=== PATIENT | male | born 1950 | race Caucasian/White ===

== ENCOUNTER → 2018-04-23 09:13 | Outpatient (CLI) | payer OTHER, SELFPAY ==
[2018-04-23 10:35] LABS: ALB/GLOB Ratio 1.2 RATIO (0.9-2.4); AST(SGOT) 22 U/L (15-37); Alanine Aminotransfer ALT/SGPT 34 U/L (16-61); Alkaline Phosphatase 80 U/L (45-117); Anion Gap 5 (5-15); BUN 12 mg/dL (7-18); BUN/Creat Ratio 10.3 RATIO (10-20); Calcium,Total 8.9 mg/dL (8.5-10.1); Chloride 106 mmol/L (98-107); Cholesterol 271 mg/dL (200); Creatinine, Serum 1.17 mg/dL (0.70-1.30); EST Glomerular Filtration Rate 66 mL/min (>60); Est Glom Filt Rate - Afr Amer 79 mL/min (>60); Globulin 3.4 g/dL (2.2-4.2); Glucose 97 mg/dL (74-106); High Density Lipoprotein 46 mg/dL; Potassium 4.7 mmol/L (3.5-5.1); Protein, Total 7.4 g/dL (6.4-8.2); Sodium Level 141 mmol/L (136-145); Triglycerides 109 mg/dL; Very Low Density Lipoprotein 22 mg/dL (5-40)
[2018-04-24 09:24] LABS: Hep C Antibodies 0.1 s/co ratio (0.0-0.9)
== END ==
PROVIDERS: Family Provider Family Medicine; PCP Family Medicine; Visit Provider Family Medicine
DX: E78.2 Mixed hyperlipidemia (principal); Z11.59 Encounter for screening for other viral diseases
CPT/HCPCS: 36415; 80053; 80061; 86803

== ENCOUNTER → 2018-06-25 09:39 | Outpatient (CLI) | payer OTHER, SELFPAY ==
[2018-06-25 11:35] LABS: AST(SGOT) 20 U/L (15-37); Alanine Aminotransfer ALT/SGPT 30 U/L (16-61); Albumin, Serum 3.8 g/dL (3.2-5.0); Alkaline Phosphatase 93 U/L (45-117); Anion Gap 8 (5-15); BUN 13 mg/dL (7-18); Bilirubin, Direct 0.17 mg/dL (0.00-0.30); Calcium,Total 9.1 mg/dL (8.5-10.1); Chloride 104 mmol/L (98-107); Cholesterol 204 mg/dL (200); Creatinine, Serum 1.08 mg/dL (0.70-1.30); EST Glomerular Filtration Rate 72 mL/min (>60); Est Glom Filt Rate - Afr Amer 87 mL/min (>60); Glucose 93 mg/dL (74-106); High Density Lipoprotein 44 mg/dL; Potassium 4.2 mmol/L (3.5-5.1); Protein, Total 7.8 g/dL (6.4-8.2); Sodium Level 140 mmol/L (136-145); Triglycerides 121 mg/dL; Very Low Density Lipoprotein 24 mg/dL (5-40)
[2018-06-27 03:06] LABS: HCV Quant. RNA PCR HCV Not Detected IU/mL (.)
== END ==
PROVIDERS: Family Provider Family Medicine; PCP Family Medicine; Referring Provider Family Medicine; Visit Provider Family Medicine
DX: E78.2 Mixed hyperlipidemia (principal); Z11.59 Encounter for screening for other viral diseases
CPT/HCPCS: 36415; 80053; 80061; 82248; 87522

== ENCOUNTER 2018-08-12 09:15 | Outpatient (RCR) | payer OTHER, SELFPAY ==
--- NOTE | 2017-10-15 08:59 | MASS.EVAL ---
Massage Therapy Evaluation: Initial Evaluation Date: 10/13/2017 SUBJECTIVE: Otilio is a 67 year old male who is retired. He was referred to the [facility] facility for a massotherapy evaluation by Dr. Rd Styles with the diagnosis of cervical disk disease. Otilio presents today with the symptoms of tension and pain in his neck, upper back and lower back. He reports having a medical history spinal problems and bilateral total knee replacements. He reports having minimal limitations during his daily activities currently. OBJECTIVE: Upon observation Otilio has poor posture with his head forward and shoulders forward from the neutral position in sitting and standing. After examination and palpation I found Otilio to have very high muscle tension in his scalenes, trapezius, rhomboids, and sub occipitals with restrictions in cervical ROM. His thoracic and lumbar paraspinals were tender with muscle knots. His hips and lumbar region were also very tight with tender points. The first treatment consisted of a one hour massage to his full body with myofascial release, muscle stripping and compression techniques. ASSESSMENT: I feel that Otilio is a good candidate for massotherapy at this time. He had a favorable response to the first treatment with reduction in his muscle aches, pain and tension. He also had improvement in his cervical and lumbar range of motion with improved flexibility in his neck and back. PLAN: The plan of care was reviewed with the patient. The patient is to be seen on as needed basis for a total of ten sessions with the recommendation of once every four weeks for a one hour treatment.
--- NOTE | 2018-09-14 16:38 | MASS.DISCH ---
Massage Therapy Discharge Summary: Initial Evaluation: 10/13/2017 Diagnosis: Cervical Disc Disease No. of Visits: Date of last visit: 08/12/2018 This patient is being discharged from our care at the [facility]. Thank you, Radhika Issa LMT
== END 2018-08-12 19:00 | disposition home or self-care (01) ==
LOC: MASS 09:15
PROVIDERS: Family Provider Family Medicine; PCP Family Medicine; Visit Provider Family Medicine
DX: M50.90 Cervical disc disorder, unspecified, unspecified cervical region (principal)
CPT/HCPCS: 97124

== ENCOUNTER → 2018-09-23 12:03 | Outpatient (CLI) | payer OTHER, SELFPAY ==
[2018-09-23 12:56] LABS: PSA,Total - Annual Screen 2.48 ng/mL (0.00-4.00)
== END ==
PROVIDERS: Family Provider Family Medicine; PCP Family Medicine; Referring Provider Urology; Visit Provider Urology
DX: Z12.5 Encounter for screening for malignant neoplasm of prostate (principal)
CPT/HCPCS: 36415; 84153; G0103

== ENCOUNTER 2018-11-15 05:17 | Day surgery (SDC) | payer OTHER, SELFPAY ==
[2017-11-14 09:17] VITALS: BMI 29.7
[2018-11-15] VITALS (8 sets, daily range): BP systolic 96–156; BP diastolic 75–103; PULSE 63–76; RESP 16–18; TEMP 36.1–36.8; O2SAT 95–100; BMI 27.3
--- NOTE | 2018-11-15 06:27 | PCM.HP.STD ---
Problem List (1) Screening for intestinal cancer Status: Acute History of Present Illness Date of Admission: 11/15/18 The patient is a 68 year old M who presents for screening for intestinal cancer. His last colonoscopy was 14 years ago. He denies bright red blood per rectum or melena. No abdominal pain. He otherwise enjoys good health. He does state however that his mother had colon cancer. He has not had any recent hospitalizations and is not on any anticoagulation. He has not had any unexpected weight loss. Past Medical History Medical History: Medical History (Last Updated 11/14/17 @ 09:19 by Yessica Colón) Cancer C80.1 Allergies Penicillins Allergy (Verified 11/15/18 05:37) Unknown Home Medications: Ambulatory Orders Medication Instructions Recorded Biotin 5,000 mcg PO DAILY 11/11/18 Ginkgo Biloba 450 mg PO DAILY 11/11/18 Lovastatin 20 mg PO QHS 11/11/18 [place]-3/Dha/Epa/Fish Oil [Fish Oil 1 each PO DAILY 11/11/18 1,000 mg Softgel] Saw [place] 500 mg PO DAILY 11/11/18 Surgical History: Surgical History (Last Updated 11/14/17 @ 09:19 by Yessica Colón) H/O total knee replacement Z96.659 Surgical History: noncontributory Smoking Status: Never smoker Review of Systems Constitutional: Denies: Anorexia HEENT: Denies: Difficulty Swallowing Cardiovascular: Denies: Chest Pain Respiratory: Denies: Cough Gastrointestinal: Denies: Abdominal Pain, Hematochezia, Melena Musculoskeletal: Denies: Muscle pain Endocrine: Denies: Change in Body Habitus Hematologic/ Lymphatic: Denies: Adenopathy VTE Information - Inpt Only VTE Present on Admission: No Patient Problems: Active and Suspected Problems (Last Updated 11/14/17 @ 09:19 by Yessica Colón) Screening for intestinal cancer (Acute) - Physical Exam General: Alert, Oriented x3, Cooperative, No apparent distress HEENT: Atraumatic Oral: Moist Mucosa Neck: Supple Lungs: Clear to auscultation Cardiovascular: Regular rate, Regular Rhythm Abdomen: Bowel Sounds Present, Soft, Non Tender Extremities: No Calf Tenderness Psych/Mental Status: Normal Affect Vital Signs Temp Pulse Resp BP Pulse Ox 98.2 F 76 18 146/82 H 99 11/15/18 05:38 11/15/18 05:38 11/15/18 05:38 11/15/18 05:38 11/15/18 05:38 Oxygen Delivery Method Room Air Weight: 201 lb 12.8 oz Body Mass Index (BMI) 27.3 Assessment/Plan All Active Problems (Last Updated 11/14/17 @ 09:19 by Yessica Colón) Screening for intestinal cancer (Acute) I recommended the patient a screening colonoscopy with possible biopsy or polypectomy as indicated. He is aware of the technique, benefits, risks and alternatives. He has had an opportunity to ask and have questions answered. He presents via our open access program today. His is Perla. CC: Dr. Jensen Hunt M.D., F.A.C.S.
--- NOTE | 2018-11-15 06:57 | OP.ENDO_ITS ---
11/15/2018 Rd Styles Re : Colonoscopy procedure for Otilio Torrez Dear Jensen This procedure was performed on Thursday, November 15, 2018. My impressions and recommendations are as follows: Impressions : - Enlarged prostate found on digital rectal exam. Will ask pt. to follow up with Dr Styles - Diverticulosis in the sigmoid colon. - The examination was otherwise normal. - No specimens collected. Recommendations : - Discharge patient to home. - Resume previous diet. - Continue present medications. - Repeat colonoscopy in 5 years for surveillance. My findings are described in the full procedure note, which is enclosed. If I can be of further assistance, please feel free to contact me at Doctor phone number(s): Work: . Sincerely, Иван Hunt MD 11/15/2018 6:56:50 AM This report has been signed electronically.
== END 2018-11-15 08:01 | disposition home or self-care (01) ==
LOC: EN 05:18 → AC 05:19
PROVIDERS: Family Provider Family Medicine; PCP Family Medicine; Referring Provider Surgery; Visit Provider Surgery
PROC: 0DJD8ZZ Inspection of Lower Intestinal Tract, Via Natural or Artificial Opening Endoscopic (ICD-10-PCS; CPT 45378; principal; 2018-11-15 06:25)
DX: Z12.11 Encounter for screening for malignant neoplasm of colon (principal); Z80.0 Family history of malignant neoplasm of digestive organs; N40.0 Benign prostatic hyperplasia without lower urinary tract symptoms; K57.30 Diverticulosis of large intestine without perforation or abscess without bleeding
CPT/HCPCS: 45378; 99152; 99153; J7120

== ENCOUNTER → 2019-05-25 16:40 | Outpatient (CLI) | payer OTHER, SELFPAY ==
[2018-11-15 05:38] VITALS: BMI 27.3
[2019-05-25 17:21] LABS: Anion Gap 3 (5-15); BUN 11 mg/dL (7-18); BUN/Creat Ratio 9.7 RATIO (10-20); Calcium,Total 8.8 mg/dL (8.5-10.1); Chloride 107 mmol/L (98-107); Cholesterol 221 mg/dL (200); Creatinine, Serum 1.13 mg/dL (0.70-1.30); EST Glomerular Filtration Rate 68 mL/min (>60); Est Glom Filt Rate - Afr Amer 82 mL/min (>60); Glucose 87 mg/dL (74-106); High Density Lipoprotein 42 mg/dL; Potassium 3.9 mmol/L (3.5-5.1); Sodium Level 137 mmol/L (136-145); Triglycerides 176 mg/dL; Very Low Density Lipoprotein 35 mg/dL (5-40)
== END ==
PROVIDERS: Family Provider Family Medicine; PCP Family Medicine; Referring Provider Family Medicine; Visit Provider Family Medicine
DX: E78.2 Mixed hyperlipidemia (principal); I10 Essential (primary) hypertension
CPT/HCPCS: 36415; 80048; 80061

== ENCOUNTER → 2019-08-18 06:30 | Outpatient (CLI) | payer OTHER, SELFPAY ==
[2018-11-15 05:38] VITALS: BMI 27.3
[2019-08-18 08:00] LABS: AST(SGOT) 25 U/L (15-37); Alanine Aminotransfer ALT/SGPT 39 U/L (16-61); Albumin, Serum 3.6 g/dL (3.2-5.0); Alkaline Phosphatase 82 U/L (45-117); Bilirubin, Direct 0.11 mg/dL (0.00-0.30); CPK Total, Creatine Kinase 163 U/L (39-308); Cholesterol 211 mg/dL (200); Globulin 3.7 g/dL (2.2-4.2); High Density Lipoprotein 39 mg/dL; Protein, Total 7.3 g/dL (6.4-8.2); Triglycerides 150 mg/dL; Very Low Density Lipoprotein 30 mg/dL (5-40)
== END ==
PROVIDERS: Family Provider Family Medicine; PCP Family Medicine; Referring Provider Physician Assistant; Visit Provider Physician Assistant
DX: E78.2 Mixed hyperlipidemia (principal)
CPT/HCPCS: 36415; 80061; 80076; 82550

== ENCOUNTER → 2019-09-02 17:26 | Outpatient (CLI) | payer OTHER, SELFPAY ==
[2018-11-15 05:38] VITALS: BMI 27.3
[2019-08-26 14:33] VITALS: BMI 27.3
--- NOTE | 2019-09-02 17:42 | MRI_ITS ---
STUDY: MRI CERVICAL SPINE WITH AND WITHOUT CONTRAST REASON FOR EXAM: Male, 69 years old. Bilateral radiculopathy TECHNIQUE: Standardized fat and water weighted pulse sequences were obtained in the sagittal and axial following administration of IV dotarem 18 ml. COMPARISON: None FINDINGS: Normal foramen magnum and brainstem-cervical cord junction. Normal craniovertebral junction. Normal anterior atlantoaxial articulation. Normal odontoid process. Decreased cervical lordosis. Normal vertebral bodies and posterior osseous elements. C2-3: Normal endplates. Normal disc height, signal and morphology. Normal central canal and intervertebral neural foramina. C3-4: Normal endplates. Normal disc height, signal and tiny central disc protrusion.. Normal central canal and intervertebral neural foramina. C4-5: Normal endplates. Normal disc height, signal and small right paracentral/posterolateral disc protrusion. Mild narrowing of the central canal and impingement upon the ventral surface of the cord. Moderate right neural foraminal stenosis secondary to disc and bony hypertrophy C5-6: Minor endplate spurring.. Normal disc height, signal and small right paracentral disc protrusion.. Mild narrowing of the central canal and impinging upon the ventral surface of the cord. Normal bilateral Intervertebral neural foramina. C6-7: Narrowed disc space. No focal disc protrusion. Normal central canal. Severe left neuroforaminal stenosis and moderate narrowing on the right secondary to bony hypertrophy. C7-T1: Normal endplates. Normal disc height, signal and morphology. Normal central canal and intervertebral neural foramina. Normal cervical cord. No abnormal enhancement following contrast administration Normal visualized soft tissue structures. MRI/Spine Cervical W/WO Contrast IMPRESSION: No evidence for acute fracture or other significant bony pathology. Multilevel spinal stenosis secondary to disc disease and bony hypertrophy most pronounced at C6-7. Findings as above Electronically Signed: Demetris Chung MD at 19:46 EST , Service support ,
[2019-09-02 19:11] LABS: CREATININE FINGERSTICK 0.9 mg/dL (0.70-1.30); EGFR FINGERSTICK > 60.0000 mL/min (>60)
== END ==
PROVIDERS: Family Provider Family Medicine; PCP Family Medicine; Referring Provider Family Medicine; Visit Provider Family Medicine
DX: M54.12 Radiculopathy, cervical region (principal); M48.02 Spinal stenosis, cervical region
CPT/HCPCS: 72156; A9575

== ENCOUNTER → 2019-09-06 10:10 | Outpatient (CLI) | payer OTHER, SELFPAY ==
[2019-09-06 10:07] VITALS: BMI 27.1
--- NOTE | 2019-09-06 10:15 | RAD_ITS ---
STUDY: X-RAY - CERVICAL SPINE REASON FOR EXAM: Male, 69 years old. Pain and hand tingling TECHNIQUE: 4 view(s) of the cervical spine were obtained. COMPARISON: 02 September 2019 FINDINGS: Craniocervical junction and cervical spine are intact and aligned. There are age-appropriate degenerative changes at C5, C6 and C7. There is no instability between flexion and extension with minimal range of motion. Prevertebral soft tissues are intact. Appearance is concordant with recent MR. RAD/Cerv Spine 4 or 5 Views IMPRESSION: Age-appropriate cervical spine. Electronically Signed: Dwayne Mcelroy, at 18:56 EST Tel , Service support ,
== END ==
PROVIDERS: Family Provider Family Medicine; PCP Family Medicine; Referring Provider Orthopaedic Surgery; Visit Provider Orthopaedic Surgery
DX: M54.2 Cervicalgia (principal)
CPT/HCPCS: 72050

== ENCOUNTER 2019-09-06 10:45 | Outpatient (RCR) | payer OTHER, SELFPAY ==
--- NOTE | 2018-10-20 10:24 | MASS.EVAL ---
Massage Therapy Evaluation: Initial Evaluation Date: 10/18/2018 SUBJECTIVE: Otilio is a 68 year old male who was referred to the [facility] facility for a massotherapy evaluation by Dr. Styles with the diagnosis of cervical disc disease. Otilio presents today with the symptoms of tension and pain in his neck with radiating pain and numbness in bilateral upper extremities. He also complains of neck and back stiffness. Otilio reports having a medical history of bilateral knee replacements. He reports having improved symptoms with continuation of his exercise and stretching program. OBJECTIVE: Upon observation Otilio has slight head forward in sitting and standing postures. After examination and palpation I found Otilio to have high muscle tension with tenderness and myofascial restrictions in his sub occipitals, levator scapulae, trapezius, rhomboids, scalenes, and thoracic paraspinals. His QL?s, lumbar paraspinals, glute medius and minimus all were very tight with fascial restrictions, tender points and trigger points. The first treatment consisted of a one hour massage to his full body with myofascial release, muscle stripping, trigger point compression techniques, and cervical manual traction. ASSESSMENT: I feel that Otilio is a good candidate for massotherapy at this time. He had a favorable response to the first treatment with reduction in his muscle aches, pain and tension. He also had improvement in his cervical flexibility and low back flexibility. PLAN: The plan of care was reviewed with the patient. The patient is to be seen on an as needed basis for a total of ten sessions with the recommendation of once every month for a one hour treatment.
--- NOTE | 2019-09-06 15:58 | DS.PCM_ITS ---
Massage Therapy Discharge Summary: Discharge Date: 09/06/2019 Otilio was seen for a massotherapy evaluation on 10/18/2018 with the cervical disc disease. He was treated with ten sessions of massage therapy consisting of moderate to deep pressure soft tissue techniques, myofascial release and trigger point compression to her cervical, thoracic, lower back, upper extremities, hips and lower extremities. Otilio responded well to the therapy by reporting decreased tension and pain throughout his head, neck, shoulders, lower back and hips. His goals for therapy were met throughout the treatment sessions. At this time this patient is being discharged from our care at [facility] facility.
== END 2019-09-06 19:00 | disposition home or self-care (01) ==
LOC: MASS 10:45
PROVIDERS: Family Provider Family Medicine; PCP Family Medicine; Referring Provider Family Medicine; Visit Provider Family Medicine
DX: M50.80 Other cervical disc disorders, unspecified cervical region (principal)
CPT/HCPCS: 97124

== ENCOUNTER → 2019-10-21 10:52 | Outpatient (CLI) | payer OTHER, SELFPAY ==
[2019-09-06 10:07] VITALS: BMI 27.1
--- NOTE | 2019-10-21 12:12 | NEURO ---
NCS and/or EMG Patient Report Ordering Doctor: Shikha Davis DATE OF SERVICE: 10/21/19 Otilio Torrez Jr. is a 69-year-old male presents for electrodiagnostic testing of the upper limbs. He reports numbness and tingling in both hands, worse on the left side. Electrodiagnostic findings: Median motor nerve demonstrates prolonged distal latency bilaterally with normal amplitude and reduced conduction velocity. Normal ulnar motor response bilaterally, including conduction across the elbow. Prolonged median F wave is noted bilaterally. Normal ulnar F waves bilaterally. Median sensory response is unobtainable at the wrist or palm. Normal ulnar and radial sensory responses. On needle EMG, muscle test in the upper limb showed no evidence of denervation with normal motor unit action potentials. Electrodiagnostic impression: This is an abnormal study in the upper limbs. 1. Electrodiagnostic findings demonstrate bilateral median mononeuropathy. This is consistent with an advanced bilateral carpal tunnel syndrome. 2. There is no electrodiagnostic evidence for cervical radiculopathy. If there are any further questions, please do not hesitate to contact me.
== END ==
PROVIDERS: Family Provider Family Medicine; PCP Family Medicine; Referring Provider Orthopaedic Surgery; Visit Provider Orthopaedic Surgery
DX: G56.03 Carpal tunnel syndrome, bilateral upper limbs (principal)
CPT/HCPCS: 95886; 95912

== ENCOUNTER → 2020-03-15 14:37 | Outpatient (CLI) | payer OTHER, SELFPAY ==
[2019-10-27 09:34] VITALS: BMI 27.1
--- NOTE | 2020-03-15 14:38 | RAD_ITS ---
STUDY: X-RAY - RIGHT SHOULDER REASON FOR EXAM: Chronic pain. TECHNIQUE: 3 view(s) of the shoulder. COMPARISON: None. FINDINGS: Normal glenohumeral articulation. There is acromioclavicular arthrosis with undersurface osteophytes. Normal acromion. Normal humeral head and visualized proximal humerus. The soft tissue structures are unremarkable. Normal visualized pulmonary apex. RAD/Shoulder min 2 Views IMPRESSION: Acromioclavicular arthrosis. Electronically Signed: Sergo Neff MD at 15:13 EDT Tel , Service support ,
== END ==
PROVIDERS: PCP Family Medicine; Referring Provider Orthopaedic Surgery; Visit Provider Orthopaedic Surgery
DX: M25.511 Pain in right shoulder (principal)
CPT/HCPCS: 73030

== ENCOUNTER 2020-04-18 09:00 | Outpatient (RCR) | payer OTHER, SELFPAY ==
[2020-03-15 14:38] VITALS: BMI 27.1
--- NOTE | 2020-03-27 09:54 | HP.PTEVAL ---
Patient's Visit Information PUNEET MILLER Jr. is a 70 year old M referred to Physical Therapy by Dr. Yoly Wilson DO with a diagnosis of RIGHT SHOULDER PAIN ,INFLAMMATION. Date of Evaluation: 03/27/20 Physical Therapist: Antoine Echeverria, PT, Cert MDT, OCS - Visit Plan Frequency: 2x /Week Duration: 4 Weeks Plan: PT INTERVENTION RTC/SCAPULAR STRENGTHENING ,POSTURAL EX'S, MAY USE MODALTIES FOR PAIN US/ESTIM NEEDED - Subjective This 70 y/o male presents to physical therapy with right shoulder pain. Patient developed right shoulder pain about month woke up pain unable to raise arm. Seen Dr 2 weeks ago ,recommended PT ,did x-rays OA arthrosis. Patient did tear barn possibel good have irritaed shoulder. Patient pain is intermittant ,today no pain. Patient also has pain interrmitant in mornin. Patient pain aggraveting with mowing grass. Pateint reports no pain. Denies parathesia/tingling. Symptoms 8-9/10 on pain scale. VOCATION: retired. SOCAIL: - Objective POSTURE: mild foward head rounded shoulders. PALPATION: tender anterior,long head bicep tender. NEURO: denies parathsia/tingling. AROM: shoulder flexion 160 degrees,abduction 160 degrees mild pain OP ,ER 90 degrees ,IR reach bask eccentric. MMT: RTC 4/5,deltoid 4-/5 no pain - Special Tests C/S Radiculapathy - Left Upper limb tension test: Negative C/S Radiculapathy - Right Upper limb tension test: Negative R Shoulder External Rotation Lag Test - RC Tear: Negative R Shoulder Lift Off Test - Subscapular Tear: Negative R Shoulder Drop Sign - IS Test: Negative R Shoulder Empty Can - SS: Negative R Shoulder Belly Press - SupScap: Negative R Shoulder Neer - Impingement: Negative R Shoulder Bateman Santhosh - Impingement: Negative - Goals Goal 1:: Independant with HEP. Goal Time Frame: 2-4 Weeks Goal 2:: Patient to decrease pain 75% with functional activies with symptoms less intermitant Goal Time Frame: 2-4 Weeks Goal 3:: Patient improve posture for ADL's Goal Time Frame: 2-4 Weeks Goal 4:: Patient improve shoulder dash by 5 points or > to improve QOL. Goal Time Frame: 2-4 Weeks - Rehabilitation Potential Physical Therapy Diagnosis: This patient has impingement right shoulder imingement with pain has been intermittant in morning and certain motions RTC strength good pain intermttant at night Rehabilitation Potential: Good - Anticipated Interventions Patient/Client Instruction: Educate patient on: Condition, Plan of Care For the Purpose of:: To decrease pain, To increase ROM, To improve muscle performance and motor function, To improve ability to perform ADL's, To increase tolerance to activity/condition/position, To improve ability of physical actions for home/community/work/leisure, To improve health of tissue, To decrease soft tissue restriction, To increase flexibility/ROM, To reduce risk of recurrence, To improve ability to perform tasks related to life management Therapeutic Exercise to Include: Strength training, Postural training, Flexibilty training, Active ROM, Scapular Strength/Stabilization For the Purpose of:: To decrease pain, To increase ROM, To improve ability of physical actions for home/community/work/leisure, To improve health of tissue, To decrease soft tissue restriction, To increase flexibility/ROM, To improve ability to perform tasks related to life management TENS: Yes IF ES: Yes Cryotherapy (ice pack, ice massage): Yes Thermo therapy (hot pack): Yes Ultrasound (thermal/non thermal): Yes For the Purpose of:: To decrease pain, To increase ROM, To improve nutrient delivery to tissue, To increase oxygenation perfusion, To improve health of tissue, To decrease soft tissue restriction Thank you for the opportunity to evaluate your patient. For Medicare and Medicare HMO plans, please review the plan of care and approve it. It will need to be FAXED BACK to us at [phone] for Medicare purposes. For Medicare only, by signing this I certify the plan of care. Please let me know if there are questions or concerns regarding this plan of care. Physician Signature: Date:
--- NOTE | 2020-07-30 16:28 | HP.PT.NRP ---
PUNEET MILLER Jr. was seen in my office for initial evaluation on 03/27/20. The following Plan of Care was established for this patient: Initial Frequency: 2x /Week Initial Duration: 4 Weeks Patient/Client Instruction: Educate patient on: Condition, Plan of Care For the Purpose of:: To decrease pain, To increase ROM, To improve muscle performance and motor function, To improve ability to perform ADL's, To increase tolerance to activity/condition/position, To improve ability of physical actions for home/community/work/leisure, To improve health of tissue, To decrease soft tissue restriction, To increase flexibility/ROM, To reduce risk of recurrence, To improve ability to perform tasks related to life management Therapeutic Exercise to Include: Strength training, Postural training, Flexibilty training, Active ROM, Scapular Strength/Stabilization For the Purpose of:: To decrease pain, To increase ROM, To improve ability of physical actions for home/community/work/leisure, To improve health of tissue, To decrease soft tissue restriction, To increase flexibility/ROM, To improve ability to perform tasks related to life management TENS: Yes IF ES: Yes Cryotherapy (ice pack, ice massage): Yes Thermo therapy (hot pack): Yes Ultrasound (thermal/non thermal): Yes For the Purpose of:: To decrease pain, To increase ROM, To improve nutrient delivery to tissue, To increase oxygenation perfusion, To improve health of tissue, To decrease soft tissue restriction This patient was last seen in our office 04/18/20. Pertinent comments regarding their Physical therapy will appear below: Patient seen for PT for modalties and strengthening RTC and postural ex's. Patient had MRI thus is d/c At this point I will be discontinuing this patient from physical therapy. I would be happy to see this patient again in the future if found appropriate by the physician. Thank you! Antoine Echeverria, PT, Cert MDT, OCS
== END 2020-04-18 19:00 | disposition home or self-care (01) ==
LOC: PT 09:00
PROVIDERS: PCP Family Medicine; Referring Provider Orthopaedic Surgery; Visit Provider Orthopaedic Surgery
DX: M25.511 Pain in right shoulder (principal)
CPT/HCPCS: 97014; 97035; 97110; 97162; G0283

== ENCOUNTER → 2020-04-21 07:31 | Outpatient (CLI) | payer OTHER, SELFPAY ==
[2020-04-17 09:07] VITALS: BMI 27.1
--- NOTE | 2020-04-21 07:31 | MRI_ITS ---
STUDY: MRI RIGHT SHOULDER REASON FOR EXAM: Male, 70 years old. RIGHT shoulder derangement, Constant RIGHT shoulder pain, worse with movement, TECHNIQUE: Standardized fat and water weighted pulse sequences were obtained in all 3 orthogonal planes. COMPARISON: X-ray March 15, 2020. FINDINGS: Tendinosis of the supraspinatus and infraspinatus and partial intrasubstance distal tendon tear, series 7 images 08/18 and 09/17 . Tendinosis of the subscapularis with thickening. Normal teres minor tendon. Normal supraspinatus muscle. Normal infraspinatus muscle. Normal subscapularis muscle. Normal teres minor muscle. Normal glenohumeral articulation. There is small joint effusion. Normal humeral head and visualized proximal humerus. Normal biceps labral complex. Normal intracapsular long biceps tendon. Normal labrum. Normal capsulo- ligamentous complex. Normal rotator interval. 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 There is a Type II morphology (curved) acromion, with a neutral orientation. There is minimal fluid distention of the subacromial bursa, consistent with mild subacromial-subdeltoid bursitis. Normal visualized coracohumeral and coracoacromial ligaments. Normal quadrilateral space. Normal axillary space. Normal deltoid muscle. Normal trapezius muscle. MRI/Upper Ext Joint Only(Routine) IMPRESSION: Tendinosis of the supraspinatus and infraspinatus with partial tear. No full-thickness rotator cuff tear. Acromioclavicular spurring with impingement. Joint effusion. Subacromial subdeltoid bursitis. Electronically Signed: Ray Rai MD at 14:46 EDT , Service support ,
[2020-04-21 07:45] LABS: Absolute Lymphocyte Count 1.57 X10^3/uL (0.83-4.51); Absolute Neutrophil Count 3.4 X10^3/uL (2.0-7.7); Eosinophil# 0.04 X10^3/uL; Eosinophils% 0.7 % (0-5); Hemoglobin 12.4 g/dL (13.0-16.5); Lymphocyte # 1.57 X10^3/ul (4.0); Lymphocyte % 28.5 % (19-41); Mean Corp Hgb Conc 32.6 g/dL (32-36); Mean Corpuscular Hgb 28.6 pg (27.0-32.0); Mean Corpuscular Volume 87.6 fL (80-94); Monocyte# 0.46 X10^3/uL; Monocyte% 8.4 % (0-10); NRBC Flagged by Analyzer 0 % (0-5); Neutrophil # 3.42 X10^3/uL (2.7-7.7); Neutrophil % 62.2 % (47-70); Platelet Count 287 K/mm3 (150-450); RBC Distribution Width CV 12.8 % (11.6-14.6); RBC Distribution Width SD 41.2 fl (35.1-43.9); Red Blood Count 4.34 M/mm3 (4.6-6.2); White Blood Count 5.5 K/mm3 (4.4-11.0)
[2020-04-21 08:09] LABS: ALB/GLOB Ratio 0.9 RATIO (0.9-2.4); AST(SGOT) 15 U/L (15-37); Alanine Aminotransfer ALT/SGPT 28 U/L (16-61); Albumin, Serum 3.5 g/dL (3.2-5.0); Alkaline Phosphatase 93 U/L (45-117); Anion Gap 3 (5-15); BUN 17 mg/dL (7-18); BUN/Creat Ratio 18.4 RATIO (10-20); Calcium,Total 8.7 mg/dL (8.5-10.1); Chloride 107 mmol/L (98-107); Cholesterol 186 mg/dL (200); Creatinine, Serum 0.92 mg/dL (0.70-1.30); EST Glomerular Filtration Rate 86 mL/min (>60); Est Glom Filt Rate - Afr Amer 104 mL/min (>60); Glucose 99 mg/dL (74-106); High Density Lipoprotein 33 mg/dL; Potassium 4.4 mmol/L (3.5-5.1); Protein, Total 7.5 g/dL (6.4-8.2); Sodium Level 137 mmol/L (136-145); Triglycerides 136 mg/dL; Very Low Density Lipoprotein 27 mg/dL (5-40)
== END ==
PROVIDERS: PCP Family Medicine; Referring Provider Orthopaedic Surgery; Visit Provider Orthopaedic Surgery
DX: I10 Essential (primary) hypertension (principal); M24.811 Other specific joint derangements of right shoulder, not elsewhere classified; E78.2 Mixed hyperlipidemia
CPT/HCPCS: 36415; 73221; 80053; 80061; 85025

== ENCOUNTER → 2020-04-25 17:11 | Outpatient (CLI) | payer OTHER, SELFPAY ==
[2020-04-17 09:07] VITALS: BMI 27.1
== END ==
PROVIDERS: PCP Family Medicine; Referring Provider Family Medicine; Visit Provider Family Medicine
DX: D64.9 Anemia, unspecified (principal)
CPT/HCPCS: 82274

== ENCOUNTER → 2020-04-27 10:08 | Outpatient (CLI) | payer OTHER, SELFPAY ==
[2020-04-17 09:07] VITALS: BMI 27.1
[2020-04-27 10:57] LABS: Absolute Lymphocyte Count 1.36 X10^3/uL (0.83-4.51); Absolute Neutrophil Count 4.4 X10^3/uL (2.0-7.7); Basophil# 0.01 X10^3/uL; Basophil% 0.2 % (0-1); Eosinophil# 0.03 X10^3/uL; Eosinophils% 0.5 % (0-5); Hematocrit 36.7 % (40-54); Hemoglobin 11.7 g/dL (13.0-16.5); Lymphocyte # 1.36 X10^3/ul (4.0); Lymphocyte % 21.2 % (19-41); Mean Corp Hgb Conc 31.9 g/dL (32-36); Mean Corpuscular Hgb 27.9 pg (27.0-32.0); Mean Corpuscular Volume 87.4 fL (80-94); Mean Platelet Vol. 9.2 fl (6.2-12.0); Monocyte# 0.56 X10^3/uL; Monocyte% 8.7 % (0-10); NRBC Flagged by Analyzer 0 % (0-5); Neutrophil # 4.43 X10^3/uL (2.7-7.7); Neutrophil % 69.1 % (47-70); Platelet Count 327 K/mm3 (150-450); RBC Distribution Width SD 41.1 fl (35.1-43.9); White Blood Count 6.4 K/mm3 (4.4-11.0)
[2020-04-27 11:25] LABS: Vitamin B12 384 pg/mL (211-911)
[2020-04-27 11:39] LABS: Ferritin 292 ng/mL (26-388); Iron 35 ug/dL (65-175); Iron Binding Capacity,Total 275 ug/dL (250-450); PERCENT IRON SATURATION 12.7 % (15.0-55.0)
== END ==
PROVIDERS: PCP Family Medicine; Referring Provider Family Medicine; Visit Provider Family Medicine
DX: D64.9 Anemia, unspecified (principal)
CPT/HCPCS: 36415; 82607; 82728; 82746; 83540; 83550; 85025

== ENCOUNTER → 2020-05-01 15:42 | Outpatient (CLI) | payer OTHER, SELFPAY ==
[2020-04-17 09:07] VITALS: BMI 27.1
[2020-05-01 15:51] LABS: Lyme Ab Screen Interpretation REF LAB
[2020-05-01 18:00] LABS: Absolute Lymphocyte Count 1.45 X10^3/uL (0.83-4.51); Basophil# 0.01 X10^3/uL; Basophil% 0.2 % (0-1); Eosinophil# 0.05 X10^3/uL; Eosinophils% 0.8 % (0-5); Hematocrit 34.6 % (40-54); Hemoglobin 11.2 g/dL (13.0-16.5); Lymphocyte # 1.45 X10^3/ul (4.0); Lymphocyte % 24.2 % (19-41); Mean Corp Hgb Conc 32.4 g/dL (32-36); Mean Corpuscular Hgb 28.5 pg (27.0-32.0); Mean Platelet Vol. 9.3 fl (6.2-12.0); Monocyte# 0.46 X10^3/uL; Monocyte% 7.7 % (0-10); NRBC Flagged by Analyzer 0 % (0-5); Neutrophil # 3.99 X10^3/uL (2.7-7.7); Neutrophil % 66.8 % (47-70); Platelet Count 342 K/mm3 (150-450); RBC Distribution Width CV 13.1 % (11.6-14.6); RBC Distribution Width SD 41.9 fl (35.1-43.9); Red Blood Count 3.93 M/mm3 (4.6-6.2)
[2020-05-01 18:22] LABS: Rheumatoid Factor < 10.0 IU/mL (<15)
[2020-05-01 18:44] LABS: Erythrocyte Sedimentation Rate 72 mm/hr (0-20)
[2020-05-03 13:41] LABS: ANTINUCLEAR ANTIBODIES DIRECT Negative (Negative)
[2020-05-07 16:45] LABS: CCP IgG Antibodies 5 units (0-19); HLA B27 Negative (.); Lyme Scn Total Ab w/Rflx <0.91 ISR (0.00-0.90)
== END ==
PROVIDERS: PCP Family Medicine; Referring Provider Orthopaedic Surgery; Visit Provider Orthopaedic Surgery
DX: M25.50 Pain in unspecified joint (principal); M79.89 Other specified soft tissue disorders
CPT/HCPCS: 36415; 81374; 85025; 85652; 86038; 86140; 86200; 86431; 86618

== ENCOUNTER → 2020-05-03 16:18 | Outpatient (CLI) | payer OTHER, SELFPAY ==
[2020-05-03 15:56] VITALS: BMI 27.1
--- NOTE | 2020-05-03 16:50 | RAD_ITS ---
STUDY: X-RAY - PELVIS AND RIGHT HIP REASON FOR EXAM: Male, 70 years old. RIGHT HIP PAIN TECHNIQUE: 2 views of the pelvis and hip. COMPARISON: None. FINDINGS: There is a non-specific bowel gas pattern. Normal visualized soft tissue structures. Normal bilateral iliac wings, sacroiliac joints and visualized sacrum. Normal bilateral superior and inferior pubic rami. Normal pubic symphysis. Normal bilateral ischial tuberosities. Normal visualized femoral head. Normal acetabulum. Normal hip joint. RAD/HIP, UNI W/ Pelvis 2-3 Views IMPRESSION: Normal x-ray examination of the pelvis and hip. Electronically Signed: Rd Morillo MD at 17:34 EDT Tel , Service support ,
[2020-05-03 17:48] LABS: Absolute Lymphocyte Count 1.53 X10^3/uL (0.83-4.51); Absolute Neutrophil Count 5.1 X10^3/uL (2.0-7.7); Basophil# 0.01 X10^3/uL; Basophil% 0.1 % (0-1); Eosinophil# 0.04 X10^3/uL; Eosinophils% 0.6 % (0-5); Hemoglobin 11.6 g/dL (13.0-16.5); Lymphocyte # 1.53 X10^3/ul (4.0); Lymphocyte % 21.1 % (19-41); Mean Corp Hgb Conc 31.4 g/dL (32-36); Mean Corpuscular Hgb 27.8 pg (27.0-32.0); Mean Corpuscular Volume 88.7 fL (80-94); Monocyte# 0.56 X10^3/uL; Monocyte% 7.7 % (0-10); NRBC Flagged by Analyzer 0 % (0-5); Neutrophil # 5.08 X10^3/uL (2.7-7.7); Neutrophil % 70.1 % (47-70); Platelet Count 375 K/mm3 (150-450); RBC Distribution Width CV 13.2 % (11.6-14.6); RBC Distribution Width SD 42.9 fl (35.1-43.9); RET-HE 31.3 pg (30-35); Red Blood Count 4.17 M/mm3 (4.6-6.2); Reticulocyte Count 1.09 % (0.5-1.5); White Blood Count 7.3 K/mm3 (4.4-11.0)
[2020-05-03 18:02] LABS: BNP,B-Type NATRIURETIC PEPTIDE 32.6 pg/mL (0-100)
[2020-05-03 18:10] LABS: LDH 160 U/L (87-241); PSA,Total- Diagnostic 3.81 ng/mL (0.0-4.0); Thyroid Stim Hormone (TSH) 3.32 uIU/mL (0.358-3.74)
[2020-05-03 18:23] LABS: Erythrocyte Sedimentation Rate 52 mm/hr (0-20)
== END ==
PROVIDERS: PCP Family Medicine; Visit Provider Family Medicine
DX: D64.9 Anemia, unspecified (principal); R70.0 Elevated erythrocyte sedimentation rate; R53.83 Other fatigue
CPT/HCPCS: 36415; 73502; 83615; 83880; 84153; 84443; 85025; 85045; 85652; 86140

== ENCOUNTER → 2020-05-04 11:00 | Outpatient (CLI) | payer OTHER, SELFPAY ==
[2020-05-01 16:02] VITALS: BMI 27.1
[2020-05-03 15:56] VITALS: BMI 27.1
--- NOTE | 2020-05-04 11:02 | VDLE_ITS ---
Reason For Study: Swelling RIGHT LEFT GSV is normal. GSV is normal. CFV is compressible, spontaneous, phasic, CFV is compressible, spontaneous, phasic, competent and demonstrates normal competent, and demonstrates normal augmentation. augmentation. FV is compressible, spontaneous, phasic, FV is compressible, spontaneous, phasic, competent and demonstrates normal competent and demonstrates normal augmentation. augmentation. POP V is compressible, spontaneous, phasic, POP V is compressible, spontaneous, phasic, competent and demonstrates normal competent and demonstrates normal augmentation. augmentation. T/P Trunk is compressible. T/P Trunk is compressible. PTV is compressible. PTV is compressible. RT PerV is compressible. LT PerV is compressible. Procedure Nonvascularized structure noted in the Exam performed in department. popliteal fossa measuring approximently 1.91 A preliminary report was called and/or faxed x 2.65 x 5.90 cm. to [facility]. Interpretation Summary Deep veins of the lower extremities are bilaterally patent and compressible segmentally. There is no evidence of deep vein thrombosis on either side. Valvular competence appears intact within the proximal deep venous systems bilaterally. The great saphenous veins appear bilaterally patent and compressible segmentally. A non-vascular, hypoechoic structure is noted in the left popliteal space, measuring 1.91 cm x 2.65 cm x 5.90 cm. This may represent a popliteal cyst. Clinical correlation is advised. Ordering Physician: Rd Styles Referring Physician: Rd Styles Performed By: Stefany Robertson RVT and Student
== END ==
PROVIDERS: PCP Family Medicine; Referring Provider Family Medicine; Visit Provider Family Medicine
DX: R22.43 Localized swelling, mass and lump, lower limb, bilateral (principal); M79.89 Other specified soft tissue disorders
CPT/HCPCS: 93970

== ENCOUNTER → 2020-05-12 09:02 | Outpatient (CLI) | payer OTHER, SELFPAY ==
[2020-05-07 07:49] VITALS: BMI 26.9
[2020-05-12 09:15] LABS: Lyme Ab Screen Interpretation REF LAB
[2020-05-12 09:51] LABS: Hemoglobin 12.5 g/dL (13.0-16.5); Mean Corp Hgb Conc 32.1 g/dL (32-36); Mean Corpuscular Hgb 27.7 pg (27.0-32.0); Mean Corpuscular Volume 86.5 fL (80-94); Mean Platelet Vol. 8.7 fl (6.2-12.0); Platelet Count 383 K/mm3 (150-450); RBC Distribution Width CV 13.6 % (11.6-14.6); RBC Distribution Width SD 42.5 fl (35.1-43.9); Red Blood Count 4.51 M/mm3 (4.6-6.2); White Blood Count 10.6 K/mm3 (4.4-11.0)
[2020-05-12 09:56] LABS: Erythrocyte Sedimentation Rate 44 mm/hr (0-20)
[2020-05-12 10:06] LABS: CRP 7.63 mg/L (0.0-3.0)
[2020-05-14 14:07] LABS: PROEL- Albumin 3.4 g/dL (2.9-4.4); PROEL- Alpha-1 Globulin 0.2 g/dL (0.0-0.4); PROEL- Beta Globulin 1.1 g/dL (0.7-1.3); PROEL- Gamma Globulin 1.2 g/dL (0.4-1.8); PROEL- Globulin, Total 3.5 g/dL (2.2-3.9); PROEL- TOTAL PROTEIN 6.9 g/dL (6.0-8.5)
[2020-05-14 15:25] LABS: Lyme Scn Total Ab w/Rflx <0.91 ISR (0.00-0.90)
[2020-05-14 20:30] LABS: Anti-Nuclear Antibody Test Negative (.)
== END ==
PROVIDERS: PCP Family Medicine; Referring Provider Physician Assistant; Visit Provider Physician Assistant
DX: D50.9 Iron deficiency anemia, unspecified (principal); M25.40 Effusion, unspecified joint; R79.82 Elevated C-reactive protein (CRP); M25.50 Pain in unspecified joint
CPT/HCPCS: 36415; 84165; 84550; 85027; 85652; 86038; 86140; 86618

== ENCOUNTER 2020-05-18 05:22 | Day surgery (SDC) | payer OTHER, SELFPAY ==
[2020-05-07 07:49] VITALS: BMI 26.9
[2020-05-18 05:47] VITALS: BP 150/88; PULSE 90; RESP 16; TEMP 36.6; O2SAT 100; BMI 26.6
[2020-05-18] MEDS: Lactated Ringers 1,000 ML 100 ML IV (05:52)
--- NOTE | 2020-05-18 06:08 | HP.PCM_ITS ---
Problem List (1) Iron deficiency anemia Status: Acute Qualifiers: History and Physical Date of Admission: 05/18/20 Intake Visit Reasons: Anemia C-Scope Allergies Penicillins Allergy (Verified 05/07/20 07:50) Unknown Medications Biotin 5,000 mcg PO DAILY 11/11/18 [History Confirmed 04/17/20] Ginkgo Biloba 450 mg PO DAILY 11/11/18 [History Confirmed 04/17/20] [place]-3/Dha/Epa/Fish Oil [Fish Oil 1,000 mg Softgel] 1 ea PO DAILY 11/11/18 [History Confirmed 04/17/20] Saw [place] 500 mg PO DAILY 11/11/18 [History Confirmed 04/17/20] ferrous sulfate 325 mg (65 mg iron) tablet 325 mg PO BID 05/07/20 [History Confirmed 05/07/20] lisinopril 10 mg tablet 10 mg PO DAILY 05/07/20 [History Confirmed 05/07/20] prednisone 5 mg tablets in a dose pack See Rx Instructions PO PER PKG DIR [History] psyllium husk 0.4 gram capsule 0.4 g PO DAILY 05/07/20 [History Confirmed 05/07/20] PFSH Family History Father Cancer lung Mother Cancer Colon cancer Social History (Updated 05/07/20 @ 08:[address] Иван Hunt MD) Smoking Status: Never smoker alcohol intake: never HPI HPI HPI: PUNEET MILLER, is a 70 M who presents to the office today for who was referred by Dr. Rd Styles for surgical consultation regarding mild anemia. A written copy of my surgical consult recommendations will be returned to Dr. Styles patient has had a recent hemoglobin 11.7. Iron 35 and iron saturation 12.7 with a TIBC of 275. However he is also been complaining of myalgias and joint pain as well as extremity swelling. He is found to have markedly elevated ESR and CRP. He is being evaluated for possible polymyalgia rheumatica. He has been initiated on steroids. He does have a family history of colon cancer. His last colonoscopy was 2018. He has been on chronic NSAID therapy. He prior to that did not notice any bright red blood per rectum or melena. He has however noticed some mucus in his stool. Since starting prednisone for his swelling his right and left foot and right hand swelling has resolved. He has currently stopped his NSAIDs treatment. He does have a family history of colon cancer in his mother. His colonoscopy of October 2018 demonstrated a enlarged prostate but otherwise was unremarkable. By report a recent stool card was negative HPI HPI HPI: PUNEET MILLER, is a 70 M who presents to the office today for Exam Const General: cooperative, healthy appearing, comfortable, no acute distress Nutritional Appearance: average body habitus Orientation: alert, awake HENMT Head: normal to inspection Eyes General: appearance normal, both eyes and all related structures Resp Effort & Inspection: normal respiratory effort Auscultation: clear to auscultation bilaterally Cardio Rate: regular rate Rhythm: regular rhythm GI Palpation: soft Auscultation: normal bowel sounds Musc Cervical Spine: normal cervical lordosis Skin General: no rashes or lesions noted Neuro Cognition: normal cognition Extrem General: no calf tenderness Psych Affect: normal affect Assessment & Plan Problems 1. Other iron deficiency anemia D50.8 Plan 70-year-old gentleman with mild iron deficiency anemia at risk for either upper GIs source loss due to chronic NSAID therapy or lower GI loss with a family history of colon cancer. He has had a slight change of bowel habit with mucus per rectum. He has ongoing primary care work-up for his elevated CRP and ESR and diffuse swelling problems felt to be a acute rheumatologic disease. This chronic disease may simply correlate with his anemia. However after extensive discussion with the patient and his they are very much interested in excluding other potential etiologies for blood loss. I propose for him a combined esophagogastroduodenoscopy with possible biopsy and colonoscopy with possible biopsy or polypectomy as indicated. He is aware of the technique, benefit, risk of alternatives. We will schedule and proceed at his discretion. Because of the double procedure we will anticipate proceeding with monitored anesthesia care. He is aware of Covid-19 pandemic and that the [facility] is currently reporting a low local incidence. We will schedule and proceed at his discretion. I appreciate the ongoing opportunity of assisting with his surgical care. Cc: Dr. Rd Hunt M.D., F.A.C.S. Orders Orders: Colonoscopy Today EGD Today Coding Level of Care Code 79831 Diagnoses Other iron deficiency anemia D50.8 ??Iron deficiency anemia type: other iron deficiency I have re-examined the patient. There are no clinical changes since date of exam. Procedure Criteria Procedure Type: Elective COVID Risk Discussion: The surgeon/proceduralist and patient have discussed in detail the risk of exposure to and/or potential harm posed by the COVID-19 virus with having a surgery/procedure at this time versus the risk of delaying the surgery/procedure. It is not possible to know either the risk of delaying the surgery or procedure or chance of getting an infection with perfect accuracy, but a joint decision was made between the patient and the surgeon/proceduralist to proceed at this time with the scheduled surgery/procedure as indicated on the consent form.
--- NOTE | 2020-05-18 06:30 | IMM_PTH ---
PATIENT: PUNEET MILLER LOC: EN U#:[id number] AGE/SX: 70/M ROOM: RE05/18/[address]: Dr. Иван Hunt MD : 1950 BED: DIS: 05/18/2020 SPEC #: [id number] RECD: 05/18/20 11:21 STATUS: SHEREEN REQ #: [id number] ALEX: 05/18/20 06:[address]: Иван Hunt DEPT: IMMUNOHISTOCHEMISTRY RECD BY: Allyssa Oliva ENTERED: 05/18/20 11:21 SP TYPE: IMMUNO OTHR DR: Dr. Rd Styles MD Tissues: B - Stomach, NOS Procedures: H Pylori (initial) PHYSICIAN & INSTITUTION [place] [address] SPECIMEN INFORMATION: Tissue Source: B - Antrum biopsy Clinical Info: Iron deficiency anemia Specimen Number: [id number] CPT code: 74866 METHODOLOGY: Deparaffinized sections of prefer/formalin-fixed tissue or PAP/DQ stained slides are incubated with monoclonal/polyclonal antibodies/oligonucleotide probes. Localization is made via biotin free immunoperoxidase method. Appropriate controls are performed and reacted as expected. Results on target cell population are indicated in the following table: RESULTS: ANTIBODY / CLONE RESULT Block B H Pylori (polyclonal) negative These tests were developed and their performance characteristics determined by [facility]. They may not have been cleared or approved by the U.S. Food and Drug Administration. The FDA has determined that such clearance or approval is not necessary. INTERPRETATION: B. Antrum biopsy: Negative for Helicobacter pylori organisms. SJ:paul 05/22/20
--- NOTE | 2020-05-18 06:30 | EGD_PTH ---
PATIENT: PUNEET MILLER LOC: EN U#:[id number] AGE/SX: 70/M ROOM: RE05/18/[address]: Dr. Иван Hunt MD : 1950 BED: DIS: 05/18/2020 SPEC #: [id number] RECD: 05/18/20 10:17 STATUS: SHEREEN MATILDE #: [id number] ALEX: 05/18/20 06:[address]: Иван Hunt DEPT: SURGICAL PATHOLOGY RECD BY: Rufus Vaughn ENTERED: 05/18/20 11:36 SP TYPE: EGD BIOPSY OT DR: Dr. Rd Styles MD Tissues: A - Duodenum, NOS B - Gastric mucous membrane C - Esophageal mucous membrane D - Esophageal mucous membrane E - COLON BIOPSY Procedures: Special Stain Group II Surgery Specimen Level IV Alcian Blue/PAS (control) HEADER OPERATION: [place]oscopy, [place] [place] DIAGNOSIS: Iron deficiency anemia TISSUE SUBMITTED: A - Duodenum biopsy, B - Antrum biopsy for histo and H. pylori, C - Distal esophagus biopsy, D - Mid esophagus biopsy, E - Random colonic biopsy MICROSCOPIC DIAGNOSIS A. Duodenum, biopsy: Fragments of duodenal mucosa with mild nonspecific chronic inflammation. B. Antrum, biopsy: Mild gastritis. See microscopic description and comment. C. Gastroesophageal biopsy: Fragments of gastroesophageal mucosa with mild chronic inflammation. Intestinal metaplasia (goblet cell metaplasia) is not identified. See comment. D. Mid esophagus, biopsy: Fragments of squamous epithelium with minimal chronic inflammation. E. Colon, random biopsy: Fragments of colonic mucosa, no pathologic diagnosis. SJ:paul 05/21/20 COMMENT B. The results of immunohistochemistry for Helicobacter pylori will be reported separately ([id number]). C. Alcian blue/PAS stain with matched control is used in the evaluation of the specimen. MICROSCOPIC DESCRIPTION Slides are reviewed. B. The specimen shows fragments of gastric mucosa with chronic inflammatory cell infiltrates in the lamina propria consisting of lymphocytes and plasma cells, consistent with mild chronic gastritis. GROSS DESCRIPTION A - Received in fixative is one container labeled with the patient's name and designated duodenum biopsy. The specimen consists of two irregular fragments of light mayer soft tissue that in aggregate measure 0.4 x 0.2 x 0.1 cm. The specimen is totally submitted in one cassette. B - Received in fixative is one container labeled with the patient's name and designated antrum biopsy. The specimen consists of one irregular fragment of light mayer soft tissue that measures 0.4 x 0.3 x 0.1 cm. The specimen is totally submitted in one cassette. C - Received in fixative is one container labeled with the patient's name and designated distal esophageal biopsy. The specimen consists of two irregular fragments of light mayer soft tissue that in aggregate measure 0.8 x 0.4 x 0.1 cm. The specimen is totally submitted in one cassette. D - Received in fixative is one container labeled with the patient's name and designated mid esophagus biopsy. The specimen consists of multiple irregular fragments of light mayer soft tissue that in aggregate measure 0.5 x 0.3 x 0.1 cm. The specimen is totally submitted in one cassette. E - Received in fixative is one container labeled with the patient's name and designated random colonic biopsy. The specimen consists of multiple irregular fragments of light mayer soft tissue that in aggregate measure 1.5 x 0.3 x 0.1 cm. The specimen is totally submitted in one cassette. / SJ:paul 05/18/20 TC:3 CPT: 03120 x5, 79276
[2020-05-18 06:54] VITALS: BP 119/76; BP 150/88; PULSE 78; RESP 16; TEMP 35.9; O2SAT 97
--- NOTE | 2020-05-18 06:58 | OP.EGD_ITS ---
Patient Name: Otilio Torrez Procedure Date: 05/18/2020 6:19 AM Date of : 1950 Age: 70 Procedure: Upper GI endoscopy Indications: Iron deficiency anemia Providers: Иван Hunt MD Referring MD: Иван Hunt MD Medicines: See the Anesthesia note for documentation of the administered medications Complications: No immediate complications. Procedure: Pre-Anesthesia Assessment: - Prior to the procedure, a History and Physical was performed, and patient medications and allergies were reviewed. The patient's tolerance of previous anesthesia was also reviewed. The risks and benefits of the procedure and the sedation options and risks were discussed with the patient. All questions were answered, and informed consent was obtained. Prior Anticoagulants: The patient has taken no previous anticoagulant or antiplatelet agents. ASA Grade Assessment: II - A patient with mild systemic disease. After reviewing the risks and benefits, the patient was deemed in satisfactory condition to undergo the procedure. After obtaining informed consent, the endoscope was passed under direct vision. Throughout the procedure, the patient's blood pressure, pulse, and oxygen saturations were monitored continuously. The gastroscope was introduced through the mouth, and advanced to the second part of duodenum. The upper GI endoscopy was accomplished without difficulty. The patient tolerated the procedure well. Scope In: 6:31:38 AM Scope Out: 6:37:29 AM Total Procedure Duration Time 0 hours 5 minutes 51 seconds Findings: A small hiatal hernia was present. The Z-line was regular and was found 40 cm from the incisors. Biopsies were taken with a cold forceps for histology distal esophagus The mid esophagus was normal. Biopsies were taken with a cold forceps for histology. The entire examined stomach was normal. Biopsies were taken with a cold forceps for histology of the antrum The examined duodenum was normal. Biopsies were taken with a cold forceps for histology. Impression: - Small hiatal hernia. - Z-line regular, 40 cm from the incisors. Biopsied. - Normal mid esophagus. Biopsied. - Normal stomach. Biopsied. - Normal examined duodenum. Biopsied. Recommendation: - Discharge patient to home. - Resume previous diet. - Continue present medications. - Telephone my office for pathology results in 1 week. Procedure Code(s): --- Professional --- 92919, Esophagogastroduodenoscopy, flexible, transoral; with biopsy, single or multiple Diagnosis Code(s): --- Professional --- K44.9, Diaphragmatic hernia without obstruction or gangrene D50.9, Iron deficiency anemia, unspecified CPT copyright 2017 [employer]. All rights reserved. The codes documented in this report are preliminary and upon job estimator review may be revised to meet current compliance requirements. Иван Hunt MD 05/18/2020 6:57:21 AM This report has been signed electronically. Number of Addenda: 0 Note Initiated On: 05/18/2020 6:19 AM
--- NOTE | 2020-05-18 06:58 | OP.CCLET_ITS ---
05/18/2020 Dion Marino [address] [place] [address] Re : Upper GI endoscopy procedure for Otilio Mcneilevens Dear Dr. Marino This procedure was performed on Monday, May 18, 2020. My impressions and recommendations are as follows: Impressions : - Small hiatal hernia. - Z-line regular, 40 cm from the incisors. Biopsied. - Normal mid esophagus. Biopsied. - Normal stomach. Biopsied. - Normal examined duodenum. Biopsied. Recommendations : - Discharge patient to home. - Resume previous diet. - Continue present medications. - Telephone my office for pathology results in 1 week. My findings are described in the full procedure note, which is enclosed. If I can be of further assistance, please feel free to contact me at Doctor phone number(s): Work: . Sincerely, Иван Hunt MD 05/18/2020 6:57:21 AM This report has been signed electronically.
[2020-05-18 07:00] VITALS: BP 118/80; BP 150/88; PULSE 78; RESP 16; O2SAT 98
--- NOTE | 2020-05-18 07:00 | OP.CCLET_ITS ---
05/18/2020 Rd Styles Re : Colonoscopy procedure for Otilio Yan Jensen This procedure was performed on Monday, May 18, 2020. My impressions and recommendations are as follows: Impressions : - Non-thrombosed internal hemorrhoids, internal hemorrhoids that prolapse with straining, but spontaneously regress to the resting position (Grade II) and enlarged prostate found on digital rectal exam. - Diverticulosis in the sigmoid colon. Biopsied. - The examination was otherwise normal. Recommendations : - Discharge patient to home. - Resume previous diet. - Continue present medications. - Repeat colonoscopy in 10 years for screening purposes. - Telephone my office for pathology results in 1 week. My findings are described in the full procedure note, which is enclosed. If I can be of further assistance, please feel free to contact me at Doctor phone number(s): Work: . Sincerely, Иван Hunt MD 05/18/2020 7:00:16 AM This report has been signed electronically.
--- NOTE | 2020-05-18 07:00 | OP.COLON_ITS ---
Patient Name: Otilio Torrez Procedure Date: 05/18/2020 6:37 AM Date of : 1950 Age: 70 Procedure: Colonoscopy Indications: Iron deficiency anemia Providers: Иван Hunt MD Referring MD: Иван Hunt MD Medicines: See the Anesthesia note for documentation of the administered medications Patient Profile: Last Colonoscopy: none. The patient's first colonoscopy is today. Complications: No immediate complications. Procedure: Pre-Anesthesia Assessment: - Prior to the procedure, a History and Physical was performed, and patient medications and allergies were reviewed. The patient's tolerance of previous anesthesia was also reviewed. The risks and benefits of the procedure and the sedation options and risks were discussed with the patient. All questions were answered, and informed consent was obtained. Prior Anticoagulants: The patient has taken no previous anticoagulant or antiplatelet agents. ASA Grade Assessment: II - A patient with mild systemic disease. After reviewing the risks and benefits, the patient was deemed in satisfactory condition to undergo the procedure. After I obtained informed consent, the scope was passed under direct vision. Throughout the procedure, the patient's blood pressure, pulse, and oxygen saturations were monitored continuously. The colonoscope was introduced through the anus and advanced to the cecum, identified by appendiceal orifice and ileocecal valve. The colonoscopy was performed without difficulty. The patient tolerated the procedure well. The quality of the bowel preparation was good. The ileocecal valve and the appendiceal orifice were photographed. Scope In: 6:40:06 AM Scope Withdrawal Time 0 hours 7 minutes 1 second Scope Out: 6:50:52 AM Total Procedure Duration Time 0 hours 10 minutes 46 seconds Findings: The digital rectal exam findings include non-thrombosed internal hemorrhoids, internal hemorrhoids that prolapse with straining, but spontaneously regress to the resting position (Grade II) and enlarged prostate. Multiple diverticula were found in the sigmoid colon. Biopsies for histology were taken with a cold forceps from the entire colon for evaluation of microscopic colitis. The exam was otherwise without abnormality. Impression: - Non-thrombosed internal hemorrhoids, internal hemorrhoids that prolapse with straining, but spontaneously regress to the resting position (Grade II) and enlarged prostate found on digital rectal exam. - Diverticulosis in the sigmoid colon. Biopsied. - The examination was otherwise normal. Recommendation: - Discharge patient to home. - Resume previous diet. - Continue present medications. - Repeat colonoscopy in 10 years for screening purposes. - Telephone my office for pathology results in 1 week. Procedure Code(s): --- Professional --- 48702, Colonoscopy, flexible; with biopsy, single or multiple Diagnosis Code(s): --- Professional --- K64.1, Second degree hemorrhoids D50.9, Iron deficiency anemia, unspecified N40.0, Benign prostatic hyperplasia without lower urinary tract symptoms K57.30, Diverticulosis of large intestine without perforation or abscess without bleeding CPT copyright 2017 [place]. All rights reserved. The codes documented in this report are preliminary and upon horticulture instructor review may be revised to meet current compliance requirements. Иван Hunt MD 05/18/2020 7:00:16 AM This report has been signed electronically. Number of Addenda: 0 Note Initiated On: 05/18/2020 6:37 AM
[2020-05-18 07:05] VITALS: BP 113/81; BP 150/88; PULSE 78; RESP 16; O2SAT 100
[2020-05-18 07:10] VITALS: BP 123/74; BP 150/88; PULSE 79; RESP 16; TEMP 36.4; O2SAT 98
[2020-05-18 07:17] VITALS: BP 150/88
== END 2020-05-18 07:36 | disposition home or self-care (01) ==
LOC: EN 05:24 → AC 05:25
PROVIDERS: Anesthesiology; PCP Family Medicine; Referring Provider Surgery; Visit Provider Surgery
PROC: 0DJD8ZZ Inspection of Lower Intestinal Tract, Via Natural or Artificial Opening Endoscopic (ICD-10-PCS; CPT 45378; principal; 2020-05-18 06:25)
DX: D50.8 Other iron deficiency anemias (principal); K29.70 Gastritis, unspecified, without bleeding; K44.9 Diaphragmatic hernia without obstruction or gangrene; M79.89 Other specified soft tissue disorders; M25.50 Pain in unspecified joint; M79.10 Myalgia, unspecified site; N40.0 Benign prostatic hyperplasia without lower urinary tract symptoms; K64.8 Other hemorrhoids; K57.30 Diverticulosis of large intestine without perforation or abscess without bleeding; K64.1 Second degree hemorrhoids; Z11.59 Encounter for screening for other viral diseases; Z79.899 Other long term (current) drug therapy; Z80.0 Family history of malignant neoplasm of digestive organs
CPT/HCPCS: 43239; 45380; 87635; 88305; 88313; 88342; 94799; J7120; J2405; U0003

== ENCOUNTER → 2020-05-29 11:57 | Outpatient (CLI) | payer OTHER, SELFPAY ==
[2020-05-18 05:47] VITALS: BMI 26.6
[2020-05-29 13:06] LABS: Erythrocyte Sedimentation Rate 57 mm/hr (0-20)
== END ==
PROVIDERS: PCP Family Medicine; Referring Provider Family Medicine; Visit Provider Family Medicine
DX: M79.10 Myalgia, unspecified site (principal)
CPT/HCPCS: 36415; 85652

== ENCOUNTER → 2020-07-09 10:51 | Outpatient (CLI) | payer OTHER, SELFPAY ==
[2020-07-09 12:48] LABS: Absolute Lymphocyte Count 1.21 X10^3/uL (0.83-4.51); Basophil# 0.01 X10^3/uL; Basophil% 0.2 % (0-1); Eosinophil# 0.01 X10^3/uL; Eosinophils% 0.2 % (0-5); Hematocrit 40.2 % (40-54); Hemoglobin 12.4 g/dL (13.0-16.5); Lymphocyte # 1.21 X10^3/ul (4.0); Lymphocyte % 18.8 % (19-41); Mean Corp Hgb Conc 30.8 g/dL (32-36); Mean Corpuscular Volume 94.1 fL (80-94); Mean Platelet Vol. 9.2 fl (6.2-12.0); Monocyte# 0.19 X10^3/uL; Monocyte% 2.9 % (0-10); NRBC Flagged by Analyzer 0 % (0-5); Neutrophil % 77.4 % (47-70); Platelet Count 295 K/mm3 (150-450); RBC Distribution Width CV 17.2 % (11.6-14.6); RBC Distribution Width SD 58.7 fl (35.1-43.9); Red Blood Count 4.27 M/mm3 (4.6-6.2); White Blood Count 6.5 K/mm3 (4.4-11.0)
[2020-07-09 12:50] LABS: Erythrocyte Sedimentation Rate 8 mm/hr (0-20)
[2020-07-09 13:37] LABS: ALB/GLOB Ratio 0.9 RATIO (0.9-2.4); AST(SGOT) 15 U/L (15-37); Alanine Aminotransfer ALT/SGPT 28 U/L (16-61); Albumin, Serum 3.7 g/dL (3.2-5.0); Alkaline Phosphatase 82 U/L (45-117); Anion Gap 7 (5-15); BUN 12 mg/dL (7-18); BUN/Creat Ratio 11.7 RATIO (10-20); CRP 3.29 mg/L (0.0-3.0); Calcium,Total 9.3 mg/dL (8.5-10.1); Chloride 99 mmol/L (98-107); Creatinine, Serum 1.03 mg/dL (0.70-1.30); EST Glomerular Filtration Rate 76 mL/min (>60); Est Glom Filt Rate - Afr Amer 91 mL/min (>60); Globulin 4.1 g/dL (2.2-4.2); Glucose 127 mg/dL (74-106); Potassium 3.9 mmol/L (3.5-5.1); Protein, Total 7.8 g/dL (6.4-8.2); Sodium Level 134 mmol/L (136-145)
== END ==
PROVIDERS: PCP Family Medicine
DX: M06.09 Rheumatoid arthritis without rheumatoid factor, multiple sites (principal); I10 Essential (primary) hypertension
CPT/HCPCS: 36415; 80053; 85025; 85652; 86140

== ENCOUNTER → 2020-08-27 14:02 | Outpatient (CLI) | payer OTHER, SELFPAY ==
[2020-08-27 14:42] LABS: Erythrocyte Sedimentation Rate 5 mm/hr (0-20)
[2020-08-27 14:43] LABS: Hematocrit 42.3 % (40-54); Hemoglobin 13.4 g/dL (13.0-16.5); Mean Corp Hgb Conc 31.7 g/dL (32-36); Mean Corpuscular Hgb 31.1 pg (27.0-32.0); Mean Corpuscular Volume 98.1 fL (80-94); Mean Platelet Vol. 9.4 fl (6.2-12.0); Platelet Count 284 K/mm3 (150-450); RBC Distribution Width SD 53.2 fl (35.1-43.9); Red Blood Count 4.31 M/mm3 (4.6-6.2); White Blood Count 5.6 K/mm3 (4.4-11.0)
[2020-08-27 16:00] LABS: ALB/GLOB Ratio 1.1 RATIO (0.9-2.4); AST(SGOT) 22 U/L (15-37); Alanine Aminotransfer ALT/SGPT 32 U/L (16-61); Alkaline Phosphatase 78 U/L (45-117); Anion Gap 5 (5-15); BUN 11 mg/dL (7-18); BUN/Creat Ratio 9.8 RATIO (10-20); CRP < 2.90 mg/L (0.0-3.0); Calcium,Total 9.1 mg/dL (8.5-10.1); Chloride 105 mmol/L (98-107); Creatinine, Serum 1.12 mg/dL (0.70-1.30); EST Glomerular Filtration Rate 69 mL/min (>60); Est Glom Filt Rate - Afr Amer 83 mL/min (>60); Globulin 3.8 g/dL (2.2-4.2); Glucose 134 mg/dL (74-106); Potassium 3.8 mmol/L (3.5-5.1); Protein, Total 7.8 g/dL (6.4-8.2); Sodium Level 138 mmol/L (136-145)
== END ==
PROVIDERS: PCP Family Medicine
DX: M06.09 Rheumatoid arthritis without rheumatoid factor, multiple sites (principal)
CPT/HCPCS: 36415; 80053; 85027; 85652; 86140

== ENCOUNTER 2020-09-18 10:45 | Outpatient (RCR) | payer OTHER, SELFPAY ==
[2018-11-15 05:38] VITALS: BMI 27.3
[2019-09-06 10:07] VITALS: BMI 27.1
--- NOTE | 2019-10-10 10:47 | MASS.EVAL_ITS ---
Massage Therapy Evaluation: Initial Evaluation Date: 10/05/2019 SUBJECTIVE: Otilio is a 69 year old male who was referred to the [facility] facility for a massotherapy evaluation by Dr. Styles with the diagnosis of cervical disc disease. Otilio presents today with the symptoms of pain and tension in his shoulders, arms and hands. He also complains of tension and pain in his neck, low back and hips. Otilio reports that he has a past medical history of knee surgeries, neck surgery and issues with his low back. He reports having increased symptoms since recently doing increased outdoor work. OBJECTIVE: Upon observation Otilio has some posture issues with his head and shoulders forward from the neutral position in sitting and standing. After examination and palpation I found Otilio to have high muscle tension with tenderness and myofascial restrictions in his sub occipitals, levator scapulae, trapezius, rhomboids, scalenes, and thoracic paraspinals. His QL?s, lumbar paraspinals, piriformis, glute medius, glute minimus, quads, hamstrings and calves all had high tension with fascial restrictions and tender points. The first treatment consisted of a one hour massage to his full body with focus on his back and neck using myofascial release, muscle stripping and trigger point compression techniques. ASSESSMENT: I feel that Otilio is a good candidate for massotherapy at this time. He had a favorable response to the first treatment with reduction in his muscle aches, pain and tension. He also had improvement in his cervical flexibility and low back flexibility. PLAN: The plan of care was reviewed with the patient. The patient is to be seen on an as needed basis for a total of ten sessions with the recommendation of once every month for a one hour treatment.
--- NOTE | 2020-09-18 18:58 | DS.PCM_ITS ---
Massage Therapy Discharge Summary: Discharge Date: 09/18/2020 Otilio was seen for a massotherapy evaluation on 10/05/2019 with the diagnosis of cervical disc disease. He was treated with eight sessions of massage therapy consisting of deep pressure soft tissue techniques, myofascial release and trigger point compression to his cervical, thoracic, lower back, lower extremities and hips. Otilio responded well to the therapy by reporting decreased tension and pain throughout his neck, shoulders, lower back and hips. His goals for therapy were met throughout the treatment sessions. At this time this patient is being discharged from our care at [facility] facility.
== END 2020-09-18 19:00 | disposition home or self-care (01) ==
LOC: MASS 10:45
PROVIDERS: Family Provider Family Medicine; PCP Family Medicine; Visit Provider Family Medicine
DX: M50.90 Cervical disc disorder, unspecified, unspecified cervical region (principal)
CPT/HCPCS: 97124

== ENCOUNTER → 2020-10-18 08:06 | Outpatient (CLI) | payer OTHER, SELFPAY ==
[2020-10-18 10:18] LABS: Absolute Lymphocyte Count 1.78 X10^3/uL (0.83-4.51); Absolute Neutrophil Count 1.9 X10^3/uL (2.0-7.7); Basophil# 0.01 X10^3/uL; Basophil% 0.2 % (0-1); Eosinophil# 0.07 X10^3/uL; Eosinophils% 1.7 % (0-5); Hematocrit 39.2 % (40-54); Hemoglobin 12.8 g/dL (13.0-16.5); Lymphocyte # 1.78 X10^3/ul (4.0); Lymphocyte % 42.1 % (19-41); Mean Corp Hgb Conc 32.7 g/dL (32-36); Mean Corpuscular Hgb 31.4 pg (27.0-32.0); Mean Corpuscular Volume 96.1 fL (80-94); Mean Platelet Vol. 9.8 fl (6.2-12.0); Monocyte# 0.46 X10^3/uL; Monocyte% 10.9 % (0-10); NRBC Flagged by Analyzer 0 % (0-5); Neutrophil # 1.88 X10^3/uL (2.7-7.7); Neutrophil % 44.4 % (47-70); Platelet Count 241 K/mm3 (150-450); RBC Distribution Width CV 13.7 % (11.6-14.6); RBC Distribution Width SD 47.4 fl (35.1-43.9); Red Blood Count 4.08 M/mm3 (4.6-6.2); White Blood Count 4.2 K/mm3 (4.4-11.0)
[2020-10-18 10:47] LABS: Erythrocyte Sedimentation Rate 12 mm/hr (0-20)
[2020-10-18 10:52] LABS: AST(SGOT) 16 U/L (15-37); Alanine Aminotransfer ALT/SGPT 27 U/L (16-61); Albumin, Serum 3.8 g/dL (3.2-5.0); Alkaline Phosphatase 76 U/L (45-117); Anion Gap 5 (5-15); BUN 11 mg/dL (7-18); BUN/Creat Ratio 10.8 RATIO (10-20); CRP < 2.90 mg/L (0.0-3.0); Calcium,Total 8.8 mg/dL (8.5-10.1); Chloride 107 mmol/L (98-107); Creatinine, Serum 1.02 mg/dL (0.70-1.30); EST Glomerular Filtration Rate 76 mL/min (>60); Est Glom Filt Rate - Afr Amer 92 mL/min (>60); Globulin 3.7 g/dL (2.2-4.2); Glucose 91 mg/dL (74-106); Potassium 3.8 mmol/L (3.5-5.1); Protein, Total 7.5 g/dL (6.4-8.2); Sodium Level 140 mmol/L (136-145)
== END ==
PROVIDERS: PCP Family Medicine
DX: M06.09 Rheumatoid arthritis without rheumatoid factor, multiple sites (principal)
CPT/HCPCS: 36415; 80053; 85025; 85652; 86140

== ENCOUNTER → 2021-02-15 12:23 | Outpatient (CLI) | payer OTHER, SELFPAY ==
[2021-02-15 15:26] LABS: Absolute Lymphocyte Count 1.75 X10^3/uL (0.83-4.51); Absolute Neutrophil Count 2.6 X10^3/uL (2.0-7.7); Basophil# 0.01 X10^3/uL; Basophil% 0.2 % (0-1); Eosinophil# 0.02 X10^3/uL; Eosinophils% 0.4 % (0-5); Hematocrit 38.5 % (40-54); Hemoglobin 12.3 g/dL (13.0-16.5); Lymphocyte # 1.75 X10^3/ul (0.83-4.51); Lymphocyte % 36.7 % (19-41); Mean Corp Hgb Conc 31.9 g/dL (32-36); Mean Corpuscular Hgb 29.8 pg (27.0-32.0); Mean Corpuscular Volume 93.2 fL (80-94); Monocyte% 8.4 % (0-10); NRBC Flagged by Analyzer 0 % (0-5); Neutrophil # 2.55 X10^3/uL (2.7-7.7); Neutrophil % 53.5 % (47-70); Platelet Count 260 K/mm3 (150-450); RBC Distribution Width CV 14.1 % (11.6-14.6); RBC Distribution Width SD 47.5 fl (35.1-43.9); Red Blood Count 4.13 M/mm3 (4.6-6.2); White Blood Count 4.8 K/mm3 (4.4-11.0)
[2021-02-15 15:43] LABS: ALB/GLOB Ratio 1.1 RATIO (0.9-2.4); AST(SGOT) 21 U/L (15-37); Alanine Aminotransfer ALT/SGPT 27 U/L (16-61); Alkaline Phosphatase 83 U/L (45-117); Anion Gap 9 (5-15); BUN 12 mg/dL (7-18); BUN/Creat Ratio 11.8 RATIO (10-20); CRP < 2.90 mg/L (0.0-3.0); Calcium,Total 9.4 mg/dL (8.5-10.1); Chloride 100 mmol/L (98-107); Creatinine, Serum 1.02 mg/dL (0.70-1.30); EST Glomerular Filtration Rate 76 mL/min (>60); Est Glom Filt Rate - Afr Amer 92 mL/min (>60); Globulin 3.6 g/dL (2.2-4.2); Glucose 86 mg/dL (74-106); Potassium 3.8 mmol/L (3.5-5.1); Protein, Total 7.6 g/dL (6.4-8.2); Sodium Level 134 mmol/L (136-145)
[2021-02-15 16:01] LABS: Erythrocyte Sedimentation Rate 24 mm/hr (0-20)
== END ==
PROVIDERS: PCP Family Medicine
DX: M06.09 Rheumatoid arthritis without rheumatoid factor, multiple sites (principal)
CPT/HCPCS: 36415; 80053; 85025; 85652; 86140

== ENCOUNTER → 2021-03-14 09:41 | Outpatient (CLI) | payer OTHER, SELFPAY ==
[2021-03-14 12:20] LABS: Absolute Lymphocyte Count 1.45 X10^3/uL (0.83-4.51); Absolute Neutrophil Count 1.3 X10^3/uL (2.0-7.7); Basophil# 0.01 X10^3/uL; Basophil% 0.3 % (0-1); Eosinophil# 0.05 X10^3/uL; Eosinophils% 1.6 % (0-5); Hematocrit 38.3 % (40-54); Hemoglobin 12.5 g/dL (13.0-16.5); Lymphocyte # 1.45 X10^3/ul (0.83-4.51); Lymphocyte % 46.3 % (19-41); Mean Corp Hgb Conc 32.6 g/dL (32-36); Mean Corpuscular Hgb 30.3 pg (27.0-32.0); Mean Platelet Vol. 9.8 fl (6.2-12.0); Monocyte% 9.6 % (0-10); NRBC Flagged by Analyzer 0 % (0-5); Neutrophil % 41.6 % (47-70); Platelet Count 238 K/mm3 (150-450); RBC Distribution Width CV 14.3 % (11.6-14.6); RBC Distribution Width SD 48.3 fl (35.1-43.9); Red Blood Count 4.12 M/mm3 (4.6-6.2); White Blood Count 3.1 K/mm3 (4.4-11.0)
[2021-03-14 12:31] LABS: AST(SGOT) 22 U/L (15-37); Alanine Aminotransfer ALT/SGPT 29 U/L (16-61); Albumin, Serum 3.7 g/dL (3.2-5.0); Alkaline Phosphatase 85 U/L (45-117); Anion Gap 7 (5-15); BUN 11 mg/dL (7-18); Calcium,Total 8.7 mg/dL (8.5-10.1); Chloride 107 mmol/L (98-107); Cholesterol 210 mg/dL (200); EST Glomerular Filtration Rate 78 mL/min (>60); Est Glom Filt Rate - Afr Amer 94 mL/min (>60); Globulin 3.6 g/dL (2.2-4.2); Glucose 93 mg/dL (74-106); High Density Lipoprotein 37 mg/dL; Potassium 4.1 mmol/L (3.5-5.1); Protein, Total 7.3 g/dL (6.4-8.2); Sodium Level 139 mmol/L (136-145); Triglycerides 103 mg/dL; Very Low Density Lipoprotein 21 mg/dL (5-40)
== END ==
PROVIDERS: PCP Family Medicine; Referring Provider Family Medicine; Visit Provider Family Medicine
DX: I10 Essential (primary) hypertension (principal); E78.2 Mixed hyperlipidemia
CPT/HCPCS: 36415; 80053; 80061; 85025

== ENCOUNTER → 2021-04-12 07:56 | Outpatient (CLI) | payer OTHER, SELFPAY ==
--- NOTE | 2021-04-12 07:59 | US_ITS ---
PROCEDURES: ULTRASOUND AORTA REASON FOR EXAM: Male, 71 years old. AAA screen TECHNIQUE: Ultrasound evaluation of the aorta was performed with real-time and static nguyen-scale imaging. COMPARISON: None. FINDINGS: There is atherosclerotic plaque formation of the abdominal aorta. Aorta measures: Proximal 1.7 cm. Middle 1.5 cm. Distal 1.6 cm. Aorta measure transversely: Proximal 2.1 cm. Middle 1.7 cm. Distal 1.6 cm. Right iliac artery measures: 1 cm. Right iliac artery measure transversely: 1.2 cm. Left iliac artery measures: 1.1 cm. Left iliac artery measure transversely: 1.1 cm. There is no demonstrated aneurysm.. US/Aorta IMPRESSION: No evidence of abdominal aortic aneurysm. Atherosclerotic calcific plaque of the distal aorta. Electronically Signed: Anselmo Valle MD at 9:19 EDT , Service support ,
== END ==
PROVIDERS: PCP Family Medicine; Referring Provider Family Medicine; Visit Provider Family Medicine
DX: Z13.6 Encounter for screening for cardiovascular disorders (principal)
CPT/HCPCS: 76775

== ENCOUNTER 2021-04-24 13:30 | Outpatient (RCR) | payer OTHER, SELFPAY ==
--- NOTE | 2020-10-08 14:36 | MASS.EVAL ---
Massage Therapy Evaluation: Initial Evaluation Date: 10/04/2020 SUBJECTIVE: Otilio is a 70 year old male who was referred to the [facility] facility for a massotherapy evaluation by Dr. 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 Otilio presents today with the symptoms of pain and tension in his neck, shoulders, back, hips and hamstrings. He also complains radiating pain from his neck into his shoulders, arms and legs. Otilio reports that he has a past medical history of high blood pressure, and chronic. He reports having minimal change in symptoms after stretching. OBJECTIVE: Upon observation Otilio has some posture issues with his head and shoulders forward from the neutral position in sitting and standing. After examination and palpation I found Otilio to have high muscle tension with tenderness and myofascial restrictions in his sub occipitals, levator scapulae, trapezius, rhomboids, scalenes, and paraspinals muscle group. His QL?s, lumbar paraspinals, piriformis, glute medius, glute minimus all had high tension with fascial restrictions and tender points. The first treatment consisted of a one hour massage to his full body with myofascial release, muscle stripping, trigger point compression techniques. ASSESSMENT: I feel that Otilio is a good candidate for massotherapy at this time. He had a favorable response to the first treatment with reduction in his muscle aches, pain and tension. He also had improvement in his cervical flexibility and low back flexibility. PLAN: The plan of care was reviewed with the patient. The patient is to be seen on an as needed basis for a total of ten sessions with the recommendation of once every month for a one hour treatment.
--- NOTE | 2021-04-24 16:17 | MASS.DISCH ---
Massage Therapy Discharge Summary: Discharge Date: 04/24/2021 Otilio was seen for a massotherapy evaluation on 10/04/2020 with the diagnosis of cervical disc disorder with myelopathy and rheumatoid arthritis. He was treated with ten sessions of massage therapy consisting of deep pressure soft tissue techniques, myofascial release and trigger point compression to his cervical, thoracic, lower back, lower extremities and hips. Otilio responded well to the therapy by reporting decreased tension and pain throughout his neck, shoulders, lower back and hips. His goals for therapy were met throughout the treatment sessions. At this time this patient is being discharged from our care at [facility] facility.
== END 2021-04-24 19:00 | disposition home or self-care (01) ==
LOC: MASS 13:30
PROVIDERS: PCP Family Medicine; Visit Provider Family Medicine
DX: M50.00 Cervical disc disorder with myelopathy, unspecified cervical region (principal); M06.09 Rheumatoid arthritis without rheumatoid factor, multiple sites
CPT/HCPCS: 97124

== ENCOUNTER → 2021-06-28 12:39 | Outpatient (CLI) | payer MEDICARE, SELFPAY | PROVIDERS: PCP Family Medicine; Referring Provider Physician Assistant Surgical; Visit Provider Physician Assistant Surgical | DX: Z11.52 Encounter for screening for COVID-19 (principal) | CPT/HCPCS: 87635; U0005; U0003 ==

== ENCOUNTER → 2021-10-01 09:58 | Outpatient (CLI) | payer MEDICARE, SELFPAY ==
[2021-10-01 12:41] LABS: Erythrocyte Sedimentation Rate 23 mm/hr (0-20)
[2021-10-01 12:44] LABS: Hematocrit 38.6 % (40-54); Hemoglobin 12.6 g/dL (13.0-16.5); Mean Corp Hgb Conc 32.6 g/dL (32-36); Mean Corpuscular Hgb 29.9 pg (27.0-32.0); Mean Corpuscular Volume 91.5 fL (80-94); Platelet Count 224 K/mm3 (150-450); RBC Distribution Width CV 14.5 % (11.6-14.6); RBC Distribution Width SD 47.2 fl (35.1-43.9); Red Blood Count 4.22 M/mm3 (4.6-6.2)
[2021-10-01 13:07] LABS: AST(SGOT) 29 U/L (15-37); Alanine Aminotransfer ALT/SGPT 37 U/L (16-61); Albumin, Serum 3.7 g/dL (3.2-5.0); Alkaline Phosphatase 102 U/L (45-117); Anion Gap 11 (5-15); BUN 10 mg/dL (7-18); BUN/Creat Ratio 9.3 RATIO (10-20); CRP 4.38 mg/L (0.0-3.0); Calcium,Total 8.8 mg/dL (8.5-10.1); Chloride 104 mmol/L (98-107); Creatinine, Serum 1.07 mg/dL (0.70-1.30); EST Glomerular Filtration Rate 72 mL/min (>60); Est Glom Filt Rate - Afr Amer 87 mL/min (>60); Globulin 3.8 g/dL (2.2-4.2); Glucose 91 mg/dL (74-106); Potassium 3.8 mmol/L (3.5-5.1); Protein, Total 7.5 g/dL (6.4-8.2); Sodium Level 138 mmol/L (136-145)
== END ==
PROVIDERS: PCP Family Medicine
DX: M06.09 Rheumatoid arthritis without rheumatoid factor, multiple sites (principal)
CPT/HCPCS: 36415; 80053; 85027; 85652; 86140

== ENCOUNTER 2021-12-17 10:09 | Outpatient (CLI) | payer MEDICARE, SELFPAY ==
--- NOTE | 2021-12-17 10:17 | RAD_ITS ---
STUDY: X-RAY - PELVIS AND BILATERAL HIP REASON FOR EXAM: Male, 71 years old. PAIN TECHNIQUE: XR Hips Bilateral with Pelvis when performed; 2 Views COMPARISON: None. FINDINGS: There is a non-specific bowel gas pattern. Normal visualized soft tissue structures. There are degenerative changes of the lumbar spine. Normal bilateral iliac wings, sacroiliac joints and visualized sacrum. Normal bilateral superior and inferior pubic rami. Normal pubic symphysis. Normal bilateral ischial tuberosities. Normal visualized femoral head. Normal acetabulum. Normal hip joint. RAD/Hips B/L min 2 views w/ Pelvis IMPRESSION: No acute findings. Electronically Signed: Reece Ascencio MD at 17:27 EDT ,
[2021-12-17 12:23] LABS: Erythrocyte Sedimentation Rate 23 mm/hr (0-20)
[2021-12-17 12:27] LABS: Hematocrit 39.2 % (40-54); Hemoglobin 13.1 g/dL (13.0-16.5); Mean Corp Hgb Conc 33.4 g/dL (32-36); Mean Corpuscular Volume 92.7 fL (80-94); Mean Platelet Vol. 9.7 fl (6.2-12.0); POSITIVE COUNT YES; POSITIVE MORPHOLOGY YES; Platelet Count 220 K/mm3 (150-450); RBC Distribution Width CV 14.3 % (11.6-14.6); RBC Distribution Width SD 47.2 fl (35.1-43.9); Red Blood Count 4.23 M/mm3 (4.6-6.2); White Blood Count 4.1 K/mm3 (4.4-11.0)
[2021-12-17 12:29] LABS: Differential Indicated MANUAL DIFF
[2021-12-17 12:32] LABS: AST(SGOT) 31 U/L (15-37); Alanine Aminotransfer ALT/SGPT 37 U/L (16-61); Albumin, Serum 3.9 g/dL (3.2-5.0); Alkaline Phosphatase 100 U/L (45-117); Anion Gap 6 (5-15); BUN 12 mg/dL (7-18); CRP 4.45 mg/L (0.0-3.0); Calcium,Total 8.9 mg/dL (8.5-10.1); Chloride 103 mmol/L (98-107); EST Glomerular Filtration Rate 78 mL/min (>60); Est Glom Filt Rate - Afr Amer 95 mL/min (>60); Globulin 3.9 g/dL (2.2-4.2); Glucose 105 mg/dL (74-106); Protein, Total 7.8 g/dL (6.4-8.2); Sodium Level 136 mmol/L (136-145)
[2021-12-17 13:00] LABS: PSA,Total - Annual Screen 3.66 ng/mL (0.00-4.00)
[2021-12-17 13:13] LABS: Lymphocyte 29 % (19-41); Monocyte 9 % (0-10); Neutrophil-Segmented 62 % (47-70); Total Cells Counted 100 (MANUAL DIFF)
[2021-12-17 13:14] LABS: Absolute Neutrophil Count 2.5 X10^3/uL (2.0-7.7); Platelet Estimate ADEQUATE (ADEQ); Red Cell Morphology NORM C+C NORMAL (NORM C&C)
[2021-12-18 13:36] LABS: Pathologist Review Reviewed
== END 2021-12-17 23:59 | disposition home or self-care (01) ==
LOC: MTLAB 10:13
PROVIDERS: PCP Family Medicine; Referring Provider Urology; Visit Provider Urology
DX: M06.09 Rheumatoid arthritis without rheumatoid factor, multiple sites (principal); M25.559 Pain in unspecified hip; Z12.5 Encounter for screening for malignant neoplasm of prostate
CPT/HCPCS: 36415; 73521; 80053; 84153; 85025; 85652; 86140; G0103

== ENCOUNTER → 2022-03-18 | Outpatient (CLI) | payer MEDICARE, SELFPAY ==
[2022-03-18 09:54] LABS: Hematocrit 36.6 % (40-54); Hemoglobin 12.1 g/dL (13.0-16.5); Mean Corp Hgb Conc 33.1 g/dL (32-36); Mean Corpuscular Hgb 30.3 pg (27.0-32.0); Mean Corpuscular Volume 91.5 fL (80-94); Mean Platelet Vol. 9.6 fl (6.2-12.0); POSITIVE COUNT YES; POSITIVE MORPHOLOGY YES; Platelet Count 226 K/mm3 (150-450); RBC Distribution Width SD 46.6 fl (35.1-43.9); White Blood Count 3.8 K/mm3 (4.4-11.0)
[2022-03-18 10:06] LABS: AST(SGOT) 25 U/L (15-37); Alanine Aminotransfer ALT/SGPT 32 U/L (16-61); Albumin, Serum 3.6 g/dL (3.2-5.0); Alkaline Phosphatase 93 U/L (45-117); Anion Gap 8 (5-15); BUN 8 mg/dL (7-18); BUN/Creat Ratio 8.2 RATIO (10-20); Calcium,Total 8.9 mg/dL (8.5-10.1); Chloride 107 mmol/L (98-107); Cholesterol 162 mg/dL (200); Creatinine, Serum 0.98 mg/dL (0.70-1.30); Differential Indicated MANUAL DIFF; EST Glomerular Filtration Rate 80 mL/min (>60); Est Glom Filt Rate - Afr Amer 96 mL/min (>60); Globulin 3.6 g/dL (2.2-4.2); Glucose 96 mg/dL (74-106); High Density Lipoprotein 33 mg/dL; Potassium 3.7 mmol/L (3.5-5.1); Protein, Total 7.2 g/dL (6.4-8.2); Sodium Level 141 mmol/L (136-145); Triglycerides 123 mg/dL; Very Low Density Lipoprotein 25 mg/dL (5-40)
[2022-03-18 11:13] LABS: Eosinophil 1 % (0-5); Lymphocyte 29 % (19-41); Metamyelocyte 2 % (0-1); Monocyte 13 % (0-10); Neutrophil-Segmented 55 % (47-70); Platelet Estimate ADEQUATE (ADEQ); Red Cell Morphology NORM C+C NORMAL (NORM C&C); Total Cells Counted 100 (MANUAL DIFF)
[2022-03-18 11:14] LABS: Absolute Neutrophil Count 2.1 X10^3/uL (2.0-7.7)
[2022-03-19 12:46] LABS: Pathologist Review Reviewed
== END | disposition home or self-care (01) ==
LOC: MTLAB 08:11
PROVIDERS: PCP Family Medicine; Referring Provider Family Medicine; Visit Provider Family Medicine
DX: I10 Essential (primary) hypertension (principal); E78.2 Mixed hyperlipidemia
CPT/HCPCS: 36415; 80053; 80061; 85025

== ENCOUNTER → 2022-03-27 | Outpatient (CLI) | payer MEDICARE, SELFPAY ==
[2022-03-27 12:41] LABS: Hematocrit 38.2 % (40-54); Hemoglobin 12.5 g/dL (13.0-16.5); Mean Corp Hgb Conc 32.7 g/dL (32-36); Mean Corpuscular Hgb 30.3 pg (27.0-32.0); Mean Corpuscular Volume 92.5 fL (80-94); Mean Platelet Vol. 9.6 fl (6.2-12.0); POSITIVE COUNT YES; POSITIVE MORPHOLOGY YES; Platelet Count 240 K/mm3 (150-450); RBC Distribution Width CV 14.1 % (11.6-14.6); RBC Distribution Width SD 47.1 fl (35.1-43.9); Red Blood Count 4.13 M/mm3 (4.6-6.2); White Blood Count 3.4 K/mm3 (4.4-11.0)
[2022-03-27 12:43] LABS: Differential Indicated MANUAL DIFF
[2022-03-27 13:11] LABS: Lymphocyte 41 % (19-41); Monocyte 6 % (0-10); Neutrophil-Segmented 53 % (47-70); Total Cells Counted 100 (MANUAL DIFF)
[2022-03-27 13:12] LABS: Absolute Neutrophil Count 1.8 X10^3/uL (2.0-7.7); Platelet Estimate ADEQUATE (ADEQ); Red Cell Morphology NORM C+C NORMAL (NORM C&C)
[2022-03-27 13:21] LABS: Vitamin B12 457 pg/mL (211-911)
[2022-03-27 13:35] LABS: Ferritin 377 ng/mL (26-388); Iron 100 ug/dL (65-175); Iron Binding Capacity,Total 312 ug/dL (250-450)
[2022-03-28 12:47] LABS: Pathologist Review Reviewed
== END | disposition home or self-care (01) ==
LOC: MTLAB 11:14
PROVIDERS: PCP Family Medicine; Referring Provider Family Medicine; Visit Provider Family Medicine
DX: D64.9 Anemia, unspecified (principal)
CPT/HCPCS: 36415; 82607; 82728; 82746; 83540; 83550; 85025

== ENCOUNTER → 2022-03-28 | Outpatient (CLI) | payer MEDICARE, SELFPAY | END | disposition home or self-care (01) | LOC: MTLAB 08:34 | PROVIDERS: PCP Family Medicine; Visit Provider Family Medicine | DX: D64.9 Anemia, unspecified (principal) | CPT/HCPCS: 82274 ==

== ENCOUNTER → 2022-04-28 | Outpatient (CLI) | payer MEDICARE, SELFPAY ==
[2022-04-28 12:17] LABS: Absolute Lymphocyte Count 1.03 X10^3/uL (0.83-4.51); Absolute Neutrophil Count 1.6 X10^3/uL (2.0-7.7); Basophil# 0.01 X10^3/uL; Basophil% 0.3 % (0-1); Eosinophil# 0.04 X10^3/uL; Eosinophils% 1.3 % (0-5); Hematocrit 36.4 % (40-54); Lymphocyte # 1.03 X10^3/ul (0.83-4.51); Lymphocyte % 33.2 % (19-41); Mean Corpuscular Hgb 30.8 pg (27.0-32.0); Mean Corpuscular Volume 93.6 fL (80-94); Mean Platelet Vol. 9.3 fl (6.2-12.0); Monocyte# 0.37 X10^3/uL; Monocyte% 11.9 % (0-10); NRBC Flagged by Analyzer 0 % (0-5); Neutrophil # 1.62 X10^3/uL (2.7-7.7); Neutrophil % 52.3 % (47-70); Platelet Count 207 K/mm3 (150-450); RBC Distribution Width CV 14.3 % (11.6-14.6); RBC Distribution Width SD 47.4 fl (35.1-43.9); RET-HE 30.9 pg (30-35); Red Blood Count 3.89 M/mm3 (4.6-6.2); Reticulocyte Count 1.86 % (0.5-1.5); White Blood Count 3.1 K/mm3 (4.4-11.0)
== END | disposition home or self-care (01) ==
PROVIDERS: PCP Family Medicine; Referring Provider Family Medicine; Visit Provider Family Medicine
DX: D64.9 Anemia, unspecified (principal)
CPT/HCPCS: 36415; 85025; 85045

== ENCOUNTER → 2022-04-29 | Outpatient (CLI) | payer MEDICARE, SELFPAY ==
--- NOTE | 2022-04-29 10:52 | RAD_ITS ---
INDICATION: ARTHRITIS EXAMINATION/TECHNIQUE: X-RAY - XR Spine Lumbar Min 4 Views COMPARISON: None. FINDINGS: Mild levoscoliosis of the thoracolumbar spine is visualized. There is unremarkable alignment of the columns of the lumbar spine visualized on the lateral view except for grade 1 anterolisthesis of L4 over L5. Lumbar vertebral bodies demonstrate unremarkable height is no evidence of compression deformity. Multilevel degenerative endplate changes is seen with subtle anterior osteophyte formation visualized. No significant variation in alignment is visualized between the neutral, flexion and extension positions. Extensive hypertrophic changes in the posterior column visualized most prominent at L4 and L5 is most likely resulting in the antral listhesis. Decreased intervertebral disc height visualized most prominent at L5-S1. Limited evaluation of the abdominal soft tissues is unremarkable except for scattered stool. RAD/L/S Spine Bending Flex/Ext IMPRESSION: Degenerative changes of the lumbar spine, no evidence of acute osseous abnormality is seen. Anterolisthesis of L4 over L5 secondary to hypertrophic changes in the facet joints. No significant variation in alignment is visualized between the neutral, flexion and extension positions. Electronically Signed: Tylor Jauregui MD at 11:36 EDT ,
[2022-04-29 12:49] LABS: Erythrocyte Sedimentation Rate 24 mm/hr (0-20)
[2022-04-29 13:04] LABS: AST(SGOT) 27 U/L (15-37); Alanine Aminotransfer ALT/SGPT 34 U/L (16-61); Albumin, Serum 3.6 g/dL (3.2-5.0); Alkaline Phosphatase 87 U/L (45-117); Anion Gap 3 (5-15); BUN 8 mg/dL (7-18); BUN/Creat Ratio 8.6 RATIO (10-20); Calcium,Total 8.7 mg/dL (8.5-10.1); Chloride 106 mmol/L (98-107); Creatinine, Serum 0.93 mg/dL (0.70-1.30); EST Glomerular Filtration Rate 85 mL/min (>60); Est Glom Filt Rate - Afr Amer 102 mL/min (>60); Globulin 3.6 g/dL (2.2-4.2); Glucose 85 mg/dL (74-106); Protein, Total 7.2 g/dL (6.4-8.2); Sodium Level 137 mmol/L (136-145)
== END | disposition home or self-care (01) ==
PROVIDERS: PCP Family Medicine
DX: M06.09 Rheumatoid arthritis without rheumatoid factor, multiple sites (principal); M15.9 Polyosteoarthritis, unspecified
CPT/HCPCS: 36415; 72120; 80053; 85652; 86140

== ENCOUNTER → 2022-06-20 | Outpatient (CLI) | payer MEDICARE, SELFPAY ==
[2022-06-23 16:08] LABS: Cytoplasmic Ab (C-ANCA) <1:20 titer (Neg:<1:20); Endomysial Antibody IgA Negative (Negative); Immunoglobulin A 311 mg/dL (61-437)
[2022-06-24 13:56] LABS: Perinuclear Ab (P-ANCA) <1:20 titer (Neg:<1:20); t-Transglutaminase IgA <2 U/mL (0-3)
== END | disposition home or self-care (01) ==
LOC: LAB 10:14
PROVIDERS: PCP Family Medicine; Referring Provider Internal Medicine Gastroenterology; Visit Provider Internal Medicine Gastroenterology
DX: M06.9 Rheumatoid arthritis, unspecified (principal)
CPT/HCPCS: 36415; 82784; 83516; 86255; 86256

== ENCOUNTER → 2022-07-24 | Outpatient (CLI) | payer MEDICARE, SELFPAY ==
[2022-07-24 11:07] VITALS: BP 137/86; PULSE 74; RESP 16; TEMP 35.9; O2SAT 99; BMI 26.4
[2022-07-24] MEDS: 0.9% NaCl Peripheral Flush Adult/Peds IV (11:15)
[2022-07-24] MEDS: 0.9% NaCl IVPB Med Flush (250 mL) 15 ML IV (11:32)
== END | disposition home or self-care (01) ==
LOC: MEDOUTP 10:41
PROVIDERS: PCP Family Medicine; Referring Provider Internal Medicine Rheumatology; Visit Provider Internal Medicine Rheumatology
DX: M06.09 Rheumatoid arthritis without rheumatoid factor, multiple sites (principal)
CPT/HCPCS: 96365; J7050; A4216; J1602

== ENCOUNTER → 2022-08-28 | Outpatient (CLI) | payer MEDICARE, SELFPAY ==
[2022-08-28 11:01] VITALS: BP 154/81; PULSE 73; RESP 16; TEMP 36.1; O2SAT 100; BMI 27.7
[2022-08-28] MEDS: 0.9% NaCl Peripheral Flush Adult/Peds IV (11:09)
[2022-08-28] MEDS: 0.9% NaCl IVPB Med Flush (250 mL) 15 ML IV (11:13)
[2022-08-28 12:22] VITALS: BP 139/80; PULSE 73; RESP 16; TEMP 36.3; O2SAT 100
== END | disposition home or self-care (01) ==
LOC: MEDOUTP 10:51
PROVIDERS: PCP Family Medicine; Referring Provider Internal Medicine Rheumatology; Visit Provider Internal Medicine Rheumatology
DX: M06.09 Rheumatoid arthritis without rheumatoid factor, multiple sites (principal)
CPT/HCPCS: 96365; J7050; A4216; J1602

== ENCOUNTER → 2022-10-20 | Outpatient (CLI) | payer MEDICARE, SELFPAY ==
[2022-10-20 11:52] LABS: Hematocrit 35.7 % (40-54); Hemoglobin 11.4 g/dL (13.0-16.5); Mean Corp Hgb Conc 31.9 g/dL (32-36); Mean Corpuscular Hgb 29.8 pg (27.0-32.0); Mean Corpuscular Volume 93.5 fL (80-94); POSITIVE COUNT YES; POSITIVE MORPHOLOGY YES; Platelet Count 211 K/mm3 (150-450); RBC Distribution Width CV 14.7 % (11.6-14.6); RBC Distribution Width SD 50.1 fl (35.1-43.9); Red Blood Count 3.82 M/mm3 (4.6-6.2); White Blood Count 7.2 K/mm3 (4.4-11.0)
[2022-10-20 12:06] LABS: ALB/GLOB Ratio 0.7 RATIO (0.9-2.4); AST(SGOT) 32 U/L (15-37); Alanine Aminotransfer ALT/SGPT 45 U/L (16-61); Albumin, Serum 3.4 g/dL (3.2-5.0); Alkaline Phosphatase 110 U/L (45-117); Anion Gap 5 (5-15); BUN 8 mg/dL (7-18); BUN/Creat Ratio 7.4 RATIO (10-20); Calcium,Total 9.3 mg/dL (8.5-10.1); Chloride 102 mmol/L (98-107); Creatinine, Serum 1.08 mg/dL (0.70-1.30); EST Glomerular Filtration Rate 71 mL/min (>60); Est Glom Filt Rate - Afr Amer 86 mL/min (>60); Globulin 4.9 g/dL (2.2-4.2); Glucose 111 mg/dL (74-106); Potassium 3.6 mmol/L (3.5-5.1); Protein, Total 8.3 g/dL (6.4-8.2); Sodium Level 133 mmol/L (136-145)
[2022-10-20 12:29] LABS: Differential Indicated MANUAL DIFF; Erythrocyte Sedimentation Rate 82 mm/hr (0-20)
[2022-10-20 12:46] LABS: Lymphocyte 21 % (19-41); Metamyelocyte 1 % (0-1); Monocyte 11 % (0-10); Myelocyte 4 % (0-0); Neutrophil-Band 6 % (0-5); Neutrophil-Segmented 57 % (47-70); Total Cells Counted 100 (MANUAL DIFF)
[2022-10-20 12:55] LABS: Absolute Neutrophil Count 4.5 X10^3/uL (2.0-7.7)
[2022-10-22 13:54] LABS: Pathologist Review Reviewed
== END | disposition home or self-care (01) ==
LOC: PAVLAB 11:31
PROVIDERS: PCP Family Medicine; Referring Provider Internal Medicine Rheumatology; Visit Provider Internal Medicine Rheumatology
DX: M06.09 Rheumatoid arthritis without rheumatoid factor, multiple sites (principal); D84.9 Immunodeficiency, unspecified
CPT/HCPCS: 36415; 80053; 85025; 85652; 86140

== ENCOUNTER → 2023-01-03 | Outpatient (CLI) | payer MEDICARE, SELFPAY ==
[2023-01-03 12:31] LABS: Hematocrit 38.8 % (40-54); Hemoglobin 12.3 g/dL (13.0-16.5); Mean Corp Hgb Conc 31.7 g/dL (32-36); Mean Corpuscular Hgb 28.4 pg (27.0-32.0); Mean Corpuscular Volume 89.6 fL (80-94); Mean Platelet Vol. 9.4 fl (6.2-12.0); Platelet Count 219 K/mm3 (150-450); RBC Distribution Width CV 13.7 % (11.6-14.6); RBC Distribution Width SD 45.1 fl (35.1-43.9); Red Blood Count 4.33 M/mm3 (4.6-6.2); White Blood Count 3.8 K/mm3 (4.4-11.0)
[2023-01-03 12:39] LABS: ALB/GLOB Ratio 0.8 RATIO (0.9-2.4); AST(SGOT) 28 U/L (15-37); Alanine Aminotransfer ALT/SGPT 27 U/L (16-61); Albumin, Serum 3.5 g/dL (3.2-5.0); Alkaline Phosphatase 117 U/L (45-117); Anion Gap 2 (5-15); BUN 9 mg/dL (7-18); BUN/Creat Ratio 8.7 RATIO (10-20); Chloride 105 mmol/L (98-107); Creatinine, Serum 1.03 mg/dL (0.70-1.30); EST Glomerular Filtration Rate 75 mL/min (>60); Est Glom Filt Rate - Afr Amer 91 mL/min (>60); Globulin 4.3 g/dL (2.2-4.2); Glucose 75 mg/dL (74-106); Potassium 3.7 mmol/L (3.5-5.1); Protein, Total 7.8 g/dL (6.4-8.2); Sodium Level 135 mmol/L (136-145)
[2023-01-03 14:00] LABS: Erythrocyte Sedimentation Rate 29 mm/hr (0-20)
== END | disposition home or self-care (01) ==
LOC: LAB 11:31
PROVIDERS: PCP Family Medicine; Referring Provider Internal Medicine Rheumatology; Visit Provider Internal Medicine Rheumatology
DX: M06.09 Rheumatoid arthritis without rheumatoid factor, multiple sites (principal); D84.9 Immunodeficiency, unspecified
CPT/HCPCS: 36415; 80053; 85027; 85652; 86140

== ENCOUNTER → 2023-03-19 | Outpatient (CLI) | payer MEDICARE, SELFPAY ==
[2023-03-19 10:21] LABS: Absolute Lymphocyte Count 1.91 X10^3/uL (0.83-4.51); Absolute Neutrophil Count 1.6 X10^3/uL (2.0-7.7); Basophil# 0.01 X10^3/uL; Basophil% 0.2 % (0-1); Eosinophil# 0.04 X10^3/uL; Hematocrit 38.4 % (40-54); Hemoglobin 12.3 g/dL (13.0-16.5); Lymphocyte # 1.91 X10^3/ul (0.83-4.51); Lymphocyte % 46.8 % (19-41); Mean Corpuscular Hgb 28.1 pg (27.0-32.0); Mean Corpuscular Volume 87.9 fL (80-94); Mean Platelet Vol. 9.8 fl (6.2-12.0); Monocyte# 0.47 X10^3/uL; Monocyte% 11.5 % (0-10); NRBC Flagged by Analyzer 0 % (0-5); Neutrophil # 1.57 X10^3/uL (2.7-7.7); Neutrophil % 38.5 % (47-70); Platelet Count 211 K/mm3 (150-450); RBC Distribution Width CV 13.9 % (11.6-14.6); RBC Distribution Width SD 44.4 fl (35.1-43.9); Red Blood Count 4.37 M/mm3 (4.6-6.2); White Blood Count 4.1 K/mm3 (4.4-11.0)
[2023-03-19 10:51] LABS: ALB/GLOB Ratio 0.9 RATIO (0.9-2.4); AST(SGOT) 24 U/L (15-37); Alanine Aminotransfer ALT/SGPT 32 U/L (16-61); Albumin, Serum 3.6 g/dL (3.2-5.0); Alkaline Phosphatase 96 U/L (45-117); Anion Gap 6 (5-15); BUN 12 mg/dL (7-18); BUN/Creat Ratio 10.6 RATIO (10-20); Calcium,Total 9.4 mg/dL (8.5-10.1); Chloride 107 mmol/L (98-107); Cholesterol 155 mg/dL (200); Creatinine, Serum 1.13 mg/dL (0.70-1.30); EST Glomerular Filtration Rate 67 mL/min (>60); Est Glom Filt Rate - Afr Amer 82 mL/min (>60); Glucose 99 mg/dL (74-106); High Density Lipoprotein 37 mg/dL; Potassium 3.9 mmol/L (3.5-5.1); Protein, Total 7.6 g/dL (6.4-8.2); Sodium Level 140 mmol/L (136-145); Triglycerides 67 mg/dL; Very Low Density Lipoprotein 13 mg/dL (5-40)
== END | disposition home or self-care (01) ==
LOC: MTLAB 08:44
PROVIDERS: PCP Family Medicine; Referring Provider Family Medicine; Visit Provider Family Medicine
DX: E78.2 Mixed hyperlipidemia (principal); I10 Essential (primary) hypertension
CPT/HCPCS: 36415; 80053; 80061; 85025

== ENCOUNTER → 2023-04-28 | Outpatient (CLI) | payer MEDICARE, SELFPAY ==
[2023-04-28 12:25] LABS: PSA,Total - Annual Screen 6.44 ng/mL (0.00-4.00)
== END | disposition home or self-care (01) ==
LOC: MTLAB 10:28
PROVIDERS: PCP Family Medicine; Referring Provider Nurse Practitioner; Visit Provider Nurse Practitioner
DX: Z12.5 Encounter for screening for malignant neoplasm of prostate (principal)
CPT/HCPCS: 36415; 84153; G0103

== ENCOUNTER → 2023-05-01 | Outpatient (CLI) | payer MEDICARE, SELFPAY ==
[2023-05-01 15:02] LABS: Absolute Lymphocyte Count 1.65 X10^3/uL (0.83-4.51); Absolute Neutrophil Count 1.2 X10^3/uL (2.0-7.7); Eosinophil# 0.03 X10^3/uL; Eosinophils% 0.9 % (0-5); Hematocrit 38.8 % (40-54); Hemoglobin 12.4 g/dL (13.0-16.5); Lymphocyte # 1.65 X10^3/ul (0.83-4.51); Lymphocyte % 49.5 % (19-41); Mean Corpuscular Hgb 28.2 pg (27.0-32.0); Mean Corpuscular Volume 88.4 fL (80-94); Mean Platelet Vol. 9.8 fl (6.2-12.0); Monocyte# 0.33 X10^3/uL; Monocyte% 9.9 % (0-10); NRBC Flagged by Analyzer 0 % (0-5); Neutrophil # 1.18 X10^3/uL (2.7-7.7); Neutrophil % 35.5 % (47-70); Platelet Count 200 K/mm3 (150-450); RBC Distribution Width CV 13.6 % (11.6-14.6); RBC Distribution Width SD 43.9 fl (35.1-43.9); Red Blood Count 4.39 M/mm3 (4.6-6.2); White Blood Count 3.3 K/mm3 (4.4-11.0)
[2023-05-01 15:20] LABS: Erythrocyte Sedimentation Rate 21 mm/hr (0-20)
[2023-05-01 15:42] LABS: CRP < 2.90 mg/L (0.0-3.0); Creatinine, Serum 0.92 mg/dL (0.70-1.30); EST Glomerular Filtration Rate 85 mL/min (>60); Est Glom Filt Rate - Afr Amer 103 mL/min (>60)
== END | disposition home or self-care (01) ==
LOC: MTLAB 11:23
PROVIDERS: PCP Family Medicine; Referring Provider Internal Medicine Rheumatology; Visit Provider Internal Medicine Rheumatology
DX: M06.09 Rheumatoid arthritis without rheumatoid factor, multiple sites (principal); D84.9 Immunodeficiency, unspecified
CPT/HCPCS: 36415; 82565; 85025; 85652; 86140

== ENCOUNTER → 2023-05-05 | Outpatient (CLI) | payer MEDICARE, SELFPAY ==
--- NOTE | 2023-05-05 18:15 | MRI_ITS ---
STUDY: MR PELVIS WITH AND WITHOUT CONTRAST (PROSTATE) REASON FOR EXAM: Male, 73 years old. Elevated PSA TECHNIQUE: Standardized multiparametric prostate MRI with T1, T2, DWI/ADC sequences were obtained in 3 orthogonal planes, and dynamic contrast enhancement sequences. 17 ml of CLARISCAN contrast material was administered intravenously for the contrast portion of the examination. COMPARISON: None. FINDINGS: The prostate volume measures 59.6 mm3. The contours of the prostate gland are lobulated. There is mild mass effect on the bladder base. The transition zone is heterogenous. PI-RADS DWI score 2 - Hypointense within a BPH nodule on ADC. PI-RADS T2W score 2 - A mostly encapsulated nodule OR a homogeneous circumscribed nodule without encapsulation (atypical nodule) or a homogeneous mildly hypointense area between nodules.. Contrast enhancement no early or contemporaneous enhancement; or diffuse multifocal enhancement NOT corresponding to a focal finding on T2W and/or DWI or focal ehancement responding to a lesion demonstrating features of BPH onT2WI (including features of extruded BPH in the PZ). The peripheral zone is homogenous. PI-RADS DWI score 2 - Linear/wedge shaped hypointense on ADC and/or linear/wedge shaped hyperintense on high b-value DWI. PI-RADS T2W score 2 - Linear, wedge-shaped, or diffuse mild hypointensity, usually with indistinct margin. Contrast enhancement no early or contemporaneous enhancement; or diffuse multifocal enhancement NOT corresponding to a focal finding on T2W and/or DWI or focal enhancement responding to a lesion demonstrating features of BPH onT2WI (including features of extruded BPH in the PZ). The seminal vesicles demonstrate normal margins and T2 signal pattern. No mass lesion or invasion depicted. The rectoprostatic angles are normal. Urinary bladder is normal without wall thickening. The vascular structures of the are normal. The visualized hollow viscus structures are normal. Small bilateral fat-containing inguinal hernias. No bone marrow edema or mass lesion depicted. MRI/Pelvis W/WO Contrast IMPRESSION: 1. PIRADS v2.1 2019 -- 2 - Low (clinically significant cancer is unlikely). 2. 3D reconstruction images performed and nodule/nodules been marked with the [employer] software for anticipated biopsy. Electronically Signed: Jose A Blanc (Brooks), at 8:08 EDT ,
== END | disposition home or self-care (01) ==
PROVIDERS: PCP Family Medicine; Referring Provider Urology; Visit Provider Urology
DX: Z12.5 Encounter for screening for malignant neoplasm of prostate (principal); R97.20 Elevated prostate specific antigen [PSA]
CPT/HCPCS: 72197; A9575

== ENCOUNTER → 2023-10-19 | Outpatient (CLI) | payer MEDICARE, SELFPAY ==
--- OUTSIDE RECORDS SUMMARY | 2023-10-19 15:35 | XMS RPT_ITS | CCD ---
Author Name Unknown Address [address] [facility] [id number] [place] [address] Organization [facility] Care Team Providers Care Analytical Research Chemist Name Role Phone Jose Manuel Styles MD Primary Care Provider JOSE MANUEL STYLES Attending Unavailable JOSE MANUEL STYLES Primary Care Unavailable JOSE MANUEL STYLES Referring Unavailable JOSE MANUEL STYLES Primary Care Unavailable SELF Referring Unavailable JOSE MANUEL STYLES Attending Unavailable JOSE MANUEL STYLES Primary Care Unavailable Collette RODRIGUEZ Referring Unavailable JOSE MANUEL STYLES Primary Care Unavailable Collette RODRIGUEZ Attending Unavailable Allergies Allergy Classification Reported Allergen(s) Allergy Type Date of Onset Reaction(s) Facility (4 sources) Penicillins; Translations: [PENICILLINS] Propensity to adverse reactions 04-30-2006 [facility] Work Phone: (19 sources) Penicillins Propensity to adverse reactions 04-30-2006 [facility] Work Phone: Medications Current Medications Medication Drug Class(es) Dates Sig (Normalized) Sig (Original) lovastatin 20 mg oral tablet (20 sources) HMG-CoA Reductase Inhibitor Start: 09-05-2021 End: 08-25-2023 take 1 tablet by mouth once daily at bedtime lovastatin (MEVACOR) 20 mg tablet Indications: Mixed hyperlipidemia Take 1 tablet by mouth daily at bedtime. 90 tablet 3 02/26/2023 08/25/2023 Active Completed/Discontinued Medications Medication Drug Class(es) Dates Sig (Normalized) Sig (Original) acetaminophen 500 mg oral tablet (14 sources) take 1 tablet by mouth every eight hours as needed acetaminophen (TYLENOL) 500 mg tablet Take 500 mg by mouth every 8 hours as needed. 0 Active Problems Active Problems Problem Classification Problem Date Documented Da te Episodic/Chronic Allergic reactions (1 source) Inflammatory dermatosis; Translations: [Dermatitis, unspecified] Episodic Deficiency and other anemia (7 sources) Anemia; Translations: [Anemia, unspecified] Onset: 03-26-2023 Episodic Disorders of lipid metabolism (20 sources) Mixed hyperlipidemia; Translations: [Mixed hyperlipidemia] Chronic Essential hypertension (20 sources) Essential hypertension; Translations: [Essential (primary) hypertension] Onset: 03-21-2020 Chronic Other gastrointestinal disorders (1 source) Acute constipation; Translations: [Constipation, unspecified] Episodic Other lower respiratory disease (2 sources) Cough; Translations: [Subacute cough] Episodic Other male genital disorders (20 sources) Male erectile dysfunction, unspecified; Translations: [Impotence of organic origin] Onset: 11-10-2011 11-10-2011 Chronic Rheumatoid arthritis and related disease (20 sources) Rheumatoid arthritis of multiple joints; Translations: [Rheumatoid arthritis without rheumatoid factor, multiple sites] Onset: 05-31-2020 05-31-2020 Chronic Spondylosis; intervertebral disc disorders; other back problems (20 sources) Intervertebral disc disorder of cervical region with myelopathy; Translations: [Cervical disc disorder with myelopathy, unspecified cervical region] Onset: 04-30-2006 04-30-2006 Chronic Unclassified (1 source) Subacute cough; Translations: [Subacute cough] Onset: 10-06-2022 Past or Other Problems Problem Classification Problem Date Documented Da te Episodic/Chronic Chronic obstructive pulmonary disease and bronchiectasis (3 sources) Bronchitis; Translations: [Bronchitis, not specified as acute or chronic] Onset: 10-06-2022 Episodic Results Test Name Value Interpretation Reference Range Facil ity Vital Signs Date Time Vital Sign Value Performing Clinician Paulino rivers 03-26-2023 13:36-0400 Diastolic blood pressure 80 mm[Hg] Jose Manuel Styles MD Work Phone: [facility] 03-26-2023 13:36-0400 Systolic blood pressure 136 mm[Hg] Jose Manuel Styles MD Work Phone: [facility] 03-26-2023 13:07-0400 Body weight 89.36 kg Jose Manuel Styles MD Work Phone: [facility] 03-26-2023 13:07-0400 Heart rate 72 /min Jose Manuel Styles MD Work Phone: [facility] 03-26-2023 13:07-0400 SaO2% (BldA) [Mass fraction] 99 % Jose Manuel Styles MD Work Phone: [facility] 10-06-2022 10:58-0500 Body temperature 97.2 [degF] NA Rodriguez PA-C Work Phone: [facility] 10-06-2022 10:58-0500 Body weight 89.81 kg NA Rodriguez PA-C Work Phone: [facility] 10-06-2022 10:58-0500 Diastolic blood pressure 78 mm[Hg] NA Rodriguez PA-C Work Phone: [facility] 10-06-2022 10:58-0500 Heart rate 82 /min NA Rodriguez PA-C Work Phone: [facility] 10-06-2022 10:58-0500 Respiratory rate 18 /min NA Rodriguez PA-C Work Phone: [facility] 10-06-2022 10:58-0500 SaO2% (BldA) [Mass fraction] 98 % NA Rodrgiuez PA-C Work Phone: [facility] 10-06-2022 10:58-0500 Systolic blood pressure 132 mm[Hg] NA Rodriguez PA-C Work Phone: [facility] 05-21-2022 14:02-0400 Body height 180.3 cm Toni Masci DO Work Phone: [facility] 05-21-2022 14:02-0400 Body temperature 98.01 [degF] Toni Masci DO Work Phone: [facility] 05-21-2022 14:02-0400 Body weight 90.04 kg Toni Masci DO Work Phone: [facility] 05-21-2022 14:02-0400 Diastolic blood pressure 76 mm[Hg] Toni Masci DO Work Phone: [facility] 05-21-2022 14:02-0400 Heart rate 75 /min Toni Masci DO Work Phone: [facility] 05-21-2022 14:02-0400 Systolic blood pressure 134 mm[Hg] Toni Robin DO Work Phone: [facility] 03-26-2022 15:15-0400 Body weight 90.72 kg Jose Manuel Styles MD Work Phone: [facility] 03-26-2022 15:15-0400 Diastolic blood pressure 72 mm[Hg] Jose Manuel Styles MD Work Phone: [facility] 03-26-2022 15:15-0400 Heart rate 76 /min Jose Manuel Styles MD Work Phone: [facility] 03-26-2022 15:15-0400 Systolic blood pressure 120 mm[Hg] Jose Manuel Styles MD Work Phone: [facility] Encounters Encounter Date Encounter Type Care Provider Facility Start: 09-14-2023 End: 09-14-2023 ambulatory JOSE MANUEL STYLES Facility:[facility] Start: 06-11-2023 ambulatory Maia (Pss) [facility]grt [facility] [place] Procedures Date Procedure Procedure Detail Performing Clinician Start: 03-19-2023 Comprehensive metabo lic 2000 panel - Serum or Plasma [facility] Provider Start: 03-19-2023 Lipid panel [facility] Provid er Start: 03-19-2023 Lipid 1996 panel - S melissa or Plasma Maia Dopart Start: 05-26-2022 Us abdominal real ti me w/image limited Toni Robin DO Work Phone: Start: 03-23-2022 Adult depression scr eening assessment Jose Manuel Styles MD Work Phone: Start: 05-18-2020 Colonoscopy NA Michael MICHAELS Work Phone: Start: 05-10-2020 Adult depression scr eening assessment NA Michael MICHAELS Work Phone: Plan of Treatment Date Care Activity Detail Author Start: 05-18-2030 Colonoscopy COLONOSCOPY [facility] Start: 05-18-2030 COLORECTAL CANCER SCREENING COLORECTAL CANCER SCREENING [facility] Start: 03-19-2028 Lipid 1996 panel - S melissa or Plasma Lipid Screening [facility] Start: 03-19-2028 LIPID SCREEN LIPID SCREEN [facility] Start: 03-19-2026 DIABETES SCREEN DIABETES SCREEN [facility] Start: 03-19-2026 Diabetes Screening Diabetes Screenin g [facility] Start: 04-21-2025 LIPID SCREEN LIPID SCREEN [facility] Start: 03-26-2024 ANNUAL PCP TEAM LICENSED PRACTICAL NURSE CLINIC NURSE NORA DISEASE VISIT ANNUAL PCP TEAM CHRONIC DISEASE VISIT [facility] Start: 03-26-2024 Urine microalbumin profile [facility] Immunizations Immunization Date Immunization Notes Care Provider George coy 08-02-2022 influenza (HD-IIV4) vaccine, age 65+ yr, high dose, quadrivalent, PF (FLUZONE HIGH-DOSE) Jose Manuel Styles MD Work Phone: [facility] 08-02-2022 influenza virus vacc ine, unspecified formulation Maia Dominguez [facility] 07-06-2021 influenza, high-dose , quadrivalent vaccine (FLUZONE HIGH DOSE QUADRIVALENT) NA Rodriguez PA-C Work Phone: [facility] 12-08-2020 COVID-19 vaccine, fu ll dose (MODERNA) NA Rodriguez PA-C Work Phone: [facility] 11-10-2020 COVID-19 vaccine, fu ll dose (MODERNA) NA Rodriguez PA-C Work Phone: [facility] 07-24-2020 influenza, high-dose , quadrivalent vaccine (FLUZONE HIGH DOSE QUADRIVALENT) NA Rodriguez PA-C Work Phone: [facility] Work Phone: 08-26-2019 influenza, high dose seasonal, preservative-free NA Rodriguez PA-C Work Phone: [facility] Work Phone: 08-22-2019 zoster vaccine recombinant NA Rodriguez PA-C Work Phone: [facility] Work Phone: 06-08-2019 zoster vaccine recombinant NA Rodriguez PA-C Work Phone: [facility] Work Phone: 05-05-2018 pneumococcal polysaccharide vaccine, 23 valent NA Rodriguez PA-C Work Phone: [facility] 03-01-2015 pneumococcal conjuga te vaccine, 13 valent NA Rodriguez PA-C Work Phone: [facility] 09-28-2014 zoster vaccine, live NA Eric on PA-C Work Phone: [facility] 08-17-2014 zoster vaccine, live NA Eric on PA-C Work Phone: [facility] 09-28-2013 influenza nasal, unspecified formulation NA Rodriguez PA-C Work Phone: [facility] 09-28-2013 influenza virus vacc ine, unspecified formulation NA Rodriguez PA-C Work Phone: [facility] 09-28-2009 tetanus toxoid, unspecified formulation NA Rodriguez PA-C Work Phone: [facility] Payers Date Payer Category Payer Medicare AET MEDICARE A ETNA MEDICARE PPO [id number] 2021-Present [phone] [address] [place] [address] PPO [id number] 2021 Medicare AETNA MEDICARE A ETNA MEDICARE PPO [id number] 2021-Present [phone] [address] [place] [address] [facility] [id number] 2021 Medicare [id number] Social History Date Type Detail Facility Start: 02-13-2016 Tobacco smoking status NHIS Ex-smoker [facility] Work Phone: History of tobacco use Cigar Smoker [facility] Work Phone: Start: 02-13-2016 End: 05-21-2022 Tobacco use and exposure Smokeless tobacco non-user [facility] Work Phone: Start: 03-25-2021 End: 03-26-2023 Alcohol intake Current non-drinker of alcohol (finding) [facility] Start: 03-20-2020 End: 03-23-2022 History SDOH Alcohol Frequency 3 [facility] Start: 03-20-2020 End: 03-25-2023 History SDOH Alcohol Std Drinks 1 [facility] Start: 03-20-2020 History SDOH Social Connections Phone 98 [facility] Start: 03-20-2020 End: 03-25-2023 History SDOH Physical Activity DPW 2 [facility] Start: 03-20-2020 End: 03-25-2023 History SDOH Physical Activity MPS 4 [facility] Start: 03-20-2020 End: 03-25-2023 History SDOH Financial 5 [facility] Start: 03-20-2020 Education 18 [facility] Start: 1950 Sex Assigned At Male [facility] Start: 12-21-2021 End: 12-31-2021 Exposure to SARS-CoV-2 (event) Unable to assess [facility] Work Phone: Start: 03-16-2022 End: 05-21-2022 Exposure to SARS-CoV-2 (event) Not sure [facility] Start: 05-21-2022 Tobacco smoking status NHIS Occasional tobacco smoker [facility] Start: 05-21-2022 Tobacco Comment Smokes 1 cigar 1-2 times monthly. [facility] Start: 03-25-2023 End: 03-26-2023 History of Social function [facility] Start: 03-25-2023 End: 03-26-2023 Social connection and isolation panel [facility] Frequency of Communication with Friends and Family Not on file [facility] Are you now , , , , never or living with a partner? [facility] How often to you hav e a drink containing alcohol? 2-4 times a month [facility] How many standard dr inks containing alcohol do you have on a typical day? 1 or 2 [facility] How often do you hav e 6 or more drinks on 1 occasion? Never [facility] Do you feel stress - tense, restless, nervous, or anxious, or unable to sleep at night because your mind is troubled all the time - these days [OSQ] Not at all [facility] (I/We) worried wheth er (my/our) food would run out before (I/we) got money to buy more. Never true [facility] At any time in the p ast 12 months, were you homeless or living in detention [including now]? No [facility] Start: 09-20-2020 Gender identity Identifies as male gender (finding) [facility] Start: 09-20-2020 Sexual orientation Heterosexual (finding) [facility] Clinical Notes 09-01-2013 to 09-14-2023 Maia Ocasio - 06/11/2023 8:43 AM EDTRiesMaria Victoria MA - 04/10/2023 9:27 AM SANDEEPTJose Manuel Styles MD - 03/26/2023 1:10 PM EDTTelephone Encounter - Chante Baronemerry GUZMAN - 03/20/2023 7:36 PM EDT Note Date & Type Note Facility 09-14-2023 Note HNO ID: [id number] Author: Jose Manuel Styles MD Service: ? Author Type: Physician Type: Progress Notes Filed: 09/14/2023 10:31 AM Note Text: Patient presents with: 6 Month Exam HPI: Patient presents today for office visit for follow up. HTN: Continues on Lisinopril 10 mg daily Denies side effects Does not monitor BP Denies chest pain and shortness of breath No headaches or dizziness Denies palpitations or syncopal episodes No edema Has some swelling in B/L hands. His daughter noticed it a couple days ago. Still seeing rheumatology. Discussed to monitor and let them know. Not painful. On plaquenil and following with the eye doctor. Continues on Lovastatin No myalgias Last blood count was stable per rheum at . MEDICATIONS: Current Outpatient Medications Medication Sig calcium carbonate/vitamin D3 (CALCIUM 600 + D,3, ORAL) hydrOXYchloroQUINE (PLAQUENIL) 200 mg tablet Take 400 mg by mouth once daily. lisinopril (ZESTRIL) 10 mg tablet Take 1 tablet by mouth once daily. lovastatin (MEVACOR) 20 mg tablet Take 1 tablet by mouth daily at bedtime. sildenafil (VIAGRA) 100 mg tablet Take 30-60 minutes before sex docosahexaenoic acid/epa (FISH OIL ORAL) Take 1 capsule by mouth once daily. COMPOUNDED PRESCRIPTION anh therapy Cervical disc disease SAW PALMETTO ORAL Take 1 tablet by mouth once daily. BIOTIN ORAL Take 1 tablet by mouth every other day. 3 days per week COMPOUNDED PRESCRIPTION ginko otc once daily No current facility-administered medications for this visit. ALLERGIES: ALLERGIES Allergen Reactions Penicillins PAST MEDICAL HISTORY Diagnosis Date Hypertension Mixed hyperlipidemia Hyperlipidemia Rheumatoid arthritis (HCC) PAST SURGICAL HISTORY Procedure Laterality Date ARTHROSCOPY KNEE DIAGNOSTIC W/WO SYNOVIAL BX SPX Arthroscopy, knee ARTHROSCOPY KNEE DIAGNOSTIC W/WO SYNOVIAL BX SPX Arthroscopy, knee ARTHRP KNE CONDYLEANDPLATU MEDIALANDLAT COMPARTMENTS Knee replacement, total ARTHRP KNE CONDYLEANDPLATU MEDIALANDLAT COMPARTMENTS Knee replacement, total COLONOSCOPY 05/18/2020 Dr. Hunt, repeat 10 years EGD 05/18/2020 Dr. Hunt FAMILY HISTORY Problem Relation Age of Onset Stroke Mother Colon Cancer Mother Diabetes Mother Hypertension Mother Hyperlipidemia Mother Cancer Father lung Social History Tobacco Use Smoking status: Some Days Types: Cigars Smokeless tobacco: Never Tobacco comments: Smokes 1 cigar 1-2 times monthly. Vaping Use Vaping Use: Never used Substance Use Topics Alcohol use: No Drug use: No Reviewed current medications, allergies, past medical history, surgical history, family history and social history today. REVIEW OF SYSTEMS All other reviewed and negative other than HPI. HEALTH MAINTENANCE: Reviewed health maintenance issues today and recommended the following in detail. BP Controlled (<130/80) Never done RSV Vaccine(1 - 1-dose 60+ series) Never done Advance Directive Discussion - is his surrogate. VITALS: BP 124/76 Pulse 84 Ht 180.3 cm (5' 11 ) Wt 90.4 kg (199 lb 6.4 oz) SpO2 99% BMI 27.81 kg/m? Last 4 Encounter Wt Readings: Date: Wt: 03/26/2023 89.4 kg (197 lb) 10/06/2022 89.8 kg (198 lb) 06/10/2022 90.5 kg (199 lb 8 oz) 05/21/2022 90 kg (198 lb 8 oz) PHYSICAL EXAMINATION: General appearance: Well appearing, alert, in no acute distress, well-hydrated, well nourished. Skin: Skin color, texture, turgor normal, no suspicious rashes or lesions Head: Normocephalic, no masses, lesions, tenderness or abnormalities Neck: Supple, no adenopathy; thyroid symmetric, normal size, no bruits Lungs: Lungs clear to auscultation. No wheezing, rhonchi, rales Heart: RRR without murmur, gallop, or rubs. No ectopy Abdomen: Normal abdominal exam, Abdomen soft, non-tender. Bowel sounds normal. No masses, organomegaly Extremities: No deformities, edema, skin discoloration, clubbing or cyanosis. Good capillary refill. Musculoskeletal: No joint swelling, deformity, or tenderness ASSESSMENT/PLAN: 1. Essential hypertension - ICD9: 401.9, ICD10: I10 (primary diagnosis) - Controlled - Continue current medications 2. Mixed hyperlipidemia - ICD9: 272.2, ICD10: E78.2 - Controlled - Continue current medications 3. Iron deficiency anemia, unspecified iron deficiency anemia type - ICD9: 280.9, ICD10: D50.9 - follow labs. 4. Rheumatoid arthritis of multiple sites with negative rheumatoid factor (HCC) - ICD9: 714.0, ICD10: M06.09 - stable. 5. Skin cancer - ICD9: 173.90, ICD10: C44.90 - stable. Follow with derm. Jose Manuel Styles MD [facility] 06-11-2023 Note Patient Outreach (GORDY TNAV) OTILIO MILLER ([id number]) 1950 M Date Time Provider Department 06/11/23 MAIA DOMINGUEZ (PSS)V During your visit today, we recorded the following information about you: Maia Ocasio 06/11/2023 12:00 PM Signed POPULATION HEALTH NAVIGATION OUTREACH Action/FYI 06/11/23 Discuss/due [employer] care gaps: ~PCP follow up (around 09/25/23) ~Flu vaccine Outcome: ~Spoke with patient who stated he needed to consult with his who had their family calendar and would be home on Thursday. Patient took my number and stated he would call me back to set up appointments. Patient Identified by Name and : YES, via phone Outreach Outcome/Action Spoke to patient / parent / legal guardian: Patient will return the call or ask for return call Did you use a PCP flex slot to schedule this appointment? N/A Reason for Outreach Care Gap or Scheduling/Wellness visits Payer: Payor: [employer] MEDICARE / Plan: AET MEDICARE PPO / Product Type: PPO / Care Gap Reviewed:: Follow-up appointment Flu Vaccine Reminder: Reminder note to check Health Maintenance for items below Health Maintenance items due: BP Controlled (<130/80) Never done Advance Directive Discussion due on 09/28/2022 Covid-19 Vaccine(5 - Moderna series) due on 10/19/2022 Influenza Vaccine(1) due on 05/29/2023 Navigation Signature: Maia Dominguez Population Health Navigator June 11, 2023 8:43 AM Allergies As of Date: 06/11/2023 Noted Allergy Reaction PENICILLINS 04/30/2006 Date Reviewed: 03/26/2023 Reviewed by: Lilian Marquez LPN - Fully Assessed Reason for Visit: Population Health Navigation Outreach [3910] Cmt: [employer] care gaps Prescriptions as of 06/11/2023 - hydrOXYchloroQUINE (PLAQUENIL) 200 mg tablet Take 400 mg by mouth once daily. - lisinopril (ZESTRIL) 10 mg tablet Take 1 tablet by mouth once daily. - lovastatin (MEVACOR) 20 mg tablet Take 1 tablet by mouth daily at bedtime. - acetaminophen (TYLENOL) 500 mg tablet Take 500 mg by mouth every 8 hours as needed. - sildenafil (VIAGRA) 100 mg tablet Take 30-60 minutes before sex - docosahexaenoic acid/epa (FISH OIL ORAL) Take 1 capsule by mouth once daily. - COMPOUNDED PRESCRIPTION anh therapy Cervical disc disease - SAW PALMETTO ORAL Take 1 tablet by mouth once daily. - BIOTIN ORAL Take 1 tablet by mouth every other day. 3 days per week - COMPOUNDED PRESCRIPTION ginko otc once daily Problem List As Of Date 06/11/2023 Noted Resolved CERV DISC DIS W MYELOPAT [M50.00] 04/30/2006 Mixed hyperlipidemia [E78.2] ED (erectile dysfunction) [N52.9] 11/10/2011 Folliculitis [L73.9] 09/01/2013 05/05/2018 Essential hypertension [I10] 03/21/2020 Rheumatoid arthritis of multiple sites with neg*05/31/2020 leukopenia [D64.9] 03/26/2023 Encounter Status:Closed by MAIA OCASIO on 06/11/23 [facility] 06-11-2023 Note HNO ID: [id number] Author: Maia Ocasio Service: ? Author Type: ? Type: Progress Notes Filed: 06/11/2023 12:00 PM Note Text: POPULATION HEALTH NAVIGATION OUTREACH Action/I 06/11/23 Discuss/due [employer] care gaps: ~PCP follow up (around 09/25/23) ~Flu vaccine Outcome: ~Spoke with patient who stated he needed to consult with his who had their family calendar and would be home on Thursday. Patient took my number and stated he would call me back to set up appointments. Patient Identified by Name and : YES, via phone Outreach Outcome/Action Spoke to patient / parent / legal guardian: Patient will return the call or ask for return call Did you use a PCP flex slot to schedule this appointment? N/A Reason for Outreach Care Gap or Scheduling/Wellness visits Payer: Payor: [employer] MEDICARE / Plan: [employer] MEDICARE PPO / Product Type: PPO / Care Gap Reviewed:: Follow-up appointment Flu Vaccine Reminder: Reminder note to check Health Maintenance for items below Health Maintenance items due: BP Controlled (<130/80) Never done Advance Directive Discussion due on 09/28/2022 Covid-19 Vaccine(5 - Moderna series) due on 10/19/2022 Influenza Vaccine(1) due on 05/29/2023 Navigation Signature: Maia Dominguez Population Health Navigator June 11, 2023 8:43 AM [facility] 06-11-2023 History of Present illness Narrative POPULATION HEALTH NAVIGATION OUTREACH Action/I 06/11/23 Discuss/due [employer] care gaps: ~PCP follow up (around 09/25/23) ~Flu vaccine Outcome: ~Spoke with patient who stated he needed to consult with his who had their family calendar and would be home on Thursday. Patient took my number and stated he would call me back to set up appointments. Patient Identified by Name and : YES, via phone Outreach Outcome/Action Spoke to patient / parent / legal guardian: Patient will return the call or ask for return call Did you use a PCP flex slot to schedule this appointment? N/A Reason for Outreach Care Gap or Scheduling/Wellness visits Payer: Payor: [employer] MEDICARE / Plan: [employer] MEDICARE PPO / Product Type: PPO / Care Gap Reviewed:: Follow-up appointment Flu Vaccine Reminder: Reminder note to check Health Maintenance for items below Health Maintenance items due: BP Controlled (<130/80) Never done Advance Directive Discussion due on 09/28/2022 Covid-19 Vaccine(5 - Moderna series) due on 10/19/2022 Influenza Vaccine(1) due on 05/29/2023 Navigation Signature: Maia Dominguez Population Health Navigator June 11, 2023 8:43 AM documented in this encounter [facility] 04-10-2023 Note Patient Outreach (NE TNAV) OTILIO MILLER ([id number]) 1950 M Date Time Provider Department 04/10/23 MARIA VICTORIA RENTERIA During your visit today, we recorded the following information about you: Maria Victoria Renteria MA 04/10/2023 11:58 AM Signed POPULATION HEALTH NAVIGATION OUTREACH Action/ Michael Care Gaps 7.5.23 Discuss/Due for: Advance Directives, Colorectal Cancer Screening, Follow Up with Jose Manuel Styles MD Return in about 6 months (around 09/25/2023). Outcome: 1st attempt - Left Message 2nd attempt - MyChart message sent Patient Identified by Name and : NO Outreach Outcome/Action Unable to reach patient: Left message MyChart message sent Advance Directives sent Did you use a PCP flex slot to schedule this appointment? N/A Reason for Outreach Care Gap or Scheduling/Wellness visits Payer: Payor: [employer] MEDICARE / Plan: [employer] MEDICARE PPO / Product Type: PPO / Care Gap Reviewed:: Follow-up appointment Colorectal Cancer Screening Reminder: Reminder note to check Health Maintenance for items below Health Maintenance items due: BP CONTROLLED (<130/80) Never done ADVANCE DIRECTIVE DISCUSSION due on 09/28/2022 COVID-19 VACCINE(5 - Moderna series) due on 10/19/2022 Navigation Signature: Maria Victoria Renteria MA April 10, 2023 9:27 AM Allergies As of Date: 04/10/2023 Noted Allergy Reaction PENICILLINS 04/30/2006 Date Reviewed: 03/26/2023 Reviewed by: Lilian Marquez LPN - Fully Assessed Reason for Visit: Population Health Navigation Outreach [3910] Cmt: Sofy Care Gaps 7.5.23 Prescriptions as of 04/10/2023 - hydrOXYchloroQUINE (PLAQUENIL) 200 mg tablet Take 400 mg by mouth once daily. - lisinopril (ZESTRIL) 10 mg tablet Take 1 tablet by mouth once daily. - lovastatin (MEVACOR) 20 mg tablet Take 1 tablet by mouth daily at bedtime. - acetaminophen (TYLENOL) 500 mg tablet Take 500 mg by mouth every 8 hours as needed. - sildenafil (VIAGRA) 100 mg tablet Take 30-60 minutes before sex - docosahexaenoic acid/epa (FISH OIL ORAL) Take 1 capsule by mouth once daily. - COMPOUNDED PRESCRIPTION anh therapy Cervical disc disease - SAW PALMETTO ORAL Take 1 tablet by mouth once daily. - BIOTIN ORAL Take 1 tablet by mouth every other day. 3 days per week - COMPOUNDED PRESCRIPTION ginko otc once daily Problem List As Of Date 04/10/2023 Noted Resolved CERV DISC DIS W MYELOPAT [M50.00] 04/30/2006 Mixed hyperlipidemia [E78.2] ED (erectile dysfunction) [N52.9] 11/10/2011 Folliculitis [L73.9] 09/01/2013 05/05/2018 Essential hypertension [I10] 03/21/2020 Rheumatoid arthritis of multiple sites with neg*05/31/2020 leukopenia [D64.9] 03/26/2023 Encounter Status:Closed by MARIA VICTORIA RENTERIA on 04/10/23 [facility] 04-10-2023 Note HNO ID: [id number] Author: Maria Victoria Renteria MA Service: ? Author Type: Correctional Captain Type: Progress Notes Filed: 04/10/2023 11:58 AM Note Text: POPULATION HEALTH NAVIGATION OUTREACH Action/FYI [employer] Care Gaps 7.5. Discuss/Due for: Advance Directives, Colorectal Cancer Screening, Follow Up with Jose Manuel Styles MD Return in about 6 months (around 09/25/2023). Outcome: 1st attempt - Left Message 2nd attempt - MyChart message sent Patient Identified by Name and : NO Outreach Outcome/Action Unable to reach patient: Left message MyChart message sent Advance Directives sent Did you use a PCP flex slot to schedule this appointment? N/A Reason for Outreach Care Gap or Scheduling/Wellness visits Payer: Payor: [employer] MEDICARE / Plan: [employer] MEDICARE PPO / Product Type: PPO / Care Gap Reviewed:: Follow-up appointment Colorectal Cancer Screening Reminder: Reminder note to check Health Maintenance for items below Health Maintenance items due: BP CONTROLLED (<130/80) Never done ADVANCE DIRECTIVE DISCUSSION due on 09/28/2022 COVID-19 VACCINE(5 - Moderna series) due on 10/19/2022 Navigation Signature: Maria Victoria Renteria MA April 10, 2023 9:27 AM [facility] 04-10-2023 History of Present illness Narrative POPULATION HEALTH NAVIGATION OUTREACH Action/FYI [employer] Care Gaps 7.02.17 Discuss/Due for: Advance Directives, Colorectal Cancer Screening, Follow Up with Jose Manuel Styles MD Return in about 6 months (around 09/25/2023). Outcome: 1st attempt - Left Message 2nd attempt - MyChart message sent Patient Identified by Name and : NO Outreach Outcome/Action Unable to reach patient: Left message MyChart message sent Advance Directives sent Did you use a PCP flex slot to schedule this appointment? N/A Reason for Outreach Care Gap or Scheduling/Wellness visits Payer: Payor: [employer] MEDICARE / Plan: [employer] MEDICARE PPO / Product Type: PPO / Care Gap Reviewed:: Follow-up appointment Colorectal Cancer Screening Reminder: Reminder note to check Health Maintenance for items below Health Maintenance items due: BP CONTROLLED (<130/80) Never done ADVANCE DIRECTIVE DISCUSSION due on 09/28/2022 COVID-19 VACCINE(5 - Moderna series) due on 10/19/2022 Navigation Signature: Maria Victoria Renteria MA April 10, 2023 9:27 AM documented in this encounter [facility] 03-26-2023 Note HNO ID: [id number] Author: Jose Manuel Styles MD Service: ? Author Type: Physician Type: Progress Notes Filed: 03/26/2023 1:38 PM Note Text: Patient presents with: Physical HPI: Patient presents today for office visit for check up. Sees rheumatology and doing well. Reviewed recent labs that was stable except for elevated crp. HYPERTENSION:no chest pain No shortness of breath. No edema. No dizziness. No palpitations. HLD:no issues with the lovastatin. Got bronchitis around [place]. Developed an intermittent cough. Occasionally productive. Is on an david. Happens rarely. Advised if recurs, will need evaluated. No gerd. MEDICATIONS: Current Outpatient Medications Medication Sig hydrOXYchloroQUINE (PLAQUENIL) 200 mg tablet Take 400 mg by mouth once daily. lisinopril (ZESTRIL) 10 mg tablet Take 1 tablet by mouth once daily. lovastatin (MEVACOR) 20 mg tablet Take 1 tablet by mouth daily at bedtime. golimumab (SIMPONI ARIA) infusion Inject 2 mg/kg/dose intravenously. EVERY OTHER MONTH. acetaminophen (TYLENOL) 500 mg tablet Take 500 mg by mouth every 8 hours as needed. sildenafil (VIAGRA) 100 mg tablet Take 30-60 minutes before sex docosahexaenoic acid/epa (FISH OIL ORAL) Take 1 capsule by mouth once daily. COMPOUNDED PRESCRIPTION anh therapy Cervical disc disease SAW PALMETTO ORAL Take 1 tablet by mouth once daily. BIOTIN ORAL Take 1 tablet by mouth every other day. 3 days per week COMPOUNDED PRESCRIPTION ginko otc once daily No current facility-administered medications for this visit. ALLERGIES: ALLERGIES Allergen Reactions Penicillins PAST MEDICAL HISTORY Diagnosis Date Hypertension Mixed hyperlipidemia Hyperlipidemia Rheumatoid arthritis (HCC) PAST SURGICAL HISTORY Procedure Laterality Date ARTHROSCOPY KNEE DIAGNOSTIC W/WO SYNOVIAL BX SPX Arthroscopy, knee ARTHROSCOPY KNEE DIAGNOSTIC W/WO SYNOVIAL BX SPX Arthroscopy, knee ARTHRP KNE CONDYLEANDPLATU MEDIALANDLAT COMPARTMENTS Knee replacement, total ARTHRP KNE CONDYLEANDPLATU MEDIALANDLAT COMPARTMENTS Knee replacement, total COLONOSCOPY 05/18/2020 Dr. Hunt, repeat 10 years EGD 05/18/2020 Dr. Hunt FAMILY HISTORY Problem Relation Age of Onset Stroke Mother Colon Cancer Mother Diabetes Mother Hypertension Mother Hyperlipidemia Mother Cancer Father lung Social History Tobacco Use Smoking status: Some Days Types: Cigars Smokeless tobacco: Never Tobacco comments: Smokes 1 cigar 1-2 times monthly. Vaping Use Vaping Use: Never used Substance Use Topics Alcohol use: No Drug use: No Reviewed current medications, allergies, past medical history, surgical history, family history and social history today. REVIEW OF SYSTEMS GI: No nausea, vomiting, or diarrhea : No history of dysuria, frequency or incontinence, sees Dr. Tinajero in March. SKIN: Negative for lesions, rash, and itching All other reviewed and negative other than HPI. HEALTH MAINTENANCE: Reviewed health maintenance issues today and recommended the following in detail. BP CONTROLLED (<130/80) Never done DTAP,TDAP,TD(1 - Tdap) Never done ADVANCE DIRECTIVE DISCUSSION -has a dpoa, Perla is his surrogate. DEPRESSION ASSESSMENT Never done VITALS: BP 136/80 Pulse 72 Wt 89.4 kg (197 lb) SpO2 99% BMI 27.48 kg/m? Last 4 Encounter Wt Readings: Date: Wt: 03/26/2023 89.4 kg (197 lb) 10/06/2022 89.8 kg (198 lb) 06/10/2022 90.5 kg (199 lb 8 oz) 05/21/2022 90 kg (198 lb 8 oz) PHYSICAL EXAMINATION: General appearance: Well appearing, alert, in no acute distress, well-hydrated, well nourished. Skin: Skin color, texture, turgor normal, no suspicious rashes or lesions Head: Normocephalic, no masses, lesions, tenderness or abnormalities Eyes: Anicteric sclera. Pupils are equally round and reactive to light. Extraocular movements are intact. Ears: External ears normal, canals clear Nose/Sinuses: Nares normal, septum midline, mucosa normal, no drainage or sinus tenderness Oropharynx: Lips, mucosa, and tongue normal, teeth and gums normal, oropharynx normal Neck: Supple, no adenopathy; thyroid symmetric, normal size, no bruits Lungs: Lungs clear to auscultation. No wheezing, rhonchi, rales Heart: RRR without murmur, gallop, or rubs. No ectopy Abdomen: Normal abdominal exam, Abdomen soft, non-tender. Bowel sounds normal. No masses, organomegaly Extremities: No deformities, edema, skin discoloration, clubbing or cyanosis. Good capillary refill. Musculoskeletal: No joint swelling, deformity, or tenderness ASSESSMENT/PLAN: 1. Mixed hyperlipidemia - ICD9: 272.2, ICD10: E78.2 (primary diagnosis) - Controlled - Continue current medications 2. Rheumatoid arthritis involving multiple sites with positive rheumatoid factor (HCC) - ICD9: 714.0, ICD10: M05.79 - per rheum. Is stable. 3. Essential hypertension - ICD9: 401.9, ICD10: I10 - Controlled - Continue current m (more content not included)... [facility] 03-26-2023 History of Present illness Narrative Patient presents with: Physical HPI: Patient presents today for office visit for check up. Sees rheumatology and doing well. Reviewed recent labs that was stable except for elevated crp. HYPERTENSION:no chest pain No shortness of breath. No edema. No dizziness. No palpitations. HLD:no issues with the lovastatin. Got bronchitis around [place]. Developed an intermittent cough. Occasionally productive. Is on an david. Happens rarely. Advised if recurs, will need evaluated. No gerd. MEDICATIONS: Current Outpatient Medications Medication Sig hydrOXYchloroQUINE (PLAQUENIL) 200 mg tablet Take 400 mg by mouth once daily. lisinopril (ZESTRIL) 10 mg tablet Take 1 tablet by mouth once daily. lovastatin (MEVACOR) 20 mg tablet Take 1 tablet by mouth daily at bedtime. golimumab (SIMPONI ARIA) infusion Inject 2 mg/kg/dose intravenously. EVERY OTHER MONTH. acetaminophen (TYLENOL) 500 mg tablet Take 500 mg by mouth every 8 hours as needed. sildenafil (VIAGRA) 100 mg tablet Take 30-60 minutes before sex docosahexaenoic acid/epa (FISH OIL ORAL) Take 1 capsule by mouth once daily. COMPOUNDED PRESCRIPTION anh therapy Cervical disc disease SAW PALMETTO ORAL Take 1 tablet by mouth once daily. BIOTIN ORAL Take 1 tablet by mouth every other day. 3 days per week COMPOUNDED PRESCRIPTION ginko otc once daily No current facility-administered medications for this visit. ALLERGIES: ALLERGIES Allergen Reactions Penicillins PAST MEDICAL HISTORY Diagnosis Date Hypertension Mixed hyperlipidemia Hyperlipidemia Rheumatoid arthritis (HCC) PAST SURGICAL HISTORY Procedure Laterality Date ARTHROSCOPY KNEE DIAGNOSTIC W/WO SYNOVIAL BX SPX Arthroscopy, knee ARTHROSCOPY KNEE DIAGNOSTIC W/WO SYNOVIAL BX SPX Arthroscopy, knee ARTHRP KNE CONDYLE&PLATU MEDIAL&LAT COMPARTMENTS Knee replacement, total ARTHRP KNE CONDYLE&PLATU MEDIAL&LAT COMPARTMENTS Knee replacement, total COLONOSCOPY 05/18/2020 Dr. Hunt, repeat 10 years EGD 05/18/2020 Dr. Hunt FAMILY HISTORY Problem Relation Age of Onset Stroke Mother Colon Cancer Mother Diabetes Mother Hypertension Mother Hyperlipidemia Mother Cancer Father lung Social History Tobacco Use Smoking status: Some Days Types: Cigars Smokeless tobacco: Never Tobacco comments: Smokes 1 cigar 1-2 times monthly. Vaping Use Vaping Use: Never used Substance Use Topics Alcohol use: No Drug use: No Reviewed current medications, allergies, past medical history, surgical history, family history and social history today. REVIEW OF SYSTEMS GI: No nausea, vomiting, or diarrhea : No history of dysuria, frequency or incontinence, sees Dr. Tinajero in March. SKIN: Negative for lesions, rash, and itching All other reviewed and negative other than HPI. HEALTH MAINTENANCE: Reviewed health maintenance issues today and recommended the following in detail. BP CONTROLLED (<130/80) Never done DTAP,TDAP,TD(1 - Tdap) Never done ADVANCE DIRECTIVE DISCUSSION -has a dpoa, Perla is his surrogate. DEPRESSION ASSESSMENT Never done VITALS: BP 136/80 Pulse 72 Wt 89.4 kg (197 lb) SpO2 99% BMI 27.48 kg/m Last 4 Encounter Wt Readings: Date: Wt: 03/26/2023 89.4 kg (197 lb) 10/06/2022 89.8 kg (198 lb) 06/10/2022 90.5 kg (199 lb 8 oz) 05/21/2022 90 kg (198 lb 8 oz) PHYSICAL EXAMINATION: General appearance: Well appearing, alert, in no acute distress, well-hydrated, well nourished. Skin: Skin color, texture, turgor normal, no suspicious rashes or lesions Head: Normocephalic, no masses, lesions, tenderness or abnormalities Eyes: Anicteric sclera. Pupils are equally round and reactive to light. Extraocular movements are intact. Ears: External ears normal, canals clear Nose/Sinuses: Nares normal, septum midline, mucosa normal, no drainage or sinus tenderness Oropharynx: Lips, mucosa, and tongue normal, teeth and gums normal, oropharynx normal Neck: Supple, no adenopathy; thyroid symmetric, normal size, no bruits Lungs: Lungs clear to auscultation. No wheezing, rhonchi, rales Heart: RRR without murmur, gallop, or rubs. No ectopy Abdomen: Normal abdominal exam, Abdomen soft, non-tender. Bowel sounds normal. No masses, organomegaly Extremities: No deformities, edema, skin discoloration, clubbing or cyanosis. Good capillary refill. Musculoskeletal: No joint swelling, deformity, or tenderness ASSESSMENT/PLAN: 1. Mixed hyperlipidemia - ICD9: 272.2, ICD10: E78.2 (primary diagnosis) - Controlled - Continue current medications 2. Rheumatoid arthritis involving multiple sites with positive rheumatoid factor (HCC) - ICD9: 714.0, ICD10: M05.79 - per rheum. Is stable. 3. Essential hypertension - ICD9: 401.9, ICD10: I10 - Controlled - Continue current medications 4. Intervertebral cervical disc disorder with myelopathy, cervical region - ICD9: 722.71, ICD10: M50.00 - stable. 5. Anemia, unspecified type - ICD9: 285.9, ICD10: D64.9 - doing well. Has seen rheum. Jose Manuel Styles MD documented in this encounter [facility] 03-20-2023 Miscellaneous Notes Phone call placed patient advised (see prior provider encounter) Patient verbalized understanding, agreed with plan of care, will discuss further on scheduled visit 03/26/2023. Chante Benavides LPN CBC shows stable anemia from last check Chemistries look okay. CRP 10.6 is high but markedly reduced from last check 56.2 10/17/22, consistent with RA Jacky James PA-C LIPID PANEL (EXTERNAL) (Order #[id number]) on 03/20/23 CMP (EXTERNAL) (Order #[id number]) on 03/20/23 View External Lab - Chemistry [ID [id number]] documented in this encounter [facility] 02-26-2023 Miscellaneous Notes Patient has been identified by name and date of : Yes Requested Prescriptions Pending Prescriptions Disp Refills lisinopril (ZESTRIL) 10 mg tablet 90 tablet 3 Sig: Take 1 tablet by mouth once daily. lovastatin (MEVACOR) 20 mg tablet 90 tablet 3 Sig: Take 1 tablet by mouth daily at bedtime. RX INSTRUCTIONS: Patient aware RX will be sent to pharmacy. No need to notify patient. Lilian Marquez LPN documented in this encounter [facility] 10-21-2022 Miscellaneous Notes Patient was notified Shikha Christianson Ma I am not sure any of the other meds are any easier and I think he needs to be on something. Also respiratory infections have been rampant this winter and they alone can drop the blood counts as well. If they want to put him back on it but follow labs closely, I think it is ok. Pt called and is notified of providers message and instructions. Pt voices understanding. Pt states he was in [facility] in August for a sinus infection and they put him on antibiotics. That hadn't cleared up and he was in to see Doe PRITCHARD for Bronchitis and he was put on Prednisone. The he had Mohs surgery on his nose and was placed on antibiotics for that. He states he stopped the Methotrexate on 10/05/22 and they started to see his WBC go up, and he isn't supposed to start back on it until 10/26/22. Pt states he isn't sure he wants to go back on it if that is what's decreasing his WBC. The he had the Simponi Aria infusion on 09/18/22 and is scheduled to get that next on 10/23/22. He reports that one of the main side effects of that is Bronchitis, and he is just starting to feel better from when he had it before. Pt asking for providers opinion on these medications and if he thinks it may be causing some of his issues. Please call and advise. Lashanda Moreira RN Tell him thank you for the update. I saw the repeat he just had where the white count looks like it is rebounding, still anemic. They should continue to follow it. Let me know if we he continues to have any issues Repeat labs from [facility] ordered by Haley Mccord scanned in today. Ok, if he is able, let me know how the repeat labs are. Hope things improve Labs on desk. Pt calls to update pcp on what has been going on with his health. Pt reports since he started Simponi Aria infusion through Dr. Tejeda his mold shaker, he has had URI issues which can be a side effect of med. Pt reports he has been on atb since before [facility] for sinus infection, then it was determined it was bronchitis. Pt had Mohs surgery and was placed on atb for that. Pt reports his wbc and rbc are low which can be from methotrexate which pt usually get once a week. Pt reports he has not done methotrexate injection since 10/05/22 and is having labs redrawn to see if wbc and rbc has come up. WBC was 2.6 on 10/08/22. Labs done through Dr. Mccord. Pt reports he is going to drop of those lab results to pcp office. Pt reports he will be having Simponi infusion on at [facility]. Pt reports he may be getting labs done there beforehand. Pt wanted pcp to be aware of what has been going on with him. Mar Haque LPN documented in this encounter [facility] 10-10-2022 Miscellaneous Notes Spoke with patient, he called [facility] back and was able to a refund. Veronique Porter Ma I apologize for sending to the unspecified incorrect pharmacy. It was discontinued the same day which would have been sent to [facility]. Did he call to see if he could return the unopened script from [facility]? Does he want me to pay him the difference? In the future please have him make sure pharmacy is specified when making requests which helps. Collette Rodriguez PA-C Rx for benzonatate was mistakenly sent to [facility] instead of local pharmacy on 10/06/22. Pt states [facility] had already processed RX & sent it out when Rx was canceled & sent to local pharm. Pt states [facility] changed him $42 & [facility] charged $18. Pt asking if anything can be done for him since he was charged for Rx going to incorrect pharmacy? Please advise. Bethany Figueroa LPN documented in this encounter [facility] 10-06-2022 Miscellaneous Notes Addended by: Collette RODRIGUEZ on: 10/06/2022 05:48 PM Modules accepted: Orders documented in this encounter [facility] 10-06-2022 Miscellaneous Notes Patient calls to request prescription for benzonatate from appointment this morning 10/06 be sent to [facility] not [facility]. Pended. Jossy Howard RN documented in this encounter [facility] 10-06-2022 Note HNO ID: [id number] Author: RT Lior(R) Service: ? Author Type: Graphics Software Engineer Type: Progress Notes Filed: 10/06/2022 11:38 AM Note Text: Radiology Service Progress Note PATIENT NAME: Otilio Miller DATE OF SERVICE: October 06, 2022 TIME: 11:32 AM PATIENT IDENTITY VERIFICATION COMPLETED USING TWO (2) IDENTIFIERS: Name and Date of confirmed by patient verbally. FALL SCREENING: Has the patient had 2 falls in the last year or 1 fall with injury or currently using an Ambulatory Assistive Device (Walker, Cane, Wheelchair, Crutches, etc.)? No PATIENT GENDER DATA: Male PATIENT RELEVANT IMPLANT DATA REVIEWED: Yes RADIOLOGY DEPARTMENT: General X-ray: Exam(s) Completed: Chest X-Ray PERIPHERAL IV DATA: Not applicable SIGNED BY: RT Lior(R) October 06, 2022 11:32 AM [facility] 10-06-2022 Note HNO ID: [id number] Author: Collette Rodriguez PA-C Service: ? Author Type: Physician Family Practice Nurse Practitioner Type: Progress Notes Filed: 10/06/2022 5:48 PM Note Text: 72 year old male with c/o cough, post-nasal drip, sinus pressure/ headache which started about 6 weeks without other sx doxycline. Went to [facility]: put on doxyclycline x 10 days which didn't help. Cough productive. Takes tylenol 500mg daily which helps Sudafed caused urinary difficulty ST from Coughing. Hurts mid upper chest with cough and muscles recent Moh's with skin graft, hacking for 6 weeks. On doxycycline again x 5 days post procedure. HISTORIES FAMILY HISTORY Problem Relation Age of Onset Stroke Mother Colon Cancer Mother Diabetes Mother Hypertension Mother Hyperlipidemia Mother Cancer Father lung PAST MEDICAL HISTORY Diagnosis Date Hypertension Mixed hyperlipidemia Hyperlipidemia Rheumatoid arthritis (HCC) PAST SURGICAL HISTORY Procedure Laterality Date ARTHROSCOPY KNEE DIAGNOSTIC W/WO SYNOVIAL BX SPX Arthroscopy, knee ARTHROSCOPY KNEE DIAGNOSTIC W/WO SYNOVIAL BX SPX Arthroscopy, knee ARTHRP KNE CONDYLEANDPLATU MEDIALANDLAT COMPARTMENTS Knee replacement, total ARTHRP KNE CONDYLEANDPLATU MEDIALANDLAT COMPARTMENTS Knee replacement, total COLONOSCOPY 05/18/2020 Dr. Hunt, repeat 10 years EGD 05/18/2020 Dr. Hunt Social History Tobacco Use Smoking status: Some Days Types: Cigars Smokeless tobacco: Never Tobacco comments: Smokes 1 cigar 1-2 times monthly. Vaping Use Vaping Use: Never used Substance Use Topics Alcohol use: No Drug use: No ACTIVE PROBLEM LIST Intervertebral Cervical Disc Disorder With Myelopathy, Cervical Region Mixed Hyperlipidemia Ed (Erectile Dysfunction) Essential Hypertension Rheumatoid Arthritis of Multiple Sites With Negative Rheumatoid Factor (Hcc) Current Outpatient Medications Medication Sig Dispense Refill golimumab (SIMPONI ARIA) infusion Inject 2 mg/kg/dose intravenously. EVERY OTHER MONTH. doxycycline monohydrate (MONODOX) 100 mg capsule TAKE 1 CAPSULE BY MOUTH TWICE DAILY WITH FOOD FOR 7 DAYS lisinopril (ZESTRIL, PRINIVIL) 10 mg tablet Take 1 tablet by mouth once daily. 90 tablet 1 lovastatin (MEVACOR) 20 mg tablet Take 1 tablet by mouth daily at bedtime. 90 tablet 1 acetaminophen (TYLENOL) 500 mg tablet Take 500 mg by mouth every 8 hours as needed. folic acid 1 mg tablet Take 1 tablet by mouth once daily. sildenafil (VIAGRA) 100 mg tablet Take 30-60 minutes before sex 6 tablet 5 METHOTREXATE SODIUM, PF, INJECTION Inject 22.5 mg subcutaneously one time a week. docosahexaenoic acid/epa (FISH OIL ORAL) Take 1 capsule by mouth once daily. COMPOUNDED PRESCRIPTION anh therapy Cervical disc disease 1 Each 0 SAW PALMETTO ORAL Take 1 tablet by mouth once daily. BIOTIN ORAL Take 1 tablet by mouth every other day. 3 days per week COMPOUNDED PRESCRIPTION ginko otc once daily 0 No current facility-administered medications for this visit. DTAP,TDAP,TD(1 - Tdap) Never done ADVANCE DIRECTIVE DISCUSSION due on 09/28/2022 DEPRESSION ASSESSMENT Never done EXAM: BP 132/78 Pulse 82 Temp 36.2 ?C (97.2 ?F) Resp 18 Wt 89.8 kg (198 lb) SpO2 98% BMI 27.62 kg/m? Pleasant adult man in no acute distress. Alert and oriented all spheres. Normal affect and cognition. Speech normal. No deficits to learning or comprehension. Skin warm, dry, pink to lips and nailbeds. Normal turgor. Respirations regular and unlabored. HEENT: NCAT. No scleral icterus or conjunctival injection. TM's clear. Nose and oropharynx free from injection or lesion. Oral membranes moist and pink. No cervical lymph nodes. Thyroid non-tender, no masses, or enlargement. Carotids pulses 2+/4+ without bruits. No JVD with HOB at 30 degrees. Chest is normal shape. Lungs are clear to all lee with good air exchange through out. HRRR without murmur or gallop. No lifts, heaves, or rubs. Extrem: no clubbing or cyanosis. Edema: none. Extremities are warm and pink with prompt capillary refill. ASSESSMENT/PLAN: 1. Subacute cough - ICD9: 786.2, ICD10: R05.2 (primary diagnosis) 2. Bronchitis - ICD9: 490, ICD10: J40 Nasal saline, decongestant, cool mist, rest , fluids - XR CHEST 2V FRONTAL/LAT - BENZONATATE 100 MG CAPSULE - PREDNISONE 20 MG TABLET Collette Rodriguez PA-C [facility] 10-06-2022 Instructions Collette Rodriguez PA-C - 10/06/2022 11:18 AM EST Continue current antibiotic. Acute Bronchitis What is acute bronchitis? Acute bronchitis is an infection of the bronchial (say: lbcte-acz-ilk ) tree. The bronchial tree is made up of the tubes that carry air into your lungs. When these tubes get infected, they swell and mucus (thick fluid) forms inside them. This makes it hard for you to breathe. You may cough up mucus and wheeze (make a whistling sound when you breathe). What causes acute bronchitis? Acute bronchitis is almost always caused by viruses that attack the lining of the bronchial tree and cause infection. As your body fights back against these viruses, more swelling occurs and more mucus is made. It takes time for your body to kill the viruses and heal the damage to your bronchial tubes. In most cases, the same viruses that cause colds cause acute bronchitis. Research has shown that bacterial infection is a much less common cause of bronchitis than we used to think. Very rarely, an infection caused by a fungus can cause acute bronchitis. How do people get acute bronchitis? The viruses that cause acute bronchitis are sprayed into the air or onto people s hands when they cough. You can get acute bronchitis if you breathe in these viruses. You can also get it if you touch a hand that is coated with the viruses. If you smoke or are around damaging fumes (such as those in certain kinds of factories), you are more likely to get acute bronchitis and to have it longer. This is because your bronchial tree is already damaged. How is acute bronchitis treated? Most cases of acute bronchitis will go away on their own after a few days or a week. It's a good idea to get plenty of rest, drink lots of noncaffeinated fluids (for example, water and fruit juices) and increase the humidity in your environment. Because acute bronchitis is usually caused by viruses, antibiotics (medicines that kill bacteria) usually do not help. Even if you cough up mucus that is colored or thick, antibiotics probably won t help you get better any faster. If you smoke, you should cut down on the number of cigarettes you smoke, or stop smoking altogether. This will help your bronchial tree heal faster. For some people with acute bronchitis, doctors prescribe medicines that are usually used to treat asthma. These medicines can help open the bronchial tubes and clear out mucus. They are usually given with an inhaler. An inhaler sprays the medicine right into the bronchial tree. Your doctor will decide if this treatment is right for you. How long will the cough from acute bronchitis last? You should call your doctor if: You continue to wheeze and cough for more than 2 weeks, especially at night or when you are active. You continue to cough for more than 2 weeks and sometimes have a bad-tasting fluid come up into your mouth. You have a cough, you feel very sick and weak, and you have a high fever that doesn t go down. You cough up blood. You have trouble breathing when you lie down. Your feet swell. Sometimes the cough from acute bronchitis lasts for several weeks or months. Usually this happens because the bronchial tree is taking a long time to heal. However, a cough that doesn t go away may be a sign of another problem, like asthma or pneumonia. How can I keep from getting acute bronchitis again? One of the best ways to keep from getting acute bronchitis is to wash your hands often to get rid of any viruses. If you smoke, the best defense against acute bronchitis is to quit. Smoking damages your bronchial tree and makes it easier for viruses to cause infection. Smoking also slows down the healing, so it takes longer for you to get well. Reviewed/Updated: 10/03 Created: 01/26 This handout provides a general overview on this topic and may not apply to everyone. To find out if this handout applies to you and to get more information on this subject, talk to your family doctor. Copyright [id number] [employer] Permission is granted to print and photocopy this material for nonprofit educational uses. Written permission is required for all other uses, including electronic uses. Tessalon perles as directed per prescription as needed for cough. This medication usually doesn't make you drowsy but please use caution. Do not allow the gel caps to dissolve or break in your mouth. documented in this encounter [facility] 10-06-2022 History of Present illness Narrative 72 year old male with c/o cough, post-nasal drip, sinus pressure/ headache which started about 6 weeks without other sx doxycline. Went to [facility]: put on doxyclycline x 10 days which didn't help. Cough productive. Takes tylenol 500mg daily which helps Sudafed caused urinary difficulty ST from Coughing. Hurts mid upper chest with cough and muscles recent Moh's with skin graft, hacking for 6 weeks. On doxycycline again x 5 days post procedure. HISTORIES FAMILY HISTORY Problem Relation Age of Onset Stroke Mother Colon Cancer Mother Diabetes Mother Hypertension Mother Hyperlipidemia Mother Cancer Father lung PAST MEDICAL HISTORY Diagnosis Date Hypertension Mixed hyperlipidemia Hyperlipidemia Rheumatoid arthritis (HCC) PAST SURGICAL HISTORY Procedure Laterality Date ARTHROSCOPY KNEE DIAGNOSTIC W/WO SYNOVIAL BX SPX Arthroscopy, knee ARTHROSCOPY KNEE DIAGNOSTIC W/WO SYNOVIAL BX SPX Arthroscopy, knee ARTHRP KNE CONDYLE&PLATU MEDIAL&LAT COMPARTMENTS Knee replacement, total ARTHRP KNE CONDYLE&PLATU MEDIAL&LAT COMPARTMENTS Knee replacement, total COLONOSCOPY 05/18/2020 Dr. Hunt, repeat 10 years EGD 05/18/2020 Dr. Hunt Social History Tobacco Use Smoking status: Some Days Types: Cigars Smokeless tobacco: Never Tobacco comments: Smokes 1 cigar 1-2 times monthly. Vaping Use Vaping Use: Never used Substance Use Topics Alcohol use: No Drug use: No ACTIVE PROBLEM LIST Intervertebral Cervical Disc Disorder With Myelopathy, Cervical Region Mixed Hyperlipidemia Ed (Erectile Dysfunction) Essential Hypertension Rheumatoid Arthritis of Multiple Sites With Negative Rheumatoid Factor (Hcc) Current Outpatient Medications Medication Sig Dispense Refill golimumab (SIMPONI ARIA) infusion Inject 2 mg/kg/dose intravenously. EVERY OTHER MONTH. doxycycline monohydrate (MONODOX) 100 mg capsule TAKE 1 CAPSULE BY MOUTH TWICE DAILY WITH FOOD FOR 7 DAYS lisinopril (ZESTRIL, PRINIVIL) 10 mg tablet Take 1 tablet by mouth once daily. 90 tablet 1 lovastatin (MEVACOR) 20 mg tablet Take 1 tablet by mouth daily at bedtime. 90 tablet 1 acetaminophen (TYLENOL) 500 mg tablet Take 500 mg by mouth every 8 hours as needed. folic acid 1 mg tablet Take 1 tablet by mouth once daily. sildenafil (VIAGRA) 100 mg tablet Take 30-60 minutes before sex 6 tablet 5 METHOTREXATE SODIUM, PF, INJECTION Inject 22.5 mg subcutaneously one time a week. docosahexaenoic acid/epa (FISH OIL ORAL) Take 1 capsule by mouth once daily. COMPOUNDED PRESCRIPTION anh therapy Cervical disc disease 1 Each 0 SAW PALMETTO ORAL Take 1 tablet by mouth once daily. BIOTIN ORAL Take 1 tablet by mouth every other day. 3 days per week COMPOUNDED PRESCRIPTION ginko otc once daily 0 No current facility-administered medications for this visit. DTAP,TDAP,TD(1 - Tdap) Never done ADVANCE DIRECTIVE DISCUSSION due on 09/28/2022 DEPRESSION ASSESSMENT Never done EXAM: BP 132/78 Pulse 82 Temp 36.2 C (97.2 F) Resp 18 Wt 89.8 kg (198 lb) SpO2 98% BMI 27.62 kg/m Pleasant adult man in no acute distress. Alert and oriented all spheres. Normal affect and cognition. Speech normal. No deficits to learning or comprehension. Skin warm, dry, pink to lips and nailbeds. Normal turgor. Respirations regular and unlabored. HEENT: NCAT. No scleral icterus or conjunctival injection. TM's clear. Nose and oropharynx free from injection or lesion. Oral membranes moist and pink. No cervical lymph nodes. Thyroid non-tender, no masses, or enlargement. Carotids pulses 2+/4+ without bruits. No JVD with HOB at 30 degrees. Chest is normal shape. Lungs are clear to all lee with good air exchange through out. HRRR without murmur or gallop. No lifts, heaves, or rubs. Extrem: no clubbing or cyanosis. Edema: none. Extremities are warm and pink with prompt capillary refill. ASSESSMENT/PLAN: 1. Subacute cough - ICD9: 786.2, ICD10: R05.2 (primary diagnosis) 2. Bronchitis - ICD9: 490, ICD10: J40 Nasal saline, decongestant, cool mist, rest , fluids - XR CHEST 2V FRONTAL/LAT - BENZONATATE 100 MG CAPSULE - PREDNISONE 20 MG TABLET Collette Rodriguez PA-C documented in this encounter [facility] 08-11-2022 Miscellaneous Notes Pt called for refills to be sent to mail service and short term to local pharmacy. Pt will be out of town starting next week and will not get the mail service before he leaves. Also he will call back to schedule his 6 month follow up apt. He did not have his calendar with him. Patient has been identified by name and date of : Yes Patient phones for refill(s): Requested Prescriptions Pending Prescriptions Disp Refills lisinopril (ZESTRIL, PRINIVIL) 10 mg tablet 90 tablet 1 Sig: Take 1 tablet by mouth once daily. lovastatin (MEVACOR) 20 mg tablet 90 tablet 1 Sig: Take 1 tablet by mouth daily at bedtime. lovastatin (MEVACOR) 20 mg tablet 14 tablet 0 Sig: Take 1 tablet by mouth daily at bedtime. For cholesterol. lisinopril (ZESTRIL, PRINIVIL) 10 mg tablet 14 tablet 0 Sig: Take 1 tablet by mouth once daily. Date of last office visit in primary care: 03/26/22 Last 2 Encounter Wt Readings: Date: Wt: 06/10/2022 90.5 kg (199 lb 8 oz) 05/21/2022 90 kg (198 lb 8 oz) Previous labs/tests for medication: Cholesterol: Triglycerides (mg/dL) Date Value 04/21/2020 136 HDL Cholesterol (mg/dL) Date Value 11/12/2012 36 LDL Cholesterol (mg/dL) Date Value 11/12/2012 153 ALT (U/L) Date Value 11/12/2012 25 Non HDL Cholesterol (mg/dL) Date Value 11/12/2012 190 Blood Pressure: BUN (mg/dL) Date Value 11/12/2012 15 Sodium Date Value 05/25/2019 137 MEQ/L 11/12/2012 141 mmol/L Last 1 Encounter BP Readings: Date: BP: 06/10/2022 114/71 Thank you. Meredith Benavides LPN documented in this encounter [facility] 06-09-2022 Miscellaneous Notes faxed. Melissa Cox LPN Please fax lab results from 05/21/2022 to [phone] to at [facility]. Thank you. documented in this encounter [facility] 05-26-2022 History of Present illness Narrative Radiology Service Progress Note PATIENT NAME: Otilio Miller DATE OF SERVICE: May 26, 2022 TIME: 7:22 AM PATIENT IDENTITY VERIFICATION COMPLETED USING TWO (2) IDENTIFIERS: Name and Date of confirmed by patient verbally. FALL SCREENING: Has the patient had 2 falls in the last year or 1 fall with injury or currently using an Ambulatory Assistive Device (Walker, Cane, Wheelchair, Crutches, etc.)? No PATIENT GENDER DATA: Male PATIENT RELEVANT IMPLANT DATA REVIEWED: Not Applicable RADIOLOGY DEPARTMENT: Ultrasound PERIPHERAL IV DATA: Not applicable SIGNED BY: Kathleen Prieto RDMS RVT May 26, 2022 7:22 AM documented in this encounter [facility] 05-22-2022 Miscellaneous Notes Received call from [facility] hematology lab. There are corrected results for yesterday's CBC. Cindy stated that Dr. Robin acknowledged these results last night. Adrienne Rai LPN documented in this encounter [facility] 05-21-2022 History of Present illness Narrative Patient referred by Dr. Styles for anemia. The impression and plan will be communicated by way of the shared electronic record or faxed under separate cover letter. HPI: The patient is a 72 yo male with a PMH significant for HTN, hyperlipidemia and RA. Patient had a CBC on 04/28/2022. Total white count was 3100. The ANC was 1600 and the absolute lymphocyte count was 1000. The hemoglobin was 12.0 g/dL with a hematocrit of 36.4%. MCV was 93.6 and the MCH was 30.8. Platelet count 207,000. Chemistries were significant for is normal serum creatinine at 0.93 mg/dL. Total protein was normal at 7.2 g/dL. Globulin fraction normal at 3.6 g/dL. AST, ALT and alkaline phosphatase were normal. Total bilirubin 0.5. Calcium normal at 8.7 mg/dL. C-reactive protein significantly elevated at 7.3 mg/L. Sed rate was 24 mm/h. Patient had a CBC in February that had similar results with a total white count of 3800. Hemoglobin 12.2 g/dL and platelet count 230,000. The ANC at that time was 1800. Iron studies on 03/27/2022 revealed a TIBC of 312. Serum iron was 100. Ferritin 377 and serum folate was 11 ng/mL. Vitamin B12 and measured in February 2022 was 502 pg/mL. Stool was negative for occult blood on 03/28/2022. Diagnosed 2 years ago with RA when developed hand and foot swelling. Was then seen by a mold shaker who formally made diagnosis. Still sees SAND PLANT ATTENDANT at that specialist's office. Initially treated with prednisone taper and MTX. Remains on MTX. Symptoms improved and now tapering MTX. Occasional fullness in upper abdomen briefly. Decreased appetite over the last 2 years. Occasional dyspepsia or early satiety. No recurring fevers. Rare mild night sweat. Tightness in hands. Colonoscopy and EGD in 04/2020. PAST MEDICAL HISTORY Diagnosis Date Hypertension Mixed hyperlipidemia Hyperlipidemia Rheumatoid arthritis (HCC) PAST SURGICAL HISTORY Procedure Laterality Date ARTHROSCOPY KNEE DIAGNOSTIC W/WO SYNOVIAL BX SPX Arthroscopy, knee ARTHROSCOPY KNEE DIAGNOSTIC W/WO SYNOVIAL BX SPX Arthroscopy, knee ARTHRP KNE CONDYLE&PLATU MEDIAL&LAT COMPARTMENTS Knee replacement, total ARTHRP KNE CONDYLE&PLATU MEDIAL&LAT COMPARTMENTS Knee replacement, total COLONOSCOPY 05/18/2020 Dr. Hunt, repeat 10 years EGD 05/18/2020 Dr. Hunt ALLERGIES Allergen Reactions Penicillins Current Outpatient Medications Medication Sig acetaminophen (TYLENOL EXTRA STRENGTH) 500 mg tablet Take 500 mg by mouth every 8 hours as needed. sildenafil (VIAGRA) 100 mg tablet Take 30-60 minutes before sex lovastatin (MEVACOR) 20 mg tablet Take 1 tablet by mouth daily at bedtime. lisinopril (ZESTRIL, PRINIVIL) 10 mg tablet Take 1 tablet by mouth once daily. METHOTREXATE SODIUM, PF, INJECTION Inject 22.5 mg subcutaneously one time a week. ferrous sulfate (IRON) 325 mg (65 mg iron) tablet Take 325 mg by mouth daily with breakfast. docosahexaenoic acid/epa (FISH OIL ORAL) Take 1 capsule by mouth once daily. COMPOUNDED PRESCRIPTION anh therapy Cervical disc disease SAW PALMETTO ORAL Take 1 tablet by mouth once daily. BIOTIN ORAL Take 1 tablet by mouth every other day. COMPOUNDED PRESCRIPTION ginko otc once daily enzymes,digestive (DIGESTIVE ENZYMES ORAL) Take by mouth. mometasone (ELOCON) 0.1 % cream Apply 1 application to affected area once daily. psyllium Husk (FIBER-CAPS, PSYLLIUM HUSK,) 0.52 gram capsule Take 0.52 g by mouth once daily. IBUPROFEN 200 MG CAP Take 1-2 tablet's) every four(4) to six(6) hours as needed for pain. No current facility-administered medications for this visit. Social History Tobacco Use Smoking status: Some Days Types: Cigars Smokeless tobacco: Never Tobacco comments: Smokes 1 cigar 1-2 times monthly. Substance Use Topics Alcohol use: No Drug use: No Family history: ROS: Constitutional: See above. Neuro: Denies GAMBLE, vertigo, dizziness and imbalance. Denies symptoms of neuropathy. HEENT: No recent change in voice, vision or hearing. Resp: Denies cough, wheeze and hemoptysis. Denies shortness of breath at rest. Denies WEST. CVS: Denies exertional chest pain, PND, orthopnea and LE edema. GI: Denies dysgeusia. Denies symptoms of stomatitis. Denies dysphagia and odynophagia. Denies reflux, n/v, change in bowel habits and abdominal pain. : Denies dysuria or gross hematuria. Endo: Denies polyuria and polydipsia. Denies heat and cold intolerance. Musculoskeletal: See above. Derm: Denies rash. Denies jaundice and diffuse pruritis. Heme: Denies unusual bleeding and unexplained bruising. Psych: Normal mood. PHYSICAL EXAM: Vitals: Blood pressure 134/76, pulse 75, temperature 36.7 C (98 F), temperature source Temporal, height 180.3 cm (5' 11 ), weight 90 kg (198 lb 8 oz). Well-appearing and in no acute distress. EYES: Sclerae are anicteric bilaterally. LYMPHATIC: There is no palpable cervical, supraclavicular or axillary adenopathy. RESPIRATORY: Inspiratory breath sounds are of normal intensity in all lee. No rales, wheezes or rhonchi. CARDIOVASCULAR: Rhythm is regular. ABDOMEN: The abdomen is nondistended. ?mild splenomegaly. No tenderness. Extremities: No swelling or edema. B/L knee replacements. SKIN: No jaundice or rash. No petechiae. NEUROLOGIC: coal gasification technician II-XII are grossly intact. No focal motor weakness. DTRs are symmetric and normal. MUSCULOSKELETAL: Mild swelling of MCPs, DIPs and PIPs LABS: Reviewed in [facility] records. ASSESSMENT/PLAN: (D64.9) Anemia, unspecified type (primary encounter diagnosis) (M05.79) Rheumatoid arthritis involving multiple sites with positive rheumatoid factor (HCC) Assessment: -The patient is a 72-year-old male who was diagnosed with rheumatoid arthritis about 2 years ago. Initially treated with prednisone taper and started on methotrexate at the time of diagnosis. He remains on methotrexate. CBC significant for mild neutropenia and mild anemia. -I discussed the broad differential with the patient and his but main considerations include effect of methotrexate, Felty syndrome, LGL leukemia and anemia of chronic disease. I discussed the approach of a stepwise work-up and answered all their questions to their satisfaction. Plan: -CBC with staff review. -Assess for monoclonal protein. -Flow cytometry of peripheral blood. -Ultrasound spleen. -Advised him to establish care with rheumatology at [facility]. -Follow-up office visit in a couple weeks to review above. I spent a total of 60 minutes on the date of the service which included preparing to see the patient, [id number] patient care, completing clinical documentation, obtaining and/or reviewing separately obtained history, performing a medically appropriate examination, counseling and educating the patient/family/caregiver, ordering medications, tests, or procedures, and communicating results to the patient/family/caregiver. Toni Robin DO documented in this encounter [facility] 04-29-2022 Miscellaneous Notes Noted. Thank you. Will see him first then order lab work. Toni Robin DO Dr. Robin, Patient is agreeable to do labs here at [facility] (has Medicare and is not an insurance driven reason to do [facility] labs). Delisa Tobias Patient returning call. See 04-28-22 telephone encounter. Patient agreeable to see Dr. Robin and reports they had lab work done at [facility] out of preference, but they have Medicare and can get labs done at [facility] also. Please phone patient to schedule appt. documented in this encounter [facility] 04-28-2022 Miscellaneous Notes Patient notified of results. 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 Tiff Saunders MA He is mildly anemic and white count is down. Can have him see hematology if he is willing. Check which provider they prefer(often use [facility]) documented in this encounter [facility] 04-21-2022 Miscellaneous Notes Note copied into patients chart and sent to provider. documented in this encounter [facility] 04-14-2022 Miscellaneous Notes Referral with notes & Insurance faxed to Dr. Gallegos's office. Patient active MyChart. Patient notified via MyChart message. Tiff Saunders MA placed See Mychart message. This is regarding GI issues discussed at physical. GASTRO: Patient mentions 2 weeks ago started having gi fullness Primarily when eating, feeling an awkward fullness in the epigastric initially then lower abdomen. Patient mentions possible slow peristaltic activity. Hx of constipation. Started gi enzymes. Patient states improving. Will continue monitor. Patient aware to notify if worsens. Labs shows mild low white count. Hb down slightly. x2 attempt to reach . Unable to reach patient's . Left detailed message on identified VM to return call to office. Please read below and advise. Tiff Saunders MA Left message on Perla's voicemail to return call. What is he seeing him for? I can have him see him due to the anemia but see what is going on. See message below. I've went ahead and pended consult. Please complete. Telma Mckenzie Ma Referral to Dr Gallegos in Gastro at [facility]. Any questions please call Perla at [phone]. Karen Benavides Pss documented in this encounter [facility] 03-26-2022 History of Present illness Narrative Patient presents with: Physical: has noticed some fullness in epigastric area when eating using digestive enzymes and that is helping Rash: bottom of left foot HPI: Patient presents today for office visit for follow up. Rheum. Awaiting to see new Sales Solutions Representative in April/ Patient overall doing well and tolerating meds. DERM: Patient notes the last few months, only left foot is dry and cracked. Has not applied any topical ointments to foot. Intermittent itching on sole of foot. HTN: Patient is compliant with meds No Monitors bp at home: No. Denies side effects: No. Chest pain: No. Dyspnea: No. Edema: No. Palpitations: No. Syncope: No. Headache: No. Dizziness: No. HYPERLIPIDEMIA: Patient is taking medications: No. Patient is watching diet: Yes. Patient denies myalgias: No. Patient denies gi upset: No GASTRO: Patient mentions 2 weeks ago started having gi fullness Primarily when eating, feeling an awkward fullness in the epigastric initially then lower abdomen. Patient mentions possible slow peristaltic activity. Hx of constipation. Started gi enzymes. Patient states improving. Will continue monitor. Patient aware to notify if worsens. Labs shows mild low white count. Hb down slightly. Will MEDICATIONS: Current Outpatient Medications Medication Sig enzymes,digestive (DIGESTIVE ENZYMES ORAL) Take by mouth. lovastatin (MEVACOR) 20 mg tablet Take 1 tablet by mouth daily at bedtime. lisinopril (ZESTRIL, PRINIVIL) 10 mg tablet Take 1 tablet by mouth once daily. METHOTREXATE SODIUM, PF, INJECTION Inject 22.5 mg subcutaneously one time a week. ferrous sulfate (IRON) 325 mg (65 mg iron) tablet Take 325 mg by mouth daily with breakfast. docosahexaenoic acid/epa (FISH OIL ORAL) Take by mouth once daily. SAW PALMETTO ORAL Take by mouth. BIOTIN ORAL Take by mouth. COMPOUNDED PRESCRIPTION ginko otc once daily sildenafil (VIAGRA) 100 mg tablet Take 30-60 minutes before sex ARGININE HCL, L-ARGININE, ORAL Take by mouth. psyllium Husk (FIBER-CAPS, PSYLLIUM HUSK,) 0.52 gram capsule Take 0.52 g by mouth once daily. COMPOUNDED PRESCRIPTION anh therapy Cervical disc disease IBUPROFEN 200 MG CAP Take 1-2 tablet's) every four(4) to six(6) hours as needed for pain. No current facility-administered medications for this visit. ALLERGIES: ALLERGIES Allergen Reactions Penicillins PAST MEDICAL HISTORY Diagnosis Date Mixed hyperlipidemia Hyperlipidemia PAST SURGICAL HISTORY Procedure Laterality Date ARTHROSCOPY KNEE DIAGNOSTIC W/WO SYNOVIAL BX SPX Arthroscopy, knee ARTHROSCOPY KNEE DIAGNOSTIC W/WO SYNOVIAL BX SPX Arthroscopy, knee ARTHRP KNE CONDYLE&PLATU MEDIAL&LAT COMPARTMENTS Knee replacement, total ARTHRP KNE CONDYLE&PLATU MEDIAL&LAT COMPARTMENTS Knee replacement, total COLONOSCOPY 05/18/2020 Dr. Hunt, repeat 10 years EGD 05/18/2020 Dr. Hunt FAMILY HISTORY Problem Relation Age of Onset Stroke Mother Colon Cancer Mother Cancer Father lung Social History Tobacco Use Smoking status: Former Smoker Types: Cigars Smokeless tobacco: Never Used Substance Use Topics Alcohol use: No Drug use: No Reviewed current medications, allergies, past medical history, surgical history, family history and social history today. REVIEW OF SYSTEMS : No history of dysuria, frequency or incontinence All other reviewed and negative other than HPI. HEALTH MAINTENANCE: Reviewed health maintenance issues today and recommended the following in detail. DTAP,TDAP,TD(1 - Tdap) Never done ADVANCE DIRECTIVE DISCUSSION. Patient spouse. Perla Miller COVID-19 VACCINE(4 - Booster for Moderna series) due on 11/13/2021 VITALS: BP 120/72 Pulse 76 Wt 90.7 kg (200 lb) BMI 28.29 kg/m Last 4 Encounter Wt Readings: Date: Wt: 03/26/2022 90.7 kg (200 lb) 03/25/2021 91.6 kg (202 lb) 09/24/2020 95.3 kg (210 lb) 05/03/2020 93.2 kg (205 lb 6.4 oz) PHYSICAL EXAMINATION: General appearance: Well appearing, alert, in no acute distress, well-hydrated, well nourished. Skin: dry patches of skin on left foot. Has hx of eczema. Head: Normocephalic, no masses, lesions, tenderness or abnormalities Neck: Supple, no adenopathy; thyroid symmetric, normal size, no bruits Back: Normal exam Lungs: Lungs clear to auscultation. No wheezing, rhonchi, rales Heart: RRR without murmur, gallop, or rubs. No ectopy Abdomen: Normal abdominal exam, Abdomen soft, non-tender. Bowel sounds normal. No masses, organomegaly Extremities: No deformities, edema, skin discoloration, clubbing or cyanosis. Good capillary refill. Musculoskeletal: No joint swelling, deformity, or tenderness Peripheral pulses: Normal Neuro: Gait normal. Reflexes normal and symmetric. Sensation grossly intact. ASSESSMENT/PLAN: 1. Anemia, unspecified type - ICD9: 285.9, ICD10: D64.9 (primary diagnosis) - last hb was lower. Will recheck and white count - CBC + DIFF - IRON + TIBC - VITAMIN B12 BLOOD - FOLATE SERUM - FERRITIN BLD - FECAL OCCULT BLOOD TEST 2. Mixed hyperlipidemia - ICD9: 272.2, ICD10: E78.2 - good control - Continue current medication. 3. Essential hypertension - ICD9: 401.9, ICD10: I10 - good control - Continue current medication(s) - Goal of BP <130/80 4. Rheumatoid arthritis of multiple sites with negative rheumatoid factor (HCC) - ICD9: 714.0, ICD10: M06.09 - per rheum. 5. Dermatitis - ICD9: 692.9, ICD10: L30.9 - discussed skin care of rash - follow up if symptoms persist or worsen. - MOMETASONE 0.1 % TOPICAL CREAM Jose Manuel Styles RTO in six months and prn. documented in this encounter [facility] 03-17-2022 Miscellaneous Notes Orders sent electronically to [facility]. TC to pt , left detailed message. Richar Mott LPN Try these Pt's Perla calling, lab orders were faxed to [facility] & Perla states they were coded as well visit orders. Perla is asking if those can be coded as per pt's diagnoses? Please call if/when coding is changed. Bethany Figueroa LPN documented in this encounter [facility] 03-12-2022 Miscellaneous Notes Pt notified that fasting labs were ordered and faxed to [facility]. She voiced understanding. Ashley Riley Ma Patient has an appt on 03/26. Asking if lab work should be done prior. If so would like orders faxed to [facility] lab. Please advise. documented in this encounter [facility] 01-14-2022 Miscellaneous Notes Labs completed in September [facility]. The following approved medication requests have been transmitted electronically. Signed Prescriptions Disp Refills lovastatin (MEVACOR) 20 mg tablet 90 tablet 1 Sig: Take 1 tablet by mouth daily at bedtime. SHERYL: No Authorizing Provider: Collette RODRIGUEZ lisinopril (ZESTRIL, PRINIVIL) 10 mg tablet 90 tablet 1 Sig: Take 1 tablet by mouth once daily. SHERYL: No Authorizing Provider: Collette RODRIGUEZ PA-C Last OV: 03/25/21 - Next scheduled appt: 03/26/22 Patient has been identified by name and date of : Yes Pending Prescriptions Disp Refills LOVASTATIN 20 MG TABLET 90 tablet 1 Sig: Take 1 tablet by mouth daily at bedtime. SHERYL: No LISINOPRIL 10 MG TABLET 90 tablet 1 Sig: Take 1 tablet by mouth once daily. SHERYL: No RX INSTRUCTIONS: Patient aware RX will be sent to pharmacy. No need to notify patient. Mar Haque LPN documented in this encounter [facility] documented as of this encounter (statuses as of 01/15/2022) [facility] History of Past illness Narrative* Problem Noted Date Resolved Date Folliculitis 09/01/2013 05/05/2018 documented as of this encounter (statuses as of 03/12/2022) [facility] History of Past illness Narrative* Problem Noted Date Resolved Date Folliculitis 09/01/2013 05/05/2018 documented as of this encounter (statuses as of 03/17/2022) [address]05-2013 History of Past illness Narrative* Problem Noted Date Resolved Date Folliculitis 09/01/2013 05/05/2018 documented as of this encounter (statuses as of 03/26/2022) [place] [id number] History of Past illness Narrative* Problem Noted Date Resolved Date Folliculitis 09/01/2013 05/05/2018 documented as of this encounter (statuses as of 04/14/2022) [address]2013 History of Past illness Narrative* Problem Noted Date Resolved Date Folliculitis 09/01/2013 05/05/2018 documented as of this encounter (statuses as of 04/21/2022) [address]2013 History of Past illness Narrative* Problem Noted Date Resolved Date Folliculitis 09/01/2013 05/05/2018 documented as of this encounter (statuses as of 04/28/2022) [address]2013 History of Past illness Narrative* Problem Noted Date Resolved Date Folliculitis 09/01/2013 05/05/2018 documented as of this encounter (statuses as of 04/29/2022) [place] [id number] History of Past illness Narrative* Problem Noted Date Resolved Date Folliculitis 09/01/2013 05/05/2018 documented as of this encounter (statuses as of 05/21/2022) [place] [id number] History of Past illness Narrative* Problem Noted Date Resolved Date Folliculitis 09/01/2013 05/05/2018 documented as of this encounter (statuses as of 05/22/2022) [place] [address]2013 History of Past illness Narrative* Problem Noted Date Resolved Date Folliculitis 09/01/2013 05/05/2018 documented as of this encounter (statuses as of 05/27/2022) [place] [address]2013 History of Past illness Narrative* Problem Noted Date Resolved Date Folliculitis 09/01/2013 05/05/2018 documented as of this encounter (statuses as of 06/09/2022) [place] [address]2013 History of Past illness Narrative* Problem Noted Date Resolved Date Folliculitis 09/01/2013 05/05/2018 documented as of this encounter (statuses as of 08/12/2022) [address] History of Past illness Narrative* Problem Noted Date Resolved Date Folliculitis 09/01/2013 05/05/2018 documented as of this encounter (statuses as of 10/06/2022) [address] History of Past illness Narrative* Problem Noted Date Resolved Date Folliculitis 09/01/2013 05/05/2018 documented as of this encounter (statuses as of 10/07/2022) [address] History of Past illness Narrative* Problem Noted Date Resolved Date Folliculitis 09/01/2013 05/05/2018 documented as of this encounter (statuses as of 10/10/2022) [address] History of Past illness Narrative* Problem Noted Date Resolved Date Folliculitis 09/01/2013 05/05/2018 documented as of this encounter (statuses as of 10/21/2022) [facility] History of Past illness Narrative* Problem Noted Date Resolved Date Folliculitis 09/01/2013 05/05/2018 documented as of this encounter (statuses as of 02/26/2023) [facility] History of Past illness Narrative* Problem Noted Date Resolved Date Folliculitis 09/01/2013 05/05/2018 documented as of this encounter (statuses as of 03/21/2023) [facility] History of Past illness Narrative* Problem Noted Date Resolved Date Folliculitis 09/01/2013 05/05/2018 documented as of this encounter (statuses as of 03/26/2023) [place] [address]2013 History of Past illness Narrative* Problem Noted Date Diagnosed Date Resolved Date Folliculitis 09/01/2013 05/05/2018 documented as of this encounter (statuses as of 04/10/2023) [place] [address]2013 History of Past illness Narrative* Problem Noted Date Diagnosed Date Resolved Date Folliculitis 09/01/2013 05/05/2018 documented as of this encounter (statuses as of 06/11/2023) [facility] Diagnosis Essential hypertension- Primary Unspecified essential hypertension Mixed hyperlipidemia [facility] Diagnosis Well adult exam- Primary Routine general medical examination at a health care facility [facility] Anemia, unspecified type- Primary Mixed hyperlipidemia Essential hypertension Unspecified essential hypertension Rheumatoid arthritis of multiple sites with negative rheumatoid factor (HCC) Dermatitis Contact dermatitis and other eczema, due to unspecified cause [facility] Acute constipation- Primary Unspecified constipation [facility] Diagnosis Anemia, unspecified type- Primary Rheumatoid arthritis involving multiple sites with positive rheumatoid factor (HCC) [facility] Diagnosis Rheumatoid arthritis involving multiple sites with positive rheumatoid factor (HCC) Anemia, unspecified type [facility] Essential hypertension Unspecified essential hypertension Mixed hyperlipidemia [facility] Diagnosis Subacute cough- Primary Cough Bronchitis Bronchitis, not specified as acute or chronic [facility] Diagnosis Subacute cough Cough Bronchitis Bronchitis, not specified as acute or chronic [facility] Diagnosis Essential hypertension Unspecified essential hypertension Mixed hyperlipidemia [facility] Diagnosis Mixed hyperlipidemia- Primary Rheumatoid arthritis involving multiple sites with positive rheumatoid factor (HCC) Essential hypertension Unspecified essential hypertension Intervertebral cervical disc disorder with myelopathy, cervical region Anemia, unspecified type documented in this encounter [facility] for referral (narrative)* Diagnostic Procedure Only (Routine) - Authorized Specialty Diagnoses / Procedures Referred By Yinac t Referred To Contact US IMAGING Diagnoses Rheumatoid arthritis involving multiple sites with positive rheumatoid factor (HCC) Anemia, unspecified type Procedures US ABD SPLEEN US ABDOMINAL REAL TIME W/IMAGE LIMITED Toni Robin DO [address] [place] [address] Us Imaging Referral ID Status Reason Start Date Expiration Date Visits Requested Visits Authorized [id number] Authorized Auto-Generat ed Referral 05/21/2022 09/27/2022 1 1 [facility] for referral (narrative)* Diagnostic Procedure Only (Routine) - Closed Specialty Diagnoses / Procedures Referred By Contac t Referred To Contact US IMAGING Diagnoses Rheumatoid arthritis involving multiple sites with positive rheumatoid factor (HCC) Anemia, unspecified type Procedures US ABD SPLEEN US ABDOMINAL REAL TIME W/IMAGE LIMITED Toni Robin DO [address] [place] [address] Us Imaging Referral ID Status Reason Start Date Expiration Date V isits Requested Visits Authorized [id number] Closed Auto-Generate d Referral 05/21/2022 09/27/2022 1 1 [facility] Reason for Referral Specialty Diagnoses / Procedures Referred By Contac t Referred To Contact Gastroenterology Diagnoses Acute constipation Procedures CONSULT TO GASTROENTEROLOGY OFFICE/OUTPATIENT [facility] MDM 60-74 MINUTES Jose Manuel Styles MD [address] [place] [address] Referral ID Status Reason Start Date Expiration Date Visits Requested Visits Authorized [id number] Pending Review PCP Requested Referral 04/14/2022 04/10/2023 1 1 Summary Purpose Family History No Family History Records Found Advance Directives No Advanced Directives Records Found Additional Source Comments Source Comments (unrecognize d section and content) In the event this informatio n is protected by the Federal Confidentiality of Alcohol and Drug Abuse Patient Records regulations: The Federal rules restrict any use of the information to criminally investigate or prosecute any alcohol or drug abuse patient.[facility] event this information is protected by the Federal Confidentiality of Alcohol and Drug Abuse Patient Records regulations: The Federal rules restrict any use of the information to criminally investigate or prosecute any alcohol or drug abuse patient.[facility] the event this information is protected by the Federal Confidentiality of Alcohol and Drug Abuse Patient Records regulations: The Federal rules restrict any use of the information to criminally investigate or prosecute any alcohol or drug abuse patient.[facility] the event this information is protected by the Federal Confidentiality of Alcohol and Drug Abuse Patient Records regulations: The Federal rules restrict any use of the information to criminally investigate or prosecute any alcohol or drug abuse patient.[facility] the event this information is protected by the Federal Confidentiality of Alcohol and Drug Abuse Patient Records regulations: The Federal rules restrict any use of the information to criminally investigate or prosecute any alcohol or drug abuse patient.[facility] the event this information is protected by the Federal Confidentiality of Alcohol and Drug Abuse Patient Records regulations: The Federal rules restrict any use of the information to criminally investigate or prosecute any alcohol or drug abuse patient.[facility] the event this information is protected by the Federal Confidentiality of Alcohol and Drug Abuse Patient Records regulations: The Federal rules restrict any use of the information to criminally investigate or prosecute any alcohol or drug abuse patient.[facility] the event this information is protected by the Federal Confidentiality of Alcohol and Drug Abuse Patient Records regulations: The Federal rules restrict any use of the information to criminally investigate or prosecute any alcohol or drug abuse patient.[facility] the event this information is protected by the Federal Confidentiality of Alcohol and Drug Abuse Patient Records regulations: The Federal rules restrict any use of the information to criminally investigate or prosecute any alcohol or drug abuse patient.[facility] the event this information is protected by the Federal Confidentiality of Alcohol and Drug Abuse Patient Records regulations: The Federal rules restrict any use of the information to criminally investigate or prosecute any alcohol or drug abuse patient.[facility] the event this information is protected by the Federal Confidentiality of Alcohol and Drug Abuse Patient Records regulations: The Federal rules restrict any use of the information to criminally investigate or prosecute any alcohol or drug abuse patient.[facility] the event this information is protected by the Federal Confidentiality of Alcohol and Drug Abuse Patient Records regulations: The Federal rules restrict any use of the information to criminally investigate or prosecute any alcohol or drug abuse patient.[facility] the event this information is protected by the Federal Confidentiality of Alcohol and Drug Abuse Patient Records regulations: The Federal rules restrict any use of the information to criminally investigate or prosecute any alcohol or drug abuse patient.[facility] the event this information is protected by the Federal Confidentiality of Alcohol and Drug Abuse Patient Records regulations: The Federal rules restrict any use of the information to criminally investigate or prosecute any alcohol or drug abuse patient.[facility] the event this information is protected by the Federal Confidentiality of Alcohol and Drug Abuse Patient Records regulations: The Federal rules restrict any use of the information to criminally investigate or prosecute any alcohol or drug abuse patient.[facility] the event this information is protected by the Federal Confidentiality of Alcohol and Drug Abuse Patient Records regulations: The Federal rules restrict any use of the information to criminally investigate or prosecute any alcohol or drug abuse patient.[facility] the event this information is protected by the Federal Confidentiality of Alcohol and Drug Abuse Patient Records regulations: The Federal rules restrict any use of the information to criminally investigate or prosecute any alcohol or drug abuse patient.[facility] the event this information is protected by the Federal Confidentiality of Alcohol and Drug Abuse Patient Records regulations: The Federal rules restrict any use of the information to criminally investigate or prosecute any alcohol or drug abuse patient.[facility] the event this information is protected by the Federal Confidentiality of Alcohol and Drug Abuse Patient Records regulations: The Federal rules restrict any use of the information to criminally investigate or prosecute any alcohol or drug abuse patient.[facility] the event this information is protected by the Federal Confidentiality of Alcohol and Drug Abuse Patient Records regulations: The Federal rules restrict any use of the information to criminally investigate or prosecute any alcohol or drug abuse patient.[facility] the event this information is protected by the Federal Confidentiality of Alcohol and Drug Abuse Patient Records regulations: The Federal rules restrict any use of the information to criminally investigate or prosecute any alcohol or drug abuse patient.[facility] the event this information is protected by the Federal Confidentiality of Alcohol and Drug Abuse Patient Records regulations: The Federal rules restrict any use of the information to criminally investigate or prosecute any alcohol or drug abuse patient.[facility] Reason for Visit (unrecogniz ed section and content) Reason Comments Orders Reason Comments Lab Orders Coding Reason Comments Physical has noticed some ful lness in epigastric area when eating using digestive enzymes and that is helping Rash bottom of left foot Reason Comments Referral Request Dr Gallegos in Gastro at [facility] Reason Comments Results Reason Comments Hematology appt Reason Comments Established Patient Reason Comments Results Updated CBC results. Reason Comments Radiology US Specialty Diagnoses / Procedures Referred By Contac t Referred To Contact US IMAGING Diagnoses Rheumatoid arthritis involving multiple sites with positive rheumatoid factor (HCC) Anemia, unspecified type Procedures US ABD SPLEEN US ABDOMINAL REAL TIME W/IMAGE LIMITED Toni Robin, [address] [place] [address] Us Imaging Referral ID Status Reason Start Date Expiration Date V isits Requested Visits Authorized [id number] Closed Auto-Generate d Referral 05/21/2022 09/27/2022 1 1 Reason Comments Electronic Communication Reason Onset Date Comments Refill Request 08/11/2022 Reason Comments Sinusitis 6 weeks. Went to on 09/12 and treated with antibiotic. Reason Onset Date Comments Refill Request 10/06/2022 Reason Comments Medication Problem Reason Comments Patient Update Reason Onset Date Comments Refill Request 02/26/2023 Reason Comments Physical Reason Onset Date Comments Population Health Navigation Outreach 04/10/2023 [employer] Care Gaps 7.5.23 Reason Onset Date Comments Population Health Navigation Outreach 06/11/2023 [employer] care gaps Care Teams (unrecognized sec tion and content) Analytical Research Chemist Relationship Specialty Start Date End Date Jose Manuel Styles MD [address] [place], [place] [phone] PCP - General Family Practice 02/01/15 Analytical Research Chemist Relationship Specialty Start Date End Date Jose Manuel Styles MD [address] [facility] [place] [address] PCP - General Family Practice 02/01/15 Analytical Research Chemist Relationship Specialty Start Date End Date Jose Manuel Styles MD [address] [facility] [place] [address] PCP - General Family Practice 02/01/15 Analytical Research Chemist Relationship Specialty Start Date End Date Jose Manuel Styles MD [address] [facility] [place] [address] PCP - General Family Practice 02/01/15 Analytical Research Chemist Relationship Specialty Start Date End Date Jose Manuel Styles MD [address] [facility] [place] [address] PCP - General Family Practice 02/01/15 Analytical Research Chemist Relationship Specialty Start Date End Date Jose Manuel Styles MD [address] [facility] [place] [address] PCP - General Family Practice 02/01/15 Analytical Research Chemist Relationship Specialty Start Date End Date Jose Manuel Styles MD [address] [facility] [place] [address] PCP - General Family Practice 02/01/15 Analytical Research Chemist Relationship Specialty Start Date End Date Jose Manuel Styles MD [address] [facility] [place] [address] PCP - General Family Practice 02/01/15 Analytical Research Chemist Relationship Specialty Start Date End Date Jose Manuel Styles MD [address] [facility] [place] [address] PCP - General Family Practice 02/01/15 Analytical Research Chemist Relationship Specialty Start Date End Date Jose Manuel Styles MD [address] [facility] [place] [address] PCP - General Family [facility] 02/01/15 Analytical Research Chemist Relationship Specialty Start Date End Date Jose Manuel Styles MD [address] [facility] [place], [place] [id number] PCP - [facility] 02/01/15 Analytical Research Chemist Relationship Specialty Start Date End Date Jose Manuel Styles MD [address] [facility] [place], [place] [id number] PCP - [facility] 02/01/15 Analytical Research Chemist Relationship Specialty Start Date End Date Jose Manuel Styles MD [address] [facility] [place], [place] [id number] PCP - [facility] 02/01/15 Analytical Research Chemist Relationship Specialty Start Date End Date Jose Manuel Styles MD [address] [facility] [place], [place] [id number] PCP - [facility] 02/01/15 Analytical Research Chemist Relationship Specialty Start Date End Date Jose Manuel Styles MD [address] [facility] [place], [place] [id number] PCP - [facility] 02/01/15 (unrecognized sect ion and content) No Status Records Found INFORMATION SOURCE (unrecogn ized section and content) FOR RECORDS PERTAINING TO PATIENTS WHO ARE OR HAVE BEEN ENROLLED IN A CHEMICAL DEPENDENCY/SUBSTANCEABUSE PROGRAM, SOME INFORMATION MAY BE OMITTED. This clinical summary was aggregated from multiple sources. Caution should be exercised in using it in the provision of clinical care. This summary normalizes information from multiple sources, and as a consequence, information in this document may materially change the coding, format and clinical context of patient data. In addition, data may be omitted in some cases. CLINICAL DECISIONS SHOULD BE BASED ON THE PRIMARY CLINICAL RECORDS. [employer] [facility]. provides no warranty or guarantee of the accuracy or completeness of information in this document.
[2023-10-19 17:52] LABS: Absolute Neutrophil Count 2.3 X10^3/uL (2.0-7.7); Basophil# 0.01 X10^3/uL; Basophil% 0.2 % (0-1); Eosinophil# 0.09 X10^3/uL; Eosinophils% 1.9 % (0-5); Hematocrit 38.7 % (40-54); Hemoglobin 12.3 g/dL (13.0-16.5); Lymphocyte % 34.1 % (19-41); Mean Corp Hgb Conc 31.8 g/dL (32-36); Mean Corpuscular Hgb 28.6 pg (27.0-32.0); Mean Platelet Vol. 9.4 fl (6.2-12.0); Monocyte# 0.45 X10^3/uL; Monocyte% 9.6 % (0-10); NRBC Flagged by Analyzer 0 % (0-5); Neutrophil # 2.34 X10^3/uL (2.7-7.7); Neutrophil % 49.9 % (47-70); Platelet Count 225 K/mm3 (150-450); RBC Distribution Width CV 13.4 % (11.6-14.6); RBC Distribution Width SD 43.9 fl (35.1-43.9); White Blood Count 4.7 K/mm3 (4.4-11.0)
[2023-10-19 18:03] LABS: ALB/GLOB Ratio 0.9 RATIO (0.9-2.4); AST(SGOT) 26 U/L (15-37); Alanine Aminotransfer ALT/SGPT 33 U/L (16-61); Albumin, Serum 3.7 g/dL (3.2-5.0); Alkaline Phosphatase 67 U/L (45-117); Anion Gap 3 (5-15); BUN 12 mg/dL (7-18); BUN/Creat Ratio 12.1 RATIO (10-20); CRP 7.79 mg/L (0.0-3.0); Calcium,Total 9.1 mg/dL (8.5-10.1); Chloride 103 mmol/L (98-107); Creatinine, Serum 0.99 mg/dL (0.70-1.30); EST Glomerular Filtration Rate 79 mL/min (>60); Est Glom Filt Rate - Afr Amer 95 mL/min (>60); Glucose 91 mg/dL (74-106); Protein, Total 7.7 g/dL (6.4-8.2); Sodium Level 134 mmol/L (136-145)
[2023-10-19 18:13] LABS: Erythrocyte Sedimentation Rate 10 mm/hr (0-20)
== END | disposition home or self-care (01) ==
PROVIDERS: PCP Family Medicine; Referring Provider Internal Medicine Rheumatology; Visit Provider Internal Medicine Rheumatology
DX: M06.09 Rheumatoid arthritis without rheumatoid factor, multiple sites (principal); D84.9 Immunodeficiency, unspecified
CPT/HCPCS: 36415; 80053; 85025; 85652; 86140

== ENCOUNTER → 2023-11-10 | Outpatient (CLI) | payer MEDICARE, SELFPAY ==
[2023-11-10 12:50] LABS: PSA,Total- Diagnostic 5.57 ng/mL (0.0-4.0)
== END | disposition home or self-care (01) ==
LOC: MTLAB 11:07
PROVIDERS: PCP Family Medicine; Referring Provider Nurse Practitioner; Visit Provider Nurse Practitioner
DX: R97.20 Elevated prostate specific antigen [PSA] (principal)
CPT/HCPCS: 36415; 84153

== ENCOUNTER → 2024-03-21 | Outpatient (CLI) | payer MEDICARE, SELFPAY ==
[2024-03-21 15:36] LABS: Absolute Lymphocyte Count 2.01 X10^3/uL (0.83-4.51); Basophil# 0.01 X10^3/uL; Basophil% 0.2 % (0-1); Eosinophil# 0.05 X10^3/uL; Eosinophils% 1.1 % (0-5); Hematocrit 37.8 % (40-54); Hemoglobin 12.2 g/dL (13.0-16.5); Lymphocyte # 2.01 X10^3/ul (0.83-4.51); Lymphocyte % 43.5 % (19-41); Mean Corp Hgb Conc 32.3 g/dL (32-36); Mean Corpuscular Hgb 27.9 pg (27.0-32.0); Mean Corpuscular Volume 86.3 fL (80-94); Mean Platelet Vol. 9.5 fl (6.2-12.0); Monocyte# 0.48 X10^3/uL; Monocyte% 10.4 % (0-10); NRBC Flagged by Analyzer 0 % (0-5); Neutrophil # 1.98 X10^3/uL (2.7-7.7); Neutrophil % 42.9 % (47-70); Platelet Count 230 K/mm3 (150-450); RBC Distribution Width CV 13.4 % (11.6-14.6); RBC Distribution Width SD 41.8 fl (35.1-43.9); Red Blood Count 4.38 M/mm3 (4.6-6.2); White Blood Count 4.6 K/mm3 (4.4-11.0)
[2024-03-21 16:14] LABS: Erythrocyte Sedimentation Rate 27 mm/hr (0-20)
[2024-03-21 16:49] LABS: AST(SGOT) 23 U/L (15-37); Alanine Aminotransfer ALT/SGPT 26 U/L (16-61); Albumin, Serum 3.9 g/dL (3.2-5.0); Alkaline Phosphatase 88 U/L (45-117); Anion Gap 7 (5-15); BUN 11 mg/dL (7-18); BUN/Creat Ratio 10.6 RATIO (10-20); CRP 5.39 mg/L (0.0-3.0); Calcium,Total 9.1 mg/dL (8.5-10.1); Chloride 103 mmol/L (98-107); Creatinine, Serum 1.04 mg/dL (0.70-1.30); EST Glomerular Filtration Rate 74 mL/min (>60); Est Glom Filt Rate - Afr Amer 90 mL/min (>60); Glucose 79 mg/dL (74-106); Potassium 3.8 mmol/L (3.5-5.1); Protein, Total 7.9 g/dL (6.4-8.2); Sodium Level 134 mmol/L (136-145)
== END | disposition home or self-care (01) ==
LOC: MTLAB 14:00
PROVIDERS: PCP Family Medicine; Referring Provider Internal Medicine Rheumatology; Visit Provider Internal Medicine Rheumatology
DX: M06.09 Rheumatoid arthritis without rheumatoid factor, multiple sites (principal)
CPT/HCPCS: 36415; 80053; 85025; 85652; 86140

== ENCOUNTER → 2024-04-11 | Outpatient (CLI) | payer MEDICARE, SELFPAY ==
[2024-04-11 18:13] LABS: PSA,Total- Diagnostic 6.51 ng/mL (0.0-4.0)
== END | disposition home or self-care (01) ==
PROVIDERS: PCP Family Medicine; Referring Provider Nurse Practitioner; Visit Provider Nurse Practitioner
DX: R97.20 Elevated prostate specific antigen [PSA] (principal)
CPT/HCPCS: 36415; 84153

== ENCOUNTER → 2024-11-21 | Outpatient (CLI) | payer MEDICARE, SELFPAY ==
[2024-11-21 18:01] LABS: PSA,Total- Diagnostic 6.47 ng/mL (0.0-4.0)
== END | disposition home or self-care (01) ==
LOC: MTLAB 15:21
PROVIDERS: PCP Family Medicine; Referring Provider Nurse Practitioner; Visit Provider Nurse Practitioner
DX: R97.20 Elevated prostate specific antigen [PSA] (principal)
CPT/HCPCS: 36415; 84153

== ENCOUNTER → 2025-04-24 | Outpatient (CLI) | payer MEDICARE, SELFPAY ==
[2025-04-24 19:51] LABS: AST(SGOT) 31 U/L (<=37); Alanine Aminotransfer ALT/SGPT 28 U/L (<=46); Albumin, Serum 4.3 g/dL (3.4-4.8); Alkaline Phosphatase 107 U/L (40-129); Anion Gap 11 (5-15); BUN 9 mg/dL (4-19); BUN/Creat Ratio 9.0 RATIO (10-20); CRP 3.68 mg/L (0.0-3.0); Calcium,Total 9.7 mg/dL (7.6-11.0); Carbon Dioxide 24.2 mmol/L (21.0-32.0); Chloride 103 mmol/L (98-108); Globulin 3.1 g/dL (2.2-4.2); Glucose 87 mg/dL (70-99); Potassium 4.6 mmol/L (3.3-5.1)
[2025-04-24 20:00] LABS: Hematocrit 36.9 % (40-54); Hemoglobin 12.1 g/dL (13.0-16.5); Immature Granulocytes Count 0.040 X10^3/uL (0.0-0.0); Mean Corp Hgb Conc 32.8 g/dL (32-36); Mean Corpuscular Volume 87.6 fL (80-94); Mean Platelet Vol. 9.8 fl (6.2-12.0); NRBC Flagged by Analyzer 0 % (0-5); Platelet Count 220 K/mm3 (150-450); RBC Distribution Width CV 13.8 % (11.6-14.6); RBC Distribution Width SD 44.0 fl (35.1-43.9); Red Blood Count 4.21 M/mm3 (4.6-6.2); White Blood Count 4.2 K/mm3 (4.4-11.0)
== END | disposition home or self-care (01) ==
PROVIDERS: PCP Family Medicine; Referring Provider Internal Medicine Rheumatology; Visit Provider Internal Medicine Rheumatology
DX: D84.9 Immunodeficiency, unspecified (principal)
CPT/HCPCS: 36415; 80053; 85025; 85652; 86140

== ENCOUNTER → 2025-05-10 | Outpatient (CLI) | payer MEDICARE, SELFPAY | END | disposition home or self-care (01) | LOC: LAB 11:02 | PROVIDERS: PCP Family Medicine; Referring Provider Internal Medicine Cardiovascular Disease; Visit Provider Internal Medicine Cardiovascular Disease | DX: R07.9 Chest pain, unspecified (principal) | CPT/HCPCS: 36415; 80048; 85025 ==

== ENCOUNTER 2025-05-12 07:31 | Day surgery (SDC) | payer MEDICARE, SELFPAY ==
[2025-05-10 11:26] LABS: Hematocrit 37.0 % (40-54); Hemoglobin 12.1 g/dL (13.0-16.5); Immature Granulocytes Count 0.050 X10^3/uL (0.0-0.0); Mean Corp Hgb Conc 32.7 g/dL (32-36); Mean Corpuscular Volume 87.5 fL (80-94); Mean Platelet Vol. 9.4 fl (6.2-12.0); NRBC Flagged by Analyzer 0 % (0-5); Platelet Count 190 K/mm3 (150-450); RBC Distribution Width CV 13.8 % (11.6-14.6); RBC Distribution Width SD 43.9 fl (35.1-43.9); Red Blood Count 4.23 M/mm3 (4.6-6.2); White Blood Count 4.2 K/mm3 (4.4-11.0)
[2025-05-10 12:01] LABS: Anion Gap 10 (5-15); BUN 9 mg/dL (4-19); BUN/Creat Ratio 9.8 RATIO (10-20); Calcium,Total 9.2 mg/dL (7.6-11.0); Carbon Dioxide 22.7 mmol/L (21.0-32.0); Chloride 105 mmol/L (98-108); Glucose 89 mg/dL (70-99); Potassium 4.0 mmol/L (3.3-5.1)
[2025-05-11 07:39] VITALS: BMI 27.8
--- OUTSIDE RECORDS SUMMARY | 2025-05-12 07:36 | XMS RPT_ITS | CCD ---
Author Organization [facility] Care Team Providers Care Solution Analyst Name Role Phone Rd Obrien MD Primary Care Provider Camille, Dr. Sultana Primary Care Provider Camille, Dr. Sultana Referring Provider Dr. Jose Manuel Gallegos Attending Provider Rd Obrien MD Primary Care Provider Camille, Dr. Sultana Primary Care Provider Camille, Dr. Sultana Referring Provider Dr. Jose Manuel Gallegos Attending Provider MACHO Macedo Attending Provider Rd Obrien MD Primary Care Provider Camille, Dr. Sultana Primary Care Provider Camille, Dr. Sultana Referring Provider Camille, Dr. Sultana Primary Care Provider Camille, Dr. Sultana Referring Provider MACHO Macedo Attending Provider [phone] Obrien MD Primary Care Provider Haagen EVENT MARKETING REPRESENTATIVE.Macie SALAS Unavailable Suppan EVENT MARKETING REPRESENTATIVE.JAVA WEBSPHERE DEVELOPER, Rima A Unavailable Suppan EVENT MARKETING REPRESENTATIVE.JOSUE, Rima A Unavailable [phone] RD OBRIEN Primary Care Unavailable RD OBRIEN Referring Unavailable RD OBRIEN Primary Care Unavailable RD OBRIEN Attending Unavailable RD OBRIEN Primary Care Unavailable RD OBRIEN Referring Unavailable RD OBRIEN Primary Care Unavailable RD OBRIEN Attending Unavailable RD OBRIEN Referring Unavailable RD OBRIEN Primary Care Unavailable Dr. Rd Obrien MD Primary Care Provider SHLOMO MCCORD MD Attending Provider [phone] SHLOMO MCCORD MD Referring Provider [phone] Obrien MD Referring Provider Dr. Carroll Riddle MD Attending Provider Carroll Riddle Attending Unavailable Rd Obrien Primary Care Unavailable Rd Obrien Referring Unavailable Rd Obrien Primary Care Unavailable Abeba Cespedes Attending Unavailable Abeba Cespedes Referring Unavailable Carroll Riddle Referring Unavailable Rd Obrien Primary Care Unavailable Carroll Riddle Attending Unavailable Carroll Riddle Referring Unavailable Rd Obrien Primary Care Unavailable Carroll Riddle Attending Unavailable Rd Obrien Primary Care Unavailable SHLOMO MCCORD Attending Unavailable SHLOMO MCCORD Referring Unavailable Allergies Allergy Classification Reported Allergen(s) Allergy Type Date of Onset Reaction(s) Facility Penicillins (antibiotic) (2 sources) Penicillins Drug Allergy 6 [facility] Work Phone: (5 sources) Penicillins; Translations: [PENICILLINS] Propensity to adverse reactions 6 [facility] Work Phone: (20 sources) Penicillins Propensity to adverse reactions 6 [facility] Work Phone: (14 sources) Penicillins Allergy to substance 2 Unknown [facility] (5 sources) Penicillins Propensity to adverse reactions 6 [facility] Work Phone: (1 source) Penicillins Drug allergy (disorder) 5 [facility] Repository Medications Current Medications Medication Drug Class(es) Dates Sig (Normalized) Sig (Original) arginine 500 mg oral capsule (4 sources) Start: 05-01-2022 Arginine Hcl (L-Arginine) Active MG PO May 01, 2022 12:00am biotin 5 mg disintegrating oral tablet (20 sources) Start: 11-11-2018 take 1 tablet by mouth once daily Biotin 5,000 MCG tablet,disintegra ting Active 5000 ug PO DAILY November 11, 2018 1:00am SUPPLEMENT take 1 tablet by mouth every oth er day BIOTIN ORAL Take 1 tablet by mouth every other day. 3 days per week Active take 1 tablet by mouth every oth er day BIOTIN ORAL Take 1 tablet by mouth every other day. 3 days per week 0 Active take 1 tablet by mouth every oth er day BIOTIN ORAL Take 1 tablet by mouth every other day. 0 Active BIOTIN ORAL Take by mouth. 0 Active Comment on above: Take by mouth. Take 1 tablet by drea th every other day. Take 1 tablet by drea th every other day. 3 days per week Calcium Carbonate / vitamin D3 (16 sources) calcium carbonat e/vitamin D3 (CALCIUM 600 + D,3, ORAL) Active calcium carbonat e/vitamin D3 (CALCIUM 600 + D,3, ORAL) COMPOUNDED PRESCRIPTION (20 sources) Start: 08-09-2019 COMPOUNDED PRE SCRIPTION anh therapy Cervical disc disease 1 Each 08/09/2019 Active Start: 08-09-2019 COMPOUNDED PRE SCRIPTION anh therapy Cervical disc disease 1 Each 0 08/09/2019 Active Start: 11-10-2012 COMPOUNDED PRE SCRIPTION ginko otc once daily 0 11/10/2012 Active Comment on above: ginko otc once daily anh therapy Cervical disc disease Digestive Enzymes (4 sources) Start: 05-01-2022 take 1 tablet by mouth once daily Digestive Enzymes Active 1 TABLET PO DAILY May 01, 2022 12:00am [place] 9-Ykk-Rgm-Fish Oil (19 sources) Start: 11-11-2018 [place] 3-Cbr-Tcl-Fish Oil Active 1 EACH PO DAILY November 11, 2018 2:00pm Start: 11-11-2018 take 1 capsule by mo uth once daily [place] 1-Ubm-Wlx-Fish Oil 1 EACH capsule Active 1 NMA PO DAILY November 11, 2018 1:00am SUPPLEMENT Start: 11-11-2018 [place] 3-Dha-Ep a-Fish Oil Active 1 EACH PO DAILY November 11, 2018 12:00am Start: 11-11-2018 [place] 3-Dha-Ep a-Fish Oil Active 1 EACH PO DAILY November 11, 2018 1:00am docosahexaenoic acid/epa (FI SH OIL ORAL) (20 sources) take 1 capsule by mouth once daily docosahexaenoic acid/epa (FISH OIL ORAL) Take 1 capsule by mouth once daily. Active take 1 capsule by mouth once arnel ly docosahexaenoic acid/epa (FISH OIL ORAL) Take 1 capsule by mouth once daily. 0 Active docosahexaenoic acid/epa (FISH OIL ORAL) Take by mouth once daily. 0 Active Comment on above: Take by mouth once d aily. Take 1 capsule by mo ut once daily. ferrous sulfate 325 mg oral tablet (17 sources) Start: 05-07-2020 take 1 tablet by mouth twice daily Ferrous Sulfate (Feosol) 325 mg (65 mg iron) tablet Active 325 MG PO TWICE A DAY May 07, 2020 12:00am End: 05-21-2022 take 1 tablet by mouth once daily at breakfast ferrous sulfate (IRON) 325 mg (65 mg iron) tablet Take 325 mg by mouth daily with breakfast. 0 05/21/2022 Discontinued Comment on above: Take 325 mg by mouth daily with breakfast. Ginkgo Biloba (19 sources) Start: 11-11-2018 take 450 mg by mouth once daily Ginkgo Biloba Active 450 MG PO DAILY November 11, 2018 2:00pm Start: 11-11-2018 take 1 capsule by mo ut once daily Ginkgo Biloba 500 MG capsule Active 450 mg PO DAILY November 11, 2018 1:00am SUPPLEMENT Start: 11-11-2018 take 450 mg by mouth once cheri y Ginkgo Biloba Active 450 MG PO DAILY November 11, 2018 12:00am Start: 11-11-2018 take 450 mg by mouth once cheri y Ginkgo Biloba Active 450 MG PO DAILY November 11, 2018 1:00am hydroxychloroquine sulfate 200 mg oral tablet (20 sources) Antimalarial, Antirheumatic Agent Start: 05-10-2025 take 2 tablets by mouth once daily Hydroxychloroquine 200 mg tablet Active 400 mg PO daily May 10, 2025 12:00am Start: 01-07-2023 take 2 tablets by mo uth once daily hydrOXYchloroQUINE (PLAQUENIL) 200 mg tablet Take 400 mg by mouth once daily. 01/07/2023 Active Comment on above: Take 400 mg by mouth once daily. ibuprofen 200 mg oral capsule (13 sources) Nonsteroidal Anti-inflammatory Drug Start: 05-01-2022 take 200 mg by mouth every six hours Ibuprofen Active 200 MG PO EVERY 6 HOURS May 01, 2022 12:00am Start: 12-19-2009 End: 05-21-2022 IBUPROFEN 200 MG CAP Take 1- 2 tablet's) every four(4) to six(6) hours as needed for pain. 0 0 12/19/2009 05/21/2022 Discontinued Comment on above: Take 1-2 tablet's) e very four(4) to six(6) hours as needed for pain. lisinopril 10 mg oral tablet (20 sources) Angiotensin Converting Enzyme Inhibitor Start: 0 End: 4 take 1 tablet by mouth once daily lisinopril (ZESTRIL) 10 mg tablet Indications: Essential hypertension Take 1 tablet by mouth once daily. 90 tablet 3 08/31/2024 Active Comment on above: Take 1 tablet by drea th once daily. loratadine 10 mg oral tablet (1 source) Start: 5 take 1 tablet by mouth once daily Loratadine (Claritin) 10 mg tablet Active 10 mg PO daily May 08, 2025 12:00am lovastatin 20 mg oral tablet (20 sources) HMG-CoA Reductase Inhibitor Start: 1 End: 5 take 1 tablet by mouth once daily in the evening Lovastatin 20 mg tablet Active 20 mg PO EVERY EVENING May 01, 2022 12:00am Start: 11-11-2018 End: 04-17-2020 take 1 tablet by mouth at bedtime Lovastatin 20 MG tablet Discontinued 20 mg PO AT BEDTIME November 11, 2018 1:00am April 17, 2020 9:04am CHOLESTEROL Comment on above: Take 1 tablet by drea th daily at bedtime. Take 1 tablet by drea th daily at bedtime. For cholesterol. predniSONE 20 mg oral tablet (6 sources) Start: 10-06-2022 End: 10-11-2022 take 2 tablets by mouth once daily predniSONE (DELTASONE) 20 mg tablet Indications: Bronchitis Take 2 tablets by mouth once daily for 5 days. 10 tablet 0 10/06/2022 10/11/2022 Active Start: 09-24-2020 End: 03-26-2022 take 1 tablet by mouth once daily predniSONE (DELTASONE) 5 mg tablet Take 1 tablet by mouth once daily. 0 09/24/2020 03/26/2022 Discontinued Comment on above: Take 1 tablet by drea once daily. Take 2 tablets by mo [facility] once daily for 5 days. psyllium 520 mg oral capsule (20 sources) Start: 05-01-2022 End: 05-21-2022 Psyllium Husk (Fiber (Psyllium Husk)) 0.52 gram capsule Active 0.52 GM PO DAILY May 01, 2022 12:00am Start: 05-07-2020 End: 05-01-2022 Psyllium Husk 0.4 gram capsu le Discontinued 0.4 g PO DAILY May 07, 2020 12:00am May 01, 2022 12:37pm Comment on above: Take 0.52 g by mouth once daily. Saw Ottosen (19 sources) Start: 11-11-2018 take 500 mg by mouth once daily Saw Ottosen Active 500 MG PO DAILY November 11, 2018 2:00pm Start: 11-11-2018 [facility] Saw Ottosen 500 MG capsule Active 500 mg PO DAILY November 11, 2018 1:00am SUPPLEMENT Start: 11-11-2018 take 500 mg by mouth once cheri y Saw Ottosen Active 500 MG PO DAILY November 11, 2018 12:00am Start: 11-11-2018 take 500 mg by mouth once cheri y Saw Ottosen Active 500 MG PO DAILY November 11, 2018 1:00am SAW PALMETTO ORAL (20 sources) take 1 tablet by drea once daily SAW PALMETTO ORAL Take 1 tablet by mouth once daily. Active take 1 tablet by mouth once cheri y SAW PALMETTO ORAL Take 1 tablet by mouth once daily. 0 Active SAW PALMETTO ORA L Take by mouth. 0 Active Comment on above: Take by mouth. Take 1 tablet by drea once daily. sildenafil 100 mg oral tablet (20 sources) Phosphodiesterase 5 Inhibitor Start: 05-01-2022 Sildenafil (Viagra) 100 mg tablet Active 100 MG PO DAILY May 01, 2022 12:00am administer 30 minutes to 4 hours before activity Start: 02-27-2022 sildenafil ( AGRA) 100 mg tablet Indications: ED (erectile dysfunction) Take 30-60 minutes before sex 6 tablet 5 02/27/2022 Active Start: 07-31-2021 sildenafil ( AGRA) 100 mg tablet Indications: ED (erectile dysfunction) Take 30-60 minutes before sex 6 tablet 5 07/31/2021 Active Comment on above: Take 30-60 minutes b efore sex Completed/Discontinued Medications Medication Drug Class(es) Dates Sig (Normalized) Sig (Original) acetaminophen 500 mg oral tablet (14 sources) take 1 tablet by mouth every eight hours as needed acetaminophen (TYLENOL) 500 mg tablet Take 500 mg by mouth every 8 hours as needed. 0 Active Comment on above: Take 500 mg by mouth every 8 hours as needed. ARGININE HCL, L-ARGININE, ORAL (4 sources) End: 03-26-2022 ARGININE HCL, L-ARGININE, ORAL Take by mouth. 0 03/26/2022 Discontinued ARGININE HCL, L- ARGININE, ORAL Take by mouth. 0 Active Comment on above: Take by mouth. benzonatate 100 mg oral capsule (8 sources) Non-narcotic Antitussive Start: 3 End: 3 take 2 capsules by mouth three times daily as needed benzonatate (TESSALON PERLE) 100 mg capsule Indications: Subacute cough , Bronchitis Take 2 capsules by mouth three times daily as needed. 30 capsule 1 10/06/2022 03/26/2023 Discontinued Comment on above: Take 2 capsules by [facility] three times daily as needed. doxycycline monohydrate 100 mg oral capsule (11 sources) Tetracycline-class Drug Start: 3 End: 3 take 1 capsule by mouth twice daily at mealtime doxycycline monohydrate (MONODOX) 100 mg capsule TAKE 1 CAPSULE BY MOUTH TWICE DAILY WITH FOOD FOR 7 DAYS 0 09/29/2022 10/06/2022 Discontinued Start: 09-12-2022 End: 09-22-2022 take 1 capsule by mouth twice daily Doxycycline Hyclate 100 mg capsule Discontinued 100 mg PO TWICE A DAY 20 10 0 September 12, 2022 1:00am September 21, 2022 1:00am September 22, 2022 1:04am Acute sinusitis, unspecified Comment on above: TAKE 1 CAPSULE BY [facility] TWICE DAILY WITH FOOD FOR 7 DAYS enzymes,digestive (DIGESTIVE ENZYMES ORAL) (6 sources) End: 05-21-2022 enzymes,digestive (DIGESTIVE ENZYMES ORAL) Take by mouth. 0 05/21/2022 Discontinued enzymes,digestiv e (DIGESTIVE ENZYMES ORAL) Take by mouth. 0 Active Comment on above: Take by mouth. folic acid 1 mg oral tablet (20 sources) Start: 07-24-2022 End: 05-10-2025 take 1.2 mg by mouth once daily Folic Acid 1 mg Tablet Discontinued 1.2 mg PO DAILY July 24, 2022 12:00am May 10, 2025 9:59am Start: 07-24-2022 take 1.2 mg by mouth once cheri y Folic Acid Active 1.2 MG PO DAILY July 23, 2022 11:00pm Start: 05-21-2022 End: 03-26-2023 take 1 tablet by mouth once daily folic acid 1 mg tablet Indications: Rheumatoid arthritis involving multiple sites with positive rheumatoid factor (HCC) Take 1 tablet by mouth once daily. 0 05/21/2022 03/26/2023 Discontinued Comment on above: Take 1 tablet by drea once daily. 4 ml golimumab 12.5 mg/ml injection (7 sources) Tumor Necrosis Factor Terry End: 2022 inject 2 mg intravenously every two months golimumab (SIMPONI ARIA) infusion Inject 2 mg/kg/dose intravenously. EVERY OTHER MONTH. 0 03/26/2023 Discontinued Comment on above: Inject 2 mg/kg/dose intravenously. EVERY OTHER MONTH. hydrocortisone 10 mg/ml / neomycin 3.5 mg/ml / polymyxin b 10506 unt/ml otic suspension (10 sources) Aminoglycoside Antibacterial, Polymyxin-class Antibacterial, Corticosteroid Start: 2021 End: 2021 Neomycin-Polymyxin -Hc 3.5-10,000-1 mg/mL-unit/mL-% drops,suspension Discontinued 3 NMA OTIC Q4H 10 10 July 29, 2022 12:00am August 07, 2022 1:00am August 08, 2022 1:05am apply to (cotton) wick; replace wick every 24 hours Start: 07-29-2022 End: 08-08-2022 [id number]-[id number]-Sl Discon tinued 3 DRP OTIC Q4H 10 July 28, 2022 11:00pm August 08, 2022 12:05am apply to (cotton) wick; replace wick every 24 hours methotrexate 25 mg/ml injectable solution (15 sources) Folate Analog Metabolic Inhibitor Start: 05-01-2022 End: 05-10-2025 Methotrexate Sodium 25 mg/mL solution Discontinued 22.5 mg SC EVERY WEEK May 01, 2022 12:00am May 10, 2025 10:00am On Sundays Start: 05-01-2022 Methotrexate S odium Active 22.5 MG SC EVERY WEEK April 30, 2022 11:00pm On Sundays METHOTREXATE SODIUM, PF, INJECTION (20 sources) End: 03-26-2023 inject 22.5 mg by subcutaneous injection every week METHOTREXATE SODIUM, PF, INJECTION Inject 22.5 mg subcutaneously one time a week. 0 03/26/2023 Discontinued inject 22.5 mg by jason bcutaneous injection every week METHOTREXATE SODIUM, PF, INJECTION Injec t 22.5 mg subcutaneously one time a week. 0 Active Comment on above: Inject 22.5 mg subcu taneously one time a week. mometasone furoate 1 mg/ml topical cream (11 sources) Corticosteroid Start: 01-18-2024 End: 03-28-2024 mometasone (ELOCON) 0.1 % cream Indications: Dermatitis Apply 1 application to affected area once daily. 45 g 0 01/18/2024 03/28/2024 Discontinued Start: 03-26-2022 End: 05-21-2022 mometasone (ELOCON) 0.1 % cr eam Indications: Dermatitis Apply 1 application to affected area once daily. 45 g 0 03/26/2022 05/21/2022 Discontinued Comment on above: Apply 1 application to affected area once daily. oseltamivir 75 mg oral capsule (19 sources) Neuraminidase Inhibitor Start: 11-14-19 End: 11-19-19 take 1 capsule by mouth every twelve hours Oseltamivir (Tamiflu) 75 mg capsule Discontinued 75 mg PO Q12H 10 5 0 November 14, 2017 1:00am November 18, 2017 1:00am November 19, 2017 1:08am triamcinolone acetonide 40 mg/ml injectable suspension (2 sources) Corticosteroid Start: 05-03-20 End: 05-03-20 Kenalog (triamcinolone acetonide) 40 mg/mL suspension for injection Discontinued 80 MG INTRAARTIC ONCE 2 May 03, 2020 3:40pm May 03, 2020 3:58pm Start: 10-27-2019 End: 10-27-2019 Kenalog (triamcinolone aceto nide) 40 mg/mL suspension for injection Discontinued 40 MG INTRAARTIC ONCE 1 October 27, 2019 10:17am October 27, 2019 10:59am Problems Active Problems Problem Classification Problem Date Documented Da te Episodic/Chronic Allergic reactions (2 sources) Inflammatory dermatosis; Translations: [Dermatitis, unspecified] Episodic Cardiac dysrhythmias (3 sources) Multiple premature ventricular complexes; Translations: [Ventricular premature depolarization] Onset: 05-10-2025 05-08-2025 Chronic Chronic obstructive pulmonary disease and bronchiectasis (3 sources) Bronchitis; Translations: [Bronchitis, not specified as acute or chronic] Episodic Deficiency and other anemia (1 source) Anemia of chronic disease; Translations: [Anemia in other chronic diseases classified elsewhere] 03-28-2024 Chronic Deficiency and other anemia (20 sources) Iron deficiency anemia; Translations: [Iron deficiency anemia, unspecified] Onset: 09-14-2023 05-18-2020 Episodic Disorders of lipid metabolism (20 sources) Mixed hyperlipidemia; Translations: [Mixed hyperlipidemia] Onset: 09-23-2021 Chronic Essential hypertension (20 sources) Hypertensive disorder; Translations: [Essential (primary) hypertension] Onset: 03-21-2020 Chronic Immunity disorders (1 source) Immunodeficiency, unspecified; Translations: [Immunodeficiency, unspecified] Onset: 04-27-2025 Chronic Immunizations and screening for infectious disease (19 sources) Contact with and (suspected) exposure to other viral communicable diseases; Translations: [Contact with or suspected exposure to other viral communicable disease] 06-28-2021 Episodic Malignant neoplasm without specification of site (20 sources) Malignant neoplastic disease; Translations: [Malignant (primary) neoplasm, unspecified] Onset: 09-14-2023 Resolved: 09-14-2023 06-20-2022 Chronic Comment on above: skin Nonspecific chest pain (13 sources) Chest discomfort; Translations: [Other chest pain] Onset: 04-03-2025 04-03-2025 Episodic Other ear and sense organ disorders (12 sources) Diffuse otitis externa, right ear; Translations: [Diffuse otitis externa of right ear] Episodic Other gastrointestinal disorders (1 source) Acute constipation; Translations: [Constipation, unspecified] Episodic Other lower respiratory disease (3 sources) Cough; Translations: [Subacute cough] Episodic Other male genital disorders (20 sources) Male erectile dysfunction, unspecified; Translations: [Impotence of organic origin] Onset: 11-10-2011 11-10-2011 Chronic Other nervous system disorders (20 sources) Taste sense altered; Translations: [Parageusia] Onset: 09-14-2023 06-20-2022 Episodic Other nervous system disorders (5 sources) Parageusia; Translations: [Disturbances of sensation of smell and taste] Episodic Other upper respiratory infections (20 sources) Acute sinusitis; Translations: [Acute sinusitis, unspecified] Onset: 09-12-2022 Resolved: 09-14-2023 Episodic Residual codes; unclassified (1 source) Other specified personal risk factors, not elsewhere classified; Translations: [Other specified conditions influencing health status] 03-28-2024 Episodic Rheumatoid arthritis and related disease (20 sources) Rheumatoid arthritis of multiple joints; Translations: [Rheumatoid arthritis without rheumatoid factor, multiple sites] Onset: 05-31-2020 05-31-2020 Chronic Screening and history of mental health and substance abuse codes (2 sources) Encounter for screening for depression; Translations: [Encounter for screening examination for other mental health and behavioral disorders] Onset: 04-03-2025 Episodic Spondylosis; intervertebral disc disorders; other back problems (20 sources) Intervertebral disc disorder of cervical region with myelopathy; Translations: [Cervical disc disorder with myelopathy, unspecified cervical region] Onset: 04-30-2006 04-30-2006 Chronic Past or Other Problems Problem Classification Problem Date Documented Da te Episodic/Chronic Deficiency and other anemia (20 sources) Anemia; Translations: [Anemia, unspecified] Onset: 03-26-2023 Episodic Deficiency and other anemia (1 source) Iron deficiency anemia, unspecified; Translations: [Iron deficiency anemia, unspecified iron deficiency anemia type] Onset: 09-14-2023 Episodic Other ear and sense organ disorders (16 sources) Otitis externa; Translations: [Unspecified otitis externa, unspecified ear] Onset: 09-14-2023 Resolved: 09-14-2023 09-14-2023 Chronic Other ear and sense organ disorders (16 sources) Impacted cerumen; Translations: [Impacted cerumen, unspecified ear] Onset: 09-14-2023 Resolved: 09-14-2023 09-14-2023 Episodic Other non-epithelial cancer of skin (20 sources) Malignant neoplasm of skin; Translations: [Unspecified malignant neoplasm of skin, unspecified] Onset: 09-14-2023 09-14-2023 Episodic Other screening for suspected conditions (not mental disorders or infectious disease) (8 sources) Patient encounter status; Translations: [Encounter for screening for malignant neoplasm of intestinal tract, unspecified] Onset: 12-01-2024 04-03-2025 Episodic Other skin disorders (17 sources) Folliculitis; Translations: [Follicular disorder, unspecified] Onset: 09-01-2013 Resolved: 05-05-2018 05-05-2018 Episodic Results Test Name Value Interpretation Reference Range Facility Basic Metabolic Profile (BMP )on 05-10-2025 BUN/CRE 9.8 RATIO Low 10-20 [facility] Comment on above: Performed By: #### L 100.0100, L500.2500 #### [facility] [address] [place], [address] Calcium [Mass/Vol] 9.2 mg/dL Normal 7.6-11.0 [facility] Comment on above: Performed By: #### L 100.0100, L500.2500 #### [facility] [address] [place], [address] Chloride [Moles/Vol] 105 mmol/L Normal 98-108 [facility] Comment on above: Performed By: #### L 100.0100, L500.2500 #### [facility] [address] [place], [address] CO2 [Moles/Vol] 22.7 mmol/L Normal 21.0-32.0 [facility] Comment on above: Performed By: #### L 100.0100, L500.2500 #### [facility] [address] [place], [address] Creatinine [Mass/Vol] 0.95 mg/dL Normal 0.70-1.20 [facility] Comment on above: Performed By: #### L 100.0100, L500.2500 #### [facility] [address] [place], [address] GAP 10 Normal 5-15 [facility] Comment on above: Performed By: #### L 100.0100, L500.2500 #### [facility] [address] [place], [address] GFR/1.73 sq M.predicted among non-blacks MDRD (S/P/Bld) [Vol rate/Area] 83 mL/min/{1.73_m2} Normal >60 [facility] Comment on above: Result Comment: mL/m in/1.73m2 CKD-EPI Creatinine Equation (2020) Performed By: #### L 100.0100, L500.2500 #### [facility] [address] [place], [address] Glucose [Mass/Vol] 89 mg/dL Normal 70-99 [facility] Comment on above: Performed By: #### L 100.0100, L500.2500 #### [facility] [address] [place], [address] Potassium [Moles/Vol] 4.0 mmol/L Normal 3.3-5.1 [facility] Comment on above: Performed By: #### L 100.0100, L500.2500 #### [facility] [address] [place], [address] Sodium [Moles/Vol] 138 mmol/L Normal 133-145 [facility] Comment on above: Performed By: #### L 100.0100, L500.2500 #### [facility] [address] [place], [address] Urea nitrogen [Mass/Vol] 9 mg/dL Normal 4-19 [facility] Comment on above: Performed By: #### L 100.0100, L500.2500 #### [facility] [address] [place], [address] CBC W/Diff, Automatedon 04-28-2024 Absolute Lymph 1.74 X10 3/uL Normal 0.83-4.51 [facility] Comment on above: Performed By: #### L 100.0100, L500.2500 #### [facility] [address] [place], [address] Absolute Neut 1.8 X10 3/uL Low 2.0-7.7 [facility] Comment on above: Performed By: #### L 100.0100, L500.2500 #### [facility] [address] [place], [address] Basophils/100 WBC (Bld) 0.2 % Normal 0-1 [facility] Comment on above: Performed By: #### L 100.0100, L500.2500 #### [facility] [address] [place], [address] Eosinophils/100 WBC (Bld) 1.2 % Normal 0-5 [facility] Comment on above: Performed By: #### L 100.0100, L500.2500 #### [facility] [address] [place], [address] Erythrocyte distribution width (RBC) [Ratio] 13.8 % Normal 11.6-14.6 [facility] Comment on above: Performed By: #### L 100.0100, L500.2500 #### [facility] [address] [place], [address] Hematocrit (Bld) [Volume fraction] 37.0 % Low 40-54 [facility] Comment on above: Performed By: #### L 100.0100, L500.2500 #### [facility] [address] [place], [address] Hemoglobin (Bld) [Mass/Vol] 12.1 g/dL Low 13.0-16.5 [facility] Comment on above: Performed By: #### L 100.0100, L500.2500 #### [facility] [address] [place], [address] IG% 1.200 High 0.0-0.9 [facility] Comment on above: Result Comment: IG% - Immature Granulocytes (promyelocytes, myelocytes and metamyelocytes) > 1% indicates that a LEFT SHIFT is Present. Performed By: #### L 100.0100, L500.2500 #### [facility] [address] [place], [address] Lymphocytes/100 WBC (Bld) 41.1 % High 19-41 [facility] Comment on above: Performed By: #### L 100.0100, L500.2500 #### [facility] [address] [place], [address] MCH (RBC) [Entitic mass] 28.6 pg Normal 27.0-32.0 [facility] Comment on above: Performed By: #### L 100.0100, L500.2500 #### [facility] [address] [place], [address] MCHC (RBC) [Mass/Vol] 32.7 g/dL Normal 32-36 [facility] Comment on above: Performed By: #### L 100.0100, L500.2500 #### [facility] [address] [place], [address] MCV (RBC) [Entitic vol] 87.5 fL Normal 80-94 [facility] Comment on above: Performed By: #### L 100.0100, L500.2500 #### [facility] [address] [place], [address] Monocytes/100 WBC (Bld) 13.5 % High 0-10 [facility] Comment on above: Performed By: #### L 100.0100, L500.2500 #### [facility] [address] [place], [address] Neutrophils/100 WBC (Bld) 42.8 % Low 47-70 [facility] Comment on above: Performed By: #### L 100.0100, L500.2500 #### [facility] [address] [place], [address] Nucleated RBC (Bld) [#/Vol] 0 10*3/uL Normal 0-5 [facility] Comment on above: Performed By: #### L 100.0100, L500.2500 #### [facility] [address] [place], [address] Platelet mean volume (Bld) [Entitic vol] 9.4 fL Normal 6.2-12.0 [facility] Comment on above: Performed By: #### L 100.0100, L500.2500 #### [facility] [address] [place], [address] Platelets (Bld) [#/Vol] 190 10*3/uL Normal 150-450 [facility] Comment on above: Performed By: #### L 100.0100, L500.2500 #### [facility] [address] [place], [address] RBC (Bld) [#/Vol] 4.23 10*6/uL Low 4.6-6.2 [facility] Comment on above: Performed By: #### L 100.0100, L500.2500 #### [facility] [address] [place], [address] RDW SD 43.9 fl Normal 35.1-43.9 [facility] Comment on above: Performed By: #### L 100.0100, L500.2500 #### [facility] [address] [place], [address] WBC (Bld) [#/Vol] 4.2 10*3/uL Low 4.4-11.0 [facility] Comment on above: Performed By: #### L 100.0100, L500.2500 #### [facility] [address] [place], [address] Cardiology Visit Reporton Cardiology Visit Report [facility] [address] [place] [address] OFFICE VISIT Date of Service: 05/10/25 MR#: [id number] Acct: [id number] Name: OTILIO TORREZ Rep #: [id number] : 1950 Provider: Dr. Carroll Riddle MD Age/Sex: 75/M Location: [facility] Status: Signed HPI HPI History of Present Illness Details: Pleasant 75-year-old man with no previous cardiac history but a history of hypertension who says that more recently when he goes for his daily walk he experiences epigastric and midsternal tightening associated with some diaphoresis. He tends to occur when it is hot and humid it causes fatigue no palpitations and no dizziness. He has been noted to be getting more short of breath he is scheduled to undergo [place] trip [place] and he is quite nervous. He says that his can easily walk him on the trips. He has not had any rest discomfort. He did undergo a stress test in March where he exercised to approximately 7 METS and experienced the same symptoms but he thinks that the test was terminated prematurely. His electrocardiogram demonstrates sinus rhythm with a rate of 75 bpm. Intake Vital Signs 08/28/22 11:01 05/10/25 09:56 Height 6 ft 6 ft Weight: 205 lb BMI 27.8 BP 150/85 H Blood Pressure Location Lt brachial Position Sitting Respiration 14 Pulse 73 Pulse Source Monitor Intake Visit Reasons: [facility] ([place]) Pharmacist Manager Required: No Accompanied by: Significant Other Is patient in pain?: No Allergies Penicillins Allergy (Verified 05/10/25 09:59) Unknown Medications ???Medication ???Instructions ???Recorded ???Confirmed ???Type biotin 5,000 mcg disintegrating 5,000 mcg PO DAILY SUPPLEMENT 10/2905/10/25 History tablet ginkgo biloba 500 mg capsule 450 mg PO DAILY SUPPLEMENT 9 05/10/25 History omega 3-dxi-lhv-fish oil 300 1 ea PO DAILY SUPPLEMENT 11/11/18 05/10/25 History mg-1,000 mg capsule saw palmetto 500 mg capsule 500 mg PO DAILY SUPPLEMENT 9 05/10/25 History lisinopril 10 mg tablet 10 mg PO DAILY 05/01/22 05/10/25 H istory lovastatin 20 mg tablet 20 mg PO QPM 05/01/22 05/10/25 His tory loratadine 10 mg tablet (Claritin) 10 mg PO QDAY 05/08/25 05/10/25 History hydroxychloroquine 200 mg tablet 400 mg PO QDAY 05/10/25 05/10/25 H istory Have you fallen in the past year?: No PFSH Medical History PVCs (premature ventricular contractions) Chest pain Rheumatoid arthritis Mixed hyperlipidemia Iron deficiency anemia HTN (hypertension) Surgical History History of bilateral knee replacement Family History Father Cancer lung Mother Cancer Colon cancer CVA (cerebral vascular accident) Social History Smoking Status: Former smoker alcohol intake: never substance use type: does not use ROS Const Const: Negative for fatigue, weakness, headache(s), daytime sleepiness or difficulty sleeping ENT ENT: Negative for headache(s), dizziness or Nosebleed/epistaxis Cardio Chest Pain: Yes Character: tightness Onset: exercise Location: epigastric and mid sternal Duration: brief Exacerbation: exercise Relieving: rest Recurrence: exercise Palpitations: No Edema: None Resp Respiratory: Negative for SOB with activity, SOB at rest, SOB orthopnea SOB lying down or Cough GI GI: Negative nausea, vomiting or heartburn Neuro Neuro: Negative for dizziness, lightheadedness, near syncope, headache(s) or weakness Endo Endo: Negative for fatigue Cardiology Exam Const Appearance: cooperative, healthy appearing, no acute distress, well developed and well groomed Nutritional Appearance: average body habitus and well nourished Orientation: alert, awake and oriented x3 Head Head: normal to inspection, normocephalic and atraumatic Ears: hearing grossly normal bilaterally and external ears normal Nose: external nose normal, nares normal, nasal mucous membranes and turbinates normal, septum normal and no nasal discharge Face and Sinus: face symmetric Mouth: oral mucosae normal, tongue normal, oropharynx normal and moist mucous membranes Teeth and gingiva: dentition normal Throat: posterior oropharynx normal, tonsils normal and uvula midline Eyes General: appearance normal, both eyes and all related structures Eyelids: eyelids normal Conjunctivae: conjunctivae normal Pupils: PERRL, normal by confrontation and accommodation normal EOM: EOM intact bilaterally Neck Neck: normal visual inspection, trachea midline and no JVD JVD: +5 Carotids: normal carotid upstroke and bounding pulses Chest Chest inspecti (more content not included)... Normal [facility] Absolute lymphocyte countOrd ered By: SHLOMO MCCORD on 04-24-2025 Lymphocytes Auto (Unsp spec) [#/Vol] 1.84 10*3/uL 0.83-4.51 [facility] Absolute neutrophil countOrd ered By: SHLOMO MCCORD on 04-24-2025 Neutrophils (Bld) [#/Vol] 1.8 10*3/uL Low 2.0-7.7 [facility] Anion gap in Serum or Plasma Ordered By: SHLOMO MCCORD on 04-24-2025 Anion gap [Moles/Vol] 11 mmol/L 5-15 [facility] Automated blood erythrocyte countOrdered By: SHLOMO MCCORD on 04-24-2025 RBC (Bld) [#/Vol] 4.21 10*6/uL Low 4.6-6.2 [facility] Comment on above: Performed By: #### L 500.4050, L101.9900, L501.6710, L100.0100 #### [facility] [address] [place], [address] Automated blood hematocrit ( percentage)Ordered By: SHLOMO MCCORD on 04-24-2025 Hematocrit (Bld) [Volume fraction] 36.9 % Low 40-54 [facility] Comment on above: Performed By: #### L 500.4050, L101.9900, L501.6710, L100.0100 #### [facility] [address] [place], [place], [address] Automated lymphocyte count a s percentage of total leukocytesOrdered By: SHLOMO MCCORD on 04-24-2025 Lymphocytes/100 WBC Auto (Unsp spec) 44.0 % High 19-41 [facility] BUN/creatinine ratioOrdered By: SHLOMO MCCORD on 04-24-2025 Urea nitrogen/Creatinine [Mass ratio] 9.0 mg/mg Low 10-20 [facility] Basophil percentageOrdered B y: SHLOMO MCCORD on 04-24-2025 Basophils/100 WBC (Bld) 0.2 % Normal 0-1 [facility] Comment on above: Performed By: #### L 500.4050, L101.9900, L501.6710, L100.0100 #### [facility] [address] [place], [place], [id number] Bilirubin, totalOrdered By: SHLOMO MCCORD on 04-24-2025 Bilirubin [Mass/Vol] 0.37 mg/dL 0.00-1.30 [facility] CBC W/Diff, Automatedon 03-29 Absolute Lymph 1.84 X10 3/uL Normal 0.83-4.51 [facility] Comment on above: Performed By: #### L 500.4050, L101.9900, L501.6710, L100.0100 #### [facility] [address] [place], [address] Absolute Neut 1.8 X10 3/uL Low 2.0-7.7 [facility] Comment on above: Performed By: #### L 500.4050, L101.9900, L501.6710, L100.0100 #### [facility] [address] [place], [address] IG% 1.000 High 0.0-0.9 [facility] Comment on above: Result Comment: IG% - Immature Granulocytes (promyelocytes, myelocytes and metamyelocytes) > 1% indicates that a LEFT SHIFT is Present. Performed By: #### L 500.4050, L101.9900, L501.6710, L100.0100 #### [facility] [address] [place], [address] Lymphocytes/100 WBC (Bld) 44.0 % High 19-41 [facility] Comment on above: Performed By: #### L 500.4050, L101.9900, L501.6710, L100.0100 #### [facility] [address] [place], [address] Nucleated RBC (Bld) [#/Vol] 0 10*3/uL Normal 0-5 [facility] Comment on above: Performed By: #### L 500.4050, L101.9900, L501.6710, L100.0100 #### [facility] [address] [place], [address] RDW SD 44.0 fl High 35.1-43.9 [facility] Comment on above: Performed By: #### L 500.4050, L101.9900, L501.6710, L100.0100 #### [facility] [address] [place], [address] CRPon 04-24-2025 C-REACTIVE PROT 3.68 mg/L High 0.0-3.0 [facility] Comment on above: Performed By: #### L 500.4050, L101.9900, L501.6710, L100.0100 #### [facility] [address] [place], [address] Carbon dioxide, total [Moles /volume] in Central venous bloodOrdered By: SHLOMO MCCORD on 04-24-2025 CO2 [Moles/Vol] 24.2 mmol/L 21.0-32.0 [facility] Chloride assayOrdered By: RA DEZ MCCORD on 04-24-2025 Chloride [Moles/Vol] 103 mmol/L 98-108 [facility] Comprehensive Metabolic Prof ilon 04-24-2025 Albumin [Mass/Vol] 4.3 g/dL Normal 3.4-4.8 [facility] Comment on above: Performed By: #### L 500.4050, L101.9900, L501.6710, L100.0100 #### [facility] [address] [place], [address] Albumin/Globulin [Mass ratio] 1.4 {ratio} Normal 0.9-2.4 [facility] Comment on above: Performed By: #### L 500.4050, L101.9900, L501.6710, L100.0100 #### [facility] [address] [place], [id number] ALK PHOS 107 U/L Normal 40-129 [facility] Comment on above: Performed By: #### L 500.4050, L101.9900, L501.6710, L100.0100 #### [facility] [address] [place], [id number] ALT [Catalytic activity/Vol] 28 U/L Normal <=46 [facility] Comment on above: Performed By: #### L 500.4050, L101.9900, L501.6710, L100.0100 #### [facility] [address] [place], [id number] AST [Catalytic activity/Vol] 31 U/L Normal <=37 [facility] Comment on above: Performed By: #### L 500.4050, L101.9900, L501.6710, L100.0100 #### [facility] [address] [place], [id number] Bilirubin [Mass/Vol] 0.37 mg/dL Normal 0.00-1.30 [facility] Comment on above: Performed By: #### L 500.4050, L101.9900, L501.6710, L100.0100 #### [facility] [address] [place], [id number] BUN/CRE 9.0 RATIO Low 10-20 [facility] Comment on above: Performed By: #### L 500.4050, L101.9900, L501.6710, L100.0100 #### [facility] [address] [place], [id number] Calcium [Mass/Vol] 9.7 mg/dL Normal 7.6-11.0 [facility] Comment on above: Performed By: #### L 500.4050, L101.9900, L501.6710, L100.0100 #### [facility] [address] [place], [id number] Chloride [Moles/Vol] 103 mmol/L Normal 98-108 [facility] Comment on above: Performed By: #### L 500.4050, L101.9900, L501.6710, L100.0100 #### [facility] [address] [place], [id number] CO2 [Moles/Vol] 24.2 mmol/L Normal 21.0-32.0 [facility] Comment on above: Performed By: #### L 500.4050, L101.9900, L501.6710, L100.0100 #### [facility] [address] [place], [id number] Creatinine [Mass/Vol] 1.04 mg/dL Normal 0.70-1.20 [facility] Comment on above: Performed By: #### L 500.4050, L101.9900, L501.6710, L100.0100 #### [facility] [address] [place], [address] GAP 11 Normal 5-15 [facility] Comment on above: Performed By: #### L 500.4050, L101.9900, L501.6710, L100.0100 #### [facility] [address] [place], [address] GFR/1.73 sq M.predicted among non-blacks MDRD (S/P/Bld) [Vol rate/Area] 74 mL/min/{1.73_m2} Normal >60 [facility] Comment on above: Result Comment: mL/m in/1.73m2 CKD-EPI Creatinine Equation (2020) Performed By: #### L 500.4050, L101.9900, L501.6710, L100.0100 #### [facility] [address] [place], [address] Globulin (S) [Mass/Vol] 3.1 g/dL Normal 2.2-4.2 [facility] Comment on above: Performed By: #### L 500.4050, L101.9900, L501.6710, L100.0100 #### [facility] [address] [place], [address] Glucose [Mass/Vol] 87 mg/dL Normal 70-99 [facility] Comment on above: Performed By: #### L 500.4050, L101.9900, L501.6710, L100.0100 #### [facility] [address] [place], [address] Potassium [Moles/Vol] 4.6 mmol/L Normal 3.3-5.1 [facility] Comment on above: Performed By: #### L 500.4050, L101.9900, L501.6710, L100.0100 #### [facility] [address] [place], [address] Sodium [Moles/Vol] 138 mmol/L Normal 133-145 [facility] Comment on above: Performed By: #### L 500.4050, L101.9900, L501.6710, L100.0100 #### [facility] [address] [place], [address] T PROT 7.4 g/dL Normal 5.9-8.4 [facility] Comment on above: Performed By: #### L 500.4050, L101.9900, L501.6710, L100.0100 #### [facility] [address] [place], [address] Urea nitrogen [Mass/Vol] 9 mg/dL Normal 4-19 [facility] Comment on above: Performed By: #### L 500.4050, L101.9900, L501.6710, L100.0100 #### [facility] [address] [place], [address] Eosinophil percentageOrdered By: SHLOMO MCCORD on 04-24-2025 Eosinophils/100 WBC (Bld) 1.0 % Normal 0-5 [facility] Comment on above: Performed By: #### L 500.4050, L101.9900, L501.6710, L100.0100 #### [facility] [address] [place], [address] Erythrocyte Sed Rateon 04-24 SED RATE 13 mm/hr Normal 0-20 [facility] Comment on above: Performed By: #### L 500.4050, L101.9900, L501.6710, L100.0100 #### [facility] [address] [place], [address] Erythrocyte distribution wid th ratioOrdered By: SHLOMO MCCORD on 04-24-2025 Erythrocyte distribution width (RBC) [Ratio] 13.8 % Normal 11.6-14.6 [facility] Comment on above: Performed By: #### L 500.4050, L101.9900, L501.6710, L100.0100 #### [facility] [address] [place], [place], [id number] Erythrocyte distribution wid th standard deviationOrdered By: SHLOMO MCCORD on 04-24-2025 Erythrocyte distribution width (RBC) [Ratio] 44.0 fl High 35.1-43.9 [facility] Erythrocyte sedimentation ra teOrdered By: SHLOMO MCCORD on 04-24-2025 ESR (Bld) [Velocity] 13 mm/h 0-20 [facility] Glomerular filtration rate ( GFR) estimation/1.73 sq m using serum, plasma, or whole bOrdered By: SHLOMO MCCORD on 04-24-2025 GFR/1.73 sq M.predicted among non-blacks MDRD (S/P/Bld) [Vol rate/Area] 74 mL/min/{1.73_m2} >60 [facility] Comment on above: mL/min/1.73m2 CKD-EP I Creatinine Equation (2020) Hemoglobin measurementOrdere d By: SHLOMO MCCORD on 04-24-2025 Hemoglobin (Bld) [Mass/Vol] 12.1 g/dL Low 13.0-16.5 [facility] Comment on above: Performed By: #### L 500.4050, L101.9900, L501.6710, L100.0100 #### [facility] [address] [place], [place], [id number] Immature granulocytes/100 WB C Auto (Bld)Ordered By: SHLOMO MCCORD on 04-24-2025 Immature granulocytes/100 WBC (Bld) 1.000 % High 0.0-0.9 [facility] Comment on above: IG% - Immature Granu locytes (promyelocytes, myelocytes and metamyelocytes) > 1% indicates that a LEFT SHIFT is Present. Laboratory - Chemistry and C hemistry - challengeOrdered By: SHLOMO MCCORD on 04-24-2025 AST [Catalytic activity/Vol] 31 U/L <38 [facility] MCV (mean corpuscular volume ) determinationOrdered By: SHLOMO MCCORD on 04-24-2025 MCV (RBC) [Entitic vol] 87.6 fL Normal 80-94 [facility] Comment on above: Performed By: #### L 500.4050, L101.9900, L501.6710, L100.0100 #### [facility] [address] [place], [place], [id number] [phone] Mean corpuscular hemoglobin (MCH) determinationOrdered By: SHLOMO MCCORD on 04-24-2025 MCH (RBC) [Entitic mass] 28.7 pg Normal 27.0-32.0 [facility] Comment on above: Performed By: #### L 500.4050, L101.9900, L501.6710, L100.0100 #### [facility] [address] [place], [place], [id number] Mean corpuscular hemoglobin concentration (MCHC) determinationOrdered By: SHLOMO MCCORD on 04-24-2025 MCHC (RBC) [Mass/Vol] 32.8 g/dL Normal 32-36 [facility] Comment on above: Performed By: #### L 500.4050, L101.9900, L501.6710, L100.0100 #### [facility] [address] [place], [place], [id number] [phone] Mean platelet volume determi nationOrdered By: SHLOMO MCCORD on 04-24-2025 Platelet mean volume (Bld) [Entitic vol] 9.8 fL Normal 6.2-12.0 [facility] Comment on above: Performed By: #### L 500.4050, L101.9900, L501.6710, L100.0100 #### [facility] [address] [place], [address] Monocyte percentageOrdered B y: SHLOMO MCCORD on 04-24-2025 Monocytes/100 WBC (Bld) 10.5 % High 0-10 [facility] Comment on above: Performed By: #### L 500.4050, L101.9900, L501.6710, L100.0100 #### [facility] [address] [place], [address] Neutrophil percentageOrdered By: SHLOMO MCCORD on 04-24-2025 Neutrophils/100 WBC (Bld) 43.3 % Low 47-70 [facility] Comment on above: Performed By: #### L 500.4050, L101.9900, L501.6710, L100.0100 #### [facility] [address] [place], [address] Nucleated red blood cell per centageOrdered By: SHLOMO MCCORD on 04-24-2025 Nucleated RBC/100 WBC (Bld) [Ratio] 0 % 0-5 [facility] Platelet countOrdered By: RA DEZ MCCORD on 04-24-2025 Platelets (Bld) [#/Vol] 220 10*3/uL Normal 150-450 [facility] Comment on above: Performed By: #### L 500.4050, L101.9900, L501.6710, L100.0100 #### [facility] [address], [address] Potassium measurement (mass/ volume)Ordered By: SHLOMO MCCORD on 04-24-2025 Potassium (Unsp spec) [Mass/Vol] 4.6 mmol/L 3.3-5.1 [facility] Serum creatinine measurement (mass/volume)Ordered By: SHLOMO MCCORD on 04-24-2025 Creatinine [Mass/Vol] 1.04 mg/dL 0.70-1.20 [facility] Serum globulin measurementOr dered By: SHLOMO MCCORD on 04-24-2025 Globulin (S) [Mass/Vol] 3.1 g/dL 2.2-4.2 [facility] Serum glucose measurement (m ass/volume)Ordered By: SHLOMO MCCORD on 04-24-2025 Glucose [Mass/Vol] 87 mg/dL 70-99 [facility] Serum or plasma C reactive p rotein measurement (mass/volume)Ordered By: SHLOMO MCCORD on 04-24-2025 CRP [Mass/Vol] 3.68 mg/L High 0.0-3.0 [facility] Serum or plasma alanine terry otransferase (ALT) measurementOrdered By: SHLOMO MCCORD on 04-24-2025 ALT [Catalytic activity/Vol] 28 U/L <47 [facility] Serum or plasma albumin pierce urement (mass/volume)Ordered By: SHLOMO MCCORD on 04-24-2025 Albumin [Mass/Vol] 4.3 g/dL 3.4-4.8 [facility] Serum or plasma albumin/glob ulin mass ratioOrdered By: SHLOMO MCCORD on 04-24-2025 Albumin/Globulin [Mass ratio] 1.4 {ratio} 0.9-2.4 [facility] Serum or plasma alkaline elisha sphatase measurementOrdered By: SHLOMO MCCORD on 04-24-2025 ALP [Catalytic activity/Vol] 107 U/L 40-129 [facility] Serum or plasma calcium pierce urement (mass/volume)Ordered By: SHLOMO MCCORD on 04-24-2025 Calcium [Mass/Vol] 9.7 mg/dL 7.6-11.0 [facility] Serum or plasma urea nitroge n measurement (mass/volume)Ordered By: SHLOMO MCCORD on 04-24-2025 Urea nitrogen [Mass/Vol] 9 mg/dL 4-19 [facility] Sodium levelOrdered By: NIEVES MCCORD on 04-24-2025 Sodium [Moles/Vol] 138 mmol/L 133-145 [facility] Total proteinOrdered By: ESTEFANY MCCORD on 04-24-2025 Protein [Mass/Vol] 7.4 g/dL 5.9-8.4 [facility] White blood cell (WBC) count Ordered By: SHLOMO MCCORD on 04-24-2025 WBC (Bld) [#/Vol] 4.2 10*3/uL Low 4.4-11.0 [facility] Comment on above: Performed By: #### L 500.4050, L101.9900, L501.6710, L100.0100 #### [facility] [address] [place], [address] EXERCISE STRESS ECG (WITHOUT IMAGING)on 04-05-2025 Stress Automotive Salesperson Report: Exercise Stress ECG (without Imaging) [facility] Date of service: 04/05/2025 9:34:20 AM Supervising physician: Dong Herrera MD PATIENT: Name: MR. OTILIO TORREZ Age: 75 years Gender: M The supervising physician was in the department and immediately available. Final ------ Stress ECG Report: Exercise Stress ECG (without Imaging) [facility] Date of service: 04/05/2025 9:34:20 AM Ordering physician: RD OBRIEN health care law specialist: Susan Vargas Client Project Coordinator: Serenity Castillo Interpreting physician: Dong Herrera MD Patient name: MR. OTILIO TORREZ Age: 75 years Gender: M Indication: Chest pressure / Chest tightness Stress ECG Conclusion: Conclusion: Normal Stress ECG Summary: The patient's resting heart rate was 74 bpm and blood pressure was 132/82 mmHg. The patient exercised according to the Delfin protocol. The estimated end-exercise MET level achieved using the FRIEND equation was 6.5, which is within the 25th to 50th percentile for age and sex. The estimated end-exercise MET level achieved using the previous ACSM equation was 7.6. The test was terminated due to end of protocol and the total exercise time was 6 minutes and 30 seconds. Other symptoms during the test included leg fatigue and SOB. The maximum heart rate was 131 bpm, which is 91% of the predicted heart rate for age. This is an adequate heart rate response. Peak blood pressure was 154/80 mmHg. The double product achieved was [address]. Medications: Last Used LOVASTATIN LISINOPRIL PLAQUENIL VIAGRA Resting ECG: Normal Sinus Rhythm Symptoms at rest: No symptoms Exercise Protocol: Delfin Stress Exercise Table: +-----+ +--- -----+ +---+- --+---+----+----+ Stage Speed (MPH) Grade(%) Time (min) HR SYS GABE RPE METS +-----+ +--- -----+ +---+- --+---+----+----+ 1 1.7 10.0 3.0 103 140 80 12.0 4.2 +-----+ +--- -----+ +---+- --+---+----+----+ 2 2.5 12.0 6.0 123 150 80 14.0 6.1 +-----+ +--- -----+ +---+- --+---+----+----+ +-----+ +--- ------+ +---+ ---+---+----+----+ Speed (MPH) Grade (%) Time (min) HR SYS GABE RPE METS +-----+ +--- ------+ +---+ ---+---+----+----+ Final 3.4 14.0 6.50 131 154 80 15.0 6.5 +-----+ +--- ------+ +---+ ---+---+----+----+ Recovery Table: +------+---+---+---+ Stage HR SYS GABE +------+---+---+---+ 1 117 +------+---+---+---+ 2 93 196 96 +------+---+---+---+ 3 88 177 99 +------+---+---+---+ 5 82 170 100 +------+---+---+---+ 7 80 153 86 +------+---+---+---+ 9 80 144 79 +------+---+---+---+ Stress Observations: Resting HR: 74 bpm Peak HR: 131 bpm (91% MPHR) Resting BP: 132 / 82 mmHg Peak BP: 154 / 80 mmHg Total exercise time: 6 minutes 30 seconds METS achieved: 6.5 Chronotropic response index (CRI): 0.82 Heart rate recovery (HRR): 14 bpm Rate Pressure Product (RPP): Stevens Treadmill Score: 6.5 Stress Exercise Observations: Reason for test termination: end of protocol, Symptoms during test: Other symptoms during the test included leg fatigue and SOB, Heart rate response: Adequate heart rate response, Normal CRI (>0.8 Not on B Terry) and Normal HRR (>12 or >[address]/EC), Blood pressure response: Normal BP response, ST segment and T wave changes: No ST changes, Stevens Treadmill Score: Normal Stevens Treadmill Score (>=5) and Arrhythmias: Multifocal PVCs Metabolic Exercise Data Variable: Observed value [Expected Range] HGI: 1.1 [>1.06 bpm/mmHg] IMPORTANT NOTE REGARDING ESTIMATED MET VALUES: Effective 07/15/2020, the reference equation for determining estimated MET values for [facility] stress tests changed. Comparison of test results before and after that date may show a change in estimated MET values for peak/max exercise despite a test duration that is similar in length. The validity of the new FRIEND equation for exercise METS is endorsed by the [place] [employer]. Jeff P, Gary LA, Patria R, Darrick J, Felipa J. New Generalized Equation for Predicting Maximal Oxygen Uptake (from the Fitness Registry and the Importance of Exercise National Database). The [place] Journal of [employer]iology. 2017;120(4):688-692). Final See Link below for Image [facility] EXERCISE STRESS ECG (WITHOUT IMAGING) Stress Automotive Salesperson Report: Exercise Stress ECG (without Imaging) [facility] Date of service: 04/05/2025 9:34:20 AM Supervising physician: Dong Herrera MD PATIENT: Name: MR. OTILIO TORREZ Age: 75 years Gender: M The supervising physician was in the department and immediately available. Final ------ Stress ECG Report: Exercise Stress ECG (without Imaging) [facility] Date of service: 04/05/2025 9:34:20 AM Ordering physician: RD OBRIEN health care law specialist: Susan Vargas Client Project Coordinator: Serenity Castillo Interpreting physician: Dong Herrera MD Patient name: MR. OTILIO TORREZ Age: 75 years Gender: M Indication: Chest pressure / Chest tightness Stress ECG Conclusion: Conclusion: Normal Stress ECG Summary: The patient's resting heart rate was 74 bpm and blood pressure was 132/82 mmHg. The patient exercised according to the Delfin protocol. The estimated end-exercise MET level achieved using the FRIEND equation was 6.5, which is within the 25th to 50th percentile for age and sex. The estimated end-exercise MET level achieved using the previous ACSM equation was 7.6. The test was terminated due to end of protocol and the total exercise time was 6 minutes and 30 seconds. Other symptoms during the test included leg fatigue and SOB. The maximum heart rate was 131 bpm, which is 91% of the predicted heart rate for age. This is an adequate heart rate response. Peak blood pressure was 154/80 mmHg. The double product achieved was [address]. Medications: Last Used LOVASTATIN LISINOPRIL PLAQUENIL VIAGRA Resting ECG: Normal Sinus Rhythm Symptoms at rest: No symptoms Exercise Protocol: Delfin Stress Exercise Table: +-----+ +--- -----+ +---+- --+---+----+----+ Stage Speed (MPH) Grade(%) Time (min) HR SYS GABE RPE METS +-----+ +--- -----+ +---+- --+---+----+----+ 1 1.7 10.0 3.0 103 140 80 12.0 4.2 +-----+ +--- -----+ +---+- --+---+----+----+ 2 2.5 12.0 6.0 123 150 80 14.0 6.1 +-----+ +--- -----+ +---+- --+---+----+----+ +-----+ +--- ------+ +---+ ---+---+----+----+ Speed (MPH) Grade (%) Time (min) HR SYS GABE RPE METS +-----+ +--- ------+ +---+ ---+---+----+----+ Final 3.4 14.0 6.50 131 154 80 15.0 6.5 +-----+ +--- ------+ +---+ ---+---+----+----+ Recovery Table: +------+---+---+---+ Stage HR SYS GABE +------+---+---+---+ 1 117 +------+---+---+---+ 2 93 196 96 +------+---+---+---+ 3 88 177 99 +------+---+---+---+ 5 82 170 100 +------+---+---+---+ 7 80 153 86 +------+---+---+---+ 9 80 144 79 +------+---+---+---+ Stress Observations: Resting HR: 74 bpm Peak HR: 131 bpm (91% MPHR) Resting BP: 132 / 82 mmHg Peak BP: 154 / 80 mmHg Total exercise time: 6 minutes 30 seconds METS achieved: 6.5 Chronotropic response index (CRI): 0.82 Heart rate recovery (HRR): 14 bpm Rate Pressure Product (RPP): Stevens Treadmill Score: 6.5 Stress Exercise Observations: Reason for test termination: end of protocol, Symptoms during test: Other symptoms during the test included leg fatigue and SOB, Heart rate response: Adequate heart rate response, Normal CRI (>0.8 Not on B Terry) and Normal HRR (>12 or >[address]/EC), Blood pressure response: Normal BP response, ST segment and T wave changes: No ST changes, Stevens Treadmill Score: Normal Stevens Treadmill Score (>=5) and Arrhythmias: Multifocal PVCs Metabolic Exercise Data Variable: Observed value [Expected Range] HGI: 1.1 [>1.06 bpm/mmHg] IMPORTANT NOTE REGARDING ESTIMATED MET VALUES: Effective 07/15/2020, the reference equation for determining estimated MET values for [facility] stress tests changed. Comparison of test results before and after that date may show a change in estimated MET values for peak/max exercise despite a test duration that is similar in length. The validity of the new FRIEND equation for exercise METS is endorsed by the [place] [employer]. Jeff P, Gary LA, Patria R, Darrick J, Felipa J. New Generalized Equation for Predicting Maximal Oxygen Uptake (from the Fitness Registry and the Importance of Exercise National Database). The [place] Journal of Cardiology. 2017;120(4):688-692). Final CC [employer] Image : [id number] See Link below for Image Normal [facility] 04-04-2025 [facility] Telephone ([facility]) OTILIO TORREZ ([id number]) 1950 M Date Time Provider Department 04/04/25 SERENITY CASTILLO CDLBME During your visit today, we recorded the following information about you: Serenity Castillo RN 04/04/2025 1:48 PM Signed Left message with instructions for stress test tomorrow. Allergies As of Date: 04/04/2025 Noted Allergy Reaction PENICILLINS 04/30/2006 Date Reviewed: 04/03/2025 Reviewed by: Lilian Marquez LPN - Fully Assessed Prescriptions as of 04/04/2025 - lovastatin (MEVACOR) 20 mg tablet Take 1 tablet by mouth daily at bedtime. - lisinopril (ZESTRIL) 10 mg tablet Take 1 tablet by mouth once daily. - calcium carbonate/vitamin D3 (CALCIUM 600 + D,3, ORAL) - hydrOXYchloroQUINE (PLAQUENIL) 200 mg tablet Take 400 mg by mouth once daily. 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] 04/30/2006 Mixed hyperlipidemia [E78.2] ED (erectile dysfunction) [N52.9] 11/10/2011 Folliculitis [L73.9] 09/01/2013 05/05/2018 Essential hypertension [I10] 03/21/2020 Rheumatoid arthritis of multiple sites with neg*05/31/2020 leukopenia [D64.9] 03/26/2023 Acute sinusitis [J01.90] 09/12/2022 09/14/2023 Diagnosed: 09/14/2023 Impacted cerumen [H61.20] 09/14/2023 09/14/2023 Diagnosed: 09/14/2023 Iron deficiency anemia [D50.9] 09/14/2023 Diagnosed: 09/14/2023 Malignant neoplasm (HCC) [C80.1] 09/14/2023 09/14/2023 Diagnosed: 09/14/2023 Otitis externa [H60.90] 09/14/2023 09/14/2023 Diagnosed: 09/14/2023 Parageusia [R43.2] 09/14/2023 Diagnosed: 09/14/2023 Skin cancer [C44.90] 09/14/2023 Encounter Status:Closed by SERENITY CASTILLO on 04/04/25 [facility] 04-03-2025 [facility] Office Visit (FAMPWS ) OTILIO TORREZ ([id number]) 1950 M Date Time Provider Department 04/03/25 10:[address] OBRIEN During your visit today, we recorded the following information about you: Pulse Blood pressure Weight 77/minute 122/[address] Obrien MD 04/03/2025 12:22 PM Signed Otilio Torrez is a 75 year old male here for a Medicare wellness visit. Medicare Health Risk Assessment General Health Good Exercise: Minutes/Day 40 min Exercise: Days/Week 2 days Alcohol: Daily Use 2-4 times a month Alcohol: Drinks/Day 1 or 2 Alcohol: 6 or more drinks Never Feel off balance No Concerns: Teeth/Dentures No Concerns: Sexual function No Troubled by feelings None of the above Frequency: Eating healthy diet Several days ADLs requiring help None of the above Safety precautions in home/vehicle Yes. Smoke, vape, chews tobacco No Difficulty hearing Yes Difficulty seeing No Current Providers Specialists: I have reviewed specialist-related care of the patient in the medical record. Current care team: Patient Care Team: Rd Obrien MD as PCP - General (Family Medicine) Macie Martin APRN.CNP as Tobacco Grower (Family Medicine) Rima Bradshaw APRN.CNP as Tobacco Grower (Family Medicine) [facility] Orozco-optometry. Dr. Tinajero-urology. Dr Mccord-rheumatology. Dr Krishna-dermatology Medical/Family history review Reviewed and updated problem list, medical/surgical/famil y/social history, medications, and allergies. Opioid use review Opioid Medications (last 90 days) No data to display Anxiety/Depression screening (Lower risk for depression) BREANNA-7 Score: 0. Recommendation: no further intervention at this time Cognitive screening Will do bach Cognitive screening reviewed and Patient declined Mini-Cog test. Functional Observation Was the patient's Timed Up AND Go test unsteady or >= 12 seconds? No Advance Care Planning Surrogate decision maker and/or advance care plan documented Measurements BP 122/70 Pulse 77 Wt 91.6 kg (202 lb) SpO2 96% BMI 28.17 kg/m? Vision Screening: Follows with optometry/ophthalmolog y ADDITIONAL INFO: Annual Wellness Exam: - Describes overall health as pretty good. - Engages in physical activity a few days a week, including stretching, sit-ups, back stretches, curls, and bench presses. - Eats a healthy diet several days a week. - Denies issues with balance, dentition, or sexual function. - Denies feeling down, depressed, or hopeless in the past two weeks. - Denies loss of interest or pleasure in activities. - Denies anxiety. - Denies unexplained weight loss or fatigue. - Denies changes in bowel habits, hematochezia, or melena. - Denies dysuria, nausea, emesis, or dysphagia. - Denies paresthesia, weakness, or tremors. - Denies cough, wheezing, dyspnea, or edema. - Denies heartburn. - Denies numbness, tingling, weakness, or tremors. - Denies use of opioids or pain medications. - Denies smoking, vaping, or chewing tobacco. - Wears seatbelts and follows safety precautions. - Wears glasses; first pair at age 71. - Sees Dr Orozco for eye care. - Sees Dr. Tinajero for urology. - Sees Dr. Mccord for rheumatology once a year. - Sees Dr. Krishna for dermatology; had a skin check one month ago with no issues. - Has a medical living will; Perla is the designated decision-maker. - Up to date on COVID-19 vaccines; received the latest in the fall. - Allergic to penicillin. - Takes Claritin daily for allergies. - History of severe hay fever in high school, resolved after returning from [place], but has gradually returned in recent years. - Has moderate hearing loss; [facility] - Tried hearing aids but found them uncomfortable. - No recent visits to the [facility] other than for hearing tests. Chest Discomfort: - Experienced a sensation of fullness in the chest while walking about a month ago. - Describes the sensation as similar to the feeling after doing flies during exercise. - The sensation lasted about a minute and then resolved. - Occurred for about a week and has not been noticed for the past couple of weeks. - Denies associated dyspnea, cough, or congestion. - Denies radiation of discomfort to the jaw or arm, sweating, or upset stomach. - Denies recent illness or trauma. - Continues to walk and engage in activities without issues. ROS: Constitutional: (-) weight loss, (-) fatigue Eyes: (+) excessive tearing Ears/Nose/Mouth/Throat : (+) hearing loss, (-) nasal congestion Neck: (+) neck pain Cardiovascular: (-) chest pain Respiratory: (-) cough, (-) wheezing, (-) dyspnea Gastrointestinal: (-) change in bowel habits, (-) hematochezia, (-) melena, (-) nausea, (-) vomiting, (-) dysphagia Genitourinary: (-) dysuri (more content not included)... Normal [facility] ECG COMPLETEon 04-03-2025 ECG COMPLETE Ventricular Rate : 7 1 BPM Atrial Rate : 71 BPM P-R Interval : 176 ms QRS Duration : 86 ms Q-T Interval : 376 ms QTC Calculation(Bazett) : 408 ms Calculated P [place] : 43 degrees Calculated R [place] : 36 degrees Calculated T [place] : 37 degrees NORMAL SINUS RHYTHM NORMAL ECG Confirmed by MD KEN QARAB ([id number]) on 04/05/2025 5:45:08 PM NAME : OTILIO TORREZ PID : [id number] : 1950 Gender : Male Race : ORD : [id number] Procedure Date : Apr 03 2025 10:38:23 Edit Date : Apr 05 2025 17:45:09 Diagnosis: NORMAL SINUS RHYTHM NORMAL ECG Confirmed by MD KEN QARAB ([id number]) on 04/05/2025 5:45:08 PM Test Reason : R07.89 Chest discomfort Location : 185 : WOFM Overread By : MD KEN QARAB Edited By : MD KEN QARAB Referred By : , Acquired by : Durga Marie [facility] XR CHEST 2V FRONTAL/LATon XR CHEST 2V FRONTAL/LAT * * *Final Repor t* * * DATE OF EXAM: Apr 03 2025 11:56AM WOX [id number] - XR CHEST 2V FRONTAL/LAT / PROCEDURE REASON: Chest discomfort * * * * Physician Interpretation * * * * EXAMINATION: CHEST RADIOGRAPH (2 VIEW FRONTAL and LATERAL) CLINICAL HISTORY: Chest discomfort MQ: [id number] EXAM DATE/TIME: 04/03/2025 11:56 AM COMPARISON: 10/06/2022 RESULT: Lines, tubes, and devices: None. Lungs and pleura: No consolidation. No lung mass. No pleural effusion. No pneumothorax. Cardiomediastinal silhouette: Normal cardiomediastinal silhouette. Bones and soft tissues: Degenerative changes throughout the spine IMPRESSION: No acute radiographic abnormality. 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 Transcribe Date/Time: Apr 04 2025 11:25A Dictated by : AYLA MUNGUIA MD This examination was interpreted and the report reviewed and electronically signed by: AYLA MUNGUIA MD on Apr 04 2025 11:27AM EST [id number] Normal [facility] CBC W Auto Differential pane l (Bld)on 03-28-2025 Basophils (Bld) [#/Vol] 10*3/uL Normal <0.11 [facility] Comment on above: Order Comment: Speci men Type: BLOOD SPECIMEN Ordering Facility: [facility] Address: [address] [place] [address] Performed By: #### 5 7021-8 #### [facility] CLIA [id number] [address] [place] [address] [place] Basophils/100 WBC (Bld) 0.5 % Normal C [facility] Comment on above: Order Comment: Speci men Type: BLOOD SPECIMEN Ordering Facility: [facility] Address: [address] [place] [address] Performed By: #### 5 7021-8 #### [facility] CLIA [id number] [address] [place] [address] [place] Differential cell count method Nom (Bld) Auto Normal [facility] Comment on above: Order Comment: Speci men Type: BLOOD SPECIMEN Ordering Facility: [facility] Address: [address] [place] [address] Performed By: #### 5 7021-8 #### [facility] CLIA [id number] [address] [place] [address] [place] Eosinophils (Bld) [#/Vol] 0.03 10*3/uL Normal <0.46 [facility] Comment on above: Order Comment: Speci men Type: BLOOD SPECIMEN Ordering Facility: [facility] Address: [address] [place] [address] Performed By: #### 5 7021-8 #### [facility] CLIA [id number] [address] [place] [address] [place] Eosinophils/100 WBC (Bld) 0.7 % Normal [facility] Comment on above: Order Comment: Speci men Type: BLOOD SPECIMEN Ordering Facility: [facility] Address: [address] [place] [address] Performed By: #### 5 7021-8 #### [facility] CLIA [id number] [address] [place] [address] [place] Erythrocyte distribution width (RBC) [Ratio] 13.7 % Normal 11.5-15.0 [facility] Comment on above: Order Comment: Speci men Type: BLOOD SPECIMEN Ordering Facility: [facility] Address: [address] [place] [address] Performed By: #### 5 7021-8 #### [facility] CLIA [id number] [address] [place] [address] [place] Hematocrit (Bld) [Volume fraction] 39.6 % Normal 39.0-51.0 [facility] Comment on above: Order Comment: Speci men Type: BLOOD SPECIMEN Ordering Facility: [facility] Address: [address] [place] [address] Performed By: #### 5 7021-8 #### [facility] CLIA [id number] [id number] [address] [place] Hemoglobin (Bld) [Mass/Vol] 13.2 g/dL Normal 13.0-17.0 [facility] Comment on above: Order Comment: Speci men Type: BLOOD SPECIMEN Ordering Facility: [facility] Address: [address] [place] [address] Performed By: #### 5 7021-8 #### [facility] CLIA [id number] [address] [place] [address] [place] Immature granulocytes (Bld) [#/Vol] 0.05 10*3/uL Normal <0.10 [facility] Comment on above: Order Comment: Speci men Type: BLOOD SPECIMEN Ordering Facility: [facility] Address: [address] [place] [address] Performed By: #### 5 7021-8 #### [facility] CLIA [id number] [address] [place] [address] [place] Immature granulocytes/100 WBC (Bld) 1.2 % Normal [facility] Comment on above: Order Comment: Speci men Type: BLOOD SPECIMEN Ordering Facility: [facility] Address: [address] [place] [address] Performed By: #### 5 7021-8 #### [facility] CLIA [id number] [address] [place] [address] [place] Lymphocytes (Bld) [#/Vol] 1.92 10*3/uL Normal 1.00-4.00 [facility] Comment on above: Order Comment: Speci men Type: BLOOD SPECIMEN Ordering Facility: [facility] Address: [address] [place] [address] Performed By: #### 5 7021-8 #### [facility] CLIA [id number] [address] [place] [address] [place] Lymphocytes/100 WBC (Bld) 45.3 % Normal [facility] Comment on above: Order Comment: Speci men Type: BLOOD SPECIMEN Ordering Facility: [facility] Address: [address] [place] [address] Performed By: #### 5 7021-8 #### [facility] CLIA [id number] [address] [place] [address] [place] MCH (RBC) [Entitic mass] 28.9 pg Normal 26.0-34.0 [facility] Comment on above: Order Comment: Speci men Type: BLOOD SPECIMEN Ordering Facility: [facility] Address: [address] [place] [address] Performed By: #### 5 7021-8 #### [facility] CLIA [id number] [address] [place] [address] [place] MCHC (RBC) [Mass/Vol] 33.3 g/dL Normal 30.5-36.0 [facility] Comment on above: Order Comment: Speci men Type: BLOOD SPECIMEN Ordering Facility: [facility] Address: [address] [place] [address] Performed By: #### 5 7021-8 #### [facility] CLIA [id number] [address] [place] [address] [place] MCV (RBC) [Entitic vol] 86.7 fL Normal 80.0-100.0 [facility] Comment on above: Order Comment: Speci men Type: BLOOD SPECIMEN Ordering Facility: [facility] Address: [address] [place] [address] Performed By: #### 5 7021-8 #### [facility] CLIA [id number] [address] [place] [address] [place] Monocytes (Bld) [#/Vol] 0.45 10*3/uL Normal <0.87 [facility] Comment on above: Order Comment: Speci men Type: BLOOD SPECIMEN Ordering Facility: [facility] Address: [address] [place] [address] Performed By: #### 5 7021-8 #### [facility] CLIA [id number] [address] [place] [address] [place] Monocytes/100 WBC (Bld) 10.6 % Normal [facility] Comment on above: Order Comment: Speci men Type: BLOOD SPECIMEN Ordering Facility: [facility] Address: [address] [place] [address] Performed By: #### 5 7021-8 #### [facility] CLIA [id number] [address] [place] [address] [place] Neutrophils (Bld) [#/Vol] 1.77 10*3/uL Normal 1.45-7.50 [facility] Comment on above: Order Comment: Speci men Type: BLOOD SPECIMEN Ordering Facility: [facility] Address: [address] [place] [address] Performed By: #### 5 7021-8 #### [facility] CLIA [id number] [address] [place] [address] [place] Neutrophils/100 WBC (Bld) 41.7 % Normal [facility] Comment on above: Order Comment: Speci men Type: BLOOD SPECIMEN Ordering Facility: [facility] Address: [address] [place] [address] Performed By: #### 5 7021-8 #### [facility] CLIA [id number] [address] [place] [address] [place] Nucleated RBC (Bld) [#/Vol] 10*3/uL Normal <0.01 [facility] Comment on above: Order Comment: Speci men Type: BLOOD SPECIMEN Ordering Facility: [facility] Address: [address] [place] [address] Performed By: #### 5 7021-8 #### [facility] CLIA [id number] [address] [place] [address] [place] Nucleated RBC/100 WBC (Bld) [Ratio] 0.0 /100 WBC Normal [facility] Comment on above: Order Comment: Speci men Type: BLOOD SPECIMEN Ordering Facility: [facility] Address: [address] [place] [address] Performed By: #### 5 7021-8 #### [facility] CLIA [id number] [address] [place] [address] [place] Platelet mean volume (Bld) [Entitic vol] 9.6 fL Normal 9.0-12.7 [facility] Comment on above: Order Comment: Speci men Type: BLOOD SPECIMEN Ordering Facility: [facility] Address: [address] [place] [address] Performed By: #### 5 7021-8 #### [facility] CLIA [id number] [address] [place] [address] [place] Platelets (Bld) [#/Vol] 222 10*3/uL Normal 150-400 [facility] Comment on above: Order Comment: Speci men Type: BLOOD SPECIMEN Ordering Facility: [facility] Address: [address] [place] [address] Performed By: #### 5 7021-8 #### [facility] CLIA [id number] [address] [place] [address] [place] RBC (Bld) [#/Vol] 4.57 10*6/uL Normal 4.20-6.00 [facility] Comment on above: Order Comment: Speci men Type: BLOOD SPECIMEN Ordering Facility: [facility] Address: [address] [place] [address] Performed By: #### 5 7021-8 #### [facility] CLIA [id number] [address] [place] [address] [place] WBC (Bld) [#/Vol] 4.24 10*3/uL Normal 3.70-11.00 [facility] Comment on above: Order Comment: Speci men Type: BLOOD SPECIMEN Ordering Facility: [facility] Address: [address] [place] [address] Performed By: #### 5 7021-8 #### [facility] CLIA [id number] [address] [place], [place] [address] [place] Comprehensive metabolic 2000 panelon 03-28-2025 Albumin [Mass/Vol] 4.2 g/dL Normal 3.9-4.9 [facility] Comment on above: Order Comment: Speci men Type: BLOOD SPECIMEN Ordering Facility: [facility] Address: [address] [place], [place] [address] Performed By: #### 2 4323-8, 27480-1 #### [facility] CLIA [id number] [address] [place] [address] [place] ALP [Catalytic activity/Vol] 109 U/L Normal 38-113 [facility] Comment on above: Order Comment: Speci men Type: BLOOD SPECIMEN Ordering Facility: [facility] Address: [address] [place] [address] Performed By: #### 2 4323-8, 83232-2 #### [facility] CLIA [id number] [address] [place], [place] [address] [place] ALT [Catalytic activity/Vol] 24 U/L Normal 10-54 [facility] Comment on above: Order Comment: Speci men Type: BLOOD SPECIMEN Ordering Facility: [facility] Address: [address] [place] [address] Performed By: #### 2 4323-8, 96380-4 #### [facility] CLIA [id number] [address] [place], [place] [address] [place] Anion gap [Moles/Vol] 11 mmol/L Normal 8-15 [facility] Comment on above: Order Comment: Speci men Type: BLOOD SPECIMEN Ordering Facility: [facility] Address: [address] [place], [place] [address] Performed By: #### 2 4323-8, 96505-8 #### [facility] CLIA [id number] [address] [place] [address] [place] AST [Catalytic activity/Vol] 24 U/L Normal 14-40 [facility] Comment on above: Order Comment: Speci men Type: BLOOD SPECIMEN Ordering Facility: [facility] Address: [address] [place] [address] Performed By: #### 2 4323-8, 05642-2 #### [facility] CLIA [id number] [address] [place] [address] [place] Bilirubin [Mass/Vol] 0.4 mg/dL Normal 0.2-1.3 [facility] Comment on above: Order Comment: Speci men Type: BLOOD SPECIMEN Ordering Facility: [facility] Address: [address] [place] [address] Performed By: #### 2 4323-8, 79491-4 #### [facility] CLIA [id number] [address] [place] [address] [place] Calcium [Mass/Vol] 9.1 mg/dL Normal 8.5-10.2 [facility] Comment on above: Order Comment: Speci men Type: BLOOD SPECIMEN Ordering Facility: [facility] Address: [address] [place] [address] Performed By: #### 2 4323-8, 23793-4 #### [facility] CLIA [id number] [address] [place] [address] [place] Chloride [Moles/Vol] 102 mmol/L Normal 98-107 [facility] Comment on above: Order Comment: Speci men Type: BLOOD SPECIMEN Ordering Facility: [facility] Address: [address] [place] [address] Performed By: #### 2 4323-8, 62798-2 #### [facility] CLIA [id number] [address] [place] [address] [place] CO2 [Moles/Vol] 22 mmol/L Normal 22-30 [facility] Comment on above: Order Comment: Speci men Type: BLOOD SPECIMEN Ordering Facility: [facility] Address: [address] [place] [address] Performed By: #### 2 4323-8, 97433-3 #### [facility] CLIA [id number] [address] [place] [address] [place] Creatinine [Mass/Vol] 0.92 mg/dL Normal 0.73-1.22 [facility] Comment on above: Order Comment: Speci men Type: BLOOD SPECIMEN Ordering Facility: [facility] Address: [address] [place] [address] Performed By: #### 2 4323-8, 06291-0 #### [facility] CLIA [id number] [address] [place] [address] [place] Creatinine and Glomerular filtration rate.predicted panel (S/P/Bld) 86 mL/min/1.73m??? Normal >=60 [facility] Comment on above: Order Comment: Richard men Type: BLOOD SPECIMEN Ordering Facility: [facility] Address: [address] [place] [address] Result Comment: Fany mated Glomerular Filtration Rate (eGFR) is calculated using the 2020 CKD-EPI creatinine equation. This equation utilizes serum creatinine, sex, and age as parameters. The creatinine assay has traceable calibration to isotope dilution-mass spectrometry. Refer to KDIGO guidelines for clinical interpretation. In patients with unstable renal function, e.g. those with acute kidney injury, the eGFR may not accurately reflect actual GFR. Performed By: #### 2 4323-8, 73945-4 #### [facility] CLIA [id number] [address] [place] [address] [place] Glucose [Mass/Vol] 97 mg/dL Normal 74-99 [facility] Comment on above: Order Comment: Modestoi men Type: BLOOD SPECIMEN Ordering Facility: [facility] Address: [address] [place] [address] Result Comment: The [place] [employer] (ADA) provides guidance for cutoff values for fasting glucose and random glucose. The ADA defines fasting as no caloric intake for at least 8 hours. Fasting plasma glucose results between 100 to 125 mg/dL indicate increased risk for diabetes (prediabetes). Fasting plasma glucose results greater than or equal to 126 mg/dL meet the criteria for diagnosis of diabetes. In the absence of unequivocal hyperglycemia, results should be confirmed by repeat testing. In a patient with classic symptoms of hyperglycemia or hyperglycemic crisis, random plasma glucose results greater than or equal to 200 mg/dL meet the criteria for diagnosis of diabetes. Reference: Standards of Medical Care in Diabetes 2016, [place] [employer]. Diabetes Care. 2016.39(Suppl 1). Performed By: #### 2 4323-8, 41428-0 #### [facility] CLIA [id number] [address] [place] [address] [place] Potassium [Moles/Vol] 4.1 mmol/L Normal 3.7-5.1 [facility] Comment on above: Order Comment: Speci men Type: BLOOD SPECIMEN Ordering Facility: [facility] Address: [address] [place] [address] Performed By: #### 2 4323-8, 23151-5 #### [facility] CLIA [id number] [address] [place] [address] [place] Protein [Mass/Vol] 7.4 g/dL Normal 6.3-8.0 [facility] Comment on above: Order Comment: Modestoi julia Type: BLOOD SPECIMEN Ordering Facility: [facility] Address: [address] [place] [address] Performed By: #### 2 4323-8, 42235-1 #### [facility] CLIA [id number] [address] [place] [address] [place] Sodium [Moles/Vol] 135 mmol/L Low 136-144 [facility] Comment on above: Order Comment: Modestoi men Type: BLOOD SPECIMEN Ordering Facility: [facility] Address: [address] [place] [address] Performed By: #### 2 4323-8, 98483-5 #### [facility] CLIA [id number] [address] [place], [place] [address] [place] Urea nitrogen [Mass/Vol] 11 mg/dL Normal 9-24 [facility] Comment on above: Order Comment: Speci men Type: BLOOD SPECIMEN Ordering Facility: [facility] Address: [address] [place] [address] Performed By: #### 2 4323-8, 28790-0 #### [facility] CLIA [id number] [address] [place], [place] [address] [place] Lipid 1996 panelon 5 Cholesterol [Mass/Vol] 144 mg/dL Normal <200 [facility] Comment on above: Order Comment: Speci men Type: BLOOD SPECIMEN Ordering Facility: [facility] Address: [address] [place] [address] Result Comment: <200 mg/dL, Desirable 200-239 mg/dL, Borderline high >239 mg/dL, High Performed By: #### 2 4323-8, 48935-1 #### [facility] CLIA [id number] [address] [place] [address] [place] Cholesterol in HDL [Mass/Vol] 32 mg/dL Low >39 [facility] Comment on above: Order Comment: Speci men Type: BLOOD SPECIMEN Ordering Facility: [facility] Address: [address] [place] [address] Result Comment: 40-5 9 mg/dL, Acceptable >59 mg/dL, High: Negative risk factor for coronary heart disease <40 mg/dL, Low: Positive risk factor for coronary heart disease Performed By: #### 2 4323-8, 30617-1 #### [facility] CLIA [id number] [address] [place] [address] [place] Cholesterol in LDL [Mass/Vol] 100 mg/dL High <100 [facility] Comment on above: Order Comment: Speci men Type: BLOOD SPECIMEN Ordering Facility: [facility] Address: [address] [place] [address] Result Comment: <100 mg/dL, Optimal 100-129 mg/dL, Near optimal/above optimal 130-159 mg/dL, Borderline high 160-189 mg/dL, High >189 mg/dL, Very high Secondary prevention optimal LDL Cholesterol levels are recommended to be <70 mg/dL LDL cholesterol is calculated using the Murphy-NIH equation. Performed By: #### 2 4323-8, 63477-6 #### [facility] CLIA [id number] [address] [place] [address] [place] Cholesterol in LDL/Cholesterol in HDL [Mass ratio] 3.13 {ratio} High <2.54 [facility] Comment on above: Order Comment: Richard dumont Type: BLOOD SPECIMEN Ordering Facility: [facility] Address: [address] [place] [address] Result Comment: Refe rence: 1. National Cholesterol Education Program ATP III Guideline At-A-Glance Quick Desk Reference: National Heart, Lung, and Blood [place]. National Institutes of Health. 2001: NIH Publication No. 01-3305. 2. An International Atherosclerosis Society position paper: global recommendations for the management of dyslipidemia: executive summary, Atherosclerosis. 2014: 232(2):410-413. Performed By: #### 2 4323-8, 34898-7 #### [facility] CLIA [id number] [address] [place] [address] [place] Cholesterol in VLDL [Mass/Vol] 9 mg/dL Normal <30 [facility] Comment on above: Order Comment: Richard dumont Type: BLOOD SPECIMEN Ordering Facility: [facility] Address: [address] [place] [address] Performed By: #### 2 4323-8, 75801-1 #### [facility] CLIA [id number] [address] [place] [address] [place] Cholesterol non HDL [Mass/Vol] 112 mg/dL Normal <130 [facility] Comment on above: Order Comment: Richard men Type: BLOOD SPECIMEN Ordering Facility: [facility] Address: [address] [place] [address] Result Comment: <130 mg/dL, Optimal 130-159 mg/dL, Near optimal/above optimal 160-189 mg/dL, Borderline high 190-219 mg/dL, High >219 mg/dL, Very high Secondary prevention optimal non HDL Cholesterol levels are recommended to be <100 mg/dL Performed By: #### 2 4323-8, 41929-3 #### [facility] CLIA [id number] [address] [place] [address] [place] Cholesterol.total/Choles terol in HDL [Mass ratio] 4.50 {ratio} Normal <5.10 [facility] Comment on above: Order Comment: Speci men Type: BLOOD SPECIMEN Ordering Facility: [facility] Address: [address] [place] [address] Performed By: #### 2 4323-8, 45915-4 #### [facility] CLIA [id number] [address] [place] [address] [place] [facility] FASTING TIME 12 hrs Normal [facility] Comment on above: Order Comment: Speci men Type: BLOOD SPECIMEN Ordering Facility: [facility] Address: [address] [place] [address] Performed By: #### 2 4323-8, 49022-0 #### [facility] CLIA [id number] [address] [place] [address] [place] Triglyceride [Mass/Vol] 56 mg/dL Normal <150 [facility] Comment on above: Order Comment: Speci men Type: BLOOD SPECIMEN Ordering Facility: [facility] Address: [address] [place] [address] Result Comment: <150 mg/dL, Normal 150-199 mg/dL, Borderline high 200-499 mg/dL, High >499 mg/dL, Very high Performed By: #### 2 4323-8, 26838-0 #### [facility] CLIA [id number] [address] [place] [address] [place] PSA,Total- Diagnosticon - PSA, DIAGNOSTIC 6.47 ng/mL High 0.0-4.0 [facility] Comment on above: Result Comment: This test was performed using the TPSA assay method for the [employer] chemistry system. Values obtained with different assay methods cannot be used interchangably. When changing PSA assays in the course of monitoring a patient, additional sequential testing should be carried out to confirm baseline values. Performed By: #### L 501.9940 #### [facility] [address] [place], [address] CNOVon 10-03-2024 CNOV Office Visit (FAMWS ) OTILIO TORREZ ([id number]) 1950 M Date Time Provider Department 10/03/24 8:[address] OBRIEN During your visit today, we recorded the following information about you: Pulse Blood pressure Weight Height 76/minute 134/72 91.[address] Obrien MD 10/03/2024 8:56 AM Signed Patient presents with: 6 Month Exam HPI: Patient presents today for office visit for routine 6 month follow up. No problems/concerns today. HLD: Taking Lovastatin 20 mg daily. No myalgias. Follows low fat/low chol diet. Exercises a couple days a week. HTN: Taking Lisinopril 10 mg daily. Does not monitor BP at home. Denies chest pain and shortness of breath. Denies headaches and dizziness. No palpitations and syncope. No edema. Follows with Rheum. Continues on Plaquenil. Still seeing optho on meds. 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 Up to date on labs. MEDICATIONS: Current Outpatient Medications Medication Sig lovastatin (MEVACOR) 20 mg tablet Take 1 tablet by mouth daily at bedtime. lisinopril (ZESTRIL) 10 mg tablet Take 1 tablet by mouth once daily. calcium carbonate/vitamin D3 (CALCIUM 600 + D,3, ORAL) hydrOXYchloroQUINE (PLAQUENIL) 200 mg tablet Take 400 mg by mouth once daily. sildenafil (VIAGRA) 100 [...] cigar 1-2 times monthly. Vaping Use Vaping status: Never Used Substance Use Topics Alcohol use: No Drug use: No Reviewed current medications, allergies, past medical history, surgical history, family history and social history today. REVIEW OF SYSTEMS Uses allerest for some chronic drainage. Does help. No gerd issues. No issues with urine or bowels. No falls All other reviewed and negative other than HPI. HEALTH MAINTENANCE: Reviewed health maintenance issues today and recommended the following in detail. BP Controlled (<130/80) due on 09/14/2024 Advance Directive Discussion due on 09/28/2024 VITALS: BP 134/72 Pulse 76 Ht 180.3 cm (5' 11) Wt 91.6 kg (202 lb) SpO2 98% BMI 28.17 kg/m? Last 4 Encounter Wt Readings: Date: Wt: 10/03/2024 91.6 kg (202 lb) 03/28/2024 89.8 kg (198 lb) 01/18/2024 91.6 kg (202 lb) 09/14/2023 90.4 kg (199 lb 6.4 oz) PHYSICAL EXAMINATION: General appearance: Well appearing, alert, in no acute distress, well-hydrated, well nourished. Skin: Skin color, texture, turgor normal, no suspicious rashes or lesions Head: Normocephalic, no masses, lesions, tenderness or abnormalities Lungs: Lungs clear to auscultation. No wheezing, [...] diagnosis) - Controlled - Continue current medications - COMPLETE BLOOD COUNT AND DIFFERENTIAL - COMPREHENSIVE METABOLIC PANEL - LIPID PANEL BASIC 2. Essential hypertension - ICD9: 401.9, ICD10: I10 - Controlled - Continue current medications - COMPLETE BLOOD COUNT AND DIFFERENTIAL - COMPREHENSIVE METABOLIC PANEL - LIPID PANEL BASIC 3. Anemia, unspecified type - ICD9: 285.9, ICD10: D64.9 - has been stable. 4. Skin cancer - ICD9: 173.90, ICD10: C44.90 - does not follow with derm. Suggested he do so. 5. Rheumatoid arthritis of multiple site (more content not included)... Normal [facility] Basophil percentageOrdered B y: Abeba Cespedes on 11-10-2023 Basophil percentage 5.57 ng/mL 0.0-4.[address] [facility] Comment on above: This test was perfor med using the TPSA assay method for the[employer] chemistry system. Values obtained with differentassay methods cannot be used interchangably.When changing PSA assays in the course of monitoring apatient, additional sequential testing should be carriedout to confirm baseline values. Absolute lymphocyte countOrd ered By: SHLOMO MCCORD on 10-19-2023 Lymphocytes Auto (Unsp spec) [#/Vol] 1.60 10*3/uL 0.83-4.51 [facility] Automated lymphocyte count a s percentage of total leukocytesOrdered By: SHLOMO MCCORD on 10-19-2023 Lymphocytes/100 WBC Auto (Unsp spec) 34.1 % 19-41 [facility] Basophil percentageOrdered B y: SHLOMO MCCORD on 10-19-2023 Basophils/100 WBC (Bld) 0.2 % 0-1 [facility] Bilirubin [Mass/Vol] 0.50 mg/dL 0.20-1.00 [facility] Comment on above: For patients on eltr ombopag therapy, use of Dimension [place] TBIL is not recommended. Chloride [Moles/Vol] 103 mmol/L 98-107 [facility] Eosinophils/100 WBC (Bld) 1.9 % 0-5 [facility] Glucose [Mass/Vol] 91 mg/dL 74-106 [facility] Hemoglobin (Bld) [Mass/Vol] 12.3 g/dL 13.0-16.5 [facility] Monocytes/100 WBC (Bld) 9.6 % 0-10 [facility] Neutrophils (Bld) [#/Vol] 2.3 10*3/uL 2.0-7.7 [facility] Neutrophils/100 WBC (Bld) 49.9 % 47-70 [facility] Potassium [Moles/Vol] 4.0 mmol/L 3.5-5.1 [facility] Protein [Mass/Vol] 7.7 g/dL 6.4-8.2 [facility] Sodium [Moles/Vol] 134 mmol/L 136-145 [facility] WBC (Bld) [#/Vol] 4.7 10*3/uL 4.4-11.0 [facility] Determination of erythrocyte mean corpuscular volume (MCV)Ordered By: SHLOMO MCCORD on 10-19-2023 MCV (RBC) [Entitic vol] 90.0 fL 80-94 [facility] Erythrocyte distribution wid th ratioOrdered By: SHLOMO MCCORD on 10-19-2023 Erythrocyte distribution width (RBC) [Ratio] 13.4 % 11.6-14.6 [facility] Erythrocyte distribution wid th standard deviationOrdered By: SHLOMO MCCORD on 10-19-2023 Erythrocyte distribution width (RBC) [Entitic vol] 43.9 fL 35.1-43.9 [facility] Erythrocyte sedimentation ra teOrdered By: SHLOMO MCCORD on 10-19-2023 ESR (Bld) [Velocity] 10 mm/h 0-20 [facility] Hematocrit Auto (Bld) [Volum e fraction]Ordered By: SHLOMO MCCORD on 10-19-2023 Hematocrit (Bld) [Volume fraction] 38.7 % 40-54 [facility] Immature granulocytes/100 WB C Auto (Bld)Ordered By: SHLOMO MCCORD on 10-19-2023 Immature granulocytes/100 WBC (Bld) 4.300 % 0.0-0.9 [facility] Comment on above: IG% - Immature Granu locytes (promyelocytes, myelocytes and metamyelocytes) > 1% indicates that a LEFT SHIFT is Present. Laboratory - Chemistry and C hemistry - challengeOrdered By: SHLOMO MCCORD on 10-19-2023 Albumin/Globulin [Mass ratio] 0.9 {ratio} 0.9-2.4 [facility] ALP [Catalytic activity/Vol] 67 U/L 45-117 [facility] ALT [Catalytic activity/Vol] 33 U/L 16-61 [facility] CO2 [Moles/Vol] 28.0 mmol/L 21.0-32.0 [facility] Globulin (S) [Mass/Vol] 4.0 g/dL 2.2-4.2 [facility] Urea nitrogen/Creatinine [Mass ratio] 12.1 mg/mg 10-20 [facility] Laboratory - Hematology and Cell countsOrdered By: SHLOMO MCCORD on 10-19-2023 MCH (RBC) [Entitic mass] 28.6 pg 27.0-32.0 [facility] MCHC (RBC) [Mass/Vol] 31.8 g/dL 32-36 [facility] Nucleated RBC/100 WBC (Bld) [Ratio] 0 % 0-5 [facility] Platelets (Bld) [#/Vol] 225 10*3/uL 150-450 [facility] [place] No Panel InformationOrdered By: SHLOMO MCCORD on 10-19-2023 C-Reactive Protein Extended Range 7.79 mg/L 0.0-3.0 [facility] [place] Comment on above: C-Reactive Protein ( CRP) provides useful information for thediagnosis, therapy and monitoring of inflammatory processesand associated diseases. For the evaluation of Relative Riskfor Cardiovascular Disease, a High Sensitivity CRP (HSCRP)should be ordered. Estimated GFR (MDRD) Amer 95 mL/min >60 [facility] [place] Comment on above: GFR Calc Estimated GFR (MDRD) Non-Af Amer 79 mL/min >60 [facility] [place] Comment on above: Non- GFR Calc Platelet mean volume Carlos-Ec ker (Bld) [Entitic vol]Ordered By: SHLOMO MCCORD on 10-19-2023 Platelet mean volume (Bld) [Entitic vol] 9.4 fL 6.2-12.0 [facility] [place] RBC Auto (Bld) [#/Vol]Ordere d By: SHLOMO MCCORD on 10-19-2023 RBC (Bld) [#/Vol] 4.30 10*6/uL 4.6-6.2 [facility] Serum or plasma calcium pierce urement (mass/volume)Ordered By: SHLOMO MCCORD on 10-19-2023 Calcium [Mass/Vol] 9.1 mg/dL 8.5-10.1 [facility] Serum or plasma creatinine m easurement (mass/volume)Ordered By: SHLOMO MCCORD on 10-19-2023 Creatinine [Mass/Vol] 0.99 mg/dL 0.70-1.30 [facility] Comment on above: The validity of the calculated GFR & GFRAA in patients over 70 years has not been determined. Clinical correlation is essential. Serum or plasma urea nitroge n measurement (mass/volume)Ordered By: SHLOMO MCCORD on 10-19-2023 Urea nitrogen [Mass/Vol] 12 mg/dL 7-18 [facility] [place] Thin prep Papanicolaou smear with manual screeningOrdered By: SHLOMO MCCORD on 10-19-2023 Thin prep Papanicolaou smear with manual screening 3.7 g/dL 3.2-5.0 [facility] [place] Thin prep Papanicolaou smear with manual screening 26 U/L 15-37 [facility] [place] Thin prep Papanicolaou smear with manual screening 3 5-15 [facility] [place] Absolute lymphocyte countOrd ered By: SHLOMO MCCORD on 05-01-2023 Lymphocytes Auto (Unsp spec) [#/Vol] 1.65 10*3/uL 0.83-4.51 [facility] [place] Basophil percentageOrdered B y: SHLOMO MCCORD on 05-01-2023 Basophils/100 WBC (Bld) 0.0 % 0-1 [facility] Eosinophils/100 WBC (Bld) 0.9 % 0-5 [facility] [place] Neutrophils (Bld) [#/Vol] 1.2 10*3/uL 2.0-7.7 [facility] [place] Neutrophils/100 WBC (Bld) 35.5 % 47-70 [facility] [place] WBC (Bld) [#/Vol] 3.3 10*3/uL 4.4-11.0 [facility] Blood erythrocytes count (nu mber/volume)Ordered By: SHLOMO MCCORD on 05-01-2023 RBC (Bld) [#/Vol] 4.39 10*6/uL 4.6-6.2 [facility] Blood hemoglobin measurement (mass/volume)Ordered By: SHLOMO MCCORD on 05-01-2023 Hemoglobin (Bld) [Mass/Vol] 12.4 g/dL 13.0-16.5 [facility] [place] Blood lymphocytes/100 leukoc ytesOrdered By: SHLOMO MCCORD on 05-01-2023 Lymphocytes/100 WBC (Bld) 49.5 % 19-41 [facility] [place] Blood monocytes/100 leukocyt esOrdered By: SHLOMO MCCORD on 05-01-2023 Monocytes/100 WBC (Bld) 9.9 % 0-10 [facility] Blood platelet mean volumeOr dered By: SHLOMO MCCORD on 05-01-2023 Platelet mean volume (Bld) [Entitic vol] 9.8 fL 6.2-12.0 [facility] [place] Determination of erythrocyte mean corpuscular volume (MCV)Ordered By: SHLOMO MCCORD on 05-01-2023 MCV (RBC) [Entitic vol] 88.4 fL 80-94 [facility] Erythrocyte sedimentation ra teOrdered By: SHLOMO MCCORD on 05-01-2023 ESR (Bld) [Velocity] 21 mm/h 0-20 [facility] Auto (Bld) [Volum e fraction]Ordered By: SHLOMO MCCORD on 05-01-2023 Hematocrit (Bld) [Volume fraction] 38.8 % 40-54 [facility] [place] Laboratory - Hematology and Cell countsOrdered By: SHLOMO MCCORD on 05-01-2023 Erythrocyte distribution width (RBC) [Entitic vol] 43.9 fL 35.1-43.9 [facility] [place] Erythrocyte distribution width (RBC) [Ratio] 13.6 % 11.6-14.6 [facility] [place] Immature granulocytes/100 WBC (Bld) 4.200 % 0.0-0.9 [facility] [place] Comment on above: IG% - Immature Granu locytes (promyelocytes, myelocytes and metamyelocytes) > 1% indicates that a LEFT SHIFT is Present. MCH (RBC) [Entitic mass] 28.2 pg 27.0-32.0 [facility] [place] Nucleated RBC/100 WBC (Bld) [Ratio] 0 % 0-5 [facility] [place] MCHC Auto (RBC) [Mass/Vol]Or dered By: SHLOMO MCCORD on 05-01-2023 MCHC (RBC) [Mass/Vol] 32.0 g/dL 32-36 [facility] No Panel InformationOrdered By: SHLOMO MCCORD on 05-01-2023 Estimated GFR (MDRD) Amer 103 mL/min >60 [facility] [place] Comment on above: GFR Calc Estimated GFR (MDRD) Non-Af Amer 85 mL/min >60 [facility] [place] Comment on above: Non- GFR Calc Platelets bldOrdered By: ESTEFANY MCCORD on 05-01-2023 Platelets (Bld) [#/Vol] 200 10*3/uL 150-450 [facility] [place] Serum or plasma C reactive p rotein measurement (mass/volume)Ordered By: SHLOMO MCCORD on 05-01-2023 CRP [Mass/Vol] mg/L 0.0-3.0 [facility] [place] Comment on above: C-Reactive Protein ( CRP) provides useful information for thediagnosis, therapy and monitoring of inflammatory processesand associated diseases. For the evaluation of Relative Riskfor Cardiovascular Disease, a High Sensitivity CRP (HSCRP)should be ordered. Serum or plasma creatinine m easurement (mass/volume)Ordered By: SHLOMO MCCORD on 05-01-2023 Creatinine [Mass/Vol] 0.92 mg/dL 0.70-1.30 [facility] Comment on above: The validity of the calculated GFR & GFRAA in patients over 70 years has not been determined. Clinical correlation is essential. No Panel InformationOrdered By: Abeba Cespedes on 04-28-2023 Prostate Specific Antigen Screen 6.44 ng/mL 0.00-4.00 [facility] [place] Comment on above: This test was perfor med using the TPSA assay method for the[employer] chemistry system. Values obtained with differentassay methods cannot be used interchangably.When changing PSA assays in the course of monitoring apatient, additional sequential testing should be carriedout to confirm baseline values. Absolute lymphocyte countOrd ered By: Dr. Obrien on 03-19-2023 Lymphocytes Auto (Unsp spec) [#/Vol] 1.91 10*3/uL 0.83-4.51 [facility] [place] Basophil percentageOrdered B y: Dr. Obrien on 03-19-2023 Basophils/100 WBC (Bld) 0.2 % 0-1 [facility] Bilirubin [Mass/Vol] 0.60 mg/dL 0.20-1.00 [facility] Comment on above: For patients on eltr ombopag therapy, use of Dimension [place] TBIL is not recommended. Chloride [Moles/Vol] 107 mmol/L 98-107 [facility] Cholesterol [Mass/Vol] 155 mg/dL <200 [facility] Comment on above: <200 mg/dL Desirable 200-240 mg/dL Borderline >240 mg/dL High Risk Eosinophils/100 WBC (Bld) 1.0 % 0-5 [facility] [place] Glucose [Mass/Vol] 99 mg/dL 74-106 [facility] Neutrophils (Bld) [#/Vol] 1.6 10*3/uL 2.0-7.7 [facility] [place] Neutrophils/100 WBC (Bld) 38.5 % 47-70 [facility] [place] Potassium [Moles/Vol] 3.9 mmol/L 3.5-5.1 [facility] Protein [Mass/Vol] 7.6 g/dL 6.4-8.2 [facility] Sodium [Moles/Vol] 140 mmol/L 136-145 [facility] Triglyceride [Mass/Vol] 67 mg/dL <199 [facility] Comment on above: The drugs N-Acetylcy steine and Metamizole may falsely depress this assay.Serum Triglycerides Reference Interval Normal <150 mg/dL Borderline high 150 - 199 mg/dL High 200 - 499 mg/dL Very High > or = 500 mg/dL WBC (Bld) [#/Vol] 4.1 10*3/uL 4.4-11.0 [facility] Blood erythrocytes count (nu mber/volume)Ordered By: Dr. Obrien on 03-19-2023 RBC (Bld) [#/Vol] 4.37 10*6/uL 4.6-6.2 [facility] Blood hemoglobin measurement (mass/volume)Ordered By: Dr. Obrien on 03-19-2023 Hemoglobin (Bld) [Mass/Vol] 12.3 g/dL 13.0-16.5 [facility] [place] Blood lymphocytes/100 leukoc ytesOrdered By: Dr. Obrien on 03-19-2023 Lymphocytes/100 WBC (Bld) 46.8 % 19-41 [facility] [place] Blood monocytes/100 leukocyt esOrdered By: Dr. Obrien on 03-19-2023 Monocytes/100 WBC (Bld) 11.5 % 0-10 [facility] Blood platelet mean volumeOr dered By: Dr. Obrien on 03-19-2023 Platelet mean volume (Bld) [Entitic vol] 9.8 fL 6.2-12.0 [facility] [place] CMP (EXTERNAL)on 03-19-2023 Alk Phos Total 96 U/L 45 - 117 U/L [facility] AST [Catalytic activity/Vol] 24 U/L 8 - 37 U/L [facility] Bili Total 0.60 mg/dL 0.2 - 1 mg/dL [facility] GFR AFR AMER 82 mL/MIN [facility] GFR/1.73 sq M.predicted among non-blacks MDRD (S/P/Bld) [Vol rate/Area] 67 mL/min/{1.73_m2} [facility] Determination of erythrocyte mean corpuscular volume (MCV)Ordered By: Dr. Obrien on 03-19-2023 MCV (RBC) [Entitic vol] 87.9 fL 80-94 [facility] Hematocrit Auto (Bld) [Volum e fraction]Ordered By: Dr. Obrien on 03-19-2023 Hematocrit (Bld) [Volume fraction] 38.4 % 40-54 [facility] [place] LIPID PANEL (EXTERNAL)on HDC-L 37 mg/dL 41 mg/dL [facility] LDL Chol, calculated 105 MG/DL 130 MG/DL [facility] - Chemistry and C hemistry - challengeOrdered By: Dr. Obrien on 03-19-2023 ALP [Catalytic activity/Vol] 96 U/L 45-117 [facility] [place] ALT [Catalytic activity/Vol] 32 U/L 16-61 [facility] [place] CO2 [Moles/Vol] 27.0 mmol/L 21.0-32.0 [facility] [place] Globulin (S) [Mass/Vol] 4.0 g/dL 2.2-4.2 [facility] Urea nitrogen/Creatinine [Mass ratio] 10.6 mg/mg 10-20 [facility] [place] Laboratory - Hematology and Cell countsOrdered By: Dr. Obrien on 03-19-2023 Erythrocyte distribution width (RBC) [Entitic vol] 44.4 fL 35.1-43.9 [facility] [place] Erythrocyte distribution width (RBC) [Ratio] 13.9 % 11.6-14.6 [facility] [place] Immature granulocytes/100 WBC (Bld) 2.000 % 0.0-0.9 [facility] [place] Comment on above: IG% - Immature Granu locytes (promyelocytes, myelocytes and metamyelocytes) > 1% indicates that a LEFT SHIFT is Present. MCH (RBC) [Entitic mass] 28.1 pg 27.0-32.0 [facility] [place] Nucleated RBC/100 WBC (Bld) [Ratio] 0 % 0-5 [facility] [place] MCHC Auto (RBC) [Mass/Vol]Or dered By: Dr. Obrien on 03-19-2023 MCHC (RBC) [Mass/Vol] 32.0 g/dL 32-36 [facility] No Panel InformationOrdered By: Dr. Obrien on 03-19-2023 Estimated GFR (MDRD) Amer 82 mL/min >60 [facility] [place] Comment on above: GFR Calc Estimated GFR (MDRD) Non-Af Amer 67 mL/min >60 [facility] [place] Comment on above: Non- GFR Calc Platelets bldOrdered By: Dr. Obrien on 03-19-2023 Platelets (Bld) [#/Vol] 211 10*3/uL 150-450 [facility] [place] Serum or plasma albumin pierce urement (mass/volume)Ordered By: Dr. Obrien on 03-19-2023 Albumin [Mass/Vol] 3.6 g/dL 3.2-5.0 [facility] Serum or plasma albumin/glob ulin mass ratioOrdered By: Dr. Obrien on 03-19-2023 Albumin/Globulin [Mass ratio] 0.9 {ratio} 0.9-2.4 [facility] [place] Serum or plasma calcium pierce urement (mass/volume)Ordered By: Dr. Obrien on 03-19-2023 Calcium [Mass/Vol] 9.4 mg/dL 8.5-10.1 [facility] Serum or plasma cholesterol in HDL measurement (mass/volume)Ordered By: Dr. Obrien on 03-19-2023 Cholesterol in HDL [Mass/Vol] 37 mg/dL >40 [facility] [place] Comment on above: The drugs N-Acetylcy steine and Metamizole may falsely depress this assay. Reference Range HDL <40 mg/dL Low HDL Cholesterol HDL >or= 60 mg/dL High HDL Cholesterol Serum or plasma cholesterol in VLDL measurement (mass/volume)Ordered By: Dr. Obrien on 03-19-2023 Cholesterol in VLDL [Mass/Vol] 13 mg/dL 5-40 [facility] [place] Serum or plasma creatinine m easurement (mass/volume)Ordered By: Dr. Obrien on 03-19-2023 Creatinine [Mass/Vol] 1.13 mg/dL 0.70-1.30 [facility] Comment on above: The validity of the calculated GFR & GFRAA in patients over 70 years has not been determined. Clinical correlation is essential. Serum or plasma low density lipoprotein (LDL) cholesterol measurement (mass/volume)Ordered By: Dr. Obrien on 03-19-2023 Cholesterol in LDL [Mass/Vol] 105 mg/dL 0-130 [facility] [place] Serum or plasma urea nitroge n measurement (mass/volume)Ordered By: Dr. Obrien on 03-19-2023 Urea nitrogen [Mass/Vol] 12 mg/dL 7-18 [facility] [place] Thin prep Papanicolaou smear with manual screeningOrdered By: Dr. Obrien on 03-19-2023 Thin prep Papanicolaou smear with manual screening 24 U/L 15-37 [facility] [place] Thin prep Papanicolaou smear with manual screening 6 5-15 [facility] [place] Basophil percentageOrdered B y: SHLOMO MCCORD on 01-03-2023 Bilirubin [Mass/Vol] 0.60 mg/dL 0.20-1.00 [facility] Comment on above: For patients on eltr ombopag therapy, use of Dimension [place] TBIL is not recommended. Chloride [Moles/Vol] 105 mmol/L 98-107 [facility] Glucose [Mass/Vol] 75 mg/dL 74-106 [facility] Potassium [Moles/Vol] 3.7 mmol/L 3.5-5.1 [facility] Protein [Mass/Vol] 7.8 g/dL 6.4-8.2 [facility] Sodium [Moles/Vol] 135 mmol/L 136-145 [facility] WBC (Bld) [#/Vol] 3.8 10*3/uL 4.4-11.0 [facility] Blood erythrocytes count (nu mber/volume)Ordered By: SHLOMO MCCORD on 01-03-2023 RBC (Bld) [#/Vol] 4.33 10*6/uL 4.6-6.2 [facility] Blood hemoglobin measurement (mass/volume)Ordered By: SHLOMO MCCORD on 01-03-2023 Hemoglobin (Bld) [Mass/Vol] 12.3 g/dL 13.0-16.5 [facility] [place] Blood platelet mean volumeOr dered By: SHLOMO MCCORD on 01-03-2023 Platelet mean volume (Bld) [Entitic vol] 9.4 fL 6.2-12.0 [facility] [place] Determination of erythrocyte mean corpuscular volume (MCV)Ordered By: SHLOMO MCCORD on 01-03-2023 MCV (RBC) [Entitic vol] 89.6 fL 80-94 [facility] Erythrocyte sedimentation ra teOrdered By: SHLOMO MCCORD on 01-03-2023 ESR (Bld) [Velocity] 29 mm/h 0-20 [facility] Hematocrit Auto (Bld) [Volum e fraction]Ordered By: SHLOMO MCCORD on 01-03-2023 Hematocrit (Bld) [Volume fraction] 38.8 % 40-54 [facility] [place] Laboratory - Chemistry and C hemistry - challengeOrdered By: SHLOMO MCCORD on 01-03-2023 ALP [Catalytic activity/Vol] 117 U/L 45-117 [facility] [place] ALT [Catalytic activity/Vol] 27 U/L 16-61 [facility] [place] CO2 [Moles/Vol] 28.0 mmol/L 21.0-32.0 [facility] [place] Globulin (S) [Mass/Vol] 4.3 g/dL 2.2-4.2 [facility] Urea nitrogen/Creatinine [Mass ratio] 8.7 mg/mg 10-20 [facility] [place] Laboratory - Hematology and Cell countsOrdered By: SHLOMO MCCORD on 01-03-2023 Erythrocyte distribution width (RBC) [Entitic vol] 45.1 fL 35.1-43.9 [facility] [place] Erythrocyte distribution width (RBC) [Ratio] 13.7 % 11.6-14.6 [facility] [place] MCH (RBC) [Entitic mass] 28.4 pg 27.0-32.0 [facility] [place] MCHC Auto (RBC) [Mass/Vol]Or dered By: SHLOMO MCCORD on 01-03-2023 MCHC (RBC) [Mass/Vol] 31.7 g/dL 32-36 [facility] No Panel InformationOrdered By: SHLOMO MCCORD on 01-03-2023 Estimated GFR (MDRD) Amer 91 mL/min >60 [facility] [place] Comment on above: GFR Calc Estimated GFR (MDRD) Non-Af Amer 75 mL/min >60 [facility] [place] Comment on above: Non- GFR Calc Platelets bldOrdered By: ESTEFANY MCCORD on 01-03-2023 Platelets (Bld) [#/Vol] 219 10*3/uL 150-450 [facility] [place] Serum or plasma C reactive p rotein measurement (mass/volume)Ordered By: SHOLMO MCCORD on 01-03-2023 CRP [Mass/Vol] 10.60 mg/L 0.0-3.0 [facility] [place] Comment on above: C-Reactive Protein ( CRP) provides useful information for thediagnosis, therapy and monitoring of inflammatory processesand associated diseases. For the evaluation of Relative Riskfor Cardiovascular Disease, a High Sensitivity CRP (HSCRP)should be ordered. Serum or plasma albumin pierce urement (mass/volume)Ordered By: SHLOMO MCCORD on 01-03-2023 Albumin [Mass/Vol] 3.5 g/dL 3.2-5.0 [facility] Serum or plasma albumin/glob ulin mass ratioOrdered By: SHLOMO MCCORD on 01-03-2023 Albumin/Globulin [Mass ratio] 0.8 {ratio} 0.9-2.4 [facility] [place] Serum or plasma calcium pierce urement (mass/volume)Ordered By: SHLOMO MCCORD on 01-03-2023 Calcium [Mass/Vol] 9.0 mg/dL 8.5-10.1 [facility] Serum or plasma creatinine m easurement (mass/volume)Ordered By: SHLOMO MCCORD on 01-03-2023 Creatinine [Mass/Vol] 1.03 mg/dL 0.70-1.30 [facility] Comment on above: The validity of the calculated GFR & GFRAA in patients over 70 years has not been determined. Clinical correlation is essential. Serum or plasma urea nitroge n measurement (mass/volume)Ordered By: SHLOMO MCCORD on 01-03-2023 Urea nitrogen [Mass/Vol] 9 mg/dL 7-18 [facility] [place] Thin prep Papanicolaou smear with manual screeningOrdered By: SHLOMO MCCORD on 01-03-2023 Thin prep Papanicolaou smear with manual screening 28 U/L 15-37 [facility] [place] Thin prep Papanicolaou smear with manual screening 2 5-15 [facility] [place] Absolute lymphocyte countOrd ered By: SHLOMO MCCORD on 10-20-2022 Lymphocytes Auto (Unsp spec) [#/Vol] 1.50 10*3/uL 0.83-4.51 [facility] [place] Basophil percentageOrdered B y: SHLOMO MCCORD on 10-20-2022 Basophil percentage Not Reportable [facility] Bilirubin [Mass/Vol] 0.80 mg/dL 0.20-1.00 [facility] Comment on above: For patients on eltr ombopag therapy, use of Dimension [place] TBIL is not recommended. Chloride [Moles/Vol] 102 mmol/L 98-107 [facility] Glucose [Mass/Vol] 111 mg/dL 74-106 [facility] Comment on above: Fasting Glucose resu lt from 100 to 125 mg/dL suggests IMPAIRED HOMEOSTASIS per A.D.A. criteria. Neutrophils (Bld) [#/Vol] 4.5 10*3/uL 2.0-7.7 [facility] [place] Potassium [Moles/Vol] 3.6 mmol/L 3.5-5.1 [facility] Protein [Mass/Vol] 8.3 g/dL 6.4-8.2 [facility] Sodium [Moles/Vol] 133 mmol/L 136-145 [facility] WBC (Bld) [#/Vol] 7.2 10*3/uL 4.4-11.0 [facility] Blood band neutrophil count as percentage of total leukocytesOrdered By: SHLOMO MCCORD on 10-20-2022 Band form neutrophils/100 WBC (Bld) 6 % 0-5 [facility] [place] Blood erythrocytes count (nu mber/volume)Ordered By: SHLOMO MCCORD on 10-20-2022 RBC (Bld) [#/Vol] 3.82 10*6/uL 4.6-6.2 [facility] Blood hemoglobin measurement (mass/volume)Ordered By: SHLOMO MCCORD on 10-20-2022 Hemoglobin (Bld) [Mass/Vol] 11.4 g/dL 13.0-16.5 [facility] [place] Blood lymphocytes/100 leukoc ytesOrdered By: SLHOMO MCCORD on 10-20-2022 Lymphocytes/100 WBC (Bld) 21 % 19-41 [facility] [place] Blood metamyelocytes/100 sharri kocytesOrdered By: SHLOMO MCCORD on 10-20-2022 Metamyelocytes/100 WBC (Bld) 1 % 0-1 [facility] [place] Blood monocytes/100 leukocyt esOrdered By: SHLOMO MCCORD on 10-20-2022 Monocytes/100 WBC (Bld) 11 % 0-10 [facility] Blood platelet mean volumeOr dered By: SHLOMO MCCORD on 10-20-2022 Platelet mean volume (Bld) [Entitic vol] 9.0 fL 6.2-12.0 [facility] [place] Blood segmented neutrophils/ 100 leukocytesOrdered By: SHLOMO MCCORD on 10-20-2022 Segmented neutrophils/100 WBC (Bld) 57 % 47-70 [facility] [place] Determination of erythrocyte mean corpuscular volume (MCV)Ordered By: SHLOMO MCCORD on 10-20-2022 MCV (RBC) [Entitic vol] 93.5 fL 80-94 [facility] Erythrocyte sedimentation ra teOrdered By: SHLOMO MCCORD on 10-20-2022 ESR (Bld) [Velocity] 82 mm/h 0-20 [facility] Hematocrit Auto (Bld) [Volum e fraction]Ordered By: SHLOMO MCCORD on 10-20-2022 Hematocrit (Bld) [Volume fraction] 35.7 % 40-54 [facility] [place] Laboratory - Chemistry and C hemistry - challengeOrdered By: SHLOMO MCCORD on 10-20-2022 ALP [Catalytic activity/Vol] 110 U/L 45-117 [facility] [place] ALT [Catalytic activity/Vol] 45 U/L 16-61 [facility] [place] CO2 [Moles/Vol] 26.0 mmol/L 21.0-32.0 [facility] [place] Globulin (S) [Mass/Vol] 4.9 g/dL 2.2-4.2 [facility] Urea nitrogen/Creatinine [Mass ratio] 7.4 mg/mg 10-20 [facility] [place] Laboratory - Hematology and Cell countsOrdered By: SHLOMO MCCORD on 10-20-2022 Erythrocyte distribution width (RBC) [Entitic vol] 50.1 fL 35.1-43.9 [facility] [place] Erythrocyte distribution width (RBC) [Ratio] 14.7 % 11.6-14.6 [facility] [place] MCH (RBC) [Entitic mass] 29.8 pg 27.0-32.0 [facility] [place] Myelocytes/100 WBC (Bld) 4 % 0-0 [facility] [place] MCHC Auto (RBC) [Mass/Vol]Or dered By: SHLOMO MCCORD on 10-20-2022 MCHC (RBC) [Mass/Vol] 31.9 g/dL 32-36 [facility] No Panel InformationOrdered By: SHLOMO MCCORD on 10-20-2022 Estimated GFR (MDRD) Amer 86 mL/min >60 [facility] [place] Comment on above: GFR Calc Estimated GFR (MDRD) Non-Af Amer 71 mL/min >60 [facility] [place] Comment on above: Non- GFR Calc Platelets bldOrdered By: ESTEFANY MCCORD on 10-20-2022 Platelets (Bld) [#/Vol] 211 10*3/uL 150-450 [facility] [place] Review by pathologistOrdered By: SHLOMO MCCORD on 10-20-2022 Pathologist review Min (Unsp spec) [Interp] Reviewed [facility] [place] Comment on above: Previous reported re sult: Kalee hutson Edited by: RGOOD on 10/22/22:1354 AMENDED REPORT 10/22/22 1354 PATH REV previously reported as: Kalee hutson Serum or plasma C reactive p rotein measurement (mass/volume)Ordered By: SHLOMO MCCORD on 10-20-2022 CRP [Mass/Vol] 56.20 mg/L 0.0-3.0 [facility] [place] Comment on above: C-Reactive Protein ( CRP) provides useful information for thediagnosis, therapy and monitoring of inflammatory processesand associated diseases. For the evaluation of Relative Riskfor Cardiovascular Disease, a High Sensitivity CRP (HSCRP)should be ordered. Serum or plasma albumin pierce urement (mass/volume)Ordered By: SHLOMO MCCORD on 10-20-2022 Albumin [Mass/Vol] 3.4 g/dL 3.2-5.0 [facility] Serum or plasma albumin/glob ulin mass ratioOrdered By: SHLOMO MCCORD on 10-20-2022 Albumin/Globulin [Mass ratio] 0.7 {ratio} 0.9-2.4 [facility] Serum or plasma calcium pierce urement (mass/volume)Ordered By: SHLOMO MCCORD on 10-20-2022 Calcium [Mass/Vol] 9.3 mg/dL 8.5-10.1 [facility] Serum or plasma creatinine m easurement (mass/volume)Ordered By: SHLOMO MCCORD on 10-20-2022 Creatinine [Mass/Vol] 1.08 mg/dL 0.70-1.30 [facility] Comment on above: The validity of the calculated GFR & GFRAA in patients over 70 years has not been determined. Clinical correlation is essential. Serum or plasma urea nitroge n measurement (mass/volume)Ordered By: SHLOMO MCCORD on 10-20-2022 Urea nitrogen [Mass/Vol] 8 mg/dL 7-18 [facility] Thin prep Papanicolaou smear with manual screeningOrdered By: SHLOMO MCCORD on 10-20-2022 Thin prep Papanicolaou smear with manual screening 32 U/L 15-37 [facility] Thin prep Papanicolaou smear with manual screening 5 5-15 [facility] Total cell countOrdered By: SHLOMO MCCORD on 10-20-2022 Cells counted Molgen (Bld/Tiss) [#] 100 MANUAL DIFF [facility] XR CHEST 2V FRONTAL/LATon [facility] XR Chest PA and Lateralon IMPRESSION: No acute radiographic abnormality. 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 Transcribe Date/Time: Oct 06 2022 4:24P Dictated by : AYLA MUNGUIA MD This examination was interpreted and the report reviewed and electronically signed by: AYLA MUNGUIA MD on Oct 06 2022 4:25PM [facility] DIVISION OF RADIOLOGY * * *Final Report* * * DATE OF EXAM: Oct 06 2022 11:38AM WOX 5291 - XR CHEST 2V FRONTAL/LAT / PROCEDURE REASON: multiple diagnoses * * * * Physician Interpretation * * * * EXAMINATION: CHEST RADIOGRAPH (2 VIEW FRONTAL & LATERAL) CLINICAL HISTORY: Subacute cough Bronchitis MQ: XC2_6 EXAM DATE/TIME: 10/06/2022 11:38 AM COMPARISON: No relevant prior studies available. RESULT: Lines, tubes, and devices: None. Lungs and pleura: No consolidation. No lung mass. No pleural effusion. No pneumothorax. Cardiomediastinal silhouette: Normal cardiomediastinal silhouette. Bones and soft tissues: Moderate degenerative change and osteophytosis throughout the dorsal spine DIVISION OF RADIOLOGY Provider, Marisa Baker - 10/06/2022 * * *Final Report* * * DATE OF EXAM: Oct 06 2022 11:38AM WOX 5291 - XR CHEST 2V FRONTAL/LAT / PROCEDURE REASON: multiple diagnoses * * * * Physician Interpretation * * * * EXAMINATION: CHEST RADIOGRAPH (2 VIEW FRONTAL & LATERAL) CLINICAL HISTORY: Subacute cough Bronchitis MQ: XC2_6 EXAM DATE/TIME: 10/06/2022 11:38 AM COMPARISON: No relevant prior studies available. RESULT: Lines, tubes, and devices: None. Lungs and pleura: No consolidation. No lung mass. No pleural effusion. No pneumothorax. Cardiomediastinal silhouette: Normal cardiomediastinal silhouette. Bones and soft tissues: Moderate degenerative change and osteophytosis throughout the dorsal spine IMPRESSION IMPRESSION: No acute radiographic abnormality. [place] [place] Worker: SRIRAM Transcribe Date/Time: Oct 06 2022 4:24P Dictated by : AYLA MUNGUIA MD This examination was interpreted and the report reviewed and electronically signed by: AYLA MUNGUIA MD on Oct 06 2022 4:25PM EST [facility] Radiology Study observation (narrative) [facility] XR Chest PA and LateralOrder ed By: [facility] Provider on 10-06-2022 [facility] Atypical perinuclear antineu trophil cytoplasmic antibodies measurementon 06-20-2022 Neutrophil cytoplasmic Ab.perinuclear.atypical IF (S) [Titer] <1:20 titer Neg:<1:20 [facility] Work Phone: Comment on above: The atypical pANCA p attern has been observed in asignificant percentage of patients with ulcerative colitis,primary sclerosing cholangitis and autoimmune hepatitis.Performed at: [address] [id number] Director: Avinash Cole PhD, Phone: [phone] No Panel Informationon 06-20 Endomysial IgA Antibody Negative Negative [facility] Work Phone: Serum IgA measurement (units /volume)on 06-20-2022 IgA Qn (S) 311 mg/dL 61-437 [facility] Work Phone: Serum classic neutrophil cyt oplasmic antibody assay (units/volume)on 06-20-2022 Neutrophil cytoplasmic Ab.classic Qn (S) <1:20 titer Neg:<1:20 [facility] Work Phone: Serum perinuclear neutrophil cytoplasmic antibody titer by immunofluorescenceon 06-20-2022 Neutrophil cytoplasmic Ab.perinuclear IF (S) [Titer] <1:20 titer Neg:<1:20 [facility] Work Phone: Comment on above: The presence of posi tive fluorescence exhibiting P-ANCA orC-ANCA patterns alone is not specific for the diagnosis ofWegener's Granulomatosis (WG) or microscopic polyangiitis.Decisions about treatment should not be based solely onANCA IFA results. The [employer] Consensusrecommends follow up testing of positive sera with both NC-3 and MPO-ANCA enzyme immunoassays. As many as 5% serumsamples are positive only by EIA. Ref. AM J Clin [id number];111:507-513. Serum tissue transglutaminas e IgA antibody assay (units/volume)on 06-20-2022 tTG IgA Qn (S) <2 U/mL 0-3 [facility] Work Phone: Comment on above: Negative 0 - 3 Weak Positive 4 - 10 Positive >10 Tissue Transglutaminase (tTG) has been identified as the endomysial antigen. Studies have demonstr- ated that endomysial IgA antibodies have over 99% specificity for gluten sensitive enteropathy. US ABD SPLEENon 05-26-2022 [facility] LD LACTATE DEHYDROon 022 LDH [Catalytic activity/Vol] 188 U/L 135 - 225 U/L [facility] Basophil percentageon 2021 Bilirubin [Mass/Vol] 0.50 mg/dL 0.20-1.00 [facility] Work Phone: Comment on above: For patients on eltr ombopag therapy, use of Dimension [place] TBIL is not recommended. Chloride [Moles/Vol] 106 mmol/L 98-107 [facility] Work Phone: Glucose [Mass/Vol] 85 mg/dL 74-106 [facility] Work Phone: Potassium [Moles/Vol] 4.0 mmol/L 3.5-5.1 [facility] Work Phone: Protein [Mass/Vol] 7.2 g/dL 6.4-8.2 [place] [facility] Work Phone: [phone] Sodium [Moles/Vol] 137 mmol/L 136-145 [facility] Work Phone: [phone] Erythrocyte sedimentation ra shruti 04-29-2022 ESR (Bld) [Velocity] 24 mm/h 0-20 [facility] Work Phone: [phone] Laboratory - Chemistry and C hemistry - challengeon 04-29-2022 ALP [Catalytic activity/Vol] 87 U/L 45-117 [facility] Work Phone: [phone] ALT [Catalytic activity/Vol] 34 U/L 16-61 [facility] Work Phone: [phone] CO2 [Moles/Vol] 28.0 mmol/L 21.0-32.0 [facility] Work Phone: Globulin (S) [Mass/Vol] 3.6 g/dL 2.2-4.2 [facility] Work Phone: Urea nitrogen/Creatinine [Mass ratio] 8.6 mg/mg 10-20 [facility] Work Phone: No Panel Informationon 04-29 Estimated GFR (MDRD) Amer 102 mL/min >60 [facility] Work Phone: [phone] Comment on above: GFR Calc Estimated GFR (MDRD) Non-Af Amer 85 mL/min >60 [facility] Work Phone: Comment on above: Non- GFR Calc Serum or plasma C reactive p rotein measurement (mass/volume)on 04-29-2022 CRP [Mass/Vol] 7.30 mg/L 0.0-3.0 [facility] Work Phone: Comment on above: C-Reactive Protein ( CRP) provides useful information for thediagnosis, therapy and monitoring of inflammatory processesand associated diseases. For the evaluation of Relative Riskfor Cardiovascular Disease, a High Sensitivity CRP (HSCRP)should be ordered. Serum or plasma albumin pierce urement (mass/volume)on 04-29-2022 Albumin [Mass/Vol] 3.6 g/dL 3.2-5.0 [facility] Work Phone: Serum or plasma albumin/glob ulin mass ratioon 04-29-2022 Albumin/Globulin [Mass ratio] 1.0 {ratio} 0.9-2.4 [facility] Work Phone: [phone] Serum or plasma calcium pierce urement (mass/volume)on 04-29-2022 Calcium [Mass/Vol] 8.7 mg/dL 8.5-10.1 [facility] Work Phone: [phone] Serum or plasma creatinine m easurement (mass/volume)on 04-29-2022 Creatinine [Mass/Vol] 0.93 mg/dL 0.70-1.30 [facility] Work Phone: Comment on above: The validity of the calculated GFR & GFRAA in patients over 70 years has not been determined. Clinical correlation is essential. Serum or plasma urea nitroge n measurement (mass/volume)on 04-29-2022 Urea nitrogen [Mass/Vol] 8 mg/dL 7-18 [facility] Work Phone: Thin prep Papanicolaou smear with manual screeningon 04-29-2022 Thin prep Papanicolaou smear with manual screening 27 U/L 15-37 [facility] Work Phone: [phone] Thin prep Papanicolaou smear with manual screening 3 5-15 [facility] Work Phone: [phone] Absolute lymphocyte counton 04-28-2022 Lymphocytes Auto (Unsp spec) [#/Vol] 1.03 10*3/uL 0.83-4.51 [facility] Work Phone: Basophil percentageon 2021 Basophils/100 WBC (Bld) 0.3 % 0-1 [facility] Work Phone: [phone] Eosinophils/100 WBC (Bld) 1.3 % 0-5 [facility] Work Phone: Neutrophils (Bld) [#/Vol] 1.6 10*3/uL 2.0-7.7 [facility] Work Phone: Neutrophils/100 WBC (Bld) 52.3 % 47-70 [facility] Work Phone: WBC (Bld) [#/Vol] 3.1 10*3/uL 4.4-11.0 [facility] Work Phone: Blood erythrocytes count (nu mber/volume)on 04-28-2022 RBC (Bld) [#/Vol] 3.89 10*6/uL 4.6-6.2 [facility] Work [facility]: Blood hemoglobin measurement (mass/volume)on 04-28-2022 Hemoglobin (Bld) [Mass/Vol] 12.0 g/dL 13.0-16.5 [facility] Work Phone: Blood lymphocytes/100 leukoc yteson 04-28-2022 Lymphocytes/100 WBC (Bld) 33.2 % 19-41 [facility] Work Phone: Blood monocytes/100 leukocyt eson 04-28-2022 Monocytes/100 WBC (Bld) 11.9 % 0-10 [facility] Work Phone: Blood platelet mean volumeon 04-28-2022 Platelet mean volume (Bld) [Entitic vol] 9.3 fL 6.2-12.0 [facility] Work Phone: Determination of erythrocyte mean corpuscular volume (MCV)on 04-28-2022 MCV (RBC) [Entitic vol] 93.6 fL 80-94 [facility] Work Phone: Hematocrit Auto (Bld) [Volum e fraction]on 04-28-2022 Hematocrit (Bld) [Volume fraction] 36.4 % 40-54 [facility] Work Phone: Hemoglobin in reticulocytes (mass per reticulocyte)on 04-28-2022 Hemoglobin (Reticulocytes) [Entitic mass] 30.9 pg 30-35 [facility] Work Phone: [phone] Laboratory - Hematology and Cell countson 04-28-2022 Erythrocyte distribution width (RBC) [Entitic vol] 47.4 fL 35.1-43.9 [facility] Work Phone: [phone] Erythrocyte distribution width (RBC) [Ratio] 14.3 % 11.6-14.6 [facility] Work Phone: [phone] Immature granulocytes/100 WBC (Bld) 1.000 % 0.0-0.9 [facility] Work Phone: [phone] Comment on above: IG% - Immature Granu locytes (promyelocytes, myelocytes and metamyelocytes) > 1% indicates that a LEFT SHIFT is Present. MCH (RBC) [Entitic mass] 30.8 pg 27.0-32.0 [facility] Work Phone: [phone] Nucleated RBC/100 WBC (Bld) [Ratio] 0 % 0-5 [facility] Work Phone: [phone] MCHC Auto (RBC) [Mass/Vol]on 04-28-2022 MCHC (RBC) [Mass/Vol] 33.0 g/dL 32-36 [facility] Work Phone: [phone] Panel Informationon 04-28 Immature Reticulocyte Fraction 16.50 % 3.00-15.90 [facility] Work Phone: [phone] Reticulocyte Count 1.86 % 0.5-1.5 [facility] Work Phone: [phone] Platelets bldon 04-28-2022 Platelets (Bld) [#/Vol] 207 10*3/uL 150-450 [facility] Work Phone: [phone] Absolute lymphocyte counton 03-27-2022 Lymphocytes Auto (Unsp spec) [#/Vol] 1.40 10*3/uL 0.83-4.51 [facility] Work Phone: [phone] Basophil percentageon 2021 Basophil percentage Not Reportable [facility] Work Phone: [phone] Neutrophils (Bld) [#/Vol] 1.8 10*3/uL 2.0-7.7 [facility] Work Phone: WBC (Bld) [#/Vol] 3.4 10*3/uL 4.4-11.0 [facility] Work Phone: Blood erythrocytes count (nu mber/volume)on 03-27-2022 RBC (Bld) [#/Vol] 4.13 10*6/uL 4.6-6.2 [facility] Work Phone: Blood hemoglobin measurement (mass/volume)on 03-27-2022 Hemoglobin (Bld) [Mass/Vol] 12.5 g/dL 13.0-16.5 [facility] Work Phone: Blood lymphocytes/100 leukoc yteson 03-27-2022 Lymphocytes/100 WBC (Bld) 41 % 19-41 [facility] Work Phone: Blood monocytes/100 leukocyt eson 03-27-2022 Monocytes/100 WBC (Bld) 6 % 0-10 [facility] Work Phone: Blood platelet adequacy dete ction by light microscopyon 03-27-2022 Platelets LM Ql (Bld) ADEQUATE ADEQ [facility] Work Phone: Blood platelet mean volumeon 03-27-2022 Platelet mean volume (Bld) [Entitic vol] 9.6 fL 6.2-12.0 [facility] Work Phone: Blood segmented neutrophils/ 100 leukocyteson 03-27-2022 Segmented neutrophils/100 WBC (Bld) 53 % 47-70 [facility] Work Phone: Determination of erythrocyte mean corpuscular volume (MCV)on 03-27-2022 MCV (RBC) [Entitic vol] 92.5 fL 80-94 [facility] Work Phone: Hematocrit Auto (Bld) [Volum e fraction]on 03-27-2022 Hematocrit (Bld) [Volume fraction] 38.2 % 40-54 [facility] Work Phone: Iron measurement (mass/mass) on 03-27-2022 Iron (Unsp spec) [Mass/Mass] 100 ug/dL 65-175 [facility] Work Phone: Laboratory - Chemistry and C hemistry - challengeon 03-27-2022 Cobalamin (Vitamin B12) [Mass/Vol] 457 pg/mL 211-911 [facility] Work Phone: Laboratory - Hematology and Cell countson 03-27-2022 Erythrocyte distribution width (RBC) [Entitic vol] 47.1 fL 35.1-43.9 [facility] Work Phone: Erythrocyte distribution width (RBC) [Ratio] 14.1 % 11.6-14.6 [facility] Work Phone: MCH (RBC) [Entitic mass] 30.3 pg 27.0-32.0 [facility] Work Phone: MCHC Auto (RBC) [Mass/Vol]on 03-27-2022 MCHC (RBC) [Mass/Vol] 32.7 g/dL 32-36 [facility] Work Phone: No Panel Informationon 03-27 Total Iron Binding Capacity 312 ug/dL 250-450 [facility] Work Phone: Platelets bldon 03-27-2022 Platelets (Bld) [#/Vol] 240 10*3/uL 150-450 [facility] Work Phone: RBC morphologyon 03-27-2022 RBC morphology finding Nom (Bld) NORM C+C NORMAL NORM C&C [facility] Work Phone: Review by pathologiston 02-28 Pathologist review Min (Unsp spec) [Interp] Reviewed [facility] Work Phone: Comment on above: Previous reported re sult: Kalee hutson Edited by: RASHAAD on 03/28/22:1247 AMENDED REPORT 03/28/22 1247 PATH REV previously reported as: Kalee hutson Serum or plasma ferritin tyrese surement (mass/volume)on 03-27-2022 Ferritin [Mass/Vol] 377 ng/mL 26-388 [facility] Work Phone: Serum or plasma folate measu rement (mass/volume)on 03-27-2022 Folate [Mass/Vol] 11.10 ng/mL 3.1-55.4 [facility] Work Phone: Total cell counton Cells counted Molgen (Bld/Tiss) [#] 100 MANUAL DIFF [facility] Work Phone: Absolute lymphocyte counton 03-18-2022 Lymphocytes Auto (Unsp spec) [#/Vol] 1.10 10*3/uL 0.83-4.51 [facility] Work Phone: Basophil percentageon 2021 Basophil percentage Not Reportable [facility] Work Phone: Bilirubin [Mass/Vol] 0.60 mg/dL 0.20-1.00 [facility] Work Phone: Comment on above: For patients on eltr ombopag therapy, use of Dimension [place] TBIL is not recommended. Chloride [Moles/Vol] 107 mmol/L 98-107 [facility] Work Phone: Cholesterol [Mass/Vol] 162 mg/dL <200 [facility] Work Phone: Comment on above: <200 mg/dL Desirable 200-240 mg/dL Borderline >240 mg/dL High Risk Glucose [Mass/Vol] 96 mg/dL 74-106 [facility] Work Phone: Neutrophils (Bld) [#/Vol] 2.1 10*3/uL 2.0-7.7 [facility] Work Phone: Potassium [Moles/Vol] 3.7 mmol/L 3.5-5.1 [facility] Work Phone: Protein [Mass/Vol] 7.2 g/dL 6.4-8.2 [facility] Work Phone: Sodium [Moles/Vol] 141 mmol/L 136-145 [facility] Work Phone: Triglyceride [Mass/Vol] 123 mg/dL <199 [facility] Work Phone: Comment on above: The drugs N-Acetylcy steine and Metamizole may falsely depress this assay.Serum Triglycerides Reference Interval Normal <150 mg/dL Borderline high 150 - 199 mg/dL High 200 - 499 mg/dL Very High > or = 500 mg/dL WBC (Bld) [#/Vol] 3.8 10*3/uL 4.4-11.0 [facility] Work Phone: Blood eosinophils/100 leukoc yteson 03-18-2022 Eosinophils/100 WBC (Bld) 1 % 0-5 [facility] Work Phone: Blood erythrocytes count (nu mber/volume)on 03-18-2022 RBC (Bld) [#/Vol] 4.00 10*6/uL 4.6-6.2 [facility] Work Phone: Blood hemoglobin measurement (mass/volume)on 03-18-2022 Hemoglobin (Bld) [Mass/Vol] 12.1 g/dL 13.0-16.5 [facility] Work Phone: Blood lymphocytes/100 leukoc yteson 03-18-2022 Lymphocytes/100 WBC (Bld) 29 % 19-41 [facility] Work Phone: Blood metamyelocytes/100 sharri kocyteson 03-18-2022 Metamyelocytes/100 WBC (Bld) 2 % 0-1 [facility] Work Phone: Blood monocytes/100 leukocyt eson 03-18-2022 Monocytes/100 WBC (Bld) 13 % 0-10 [facility] Work Phone: Blood platelet adequacy dete ction by light microscopyon 03-18-2022 Platelets LM Ql (Bld) ADEQUATE ADEQ [facility] Work Phone: Blood platelet mean volumeon 03-18-2022 Platelet mean volume (Bld) [Entitic vol] 9.6 fL 6.2-12.0 [facility] Work Phone: Blood segmented neutrophils/ 100 leukocyteson 03-18-2022 Segmented neutrophils/100 WBC (Bld) 55 % 47-70 [facility] Work Phone: Determination of erythrocyte mean corpuscular volume (MCV)on 03-18-2022 MCV (RBC) [Entitic vol] 91.5 fL 80-94 [facility] Work Phone: Hematocrit Auto (Bld) [Volum e fraction]on 03-18-2022 Hematocrit (Bld) [Volume fraction] 36.6 % 40-54 [facility] Work Phone: Laboratory - Chemistry and C hemistry - challengeon 03-18-2022 ALP [Catalytic activity/Vol] 93 U/L 45-117 [facility] Work Phone: ALT [Catalytic activity/Vol] 32 U/L 16-61 [facility] Work Phone: CO2 [Moles/Vol] 26.0 mmol/L 21.0-32.0 [facility] Work Phone: Globulin (S) [Mass/Vol] 3.6 g/dL 2.2-4.2 [facility] Work Phone: [phone] Urea nitrogen/Creatinine [Mass ratio] 8.2 mg/mg 10-20 [facility] Work Phone: Laboratory - Hematology and Cell countson 03-18-2022 Erythrocyte distribution width (RBC) [Entitic vol] 46.6 fL 35.1-43.9 [facility] Work Phone: Erythrocyte distribution width (RBC) [Ratio] 14.0 % 11.6-14.6 [facility] Work Phone: MCH (RBC) [Entitic mass] 30.3 pg 27.0-32.0 [facility] Work Phone: MCHC Auto (RBC) [Mass/Vol]on 03-18-2022 MCHC (RBC) [Mass/Vol] 33.1 g/dL 32-36 [facility] Work Phone: No Panel Informationon 03-18 Estimated GFR (MDRD) Amer 96 mL/min >60 [facility] Work Phone: Comment on above: GFR Calc Estimated GFR (MDRD) Non-Af Amer 80 mL/min >60 [facility] Work Phone: Comment on above: Non- GFR Calc Platelets bldon 03-18-2022 Platelets (Bld) [#/Vol] 226 10*3/uL 150-450 [facility] Work Phone: [phone] RBC morphologyon 03-18-2022 RBC morphology finding Nom (Bld) NORM C+C NORMAL NORM C&C [facility] Work Phone: Review by pathologiston 02-27 Pathologist review Min (Unsp spec) [Interp] Reviewed [facility] Work Phone: Comment on above: Previous reported re sult: Kalee hutson Edited by: RASHAAD on 03/19/22:1246Leukopenia and neutropenia. Clinical correlation necessary.Fran Acevedo M.D. 03/19/22 AMENDED REPORT 03/19/22 1246 PATH REV previously reported as: Kalee hutson Serum or plasma albumin pierce urement (mass/volume)on 03-18-2022 Albumin [Mass/Vol] 3.6 g/dL 3.2-5.0 [facility] Work Phone: [phone] Serum or plasma albumin/glob ulin mass ratioon 03-18-2022 Albumin/Globulin [Mass ratio] 1.0 {ratio} 0.9-2.4 [facility] Work Phone: [phone] Serum or plasma calcium pierce urement (mass/volume)on 03-18-2022 Calcium [Mass/Vol] 8.9 mg/dL 8.5-10.1 [facility] Work Phone: [phone] Serum or plasma cholesterol in HDL measurement (mass/volume)on 03-18-2022 Cholesterol in HDL [Mass/Vol] 33 mg/dL >40 [facility] Work Phone: [phone] Comment on above: The drugs N-Acetylcy steine and Metamizole may falsely depress this assay. Reference Range HDL <40 mg/dL Low HDL Cholesterol HDL >or= 60 mg/dL High HDL Cholesterol Serum or plasma cholesterol in VLDL measurement (mass/volume)on 03-18-2022 Cholesterol in VLDL [Mass/Vol] 25 mg/dL 5-40 [facility] Work Phone: [phone] Serum or plasma creatinine m easurement (mass/volume)on 03-18-2022 Creatinine [Mass/Vol] 0.98 mg/dL 0.70-1.30 [facility] Work Phone: [phone] Comment on above: The validity of the calculated GFR & GFRAA in patients over 70 years has not been determined. Clinical correlation is essential. Serum or plasma low density lipoprotein (LDL) cholesterol measurement (mass/volume)on 03-18-2022 Cholesterol in LDL [Mass/Vol] 104 mg/dL 0-130 [facility] Work Phone: [phone] Serum or plasma urea nitroge n measurement (mass/volume)on 03-18-2022 Urea nitrogen [Mass/Vol] 8 mg/dL 7-18 [facility] Work Phone: [phone] Thin prep Papanicolaou smear with manual screeningon 03-18-2022 Thin prep Papanicolaou smear with manual screening 25 U/L 15-37 [facility] Work Phone: [phone] Thin prep Papanicolaou smear with manual screening 8 5-15 [facility] Work Phone: [phone] Total cell counton 2 Cells counted Molgen (Bld/Tiss) [#] 100 MANUAL DIFF [facility] Work Phone: [phone] Absolute lymphocyte counton 12-17-2021 Lymphocytes Auto (Unsp spec) [#/Vol] 1.20 10*3/uL 0.83-4.51 [facility] Work Phone: [phone] Basophil percentageon 2021 Basophil percentage Not Reportable [facility] Work Phone: [phone] Bilirubin [Mass/Vol] 0.60 mg/dL 0.20-1.00 [facility] Work Phone: Comment on above: For patients on eltr ombopag therapy, use of Dimension [place] TBIL is not recommended. Chloride [Moles/Vol] 103 mmol/L 98-107 [facility] Work Phone: Glucose [Mass/Vol] 105 mg/dL 74-106 [facility] Work Phone: Comment on above: Fasting Glucose resu lt from 100 to 125 mg/dL suggests IMPAIRED HOMEOSTASIS per A.D.A. criteria. Neutrophils (Bld) [#/Vol] 2.5 10*3/uL 2.0-7.7 [facility] Work Phone: Potassium [Moles/Vol] 4.0 mmol/L 3.5-5.1 [facility] Work Phone: Protein [Mass/Vol] 7.8 g/dL 6.4-8.2 [facility] Work Phone: Sodium [Moles/Vol] 136 mmol/L 136-145 [facility] Work Phone: WBC (Bld) [#/Vol] 4.1 10*3/uL 4.4-11.0 [facility] Work Phone: Blood erythrocytes count (nu mber/volume)on 12-17-2021 RBC (Bld) [#/Vol] 4.23 10*6/uL 4.6-6.2 [facility] Work Phone: Blood hemoglobin measurement (mass/volume)on 12-17-2021 Hemoglobin (Bld) [Mass/Vol] 13.1 g/dL 13.0-16.5 [facility] Work Phone: Blood lymphocytes/100 leukoc yteson 12-17-2021 Lymphocytes/100 WBC (Bld) 29 % 19-41 [facility] Work Phone: Blood monocytes/100 leukocyt eson 12-17-2021 Monocytes/100 WBC (Bld) 9 % 0-10 [facility] Work Phone: Blood platelet adequacy dete ction by light microscopyon 12-17-2021 Platelets LM Ql (Bld) ADEQUATE ADEQ [facility] Work Phone: Blood platelet mean volumeon 12-17-2021 Platelet mean volume (Bld) [Entitic vol] 9.7 fL 6.2-12.0 [facility] Work Phone: Blood segmented neutrophils/ 100 leukocyteson 12-17-2021 Segmented neutrophils/100 WBC (Bld) 62 % 47-70 [facility] Work Phone: Determination of erythrocyte mean corpuscular volume (MCV)on 12-17-2021 MCV (RBC) [Entitic vol] 92.7 fL 80-94 [facility] Work Phone: Erythrocyte sedimentation ra shruti 12-17-2021 ESR (Bld) [Velocity] 23 mm/h 0-20 [facility] Work Phone: Hematocrit Auto (Bld) [Volum e fraction]on 12-17-2021 Hematocrit (Bld) [Volume fraction] 39.2 % 40-54 [facility] Work Phone: Laboratory - Chemistry and C hemistry - challengeon 12-17-2021 ALP [Catalytic activity/Vol] 100 U/L 45-117 [facility] Work Phone: ALT [Catalytic activity/Vol] 37 U/L 16-61 [facility] Work Phone: CO2 [Moles/Vol] 27.0 mmol/L 21.0-32.0 [facility] Work Phone: Globulin (S) [Mass/Vol] 3.9 g/dL 2.2-4.2 [facility] Work Phone: Urea nitrogen/Creatinine [Mass ratio] 12.0 mg/mg 10-20 [facility] Work Phone: Laboratory - Hematology and Cell countson 12-17-2021 Erythrocyte distribution width (RBC) [Entitic vol] 47.2 fL 35.1-43.9 [facility] Work Phone: Erythrocyte distribution width (RBC) [Ratio] 14.3 % 11.6-14.6 [facility] Work Phone: [phone] MCH (RBC) [Entitic mass] 31.0 pg 27.0-32.0 [facility] Work Phone: [phone] MCHC Auto (RBC) [Mass/Vol]on 12-17-2021 MCHC (RBC) [Mass/Vol] 33.4 g/dL 32-36 [facility] Work Phone: No Panel Informationon 12-17 Prostate Specific Antigen Screen 3.66 ng/mL 0.00-4.00 [facility] Work Phone: Comment on above: This test was perfor med using the TPSA assay method for [employer] chemistry system. Values obtained with differentassay methods cannot be used interchangably.When changing PSA assays in the course of monitoring apatient, additional sequential testing should be carriedout to confirm baseline values. Estimated GFR (MDRD) Amer 95 mL/min >60 [facility] Work Phone: Comment on above: GFR Calc Estimated GFR (MDRD) Non-Af Amer 78 mL/min >60 [facility] Work Phone: [phone] Comment on above: Non- GFR Calc Platelets bldon 12-17-2021 Platelets (Bld) [#/Vol] 220 10*3/uL 150-450 [facility] Work Phone: [phone] RBC morphologyon 12-17-2021 RBC morphology finding Nom (Bld) NORM C+C NORMAL NORM C&C [facility] Work Phone: [phone] Review by pathologiston 11-27 Pathologist review Min (Unsp spec) [Interp] Reviewed [facility] Work Phone: [phone] Comment on above: Previous reported re sult: Kalee hutson Edited by: RGOOD on 12/18/21:1336 AMENDED REPORT 12/18/21 1336 PATH REV previously reported as: May foll Serum or plasma C reactive p rotein measurement (mass/volume)on 12-17-2021 CRP [Mass/Vol] 4.45 mg/L 0.0-3.0 [facility] Work Phone: Comment on above: C-Reactive Protein ( CRP) provides useful information for thediagnosis, therapy and monitoring of inflammatory processesand associated diseases. For the evaluation of Relative Riskfor Cardiovascular Disease, a High Sensitivity CRP (HSCRP)should be ordered. Serum or plasma albumin pierce urement (mass/volume)on 12-17-2021 Albumin [Mass/Vol] 3.9 g/dL 3.2-5.0 [facility] Work Phone: Serum or plasma albumin/glob ulin mass ratioon 12-17-2021 Albumin/Globulin [Mass ratio] 1.0 {ratio} 0.9-2.4 [facility] Work Phone: Serum or plasma calcium pierce urement (mass/volume)on 12-17-2021 Calcium [Mass/Vol] 8.9 mg/dL 8.5-10.1 [facility] Work Phone: Serum or plasma creatinine m easurement (mass/volume)on 12-17-2021 Creatinine [Mass/Vol] 1.00 mg/dL 0.70-1.30 [facility] Work Phone: Comment on above: The validity of the calculated GFR & GFRAA in patients over 70 years has not been determined. Clinical correlation is essential. Serum or plasma urea nitroge n measurement (mass/volume)on 12-17-2021 Urea nitrogen [Mass/Vol] 12 mg/dL 7-18 [facility] Work Phone: Thin prep Papanicolaou smear with manual screeningon 12-17-2021 Thin prep Papanicolaou smear with manual screening 31 U/L 15-37 [facility] Work Phone: [phone] Thin prep Papanicolaou smear with manual screening 6 5-15 [facility] Work Phone: Total cell counton 2 Cells counted [employer] (Bld/Tiss) [#] 100 MANUAL DIFF [facility] Work Phone: Basophil percentageon 2021 Bilirubin [Mass/Vol] 0.70 mg/dL 0.20-1.00 [facility] Work Phone: Comment on above: For patients on eltr ombopag therapy, use of Dimension [place] TBIL is not recommended. Chloride [Moles/Vol] 104 mmol/L 98-107 [facility] Work Phone: Glucose [Mass/Vol] 91 mg/dL 74-106 [facility] Work Phone: Comment on above: Please note revised GLUCOSE reference range effective 2017. Potassium [Moles/Vol] 3.8 mmol/L 3.5-5.1 [facility] Work Phone: Protein [Mass/Vol] 7.5 g/dL 6.4-8.2 [facility] Work Phone: Sodium [Moles/Vol] 138 mmol/L 136-145 [facility] Work Phone: WBC (Bld) [#/Vol] 5.0 10*3/uL 4.4-11.0 [facility] Work Phone: Blood erythrocytes count (nu mber/volume)on 10-01-2021 RBC (Bld) [#/Vol] 4.22 10*6/uL 4.6-6.2 [facility] Work Phone: [phone] Blood hemoglobin measurement (mass/volume)on 10-01-2021 Hemoglobin (Bld) [Mass/Vol] 12.6 g/dL 13.0-16.5 [facility] Work Phone: [phone] Blood platelet mean volumeon 10-01-2021 Platelet mean volume (Bld) [Entitic vol] 10.0 fL 6.2-12.0 [facility] Work Phone: Determination of erythrocyte mean corpuscular volume (MCV)on 10-01-2021 MCV (RBC) [Entitic vol] 91.5 fL 80-94 [facility] Work Phone: Erythrocyte sedimentation ra shruti 10-01-2021 ESR (Bld) [Velocity] 23 mm/h 0-20 [facility] Work Phone: [phone] Hematocrit Auto (Bld) [Volum e fraction]on 10-01-2021 Hematocrit (Bld) [Volume fraction] 38.6 % 40-54 [facility] Work Phone: Laboratory - Chemistry and C hemistry - challengeon 10-01-2021 ALP [Catalytic activity/Vol] 102 U/L 45-117 [facility] Work Phone: [phone] ALT [Catalytic activity/Vol] 37 U/L 16-61 [facility] Work Phone: [phone] CO2 [Moles/Vol] 23.0 mmol/L 21.0-32.0 [facility] Work Phone: [phone] Globulin (S) [Mass/Vol] 3.8 g/dL 2.2-4.2 [facility] Work Phone: [phone] Urea nitrogen/Creatinine [Mass ratio] 9.3 mg/mg 10-20 [facility] Work Phone: [phone] Laboratory - Hematology and Cell countson 10-01-2021 Erythrocyte distribution width (RBC) [Entitic vol] 47.2 fL 35.1-43.9 [facility] Work Phone: [phone] Erythrocyte distribution width (RBC) [Ratio] 14.5 % 11.6-14.6 [facility] Work Phone: [phone] MCH (RBC) [Entitic mass] 29.9 pg 27.0-32.0 [facility] Work Phone: MCHC Auto (RBC) [Mass/Vol]on 10-01-2021 MCHC (RBC) [Mass/Vol] 32.6 g/dL 32-36 [facility] Work Phone: No Panel Informationon 10-01 Estimated GFR (MDRD) Amer 87 mL/min >60 [facility] Work Phone: [phone] Comment on above: GFR Calc Estimated GFR (MDRD) Non-Af Amer 72 mL/min >60 [facility] Work Phone: Comment on above: Non- GFR Calc Platelets bldon 10-01-2021 Platelets (Bld) [#/Vol] 224 10*3/uL 150-450 [facility] Work Phone: Serum or plasma C reactive p rotein measurement (mass/volume)on 10-01-2021 CRP [Mass/Vol] 4.38 mg/L 0.0-3.0 [facility] Work Phone: Comment on above: C-Reactive Protein ( CRP) provides useful information for thediagnosis, therapy and monitoring of inflammatory processesand associated diseases. For the evaluation of Relative Riskfor Cardiovascular Disease, a High Sensitivity CRP (HSCRP)should be ordered. Serum or plasma albumin pierce urement (mass/volume)on 10-01-2021 Albumin [Mass/Vol] 3.7 g/dL 3.2-5.0 [facility] Work Phone: Serum or plasma albumin/glob ulin mass ratioon 10-01-2021 Albumin/Globulin [Mass ratio] 1.0 {ratio} 0.9-2.4 [facility] Work Phone: Serum or plasma calcium pierce urement (mass/volume)on 10-01-2021 Calcium [Mass/Vol] 8.8 mg/dL 8.5-10.1 [facility] Work Phone: Serum or plasma creatinine m easurement (mass/volume)on 10-01-2021 Creatinine [Mass/Vol] 1.07 mg/dL 0.70-1.30 [facility] Work Phone: Comment on above: The validity of the calculated GFR & GFRAA in patients over 70 years has not been determined. Clinical correlation is essential. Serum or plasma urea nitroge n measurement (mass/volume)on 10-01-2021 Urea nitrogen [Mass/Vol] 10 mg/dL 7-18 [facility] Work Phone: Thin prep Papanicolaou smear with manual screeningon 10-01-2021 Thin prep Papanicolaou smear with manual screening 29 U/L 15-37 [facility] Work Phone: Thin prep Papanicolaou smear with manual screening 11 5-15 [facility] Work Phone: Vital Signs Date Time Vital Sign Value Performing Clinician Facility 05-10-2025 09:56-0400 Body height 182.[address] Obrien MD Work Phone: [facility] 05-10-2025 09:56-0400 Body mass index (BMI) [Ratio] 27.8 kg/m2 Dr. Rd Obrien MD Work Phone: [facility] 05-10-2025 09:56-0400 Body weight 92.[address] Obrien MD Work Phone: [facility] 05-10-2025 09:56-0400 Diastolic blood pressure 85 mm[Hg] Dr. Rd Obrien MD Work Phone: [facility] 05-10-2025 09:56-0400 Heart rate 73 /min Dr. Rd Obrien MD Work Phone: [facility] 05-10-2025 09:56-0400 Respiratory rate 14 /min Dr. Rd Obrien MD Work Phone: [facility] 05-10-2025 09:56-0400 Systolic blood pressure 150 mm[Hg] Dr. Rd Obrien MD Work Phone: [facility] 04-03-2025 10:05-0400 Body mass index (BMI) [Ratio] 28.17 kg/m2 Rd Obrien MD Work Phone: [facility] 04-03-2025 10:05-0400 Body weight 91.[address] Obrien MD Work Phone: [facility] 04-03-2025 10:05-0400 Diastolic blood pressure 70 mm[Hg] Rd Obrien MD Work Phone: [facility] 04-03-2025 10:05-0400 Heart rate 77 /min Rd Obrien MD Work Phone: [facility] 04-03-2025 10:05-0400 SaO2% (BldA) [Mass fraction] 96 % Rd Obrien MD Work Phone: [facility] 04-03-2025 10:05-0400 Systolic blood pressure 122 mm[Hg] Rd Obrien MD Work Phone: [facility] 10-03-2024 08:37-0500 Body height 180.[address] Obrien MD Work Phone: [facility] 10-03-2024 08:37-0500 Body mass index (BMI) [Ratio] 28.17 kg/m2 Rd Obrien MD Work Phone: [facility] 10-03-2024 08:37-0500 Body weight 91.[address] Obrien MD Work Phone: [facility] 10-03-2024 08:37-0500 Diastolic blood pressure 72 mm[Hg] Rd Obrien MD Work Phone: [facility] 10-03-2024 08:37-0500 Heart rate 76 /min Rd Obrien MD Work Phone: [facility] 10-03-2024 08:37-0500 SaO2% (BldA) [Mass fraction] 98 % Rd Obrien MD Work Phone: [facility] 10-03-2024 08:37-0500 Systolic blood pressure 134 mm[Hg] Rd Obrien MD Work Phone: [facility] 03-28-2024 10:18-0400 Body height 180.[address] Obrien MD Work Phone: [facility] 03-28-2024 10:18-0400 Body mass index (BMI) [Ratio] 27.62 kg/m2 Rd Obrien MD Work Phone: [facility] 03-28-2024 10:18-0400 Body weight 89.[address] Obrien MD Work Phone: [facility] 03-28-2024 10:18-0400 Diastolic blood pressure 80 mm[Hg] Rd Obrien MD Work Phone: [facility] 03-28-2024 10:18-0400 Heart rate 72 /min Rd Obrien MD Work Phone: [facility] 03-28-2024 10:18-0400 SaO2% (BldA) [Mass fraction] 99 % Rd Obrien MD Work Phone: [facility] 03-28-2024 10:18-0400 Systolic blood pressure 128 mm[Hg] Rd Obrien MD Work Phone: [facility] 01-18-2024 13:27-0400 Body mass index (BMI) [Ratio] 28.17 kg/m2 Rd Obrien MD Work Phone: [facility] 01-18-2024 13:27-0400 Body weight 91.[address] Obrien MD Work Phone: [facility] 01-18-2024 13:27-0400 Diastolic blood pressure 90 mm[Hg] Rd Obrien MD Work Phone: [facility] 01-18-2024 13:27-0400 Heart rate 76 /min Rd Obrien MD Work Phone: [facility] 01-18-2024 13:27-0400 SaO2% (BldA) [Mass fraction] 99 % Rd Obrien MD Work Phone: [facility] 01-18-2024 13:27-0400 Systolic blood pressure 162 mm[Hg] Rd Obrien MD Work Phone: [facility] 03-26-2023 13:36-0400 Diastolic blood pressure 80 mm[Hg] Rd Obrien MD Work Phone: [facility] 03-26-2023 13:36-0400 Systolic blood pressure 136 mm[Hg] Rd Obrien MD Work Phone: [facility] 03-26-2023 13:07-0400 Body weight 89.[address] Obrien MD Work Phone: [facility] 03-26-2023 13:07-0400 Heart rate 72 /min Rd Obrien MD Work Phone: [facility] 03-26-2023 13:07-0400 SaO2% (BldA) [Mass fraction] 99 % Rd Obrien MD Work Phone: [facility] 10-06-2022 10:58-0500 Body temperature 97.2 [degF] NA Rodriguez PA-C Work Phone: [facility] 10-06-2022 10:58-0500 Body weight 89.81 kg NA Rodriguez PA-C Work Phone: [facility] 10-06-2022 10:58-0500 Diastolic blood pressure 78 mm[Hg] NA Rodriguez PA-C Work Phone: [facility] 10-06-2022 10:58-0500 Heart rate 82 /min NA Rodriguez PA-C Work Phone: [facility] 10-06-2022 10:58-0500 Respiratory rate 18 /min NA Rodriguez PA-C Work Phone: [facility] 10-06-2022 10:58-0500 SaO2% (BldA) [Mass fraction] 98 % NA Rodriguez PA-C Work Phone: [facility] 10-06-2022 10:58-0500 Systolic blood pressure 132 mm[Hg] NA Rodriguez PA-C Work Phone: [facility] 09-12-2022 17:03-0500 Body temperature 97.7 [degF] Dr. Rd Obrien Work Phone: [facility] 09-12-2022 17:03-0500 Diastolic blood pressure 80 mm[Hg] Dr. Rd Obrien Work Phone: [facility] 09-12-2022 17:03-0500 Heart rate 82 /min Dr. Rd Obrien Work Phone: [facility] 09-12-2022 17:03-0500 Respiratory rate 14 /min Dr. Rd Obrien Work Phone: [facility] 09-12-2022 17:03-0500 SaO2% (BldA) [Mass fraction] 98 % Dr. Rd Obrien Work Phone: 2(933)090-450713 [place] [address] 09-12-2022 17:03-0500 Systolic blood pressure 144 mm[Hg] Dr. Rd Obrien Work Phone: 3(428)030-354513 [place] [address] 08-28-2022 12:22-0500 Body temperature 97.3 [degF] Dr. Rd Obrien Work Phone: 9(513)873-232513 [place] [address] 08-28-2022 12:22-0500 Diastolic blood pressure 80 mm[Hg] Dr. Rd Obrien Work Phone: 1(426)994-333213 [place] [address] 08-28-2022 12:22-0500 Heart rate 73 /min Dr. Rd Obrien Work Phone: 4(031)487-380113 [place] [address] 08-28-2022 12:22-0500 Respiratory rate 16 /min Dr. Rd Obrien Work Phone: 6(285)958-710213 [place] [address] 08-28-2022 12:22-0500 SaO2% (BldA) [Mass fraction] 100 % Dr. Rd Obrien Work Phone: 0(727)037-349113 [place] [address] 08-28-2022 12:22-0500 Systolic blood pressure 139 mm[Hg] Dr. Rd Obrien Work Phone: 1(356)558-658513 [place] [address] 08-28-2022 11:01-0500 Body height 182.[address] Obrien Work Phone: 8(874)453-176313 [place] [address] 08-28-2022 11:01-0500 Body mass index (BMI) [Ratio] 27.7 kg/m2 Dr. Rd Obrien Work Phone: 8(825)883-215013 [place] [address] 08-28-2022 11:01-0500 Body weight 92.[address] Obrien Work Phone: 2(590)702-156313 [place] [address] 07-29-2022 10:00-0400 Body temperature 97.8 [degF] Dr. Rd Obrien Work Phone: 5(509)781-515113 [place] [address] 07-29-2022 10:00-0400 Diastolic blood pressure 90 mm[Hg] Dr. Rd Obrien Work Phone: 1(856)084-257013 [place] [address] 07-29-2022 10:00-0400 Heart rate 71 /min Dr. Rd Obrien Work Phone: 9(886)603-167413 [place] [address] 07-29-2022 10:00-0400 Respiratory rate 16 /min Dr. Rd Obrien Work Phone: 9(398)353-257713 [place] [address] 07-29-2022 10:00-0400 SaO2% (BldA) [Mass fraction] 96 % Dr. Rd Obrien Work Phone: 9(428)668-903313 [place] [address] 07-29-2022 10:00-0400 Systolic blood pressure 142 mm[Hg] Dr. Rd Obrien Work Phone: 0(581)911-657013 [place] [address] 07-24-2022 11:07-0400 Body height 182.[address] Obrien Work Phone: 2(323)994-884613 [place] [address] Work Phone: 07-24-2022 11:07-0400 Body mass index (BMI) [Ratio] 26.4 kg/m2 Dr. Rd Obrien Work Phone: 5(354)491-171813 [place] [address] 07-24-2022 11:07-0400 Body temperature 96.7 [degF] Dr. Rd Obrien Work Phone: 7(736)314-172413 [place] [address] 07-24-2022 11:07-0400 Body weight 88.[address] Obrien Work Phone: 8(718)240-690213 [place] [address] 07-24-2022 11:07-0400 Diastolic blood pressure 86 mm[Hg] Dr. Rd Obrien Work Phone: 0(653)913-036413 [place] [address] 07-24-2022 11:07-0400 Heart rate 74 /min Dr. Rd Obrien Work Phone: 5(527)631-026613 [place] [address] 07-24-2022 11:07-0400 Respiratory rate 16 /min Dr. Rd Obrien Work Phone: 1(397)748-987913 [place] [address] 07-24-2022 11:07-0400 SaO2% (BldA) [Mass fraction] 99 % Dr. Rd Obrien Work Phone: [facility] 07-24-2022 11:07-0400 Systolic blood pressure 137 mm[Hg] Dr. Rd Obrien Work Phone: [facility] 05-21-2022 14:02-0400 Body height 180.3 cm Toni Guillermoi DO Work Phone: [facility] 05-21-2022 14:02-0400 Body temperature 98.01 [degF] Toni Masci DO Work Phone: [facility] 05-21-2022 14:02-0400 Body weight 90.04 kg Toni Masci DO Work Phone: [facility] 05-21-2022 14:02-0400 Diastolic blood pressure 76 mm[Hg] Toni Masci DO Work Phone: [facility] 05-21-2022 14:02-0400 Heart rate 75 /min Toni Masci DO Work Phone: [facility] 05-21-2022 14:02-0400 Systolic blood pressure 134 mm[Hg] Toni Masci DO Work Phone: [facility] 03-26-2022 15:15-0400 Body weight 90.[address] Obrien MD Work Phone: [facility] 03-26-2022 15:15-0400 Diastolic blood pressure 72 mm[Hg] Rd Obrien MD Work Phone: [facility] 03-26-2022 15:15-0400 Heart rate 76 /min Rd Obrien MD Work Phone: [facility] 03-26-2022 15:15-0400 Systolic blood pressure 120 mm[Hg] Rd Obrien MD Work Phone: [facility] 05-18-2020 05:47-0400 Body mass index (BMI) [Ratio] 26.6 kg/m2 [facility] Work Phone: Encounters Encounter Date Encounter Type Care Provider Facility Start: 05-12-2025 ambulatory Chamisal Venkatesh Facility:[facility] Start: 05-10-2025 ambulatory Chamisal Venkatesh Facility:[facility] Start: 05-10-2025 End: 05-10-[address] Carroll Riddel MD -[facility] Work Phone: Start: 05-10-2025 End: 05-10-[address] Obrien MD Work Phone: -[facility] Start: 04-24-2025 End: 04-24-[address] Obrien MD Work Phone: -[facility] Start: 04-24-2025 End: 04-24-2025 Patient encounter procedure SHLOMO MCCORD MD -[facility] Work Phone: Start: 04-24-2025 End: 04-24-2025 ambulatory [facility] Facility:[facility] Start: 04-05-2025 ambulatory [facility] Facility :[facility] Start: 04-05-2025 End: 04-05-2025 Subsequent hospital visit by physician Stress Lab 2 [facility] Work Phone: Cardiology Lab Comment on above: Chest discomfort [R0 7.89] Start: 04-04-2025 End: 04-13-2025 Follow-up encounter Rd Obrien MD Work Phone: [facility] Start: 04-04-2025 End: 04-04-2025 Telephone encounter Serenity Castillo RN Cardiology Lab Start: 04-03-2025 ambulatory [facility] Facility :[facility] Start: 04-03-2025 End: 04-03-2025 Subsequent hospital visit by physician [facility] Work Phone: Radiology Comment on above: Chest discomfort [R0 7.89] Start: 04-03-2025 End: 04-03-2025 ambulatory [facility] Facility:[facility] Start: 04-03-2025 End: 04-03-[address] Obrien MD Work Phone: [facility] Comment on above: Medicare annual well ness visit, subsequent (Primary Dx); Essential hypertension; Intervertebral cervical disc disorder with myelopathy, cervical region; Iron deficiency anemia, unspecified iron deficiency anemia type; Skin cancer; Rheumatoid arthritis of multiple sites with negative rheumatoid factor (HCC); Chest discomfort; Screening for depression; Encounter for screening examination for other mental health and behavioral disorders Start: 03-28-2025 End: 03-28-[address] OBRIEN Facility:[facility] Start: 11-21-2024 End: 11-21-[address] Rafael Hernandez Facility:[facility] Start: 10-03-2024 End: 10-03-[address] Gallo [place] Facility:[facility] Start: 10-03-2024 End: 10-03-[address] Obrien MD Work Phone: [facility] Comment on above: Mixed hyperlipidemia (Primary Dx); Essential hypertension; Anemia, unspecified type; Skin cancer; Rheumatoid arthritis of multiple sites with negative rheumatoid factor (HCC) Start: 09-27-2024 End: 09-29-[address] Obrien MD Work Phone: [facility] Start: 09-27-2024 End: 09-29-[address] Obrien MD Work Phone: [facility] Skip Comment on above: appointments Start: 08-31-2024 End: 08-31-[address] Obrien MD Work Phone: [facility] Skip Comment on above: Refill Request Start: 06-29-2024 End: 06-30-[address] Obrien MD Work Phone: [facility] Skip Comment on above: Ben PT Start: 06-05-2024 End: 06-06-[address] Obrien MD Work Phone: [facility] Skip Comment on above: Refill Request Start: 05-30-2024 End: 05-31-[address] Obrien MD Work Phone: [facility] Skip Comment on above: Refill Request Start: 03-28-2024 End: 03-28-[address] Obrien MD Work Phone: [facility] Comment on above: Essential hypertensi on (Primary Dx); At risk for impaired mental state; Mixed hyperlipidemia; Rheumatoid arthritis of multiple sites with negative rheumatoid factor (HCC); Iron deficiency anemia, unspecified iron deficiency anemia type; Anemia of chronic disease; Skin cancer Start: 03-25-[address] Obrien MD Work Phone: [facility] Comment on above: Labs Start: 03-25-2024 E-mail encounter fro m caregiver Rd [facility] Start: 03-20-[address] Obrien MD Work Phone: [facility] Comment on above: lab wor; Start: 02-21-2024 Refill Megha Olsen on PA-C Work Phone: [facility] Comment on above: Refill Request Start: 01-18-2024 End: 01-18-[address] Obrien MD Work Phone: [facility] Comment on above: Dermatitis (Primary Dx) Start: 11-10-2023 End: 11-10-2023 ambulatory [facility] Work Phone: Start: 11-10-2023 End: 11-10-2023 Patient encounter procedure [facility] Work Phone: Start: 10-19-2023 End: 10-19-2023 Patient encounter procedure [facility] Work Phone: Start: 06-11-2023 ambulatory Maia (Pss) [facility] [place] Comment on above: Population Health Na vigation Outreach ([employer] care gaps) Start: 05-05-2023 End: 05-05-2023 ambulatory [facility] Work Phone: Start: 05-05-2023 End: 05-05-2023 Patient encounter procedure [facility] Work Phone: Start: 05-01-2023 End: 05-01-2023 ambulatory [facility] Work Phone: Start: 05-01-2023 End: 05-01-2023 Patient encounter procedure [facility] Work Phone: Start: 04-28-2023 End: 04-28-2023 ambulatory [facility] Work Phone: Start: 04-28-2023 End: 04-28-2023 Patient encounter procedure [facility] Work Phone: Start: 04-10-2023 ambulatory [facility] Comment on above: Population Health Na vigation Outreach ([employer] Care Gaps 7.5.23) Start: 03-26-2023 End: 03-26-[address] Obrien MD Work Phone: [facility] Comment on above: Mixed hyperlipidemia (Primary Dx); Rheumatoid arthritis involving multiple sites with positive rheumatoid factor (HCC); Essential hypertension; Intervertebral cervical disc disorder with myelopathy, cervical region; Anemia, unspecified type Start: 03-20-[address] Obrien MD Work Phone: [facility] Comment on above: Results Start: 03-19-2023 End: 03-19-2023 ambulatory [facility] Work Phone: Start: 03-19-2023 End: 03-19-2023 Patient encounter procedure [facility] Start: 02-26-[address] Obrien MD Work Phone: [facility] Comment on above: Refill Request Start: 01-03-2023 End: 01-03-[address] Obrien Work Phone: [facility] Work Phone: Start: 01-03-2023 End: 01-03-[address] Obrien Work Phone: [facility] Start: 10-20-[address] Obrien MD Work Phone: [facility] Comment on above: Patient Update Start: 10-20-2022 End: 10-20-[address] Obrien Work Phone: [facility] Work Phone: Start: 10-20-2022 End: 10-20-[address] Obrien Work Phone: [facility]-Laboratory, [facility] Start: 10-09-2022 Telephone encounter Collette Doe Rodriguez PA-C Work Phone: [facility] Comment on above: Medication Problem Start: 10-06-2022 End: 10-06-2022 Patient encounter procedure Collette Doe Rodriguez PA-C Work Phone: [facility] Comment on above: Subacute cough (Prim ian Dx); Bronchitis Refill Request Start: 10-06-2022 End: 10-06-2022 Subsequent hospital visit by physician [facility] Work Phone: Radiology Comment on above: Subacute cough [R05. 2] Start: 09-12-2022 End: 09-12-[address] Obrien Work Phone: [facility] Start: 08-28-2022 End: 08-28-[address] Obrien Work Phone: [facility] Work Phone: Start: 08-28-2022 End: 08-28-[address] Obrien Work Phone: [facility]-Medical Out Start: 08-11-[address] Obrien MD Work Phone: [facility] Comment on above: Refill Request Start: 07-29-2022 End: 07-29-[address] Obrien Work Phone: [facility] Start: 07-24-2022 End: 07-24-[address] Obrien Work Phone: [facility] Work Phone: Start: 07-24-2022 End: 07-24-[address] Obrien Work Phone: [facility] Start: 06-20-2022 End: 06-20-[address] Obrien Work Phone: [facility] Work Phone: Start: 06-20-2022 End: 06-20-[address] Obrien Work Phone: [facility]-Laboratory Start: 06-20-2022 End: 06-20-[address] Obrien Work Phone: [facility] Start: 06-09-2022 Telephone encounter Toni augustin DO Work Phone: Hematology/Oncology Comment on above: Electronic Communica tion Start: 05-26-2022 End: 05-26-2022 Subsequent hospital visit by physician [facility] Work Phone: Radiology Comment on above: Rheumatoid arthritis involving multiple sites with positive rheumatoid factor (HCC) [M05.79] Start: 05-22-2022 Telephone encounter Toni augustin DO Work Phone: Hematology/Oncology Comment on above: Results (Updated CBC results.) Start: 05-21-2022 End: 05-21-2022 ambulatory Toni Robin DO Work Phone: Hematology/Oncology Comment on above: Anemia, unspecified type (Primary Dx); Rheumatoid arthritis involving multiple sites with positive rheumatoid factor (HCC) Start: 05-21-2022 End: 05-21-2022 Patient encounter procedure Toni Robin DO Work Phone: [facility] Start: 04-29-[address] Obrien MD Work Phone: [facility] Comment on above: Hematology appt Start: 04-29-2022 End: 04-29-[address] Obrien Work Phone: [facility] Work Phone: Start: 04-29-2022 End: 04-29-2022 Patient encounter procedure [facility] Start: 04-28-[address] Obrien MD Work Phone: [facility] Comment on above: Results Start: 04-28-2022 End: 04-28-2022 Patient encounter procedure [facility] Start: 04-20-[address] Obrien MD Work Phone: [facility] Comment on above: recurring dry cough. Start: 04-10-[address] Obrien MD Work Phone: [facility] Comment on above: Referral Request (Dr Gallegos in Gastro at [facility]) Start: 03-28-2022 End: 03-28-2022 Patient encounter procedure [facility] Start: 03-27-2022 End: 03-27-2022 Patient encounter procedure [facility] Start: 03-26-2022 End: 03-26-[address] Obrien MD Work Phone: [facility] Comment on above: Anemia, unspecified type (Primary Dx); Mixed hyperlipidemia; Essential hypertension; Rheumatoid arthritis of multiple sites with negative rheumatoid factor (HCC); Dermatitis Start: 03-18-2022 End: 03-18-2022 Patient encounter procedure [facility] Start: 03-17-[address] Obrien MD Work Phone: [facility] Comment on above: Lab Orders (Coding) Start: 03-12-2022 Patient encounter status Benson Obrien MD Work Phone: [facility] Start: 03-12-[address] Obrien MD Work Phone: [facility] Comment on above: Orders Start: 01-14-2022 Adam Reyes on PA-C Work Phone: [facility] Comment on above: Refill Request Start: 12-17-2021 End: 12-17-2021 [facility] Start: 11-06-2021 Registered [facility] Start: 10-01-2021 Patient encounter procedure [facility] Start: 02-26-2012 Evaluation and management of inpatient [facility]- Procedures Date Procedure Procedure Detail Performing Clinician Start: 04-05-2025 Cv strs tst xers&/or rx cont ecg trcg only Rd Obrien MD Work Phone: Start: 04-03-2025 Ecg routine ecg w/le ast 12 lds i&r only Rd Obrien MD Work Phone: Start: 04-03-2025 Adult depression scr eening assessment Rd Obrien MD Work Phone: Start: 03-28-2024 Adult depression scr eening assessment Rd Obrien MD Work Phone: Start: 03-26-2024 Lipid 1996 panel - S melissa or Plasma Rd Obrien MD Work Phone: Start: 05-05-2023 MRI of pelvis with contrast Start: 03-19-2023 Comprehensive metabo lic 2000 panel - Serum or Plasma [facility] Provider Start: 03-19-2023 Lipid panel [facility] Provid er Start: 03-19-2023 Lipid 1996 panel - S melissa or Plasma Maia Teague Start: 10-06-2022 Radiologic exam ches t 2 views M Doe Rodriguez PA-C Work Phone: Start: 05-26-2022 Us abdominal real ti me w/image limited Toni A Masci DO Work Phone: Start: 04-29-2022 X-ray of lumbosacral spine Start: 03-23-2022 Adult depression scr eening assessment Rd Obrien MD Work Phone: Start: 12-17-2021 Plain x-ray of pelvi s and lower extremity Start: 05-18-2020 Joao Rodriguez PA-C Work Phone: Start: 05-10-2020 Adult depression scr eening assessment NA Michael MICHAELS Work Phone: Measurement of occul t blood in stool specimen using immunoassay Plan of Treatment Date Care Activity Detail Author Start: 05-18-2030 Colonoscopy COLONOSCOPY [facility] Start: 05-18-2030 COLORECTAL CANCER SCREENING COLORECTAL CANCER SCREENING [facility] Start: 05-18-2030 Screening for malign ant neoplasm of colon [facility] Start: 03-26-2029 Lipid panel Lipid Screening [facility] Start: 03-28-2028 Diabetes Screening Diabetes Screenin g [facility] Start: 03-19-2028 Lipid 1996 panel - S mleissa or Plasma Lipid Screening [facility] Start: 03-19-2028 Lipid panel Lipid Screening [facility] Start: 03-19-2028 LIPID SCREEN LIPID SCREEN [facility] Start: 03-26-2027 Diabetes Screening Diabetes Screenin g [facility] Start: 04-03-2026 Annual PCP Team Multiple Drill Operator mustapha Disease Visit Annual PCP Team Chronic Disease Visit [facility] Start: 04-03-2026 Anxiety Screening Anxiety Screening [facility] Start: 04-03-2026 Covid-19 Vaccine () Covid-19 Vaccine () [facility] Comment on above: Postponed from 02/13 (Declined at this time) Start: 04-03-2026 Depression Screening Depression Scre ening [facility] Start: 04-03-2026 Urine microalbumin profile DTaP,Tdap,Td Vaccine (1 - Tdap) [facility] Comment on above: Postponed from 01/16 (Declined at this time) Start: 03-19-2026 DIABETES SCREEN DIABETES SCREEN [facility] Start: 03-19-2026 Diabetes Screening Diabetes Screenin g [facility] Start: 10-03-2025 Annual PCP Team Multiple Drill Operator mustapha Disease Visit Annual PCP Team Chronic Disease Visit [facility] Start: 10-02-2025 End: 10-02-2025 Patient encounter procedure 10/02/2025 10:20 AM EST Office Visit [facility] [address] [place] [id number] Rd Obrien MD [address] [place] [id number] 6 mo follow up [facility] Comment on above: 6 mo follow up Start: 05-29-2025 Influenza vaccination Influenza Vacc ine (#1) [facility] Start: 05-10-2025 Evaluation of diagno stic study results [facility] Start: 04-21-2025 LIPID SCREEN LIPID SCREEN [facility] Start: 04-05-2025 End: 04-05-2025 Patient encounter procedure 04/05/2025 8:00 AM EDT Appointment [facility]iology Lab [address] [place] [address] EXERCISE STRESS ECG (WITHOUT IMAGING) [facility] Lab Comment on above: EXERCISE STRESS ECG (WITHOUT IMAGING) Start: 04-05-2025 Subsequent hospital visit by physician 04/05/2025 8:00 AM EDT Hospital Encounter [facility] [address], [place] [id number] Chest discomfort [R07.89] [facility]iology Lab Comment on above: Chest discomfort [R0 7.89] Start: 04-03-2025 End: 04-03-2025 Patient encounter procedure 04/03/2025 10:00 AM EDT Office Visit Family Medicine [facility] [address] [place], [place] [id number] Rd Obrien MD [address] [place], [place] [phone] Medicare Wellness [facility] Medicine Skip Comment on above: Medicare Wellness Start: 04-02-2025 End: 07-02-2025 CBC W Auto Differential panel - Blood COMPLETE BLOOD COUNT AND DIFFERENTIAL Lab Routine Mixed hyperlipidemia Expected: 04/02/2025, Expires: 07/02/2025 [facility] Work Phone: Comment on above: Expected: 04/02/2025 , Expires: 07/02/2025 Start: 04-02-2025 End: 07-02-2025 Comprehensive metabolic 2000 panel - Serum or Plasma COMPREHENSIVE METABOLIC PANEL Lab Routine Mixed hyperlipidemia Expected: 04/02/2025, Expires: 07/02/2025 [facility] Comment on above: Expected: 04/02/2025 , Expires: 07/02/2025 Start: 04-02-2025 End: 07-02-2025 Lipid 1996 panel - Serum or Plasma LIPID PANEL BASIC Lab Routine Mixed hyperlipidemia Expected: 04/02/2025, Expires: 07/02/2025 [facility] Comment on above: Expected: 04/02/2025 , Expires: 07/02/2025 Start: 03-28-2025 Annual PCP Team Multiple Drill Operator mustapha Disease Visit Annual PCP Team Chronic Disease Visit [facility] Start: 03-28-2025 Anxiety Screening Anxiety Screening [facility] Start: 03-28-2025 Covid-19 Vaccine () Covid-19 Vaccine () [facility] Comment on above: Postponed from 11/16 (Declined at this time) Start: 03-28-2025 Depression Screening Depression Scre ening [facility] Start: 03-28-2025 Urine microalbumin profile DTaP,Tdap,Td Vaccine (1 - Tdap) [facility] Comment on above: Postponed from 01/16 (Declined at this time) Start: 01-17-2025 Annual PCP Team Multiple Drill Operator mustapha Disease Visit Annual PCP Team Chronic Disease Visit [facility] Start: 10-03-2024 End: 10-03-2024 Patient encounter procedure 10/03/2024 8:40 AM EST Office Visit Family [facility] [address] [place], [place] [id number] Rd Obrien MD [address] [place], [place] [phone] 6 mo f/u Family [facility] Comment on above: 6 mo f/u Start: 09-28-2024 Advance Directive Discussion Advance Directive Discussion [facility] Start: 09-14-2024 BP Controlled (<130/80) BP Controlle d (<130/80) [facility] Start: 05-29-2024 Covid-19 Vaccine () Covid-19 Vaccine () [facility] Start: 05-29-2024 Covid-19 Vaccine () Covid-19 Vaccine () [facility] Start: 05-29-2024 Influenza vaccination Influenza Vacc ine (#1) [facility] Start: 03-28-2024 End: 03-28-2024 Patient encounter procedure 03/28/2024 10:20 AM EDT Office Visit Family Medicine [facility] [address] [facility] [place] [address] Rd Obrien MD [address] [place] [id number] Physical Family Medicine Skip Comment on above: Physical Start: 03-26-2024 ANNUAL PCP TEAM BILLET SAWYER MUSTAPHA DISEASE VISIT ANNUAL PCP TEAM CHRONIC DISEASE VISIT [facility] Start: 03-26-2024 Urine microalbumin profile [facility] Comment on above: Postponed from 01/16 (Declined at this time) Start: 03-21-2024 End: 06-20-2024 CBC W Auto Differential panel - Blood COMPLETE BLOOD COUNT AND DIFFERENTIAL Lab Routine Essential hypertension Rheumatoid arthritis of multiple sites with negative rheumatoid factor (HCC) Expected: 03/21/2024, Expires: 06/20/2024 [facility] Work Phone: Comment on above: Expected: 03/21/2024 , Expires: 06/20/2024 Start: 03-21-2024 End: 06-20-2024 Comprehensive metabolic 2000 panel - Serum or Plasma COMPREHENSIVE METABOLIC PANEL Lab Routine Essential hypertension Mixed hyperlipidemia Rheumatoid arthritis of multiple sites with negative rheumatoid factor (HCC) Expected: 03/21/2024, Expires: 06/20/2024 [facility] Comment on above: Expected: 03/21/2024 , Expires: 06/20/2024 Start: 03-21-2024 End: 06-20-2024 Lipid 1996 panel - Serum or Plasma LIPID PANEL BASIC Lab Routine Mixed hyperlipidemia Expected: 03/21/2024, Expires: 06/20/2024 [facility] Comment on above: Expected: 03/21/2024 , Expires: 06/20/2024 Start: 11-16-2023 Covid-19 Vaccine () Covid-19 Vaccine () [facility] Start: 10-06-2023 ANNUAL PCP TEAM BILLET SAWYER MUSTAPHA DISEASE VISIT ANNUAL PCP TEAM CHRONIC DISEASE VISIT [facility] Start: 09-28-2023 Advance Directive Discussion Advance Directive Discussion [facility] Start: 09-28-2023 Behavioral Health Screening Behavioral Health Screening [facility] Start: 06-10-2023 BP CONTROLLED (<130/80) BP CONTROLLE D (<130/80) [facility] Start: 05-29-2023 Influenza vaccination C [facility] Start: 04-21-2023 DIABETES SCREEN DIABETES SCREEN [facility] Start: 03-28-2023 FECAL OCCULT BLOOD FECAL OCCULT BLOO D [facility] Start: 03-28-2023 Screening for malign ant neoplasm of colon Fecal Occult Blood [facility] Start: 03-26-2023 ANNUAL PCP TEAM BILLET SAWYER MUSTAPHA DISEASE VISIT ANNUAL PCP TEAM CHRONIC DISEASE VISIT [facility] Start: 03-26-2023 BP CONTROLLED (<130/80) BP CONTROLLE D (<130/80) [facility] Start: 03-23-2023 Adult depression screening assessment DEPRESSION SCREENING [facility] Start: 10-19-2022 COVID-19 VACCINE (5 - Moderna series) COVID-19 VACCINE (5 - Moderna series) [facility] Start: 09-28-2022 ADVANCE DIRECTIVE DISCUSSION ADVANCE DIRECTIVE DISCUSSION [facility] Start: 09-28-2022 DEPRESSION ASSESSMENT DEPRESSION ASS ESSMENT [facility] Start: 08-28-2022 Iv infusion therapy/prophylaxis /dx 1st to 1 hr THER/PROPH/DIAG IV INF [facility] Start: 07-24-2022 Iv infusion therapy/prophylaxis /dx 1st to 1 hr THER/PROPH/DIAG IV INF [facility] Work Phone: Start: 05-29-2022 Influenza vaccination INFLUENZA (#1) [facility] Start: 05-21-2022 End: 07-21-2022 COPPER BLOOD [facility] Work Phone: Comment on above: Expected: 05/21/2022 , Expires: 07/21/2022 Start: 05-21-2022 End: 07-21-2022 Direct antiglobulin test.poly specific reagent [Presence] on Red Blood Cells [facility] Work Phone: Comment on above: Expected: 05/21/2022 , Expires: 07/21/2022 Start: 05-21-2022 End: 07-21-2022 FLOW CYTOMETRY PERIPHERAL BLOOD LEUK/LYMPH (FCLEUK) [facility] Work Phone: Comment on above: Expected: 05/21/2022 , Expires: 07/21/2022 Start: 05-21-2022 End: 07-21-2022 Haptoglobin [Mass/volume] in Serum or Plasma [facility] Work Phone: Comment on above: Expected: 05/21/2022 , Expires: 07/21/2022 Start: 05-21-2022 End: 07-21-2022 MONOCLONAL PROTEIN, SERUM (BLOOD) [facility] Work Phone: Comment on above: Expected: 05/21/2022 , Expires: 07/21/2022 Start: 05-21-2022 End: 07-21-2022 Paroxysmal nocturnal panel - Blood [facility] Work Phone: Comment on above: Expected: 05/21/2022 , Expires: 07/21/2022 Start: 05-21-2022 End: 07-21-2022 PROTEIN ELECTROPHORESIS SERUM W/INTERP [facility] Work Phone: Comment on above: Expected: 05/21/2022 , Expires: 07/21/2022 Start: 03-26-2022 End: 03-26-2023 CBC W Auto Differential panel - Blood CBC + DIFF Lab Routine Anemia, unspecified type Expected: 03/26/2022, Expires: 03/26/2023 [facility] Work Phone: Comment on above: Expected: 03/26/2022 , Expires: 03/26/2023 Start: 03-26-2022 End: 03-26-2023 Cobalamin (Vitamin B12) [Mass/volume] in Serum or Plasma VITAMIN B12 BLOOD Lab Routine Anemia, unspecified type Expected: 03/26/2022, Expires: 03/26/2023 [facility] Work Phone: Comment on above: Expected: 03/26/2022 , Expires: 03/26/2023 Start: 03-26-2022 End: 03-26-2023 Ferritin [Mass/volume] in Serum or Plasma FERRITIN BLD Lab Routine Anemia, unspecified type Expected: 03/26/2022, Expires: 03/26/2023 [facility] Work Phone: Comment on above: Expected: 03/26/2022 , Expires: 03/26/2023 Start: 03-26-2022 End: 03-26-2023 Folate [Mass/volume] in Serum or Plasma FOLATE SERUM Lab Routine Anemia, unspecified type Expected: 03/26/2022, Expires: 03/26/2023 [facility] Work Phone: Comment on above: Expected: 03/26/2022 , Expires: 03/26/2023 Start: 03-26-2022 End: 03-26-2023 Hemoglobin.gastrointestin al.lower [Presence] in Stool by Immunoassay FECAL OCCULT BLOOD TEST Lab Routine Anemia, unspecified type Expected: 03/26/2022, Expires: 03/26/2023 [facility] Work Phone: Comment on above: Expected: 03/26/2022 , Expires: 03/26/2023 Start: 03-26-2022 End: 03-26-2023 Iron and Iron binding capacity panel - Serum or Plasma IRON + TIBC Lab Routine Anemia, unspecified type Expected: 03/26/2022, Expires: 03/26/2023 [facility] Work Phone: Comment on above: Expected: 03/26/2022 , Expires: 03/26/2023 Start: 03-25-2022 ANNUAL PCP TEAM BILLET SAWYER MUSTAPHA DISEASE VISIT ANNUAL PCP TEAM CHRONIC DISEASE VISIT [facility] Start: 03-17-2022 End: 03-17-2023 CBC W Auto Differential panel - Blood CBC + DIFF Lab Routine Essential hypertension Mixed hyperlipidemia Expected: 03/17/2022, Expires: 03/17/2023 [facility] Work Phone: Comment on above: Expected: 03/17/2022 , Expires: 03/17/2023 Start: 03-17-2022 End: 03-17-2023 Comprehensive metabolic 2000 panel - Serum or Plasma COMP METABOLIC PANEL Lab Routine Essential hypertension Mixed hyperlipidemia Expected: 03/17/2022, Expires: 03/17/2023 [facility] Work Phone: Comment on above: Expected: 03/17/2022 , Expires: 03/17/2023 Start: 03-17-2022 End: 03-17-2023 Lipid 1996 panel - Serum or Plasma LIPID PANEL BASIC Lab Routine Essential hypertension Mixed hyperlipidemia Expected: 03/17/2022, Expires: 03/17/2023 [facility] Work Phone: Comment on above: Expected: 03/17/2022 , Expires: 03/17/2023 Start: 03-12-2022 End: 03-12-2023 CBC W Auto Differential panel - Blood CBC + DIFF Lab Routine Well adult exam Expected: 03/12/2022, Expires: 03/12/2023 [facility] Work Phone: Comment on above: Expected: 03/12/2022 , Expires: 03/12/2023 Start: 03-12-2022 End: 03-12-2023 Comprehensive metabolic 2000 panel - Serum or Plasma COMP METABOLIC PANEL Lab Routine Well adult exam Expected: 03/12/2022, Expires: 03/12/2023 [facility] Work Phone: Comment on above: Expected: 03/12/2022 , Expires: 03/12/2023 Start: 03-12-2022 End: 03-12-2023 Lipid 1996 panel - Serum or Plasma LIPID PANEL BASIC Lab Routine Well adult exam Expected: 03/12/2022, Expires: 03/12/2023 [facility] Work Phone: Comment on above: Expected: 03/12/2022 , Expires: 03/12/2023 Start: 11-13-2021 COVID-19 VACCINE (4 - Booster for Moderna series) COVID-19 VACCINE (4 - Booster for Moderna series) [facility] Start: 11-05-2021 COVID-19 VACCINE (4 - Booster for Moderna series) COVID-19 VACCINE (4 - Booster for Moderna series) [facility] Start: 10-08-2021 COVID-19 VACCINE (4 - Booster for Moderna series) COVID-19 VACCINE (4 - Booster for Moderna series) [facility] Start: 09-28-2021 ADVANCE DIRECTIVE DISCUSSION ADVANCE DIRECTIVE DISCUSSION [facility] Start: 09-28-2021 DEPRESSION ASSESSMENT DEPRESSION ASS ESSMENT [facility] Start: 05-10-2021 Adult depression screening assessment DEPRESSION SCREENING [facility] Start: 01-05-2021 COVID-19 VACCINE (3 - Moderna risk 4-dose series) COVID-19 VACCINE (3 - Moderna risk 4-dose series) [facility] Start: 01-05-2021 COVID-19 VACCINE (3 - Moderna risk series) COVID-19 VACCINE (3 - Moderna risk series) [facility] Start: 1994 COLOGUARD (FIT-DNA) COLOGUARD (FIT-D NA) [facility] Start: [address] COLONOGRAPHY [facility] Start: 1994 FECAL OCCULT BLOOD FECAL OCCULT BLOO D [facility] Start: 1994 Screening for malign ant neoplasm of colon [facility] Start: 1994 SIGMOIDOSCOPY SIGMOIDOSCOPY [facility] Start: 01-17-1968 Urine microalbumin profile DTAP,TDAP,TD (1 - Tdap) [facility] Start: 1967 BP CONTROLLED (<130/80) BP CONTROLLE D (<130/80) [facility] BACH SCREENING TEST BACH SCREENI NG TEST Procedures Routine At risk for impaired mental state Ordered: 03/28/2024 [facility] Work Phone: Comment on above: Ordered: 03/28/2024 BACH SCREENING TEST BACH SCREENI NG TEST Procedures Routine Essential hypertension Ordered: 04/03/2025 [facility] Work Phone: Comment on above: Ordered: 04/03/2025 Basic metabolic 2008 panel with ionized calcium - Serum or Plasma [facility] Catheterization of l eft heart [facility] CBC W Auto Different ial panel - Blood [facility] CBC W Ordered Manual Differential panel - Blood PATHOLOGIST INTERPRETATION WITH CBC AND DIFF Lab Routine Rheumatoid arthritis involving multiple sites with positive rheumatoid factor (HCC) Anemia, unspecified type 05/21/2022 3:12 PM EDT [facility] Work Phone: ECG COMPLETE ECG COMPLETE ECG Routine Chest discomfort 04/03/2025 10:38 AM EDT [facility] End: 04-03-2026 EXERCISE STRESS ECG (WITHOUT IMAGING) EXERCISE STRESS ECG (WITHOUT IMAGING) Cardiology Routine Chest discomfort 1 Occurrences starting 04/03/2025 until 04/03/2026 [facility] Comment on above: 1 Occurrences starti ng 04/03/2025 until 04/03/2026 End: 06-20-2023 Us abdominal real time w/image limited US ABD SPLEEN Radiology Routine Rheumatoid arthritis involving multiple sites with positive rheumatoid factor (HCC) Anemia, unspecified type 1 Occurrences starting 05/21/2022 until 06/20/2023 [facility] Work Phone: Comment on above: 1 Occurrences starti ng 05/21/2022 until 06/20/2023 End: 05-03-2026 XR Chest PA and Lateral XR CHEST 2V FRONTAL/LAT Radiology Routine Chest discomfort 1 Occurrences starting 04/03/2025 until 05/03/2026 [facility] Comment on above: 1 Occurrences starti ng 04/03/2025 until 05/03/2026 XR Chest PA and Lateral XR CHEST 2V FRONTAL/LAT Radiology Routine Chest discomfort 04/03/2025 11:56 AM EDT [facility] XR Chest PA and Lateral os [facility] Immunizations Immunization Date Immunization Notes Care Provider George coy 08-16-2024 COVID-19 vaccine, ag e 12+ yr (MODERNA) Rd Obrien MD Work Phone: [facility] 08-16-2024 influenza, high dose seasonal, preservative-free Rd Obrien MD Work Phone: [facility] 08-16-2024 influenza virus vacc ine, unspecified formulation Rd Obrien MD Work Phone: [facility] 10-24-2023 respiratory syncytia l virus (RSV) vaccine, bivalent (ABRYSVO) Rd Obrien MD Work Phone: [facility] 07-16-2023 influenza (HD-IIV4) vaccine, age 65+ yr, high dose, quadrivalent, PF (FLUZONE HIGH-DOSE) Rd Obrien MD Work Phone: [facility] 07-16-2023 influenza virus vacc ine, unspecified formulation Rd Obrien MD Work Phone: [facility] 08-02-2022 influenza (HD-IIV4) vaccine, age 65+ yr, high dose, quadrivalent, PF (FLUZONE HIGH-DOSE) Rd Obrien MD Work Phone: [facility] 08-02-2022 influenza virus vacc ine, unspecified formulation Maia Zahida [facility] 07-06-2021 influenza, high-dose , quadrivalent vaccine (FLUZONE HIGH DOSE QUADRIVALENT) NA Rodriguez PA-C Work Phone: [facility] 12-08-2020 COVID-19 vaccine, fu ll dose (MODERNA) NA Rodriguez PA-C Work Phone: [facility] 11-10-2020 COVID-19 vaccine, fu ll dose (MODERNA) NA Rodriguez PA-C Work Phone: [facility] 07-24-2020 influenza, high-dose , quadrivalent vaccine (FLUZONE HIGH DOSE QUADRIVALENT) NA Rodriguez PA-C Work Phone: [facility] Work Phone: 08-26-2019 influenza, high dose seasonal, preservative-free NA Rodriguez PA-C Work Phone: [facility] Work Phone: 08-22-2019 zoster vaccine recombinant NA Rodriguez PA-C Work Phone: [facility] Work Phone: 06-08-2019 zoster vaccine recombinant NA Rodriguez PA-C Work Phone: [facility] Work Phone: 05-05-2018 pneumococcal polysaccharide vaccine, 23 valent NA Rodriguez PA-C Work Phone: [facility] 03-01-2015 pneumococcal conjuga te vaccine, 13 valent NA Rodriguez PA-C Work Phone: [facility] 09-28-2014 zoster vaccine, live NA Eric on PA-C Work Phone: [facility] 08-17-2014 zoster vaccine, live NA Eric on PA-C Work Phone: [facility] 09-28-2013 influenza nasal, unspecified formulation NA Rodriguez PA-C Work Phone: [facility] 09-28-2013 influenza virus vacc ine, unspecified formulation NA Rodriguez PA-C Work Phone: [facility] 09-28-2009 tetanus toxoid, unspecified formulation NA Rodriguez PA-C Work Phone: [facility] Payers Date Payer Category Payer Self-pay [id number] 2023 [place] [facility] [facility] [id number] 2021 Medicare AETNA MEDICARE A ETNA MEDICARE [facility] [id number] 2021-Present [phone] [id number] [place] [id number] [facility] [id number] 2021 Medicare AETNA MEDICARE A ETNA MEDICARE PPO [id number] 2021-Present [id number] [place] [id number] [facility] [id number] 2021 Private Health Insurance [facility] [id number] 2016 Unknown [id number] Medicare [id number] Private Health Insurance [facility] [id number] Unknown [id number] Unknown [id number] Unknown [id number] Unknown [id number] Unknown [id number] Social History Date Type Detail Facility Start: 06-28-2021 End: 09-12-2022 Tobacco smoking status [facility] Unknown if ever smoked [facility] Start: 02-11-2021 None [facility] Start: 06-27-2013 W [facility] Start: 05-09-2020 Non-smoker [facility] Start: 1950 Sex Assigned At Male [facility] Start: 02-13-2016 End: 11-17-2023 Tobacco smoking status NHIS Ex-smoker [facility] Work Phone: History of tobacco use Cigar Smoker [facility] Work Phone: Start: 02-13-2016 End: 05-21-2022 Tobacco use and exposure Smokeless tobacco non-user [facility] Work Phone: Start: 03-25-2021 End: 04-03-2025 Alcohol intake Current non-drinker of alcohol (finding) [facility] Start: 03-20-2020 End: 03-23-2022 History SDOH Alcohol Frequency 3 [facility] Start: 03-20-2020 End: 03-25-2023 History SDOH Alcohol Std Drinks 1 [facility] Start: 03-20-2020 History SDOH Social Connections Phone 98 [facility] Start: 03-20-2020 End: 03-25-2023 History SDOH Physical Activity DPW 2 [facility] Start: 03-20-2020 End: 03-25-2023 History SDOH Physical Activity MPS 4 [facility] Start: 03-20-2020 End: 03-25-2023 History SDOH Financial 5 [facility] Start: 03-20-2020 Education 18 [facility] Start: 12-21-2021 End: 12-31-2021 Exposure to SARS-CoV-2 (event) Unable to assess [facility] Work Phone: Start: 03-16-2022 End: 05-21-2022 Exposure to SARS-CoV-2 (event) Not sure [facility] Start: 05-21-2022 Tobacco smoking status NHIS Occasional tobacco smoker [facility] Start: 05-21-2022 Tobacco Comment Smokes 1 cigar 1-2 times monthly. [facility] Start: 03-25-2023 End: 03-27-2024 History of Social function [facility] Start: 03-25-2023 End: 03-27-2024 Social connection and isolation panel [facility] Frequency of Communication with Friends and Family Not on file [facility] Are you now , , , , never or living with a partner? [facility] How often to you hav e a drink containing alcohol? 2-4 times a month [facility] How many standard dr inks containing alcohol do you have on a typical day? 1 or 2 [facility] How often do you hav e 6 or more drinks on 1 occasion? Never [facility] Do you feel stress - tense, restless, nervous, or anxious, or unable to sleep at night because your mind is troubled all the time - these days [OSQ] Not at all [facility] (I/We) worried christiane er (my/our) food would run out before (I/we) got money to buy more. Never true [facility] At any time in the p ast 12 months, were you homeless or living in retirement [including now]? No [facility] Start: 09-20-2020 Gender identity Identifies as male gender (finding) [facility] Start: 09-20-2020 Sexual orientation Heterosexual (finding) [facility] Do you belong to any clubs or organizations such as confucianist groups, unions, fraternal or athletic groups, or school groups? Yes [facility] Functional Status Date Assessment Result Facility 03-01-2015 Are you deaf, or do you have serious difficulty hearing No 03/01/2015 9:24 AM Rima Rojas LPN No [facility] 03-01-2015 Are you blind, or do you have serious difficulty seeing, even when wearing glasses No 03/01/2015 9:24 AM Rima Rojas LPN No [facility] 03-01-2015 Do you have serious difficulty walking or climbing stairs No 03/01/2015 9:24 AM Rima Rojas LPN No [facility] 03-01-2015 Do you have difficul ty dressing or bathing No 03/01/2015 9:24 AM Rima Rojas LPN No [facility] 03-01-2015 Because of a physica l, mental, or emotional condition, do you have difficulty doing errands alone such as visiting a physician's office or shopping No 03/01/2015 9:24 AM Rima Rojas LPN No [facility] Mental Status Date Assessment Result Facility 08-28-2022 Cognitive function Voice/Name [facility] Work Phone: 07-24-2022 Cognitive function Voice/Name [facility] Work Phone: 03-01-2015 Because of a physica l, mental, or emotional condition, do you have serious difficulty concentrating, remembering, or making decisions No 03/01/2015 9:24 AM Rima Rojas LPN No [facility] Clinical Notes 09-01-2013 to 05-10-2025 Note Date & Type Note Facility 05-10-2025 Progress note [facility] 05-10-2025 Progress note Note Date/Time May 10, 2025 10:52am [facility] [address] [place] [address] OFFICE VISIT Date of Service: 05/10/25 MR#: [id number] Acct: [id number] Name: OTILIO TORREZ Rep #: [id number] : 1950 Provider: Dr. Mark Riddle MD Age/Sex: 75/M Location: [facility] Status: Signed HPI HPI History of Present Illness Details: Pleasant 75-year-old man with no previous cardiac history but a history of hypertension who says that more recently when he goes for his daily walk he experiences epigastric and midsternal tightening associated with some diaphoresis. He tends to occur when it is hot and humid it causes fatigue no palpitations and no dizziness. He has been noted to be getting more short of breath he is scheduled to undergo a trip out [place] and he is quite nervous. He says that his can easily walk him on the trips. He has not had any rest discomfort. He did undergo a stress test in March where he exercised to approximately 7 METS and experienced the same symptoms but he thinks that the test was terminated prematurely. His electrocardiogram demonstrates sinus rhythm with a rate of 75 bpm. Intake Vital Signs 08/28/22 11:01 05/10/25 09:56 Height 6 ft 6 ft Weight: 205 lb BMI 27.8 BP 150/85 H Blood Pressure Location Lt brachial Position Sitting Respiration 14 Pulse 73 Pulse Source Monitor Intake Visit Reasons: PVCS ([place]) Pharmacist Manager Required: No Accompanied by: Significant Other Is patient in pain?: No Allergies Penicillins Allergy (Verified 05/10/25 09:59) Unknown Medications ?Medication ?Instructions ?Recorded ?Confirmed ?Type biotin 5,000 mcg disintegrating 5,000 mcg PO DAILY SUP PLEMENT 11/11/18 05/10/25 History tablet ginkgo biloba 500 mg capsule 450 mg PO DAILY SUPPLEMEN T 11/11/18 05/10/25 History omega 3-khh-ihk-fish oil 300 1 ea PO DAILY SUPPLEMENT 11/11/18 05/10/25 History mg-1,000 mg capsule saw palmetto 500 mg capsule 500 mg PO DAILY SUPPLEMENT 11/11/18 05/10/25 History lisinopril 10 mg tablet 10 mg PO DAILY 05/01/2204/28 History lovastatin 20 mg tablet 20 mg PO QPM 05/01/22 History loratadine 10 mg tablet (Claritin) 10 mg PO QDAY 05/0805/10/25 History hydroxychloroquine 200 mg tablet 400 mg PO QDAY 05/10/25 History Have you fallen in the past year?: No PFSH Medical History PVCs (premature ventricular contractions) Chest pain Rheumatoid arthritis Mixed hyperlipidemia Iron deficiency anemia HTN (hypertension) Surgical History History of bilateral knee replacement Family History Father Cancer lung Mother Cancer Colon cancer CVA (cerebral vascular accident) Social History Smoking Status: Former smoker alcohol intake: never substance use type: does not use ROS Const Const: Negative for fatigue, weakness, headache(s), daytime sleepiness or difficulty sleeping ENT ENT: Negative for headache(s), dizziness or Nosebleed/epistaxis Cardio Chest Pain: Yes Character: tightness Onset: exercise Location: epigastric and mid sternal Duration: brief Exacerbation: exercise Relieving: rest Recurrence: exercise Palpitations: No Edema: None Resp Respiratory: Negative for SOB with activity, SOB at rest, SOB orthopnea\SOB lying down or Cough GI GI: Negative nausea, vomiting or heartburn Neuro Neuro: Negative for dizziness, lightheadedness, near syncope, headache(s) or weakness Endo Endo: Negative for fatigue Cardiology Exam Const Appearance: cooperative, healthy appearing, no acute distress, well developed and well groomed Nutritional Appearance: average body habitus and well nourished Orientation: alert, awake and oriented x3 Head Head: normal to inspection, normocephalic and atraumatic Ears: hearing grossly normal bilaterally and external ears normal Nose: external nose normal, nares normal, nasal mucous membranes and turbinates normal, septum normal and no nasal discharge Face and Sinus: face symmetric Mouth: oral mucosae normal, tongue normal, oropharynx normal and moist mucous membranes Teeth and gingiva: dentition normal Throat: posterior oropharynx normal, tonsils normal and uvula midline Eyes General: appearance normal, both eyes and all related structures Eyelids: eyelids normal Conjunctivae: conjunctivae normal Pupils: PERRL, normal by confrontation and accommodation normal EOM: EOM intact bilaterally Neck Neck: normal visual inspection, trachea midline and no JVD JVD: +5 Carotids: normal carotid upstroke and bounding pulses Chest Chest inspection: normal inspection of the chest, symmetric chest movement and normal respiratory effort Auscultation: Bilateral: Clear to Auscultation Cardio Palpation: normal PMI Rate: regular rate Rhythm: regular rhythm Heart sounds: S1 normal, S2 normal and normal, physiologic split S2; Negative rub, gallop or murmur GI GI: normal to inspection, soft, no hepatosplenomegaly and bowel sounds present Neuro General: patient alert, patient awake, patient oriented x3, gait normal, moves all extremities and no focal sensory deficit Skin Skin: no rashes or lesions noted Extremities Pulses: Normal: Right Femoral Pulse, Left Femoral Pulse, Right Dorsalis Pedis Pulse, Left Dorsalis Pedis Pulse, Right Posterior Tibial Pulse, Left Posterior Tibial Pulse, Right Radial Pulse and Left Radial Pulse Lower Extremity Edema: None: Bilateral Musculoskel Musculoskeletal: No joint tenderness Psych Psychological: normal affect Supplemental Info Supplemental Information Echocardiogram 12/01/12 ([facility]) Conclusion The left ventricle is normal in size. There is mild left ventricular hypertrophy. Left ventricular systolic function is normal. EF=60%. Baseline leftventricular diastolic function is pseudonormal. The right ventricle is normal in size. Right ventricular systolic function is normal. Mildly thickened anterior mitral valve leaflet with trivial MR. Trivial TR. Unable to estimate RVSP. Mild aortic sclerosis with no AI. Trivial PI. Moderate aortic root atheroma. There is no evidence of shunt flow through the IAs by color doppler or saline contrast. Stress Test 04/05/25 ([facility]) The patient's resting heart rate was 74 bpm and blood pressure was 132/82mmHg. The patient exercised according to the Delfin protocol. The estimated end-exercise MET level achieved using the FRIEND equation was 6.5, which is within the 25th to 50th percentile for age and sex. The estimated end-exercise MET level achieved using the previous ACSM equation was 7.6. The test was terminated due to end of protocol and the total exercise time was 6 minutes and 30 seconds. Other symptoms during the test were leg fatigue and SOB. The maximimheart rate was 131 bpm, which is 91% of the predicted heart rate for age. This is an adequate heart rate response. Peak blood pressure was 154/80mmHg. The double product achieved was [address]. Aorta Ultrasound 04/12/21 IMPRESSION: No evidence of abdominal aortic aneurysm. Atherosclerotic calcific plaque of the distal aorta. Labs: LDL Cholesterol 105 mg/dL (0-130) HDL Cholesterol 37 mg/dL (40-) L Cholesterol 155 mg/dL (200) Triglycerides 67 mg/dL (-199) Diagnostics: No Data to Display Pulmonary: No Data to Display Past Visits: Cardiology Visit 05/10/25 Assessment and Plan Assessment and Plan (1) Chest pain: Status: Acute Plan: He has chest discomfort which is rather typical for angina. It comes with exertion and goes away with rest and is associated with shortness of breath and he experienced the same when he did the stress test without any imaging agents. At this time based on the above I would recommend that we obtain definitive evaluation with either cardiac catheterization or CT angiogram. I have discussed the above with him and his family and they understood standard and agreed to proceed with the cardiac catheterization. Risk benefits alternatives of an explained to him understands and agrees to proceed. I would also recommend that he continue on the statin at this time. (2) PVCs (premature ventricular contractions): Status: Acute Plan: He does have premature ventricular complexes which appear to be occasional. At this time we would not treat this until we assess his ventricular function. (3) HTN (hypertension): Status: Chronic Plan: He does have a history of hypertension and today his blood pressure is elevated though it did not appear to be elevated on the stress test. I would recommend that we increase the lisinopril to 20 mg a day. This can be readjusted after his procedure. Orders: Orders 12 Lead EKG performed by [facility] Today E78.2 - Mixed hyperlipidemia, I10 - Essential (primary) hypertension, I49.3 - Ventricular premature depolarization, R07.9 - Chest pain, unspecified Basic Metabolic Profile (BMP) Today R07.9 - Chest pain, unspecified CBC W/Diff, Automated Today R07.9 - Chest pain, unspecified Left Heart Cath/COR/LV Percut Today R07.9 - Chest pain, unspecified Chest PA and Lateral Today R07.9 - Chest pain, unspecified Plan Details Follow Up: 3 Months (sd) Coding Level of Care Code Off vis,new,level 4 Diagnoses Chest pain R07.9 PVCs (premature ventricular contractions) I49.3 HTN (hypertension) I10 Coding Level of Care Code Off vis,new,level 4 Diagnoses Chest pain R07.9 PVCs (premature ventricular contractions) I49.3 HTN (hypertension) I10 Clinical Quality Measures Falls Risk Screening/Assistive Devices Have you fallen in the past year?: No 05/10/25 1052 <Electronically signed by Carroll Syed> Date _ Carroll Riddle MD Cosigner Signature: Date (if applicable) CC: Dr. Rd Obrien MD ~ [employer] Work Phone: [phone] Telephone encounter Note* Telephone Encounter - Veronique Porter MA - 04/13/2025 10:01 AM EDT Referral faxed to [facility] with results and office visit [facility]07-17-2025 Miscellaneous Notes* Telephone Encounter - Veronique Porter MA - 04/13/2025 10:01 AM EDT Referral faxed to [facility] with results and office visit * Telephone Encounter - Rd Obrien MD - 04/12/2025 4:02 PM EDT See above. * Telephone Encounter - Rd Obrien MD - 04/12/2025 1:57 PM EDT Set up to see cardiology. Not too far out since symptomatic. [facility] Telephone encounter Note * Telephone Encounter - Rd Obrien MD - 04/12/2025 4:02 PM EDT See above. [facility]07-16-2025 Telephone encounter Note* Telephone Encounter - Rd Obrien MD - 04/12/2025 1:57 PM EDT Set up to see cardiology. Not too far out since symptomatic. [facility]07-08-2025 Telephone encounter Note* Telephone Encounter - Serenity Castillo RN - 04/04/2025 1:46 PM EDT Left message with instructions for stress test tomorrow. [facility]07-08-2025 Miscellaneous Notes* Telephone Encounter - Serenity Castillo RN - 04/04/2025 1:46 PM EDT Left message with instructions for stress test tomorrow. [facility] History of Present illness Narrative* Cherrie Ramirez RT(R) - 04/03/2025 11:10 AM EDT Radiology Service Progress Note PATIENT NAME: Otilio Torrez DATE OF SERVICE: April 03, 2025 TIME: 11:53 AM PATIENT IDENTITY VERIFICATION COMPLETED USING TWO (2) IDENTIFIERS: Name and Date of confirmedby patient verbally. FALL SCREENING: Has the patient had 2 falls in the last year or 1 fall with injury or currently using an Ambulatory Assistive Device (Walker, Cane, Wheelchair, Crutches, etc.)? No PATIENT GENDER DATA: Assigned male at PATIENT RELEVANT IMPLANT DATA REVIEWED: Not Applicable PATIENT PRESENTS WITH AN IMPLANTABLE OR ATTACHED CRUTCH MAKER: No RADIOLOGY DEPARTMENT: General X-ray: Exam(s) Completed: Chest X-Ray PERIPHERAL IV DATA: Not applicable SIGNED BY: RT Gary(R) April 03, 2025 11:53 AM documented in this encounterMartin [facility]07-07-2025 NoteHNO ID: [id number] Author: CHERRIE RAMIREZ RT (R) Service: ? Author Type: Technologist Type: Progress Notes Filed: 04/03/2025 11:56 Note Text: Radiology Service Progress Note PATIENT NAME: Otilio Torrez DATE OF SERVICE: April 03, 2025 TIME: 11:53 AM PATIENT IDENTITY VERIFICATION COMPLETED USING TWO (2) IDENTIFIERS: Name and Date of confirmed by patient verbally. FALL SCREENING: Has the patient had 2 falls in the last year or 1 fall with injury or currently using an Ambulatory Assistive Device (Walker, Cane, Wheelchair, Crutches, etc.)? No PATIENT GENDER DATA: Assigned male at PATIENT RELEVANT IMPLANT DATA REVIEWED: Not Applicable PATIENT PRESENTS WITH AN IMPLANTABLE OR ATTACHED CRUTCH MAKER: No RADIOLOGY DEPARTMENT: General X-ray: Exam(s) Completed: Chest X-Ray PERIPHERAL IV DATA: Not applicable SIGNED BY: RT Gary(R) April 03, 2025 11:53 [facility]07-07-2025 Instructions* Patient Instructions* Rd Obrien MD - 04/03/2025 10:46 AM EDT - Complete the BACH cognitive test sent via SetMeUp--use a quiet room with a computer (not your phone) and allow about 20-25 minutes. - Undergo a treadmill stress test within the next month; scheduling will be arranged at a convenient facility--wear comfortable clothes and continue all your usual medications. - Chest X-ray was performed today; you will be contacted if any abnormalities are found. - Today s labs showed normal results: total cholesterol 144, LDL 100, HDL 32, triglycerides 56; kidney and liver function (CMP) and blood counts (CBC) all within normal limits. - Consider updating your tetanus booster at a pharmacy or health department. - Report any new or recurrent chest discomfort, shortness of breath, or other concerning symptoms immediately. - Plan to return for a routine follow-up in about six months or sooner if needed. documented in this encounterMartin [facility] Hospital07-07-2025 NoteHNO ID: [id number] Author: RD OBRIEN MD Service: ? Author Type: Physician Type: Progress Notes Filed: 04/03/2025 12:22 Note Text: Otilio Torrez is a 75 year old male here for a Medicare wellness visit. Medicare Health Risk Assessment General Health Good Exercise: Minutes/Day 40 min Exercise: Days/Week 2 days Alcohol: Daily Use 2-4 times a month Alcohol: Drinks/Day 1 or 2 Alcohol: 6 or more drinks Never Feel off balance No Concerns: Teeth/Dentures No Concerns: Sexual function No Troubled by feelings None of the above Frequency: Eating healthy diet Several days ADLs requiring help None of the above Safety precautions in home/vehicle Yes. Smoke, vape, chews tobacco No Difficulty hearing Yes Difficulty seeing No Current Providers Specialists: I have reviewed specialist-related care of the patient in the medical record. Current care team: Patient Care Team: Rd Obrien MD as PCP - General (Family Medicine) Macie Martin APRN.CNP as Tobacco Grower (Family Medicine) Rima Bradshaw APRN.CNP as Tobacco Grower (Family Medicine) [facility] Orozco-optometry. Dr. Tinajero-urology. Dr Mccord-rheumatology. Dr Krishna-dermatology Medical/Family history review Reviewed and updated problem list, medical/surgical/family/social history, medications, and allergies. Opioid use review Opioid Medications (last 90 days) No data to display Anxiety/Depression screening (Lower risk for depression) BREANNA-7 Score: 0. Recommendation: no further intervention at this time Cognitive screening Will do bach Cognitive screening reviewed and Patient declined Mini-Cog test. Functional Observation Was the patient's Timed Up AND Go test unsteady or >= 12 seconds? No Advance Care Planning Surrogate decision maker and/or advance care plan documented Measurements BP 122/70 Pulse 77 Wt 91.6 kg (202 lb) SpO2 96% BMI 28.17 kg/m? Vision Screening: Follows with optometry/ophthalmology ADDITIONAL INFO: Annual Wellness Exam: - Describes overall health as pretty good. - Engages in physical activity a few days a week, including stretching, sit-ups, back stretches, curls, and bench presses. - Eats a healthy diet several days a week. - Denies issues with balance, dentition, or sexual function. - Denies feeling down, depressed, or hopeless in the past two weeks. - Denies loss of interest or pleasure in activities. - Denies anxiety. - Denies unexplained weight loss or fatigue. - Denies changes in bowel habits, hematochezia, or melena. - Denies dysuria, nausea, emesis, or dysphagia. - Denies paresthesia, weakness, or tremors. - Denies cough, wheezing, dyspnea, or edema. - Denies heartburn. - Denies numbness, tingling, weakness, or tremors. - Denies use of opioids or pain medications. - Denies smoking, vaping, or chewing tobacco. - Wears seatbelts and follows safety precautions. - Wears glasses; first pair at age 71. - Sees Dr Orozco for eye care. - Sees Dr. Tinajero for urology. - Sees Dr. Mccord for rheumatology once a year. - Sees Dr. Krishna for dermatology; had a skin check one month ago with no issues. - Has a medical living will; Perla is the designated decision-maker. - Up to date on COVID-19 vaccines; received the latest in the fall. - Allergic to penicillin. - Takes Claritin daily for allergies. - History of severe hay fever in high school, resolved after returning from [place], but has gradually returned in recent years. - Has moderate hearing loss; had a hearing test [facility] six months ago. - Tried hearing aids but found them uncomfortable. - [facility] other than [facility]. Chest Discomfort: - Experienced a sensation of fullness in the chest while walking about a month ago. - Describes the sensation as similar to the feeling after doing flies during exercise. - The sensation lasted about a minute and then resolved. - Occurred for about a week and has not been noticed for the past couple of weeks. - Denies associated dyspnea, cough, or congestion. - Denies radiation of discomfort to the jaw or arm, sweating, or upset stomach. - Denies recent illness or trauma. - Continues to walk and engage in activities without issues. ROS: Constitutional: (-) weight loss, (-) fatigue Eyes: (+) excessive tearing Ears/Nose/Mouth/Throat: (+) hearing loss, (-) nasal congestion Neck: (+) neck pain Cardiovascular: (-) chest pain Respiratory: (-) cough, (-) wheezing, (-) dyspnea Gastrointestinal: (-) change in bowel habits, (-) hematochezia, (-) melena, (-) nausea, (-) vomiting, (-) dysphagia Genitourinary: (-) dysuria Musculoskeletal: (+) knee pain Psychiatric: (-) depressed mood PE: GENERAL: NAD, alert and oriented. SKIN: Unremarkable, no rash or skin lesions. HEAD: Normocephalic. EYES: PERRLA, EOMI, conjunctiva clear. EARS: External ears normal, celina (more content not included)...[facility]07-07-2025 History of Present illness Narrative* Rd Obrien MD - 04/03/2025 10:09 AM EDT Images from the original note were not included. Otilio Torrez is a 75 year old male here for a Medicare wellness visit. Medicare Health Risk Assessment General Health Good Exercise: Minutes/Day 40 min Exercise: Days/Week 2 days Alcohol: Daily Use 2-4 times a month Alcohol: Drinks/Day 1 or 2 Alcohol: 6 or more drinks Never Feel off balance No Concerns: Teeth/Dentures No Concerns: Sexual function No Troubled by feelings None of the above Frequency: Eating healthy diet Several days ADLs requiring help None of the above Safety precautions in home/vehicle Yes. Smoke, vape, chews tobacco No Difficulty hearing Yes Difficulty seeing No Current Providers Specialists: I have reviewed specialist-related care of the patient in the medical record. Current care team: Patient Care Team: Rd Obrien MD as PCP - General (Family Medicine) Macie Martin APRN.JOSUE as Tobacco Grower (Family Medicine) Rima Bradshaw APRN.JOSUE as Tobacco Grower (Family Medicine) [facility] Orozco-optometry. Dr. Tinajero-urology. Dr Mccord-rheumatology. Dr Krishna-dermatology Medical/Family history review Reviewed and updated problem list, medical/surgical/family/social history, medications, and allergies. Opioid use review Opioid Medications (last 90 days) No data to display Anxiety/Depression screening (Lower risk for depression) BREANNA-7 Score: 0. Recommendation: no further intervention at this time Cognitive screening Will do bach Cognitive screening reviewed and Patient declined Mini-Cog test. Functional Observation Was the patient's Timed Up & Go test unsteady or >= 12 seconds? No Advance Care Planning Surrogate decision maker and/or advance care plan documented Measurements BP 122/70 Pulse 77 Wt 91.6 kg (202 lb) SpO2 96% BMI 28.17 kg/m Vision Screening: Follows with optometry/ophthalmology ADDITIONAL INFO: Annual Wellness Exam: - Describes overall health as pretty good. - Engages in physical activity a few days a week, including stretching, sit-ups, back stretches, curls, and bench presses. - Eats a healthy diet several days a week. - Denies issues with balance, dentition, or sexual function. - Denies feeling down, depressed, or hopeless in the past two weeks. - Denies loss of interest or pleasure in activities. - Denies anxiety. - Denies unexplained weight loss or fatigue. - Denies changes in bowel habits, hematochezia, or melena. - Denies dysuria, nausea, emesis, or dysphagia. - Denies paresthesia, weakness, or tremors. - Denies cough, wheezing, dyspnea, or edema. - Denies heartburn. - Denies numbness, tingling, weakness, or tremors. - Denies use of opioids or pain medications. - Denies smoking, vaping, or chewing tobacco. - Wears seatbelts and follows safety precautions. - Wears glasses; first pair at age 71. - Sees Dr Orozco for eye care. - Sees Dr. Tinajero for urology. - Sees Dr. Mccord for rheumatology once a year. - Sees Dr. Krishna for dermatology; had a skin check one month ago with no issues. - Has a medical living will; Perla is the designated decision-maker. - Up to date on COVID-19 vaccines; received the latest in the fall. - Allergic to penicillin. - Takes Claritin daily for allergies. - History of severe hay fever in high school, resolved after returning from [place], but has gradually returned in recent years. - Has moderate hearing loss; had a hearing test at the [facility] six months ago. - Tried hearing aids but found them uncomfortable. - No recent visits to the NH other than for hearing tests. Chest Discomfort: - Experienced a sensation of fullness in the chest while walking about a month ago. - Describes the sensation as similar to the feeling after doing flies during exercise. - The sensation lasted about a minute and then resolved. - Occurred for about a week and has not been noticed for the past couple of weeks. - Denies associated dyspnea, cough, or congestion. - Denies radiation of discomfort to the jaw or arm, sweating, or upset stomach. - Denies recent illness or trauma. - Continues to walk and engage in activities without issues. ROS: Constitutional: (-) weight loss, (-) fatigue Eyes: (+) excessive tearing Ears/Nose/Mouth/Throat: (+) hearing loss, (-) nasal congestion Neck: (+) neck pain Cardiovascular: (-) chest pain Respiratory: (-) cough, (-) wheezing, (-) dyspnea Gastrointestinal: (-) change in bowel habits, (-) hematochezia, (-) melena, (-) nausea, (-) vomiting, (-) dysphagia Genitourinary: (-) dysuria Musculoskeletal: (+) knee pain Psychiatric: (-) depressed mood PE: GENERAL: NAD, alert and oriented. SKIN: Unremarkable, no rash or skin lesions. HEAD: Normocephalic. EYES: PERRLA, EOMI, conjunctiva clear. EARS: External ears normal, canals clear, TM's normal. NOSE/SINUSES: Nares normal. Septum midline. OROPHARYNX: Lips, mucosa, and tongue normal, good dentition. No oral lesions noted. NECK: Supple, no lymphadenopathy, normal thyroid, no carotid bruits. LUNGS: Clear to auscultation bilaterally, no wheezes/rhonchi/rales. HEART: Regular rate and rhythm, no murmurs. No ectopy. EXTREMITIES: Normal, no deformities, no skin discoloration, no edema. NEURO: Awake, alert and oriented x3, cranial nerves II-XII grossly intact, normal gait, no involuntary motions. Assessment and Plan: 1. Medicare annual wellness visit, subsequent (Z00.00) - Completed Medicare annual wellness visit. - Reviewed patient's current health status, including exercise routine, diet, and daily activities. - Discussed safety precautions, including seatbelt use. - Reviewed specialists: Dr. Orozco for eye care, Dr. Tinajero for urology, Dr. Mccord for rheumatology, and Dr. Krishna for dermatology. - Discussed health maintenance, including tetanus and COVID-19 vaccinations. - Patient has a medical living will with Perla as the decision-maker. - Follow-up in 6 months. 2. Essential hypertension (I10) - Blood pressure is well-controlled. - Continue current management. 3. 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 - Continue current management. 4. Iron deficiency anemia, unspecified iron deficiency anemia type (D50.9) - Recent CBC normal, no evidence of anemia. 5. Skin cancer (C44.90) - Recent skin check by Dr. Krishna; no current issues. 6. Rheumatoid arthritis of multiple sites with negative rheumatoid factor (HCC) (M06.09) - Managed by Dr. Mccord. - Continue current management. 7. Chest discomfort (R07.89) - Described as superficial, non-radiating, and resolved over the past few weeks. - EKG performed, showing normal sinus rhythm with no abnormalities. - Ordered chest X-ray to be completed today. - Ordered treadmill stress test to be completed within the next month. - Advised patient to report any recurrence of symptoms immediately. 8. Screening for depression (Z13.31) - Depression screening completed; no signs of depression. 9. Encounter for screening examination for other mental health and behavioral disorders (Z13.39) - Discussed cognitive screening options. - Patient to complete Adreima cognitive test via SetMeUp link. Rd Obrien MD Recording using [employer] software for draft documentation of the visit was discussed with the patient/authorized medical sales representative; all questions welcomed and answered. Patient/authorized medical sales representative agreed to proceed documented in this encounterMartin [facility]01-06-2025 History of Present illness Narrative* Rd Obrien MD - 10/03/2024 8:38 AM EST Patient presents with: 6 Month Exam HPI: Patient presents today for office visit for routine 6 month follow up. No problems/concerns today. HLD: Taking Lovastatin 20 mg daily. No myalgias. Follows low fat/low chol diet. Exercises a couple days a week. HTN: Taking Lisinopril 10 mg daily. Does not monitor BP at home. Denies chest pain and shortness of breath. Denies headaches and dizziness. No palpitations and syncope. No edema. Follows with Rheum. Continues on Plaquenil. Still seeing optho on meds. 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 Up to date on labs. MEDICATIONS: Current Outpatient Medications Medication Sig lovastatin (MEVACOR) 20 mg tablet Take 1 tablet by mouth daily at bedtime. lisinopril (ZESTRIL) 10 mg tablet Take 1 tablet by mouth once daily. calcium carbonate/vitamin D3 (CALCIUM 600 + D,3, ORAL) hydrOXYchloroQUINE (PLAQUENIL) 200 mg tablet Take 400 mg by mouth once daily. sildenafil (VIAGRA) 100 [...] cigar 1-2 times monthly. Vaping Use Vaping status: Never Used Substance Use Topics Alcohol use: No Drug use: No Reviewed current medications, allergies, past medical history, surgical history, family history andsocial history today. REVIEW OF SYSTEMS Uses allerest for some chronic drainage. Does help. No gerd issues. No issues with urine or bowels. No falls All other reviewed and negative other than HPI. HEALTH MAINTENANCE: Reviewed health maintenance issues today and recommended the following in detail. BP Controlled (<130/80) due on 09/14/2024 Advance Directive Discussion due on 09/28/2024 VITALS: BP 134/72 Pulse 76 Ht 180.3 cm (5' 11) Wt 91.6 kg (202 lb) SpO2 98% BMI 28.17 kg/m Last 4 Encounter Wt Readings: Date: Wt: 10/03/2024 91.6 kg (202 lb) 03/28/2024 89.8 kg (198 lb) 01/18/2024 91.6 kg (202 lb) 09/14/2023 90.4 kg (199 lb 6.4 oz) PHYSICAL EXAMINATION: General appearance: Well appearing, alert, in no acute distress, well-hydrated, well nourished. Skin: Skin color, texture, turgor normal, no suspicious rashes or lesions Head: Normocephalic, no masses, lesions, tenderness or abnormalities Lungs: Lungs clear to auscultation. No wheezing, [...] diagnosis) - Controlled - Continue current medications - COMPLETE BLOOD COUNT AND DIFFERENTIAL - COMPREHENSIVE METABOLIC PANEL - LIPID PANEL BASIC 2. Essential hypertension - ICD9: 401.9, ICD10: I10 - Controlled - Continue current medications - COMPLETE BLOOD COUNT AND DIFFERENTIAL - COMPREHENSIVE METABOLIC PANEL - LIPID PANEL BASIC 3. Anemia, unspecified type - ICD9: 285.9, ICD10: D64.9 - has been stable. 4. Skin cancer - ICD9: 173.90, ICD10: C44.90 - does not follow with derm. Suggested he do so. 5. Rheumatoid arthritis of multiple sites with negative rheumatoid factor (HCC) - ICD9: 714.0, ICD10: M06.09 - stable. Rd Obrien MD RTO in six months documented in this encounterMartin [facility] Hospital01-06-2025 NoteHNO ID: [id number] Author: RD OBRIEN MD Service: ? Author Type: Physician Type: Progress Notes Filed: 10/03/2024 08:56 Note Text: Patient presents with: 6 Month Exam HPI: Patient presents today for office visit for routine 6 month follow up. No problems/concerns today. HLD: Taking Lovastatin 20 mg daily. No myalgias. Follows low fat/low chol diet. Exercises a couple days a week. HTN: Taking Lisinopril 10 mg daily. Does not monitor BP at home. Denies chest pain and shortness of breath. Denies headaches and dizziness. No palpitations and syncope. No edema. Follows with Rheum. Continues on Plaquenil. Still seeing optho on meds. 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 Up to date on labs. MEDICATIONS: Current Outpatient Medications Medication Sig lovastatin (MEVACOR) 20 mg tablet Take 1 tablet by mouth daily at bedtime. lisinopril (ZESTRIL) 10 mg tablet Take 1 tablet by mouth once daily. calcium carbonate/vitamin D3 (CALCIUM 600 + D,3, ORAL) hydrOXYchloroQUINE (PLAQUENIL) 200 mg tablet Take 400 mg by mouth once daily. sildenafil (VIAGRA) 100 [...] cigar 1-2 times monthly. Vaping Use Vaping status: Never Used Substance Use Topics Alcohol use: No Drug use: No Reviewed current medications, allergies, past medical history, surgical history, family history and social history today. REVIEW OF SYSTEMS Uses allerest for some chronic drainage. Does help. No gerd issues. No issues with urine or bowels. No falls All other reviewed and negative other than HPI. HEALTH MAINTENANCE: Reviewed health maintenance issues today and recommended the following in detail. BP Controlled (<130/80) due on 09/14/2024 Advance Directive Discussion due on 09/28/2024 VITALS: BP 134/72 Pulse 76 Ht 180.3 cm (5' 11) Wt 91.6 kg (202 lb) SpO2 98% BMI 28.17 kg/m? Last 4 Encounter Wt Readings: Date: Wt: 10/03/2024 91.6 kg (202 lb) 03/28/2024 89.8 kg (198 lb) 01/18/2024 91.6 kg (202 lb) 09/14/2023 90.4 kg (199 lb 6.4 oz) PHYSICAL EXAMINATION: General appearance: Well appearing, alert, in no acute distress, well-hydrated, well nourished. Skin: Skin color, texture, turgor normal, no suspicious rashes or lesions Head: Normocephalic, no masses, lesions, tenderness or abnormalities Lungs: Lungs clear to auscultation. No wheezing, [...] diagnosis) - Controlled - Continue current medications - COMPLETE BLOOD COUNT AND DIFFERENTIAL - COMPREHENSIVE METABOLIC PANEL - LIPID PANEL BASIC 2. Essential hypertension - ICD9: 401.9, ICD10: I10 - Controlled - Continue current medications - COMPLETE BLOOD COUNT AND DIFFERENTIAL - COMPREHENSIVE METABOLIC PANEL - LIPID PANEL BASIC 3. Anemia, unspecified type - ICD9: 285.9, ICD10: D64.9 - has been stable. 4. Skin cancer - ICD9: 173.90, ICD10: C44.90 - does not follow with derm. Suggested he do so. 5. Rheumatoid arthritis of multiple sites with negative rheumatoid factor (HCC) - ICD9: 714.0, ICD10: M06.09 - stable. Rd Obrien [facility] Tele[facility] encounter Note* Telephone Encounter - Lilian Marquez LPN - 08/31/2024 11:59 AM EST Prescription Refill Information The patient has been identified by name and date of : Yes Caregiver verified no other encounters exist for this prescription request: Yes Caregiver confirmed with patient/requestor that no other refills are due, in the near future, with this provider at this time: Yes The last office visit in the department: 03/28/24 Does the patient have a future office visit with this provider/department: Yes Requested Prescriptions Pending Prescriptions Disp Refills lovastatin (MEVACOR) 20 mg tablet 90 tablet 3 Sig: Take 1 tablet by mouth daily at bedtime. lisinopril (ZESTRIL) 10 mg tablet 90 tablet 3 Sig: Take 1 tablet by mouth once daily. Lilian Marquez LPN August 31, 2024 12:02 PM [facility]12-[facility] Miscellaneous Notes* Telephone Encounter - Lilian Marquez LPN - 08/31/2024 11:59 AM EST Prescription Refill Information The patient has been identified by name and date of : Yes Caregiver verified no other encounters exist for this prescription request: Yes Caregiver confirmed with patient/requestor that no other refills are due, in the near future, with this provider at this time: Yes The last office visit in the department: 03/28/24 Does the patient have a future office visit with this provider/department: Yes Requested Prescriptions Pending Prescriptions Disp Refills lovastatin (MEVACOR) 20 mg tablet 90 tablet 3 Sig: Take 1 tablet by mouth daily at bedtime. lisinopril (ZESTRIL) 10 mg tablet 90 tablet 3 Sig: Take 1 tablet by mouth once daily. Lilian Marquez LPN August 31, 2024 12:02 PM documented in this encounterMartin [facility] Hospital09-09-2024 Telephone encounter Note * Telephone Encounter - Richar Mott LPN - 06/06/2024 9:42 AM EDT Prescription Refill Information The patient has been identified by name and date of : Yes Caregiver verified no other encounters exist for this prescription request: Yes Caregiver confirmed with patient/requestor that no other refills are due, in the near future, with this provider at this time: Yes The last office visit in the department: 03/28/24 Does the patient have a future office visit with this provider/department: Yes, 10/03/24 Requested Prescriptions Pending Prescriptions Disp Refills lisinopril (ZESTRIL) 10 mg tablet 90 tablet 0 Sig: Take 1 tablet by mouth once daily. Richar Mott LPN June 06, 2024 9:42 AM [facility]09-09-[facility] Miscellaneous Notes* Telephone Encounter - Richar Mott LPN - 06/06/2024 9:42 AM EDT Prescription Refill Information The patient has been identified by name and date of : Yes Caregiver verified no other encounters exist for this prescription request: Yes Caregiver confirmed with patient/requestor that no other refills are due, in the near future, with this provider at this time: Yes The last office visit in the department: 03/28/24 Does the patient have a future office visit with this provider/department: Yes, 10/03/24 Requested Prescriptions Pending Prescriptions Disp Refills lisinopril (ZESTRIL) 10 mg tablet 90 tablet 0 Sig: Take 1 tablet by mouth once daily. Richar Mott LPN June 06, 2024 9:42 AM documented in this encounterMartin Memorial Hospital09-03-2024 Telephone encounter Note * Telephone Encounter - Richar Mott LPN - 05/31/2024 11:00 AM EDT Prescription Refill Information The patient has been identified by name and date of : Yes Caregiver verified no other encounters exist for this prescription request: Yes Caregiver confirmed with patient/requestor that no other refills are due, in the near future, with this provider at this time: Yes The last office visit in the department: 03/28/24 Does the patient have a future office visit with this provider/department: Yes, 10/03/24 Requested Prescriptions Pending Prescriptions Disp Refills lovastatin (MEVACOR) 20 mg tablet 90 tablet 0 Sig: Take 1 tablet by mouth daily at bedtime. Richar Mott LPN May 31, 2024 11:00 AM [facility]09-03-2024 Miscellaneous Notes* Telephone Encounter - Richar Mott LPN - 05/31/2024 11:00 AM EDT Prescription Refill Information The patient has been identified by name and date of : Yes Caregiver verified no other encounters exist for this prescription request: Yes Caregiver confirmed with patient/requestor that no other refills are due, in the near future, with this provider at this time: Yes The last office visit in the department: 03/28/24 Does the patient have a future office visit with this provider/department: Yes, 10/03/24 Requested Prescriptions Pending Prescriptions Disp Refills lovastatin (MEVACOR) 20 mg tablet 90 tablet 0 Sig: Take 1 tablet by mouth daily at bedtime. Richar Mott LPN May 31, 2024 11:00 AM documented in this encounterMartin Memorial Hospital07-01-2024 History of Present illness Narrative* Rd Obrien MD - 03/28/2024 10:20 AM EDT Patient presents with: 6 Month Exam HPI: Patient presents today for office visit for follow up. HTN: Continues on Lisinopril 10 mg daily Compliant with med Does not monitor BP. Has cuff at home. Denies chest pain and shortness of breath. No headaches or dizziness. Denies palpitations and syncope Denies edema HLD: Continues on Lovastatin 20 mg daily Denies myalgias Follows with Rheum. Continues on Plaquenil. Arthritis is stable. No change in h and h. Has had work up including hematology. Had negative gi eval. Has seen urology. Has kept up with his eye Latest Ref Rng 03/26/2024 WBC 3.70 - 11.00 k/uL 4.49 RBC 4.20 - 6.00 m/uL 4.39 Hemoglobin 13.0 - 17.0 g/dL 12.5 (L) Hematocrit 39.0 - 51.0 % 37.8 (L) MCV 80.0 - 100.0 fL 86.1 MCH 26.0 - 34.0 pg 28.5 MCHC 30.5 - 36.0 g/dL 33.1 RDW-CV 11.5 - 15.0 % 13.6 Platelet Count 150 - 400 k/uL 225 MPV 9.0 - 12.7 fL 9.5 Neut% % 34.5 Abs Neut (ANC) 1.45 - 7.50 k/uL 1.55 Lymph% % 47.9 Abs Lymph 1.00 - 4.00 k/uL 2.15 [place]% % 13.8 Abs [place] <0.87 k/uL 0.62 Eosin% % 1.8 Abs Eosin <0.46 k/uL 0.08 Baso% % 0.2 Abs Baso <0.11 k/uL <0.03 Immature Gran % % 1.8 IMMATURE GRANS (ABS) <0.10 k/uL 0.08 NRBC /100 WBC 0.0 Absolute nRBC <0.01 k/uL <0.01 DTYPE Auto Protein, Total 6.3 - 8.0 g/dL 7.6 Albumin 3.9 - 4.9 g/dL 4.3 Calcium 8.5 - 10.2 mg/dL 9.7 Bilirubin, Total 0.2 - 1.3 mg/dL 0.6 Alkaline Phosphatase 38 - 113 U/L 96 AST 14 - 40 U/L 21 ALT 10 - 54 U/L 18 Glucose 74 - 99 mg/dL 87 BUN 9 - 24 mg/dL 12 Creatinine 0.73 - 1.22 mg/dL 1.04 Sodium 136 - 144 mmol/L 135 (L) Potassium 3.7 - 5.1 mmol/L 4.2 Chloride 98 - 107 mmol/L 100 CO2 22 - 30 mmol/L 23 Anion Gap 8 - 15 mmol/L 12 eGFR >=60 mL/min/1.73m 75 Cholesterol, Total <200 mg/dL 152 Triglyceride <150 mg/dL 69 HDL Cholesterol >39 mg/dL 34 (L) Non HDL Cholesterol <130 mg/dL 118 Fasting Time hrs 11 VLDL Cholesterol <30 mg/dL 14 TC:HDL Ratio <5.10 4.47 LDL Cholesterol <100 mg/dL 104 (H) LDL:HDL Ratio <2.54 3.06 (H) Legend: (L) Low (H) High MEDICATIONS: Current Outpatient Medications Medication Sig lisinopril (ZESTRIL) 10 mg tablet Take 1 tablet by mouth once daily. lovastatin (MEVACOR) 20 mg tablet Take 1 tablet by mouth daily at bedtime. calcium carbonate/vitamin D3 (CALCIUM 600 + D,3, ORAL) hydrOXYchloroQUINE (PLAQUENIL) 200 mg tablet Take 400 mg by mouth once daily. sildenafil (VIAGRA) 100 [...] past medical history, surgical history, family history andsocial history today. REVIEW OF SYSTEMS No falls. Memory issues are ok. All other reviewed and negative other than HPI. HEALTH MAINTENANCE: Reviewed health maintenance issues today and recommended the following in detail. Advance Directive Discussion- is his surrogate. Behavioral Health Screening -Behavioral Health Screening PHQ-2 Score: 0 (Lower risk for depression) BREANNA-2 Score: 0 (Lower risk for anxiety) Recommendation: no further intervention at this time Covid-19 Vaccine() due on 11/16/2023 VITALS: BP 128/80 Pulse 72 Ht 180.3 cm (5' 11) Wt 89.8 kg (198 lb) SpO2 99% BMI 27.62 kg/m Last 4 Encounter Wt Readings: Date: Wt: 01/18/2024 91.6 kg (202 lb) 09/14/2023 90.4 kg (199 lb 6.4 oz) 03/26/2023 89.4 kg (197 lb) 10/06/2022 89.8 kg (198 lb) PHYSICAL EXAMINATION: General appearance: Well appearing, alert, in no acute distress, well-hydrated, well nourished. Skin: Skin color, texture, turgor normal, no suspicious rashes or lesions Head: Normocephalic, no masses, lesions, tenderness or abnormalities Lungs: Lungs clear to auscultation. No wheezing, [...] - Controlled - Continue current medications 2. At risk for impaired mental state - ICD9: V49.89, ICD10: Z91.89 - BACH SCREENING TEST 3. Mixed hyperlipidemia - ICD9: 272.2, ICD10: E78.2 - Controlled - Continue current medications 4. Rheumatoid arthritis of multiple sites with negative rheumatoid factor (HCC) - ICD9: 714.0, ICD10: M06.09 - stable. 5. Iron deficiency anemia, unspecified iron deficiency anemia type - ICD9: 280.9, ICD10: D50.9 - no change. Negative work up. 6. Anemia of chronic disease - ICD9: 285.29, ICD10: D63.8 - will follow. 7. Skin cancer - ICD9: 173.90, ICD10: C44.90 - sees derm. Rd Obrien MD documented in this encounterMartin Memorial Hospital06-24-2024 Telephone encounter Note * Telephone Encounter - Collette Rodriguez PA-C - 03/21/2024 8:25 AM EDT 11/10/2023 PSA 5.57H 10/19/2023 lab work done at [facility]: Chemistry profile within normal limits except: NA 134 L, gap 3L, CRP 7.79H CBC: WNL except RBC 4.30L, Hgb 12.3 L-HCT 38.7 L, MCHC 31.8 L, IgE% 4.300H Sed rate 10 MC Get Medical Advice on 03/20/24 COMPLETE BLOOD COUNT AND DIFFERENTIAL COMPREHENSIVE METABOLIC PANEL LIPID PANEL BASIC Essential hypertension (primary encounter diagnosis) Mixed hyperlipidemia Rheumatoid arthritis of multiple sites with negative rheumatoid factor (hcc) Jacky James PA-C [facility]06-24-2024 Miscellaneous Notes* Telephone Encounter - Collette Rodriguez PA-C - 03/21/2024 8:25 AM EDT 11/10/2023 PSA 5.57H 10/19/2023 lab work done at [facility]: Chemistry profile within normal limits except: NA 134 L, gap 3L, CRP 7.79H CBC: WNL except RBC 4.30L, Hgb 12.3 L-HCT 38.7 L, MCHC 31.8 L, IgE% 4.300H Sed rate 10 MC Get Medical Advice on 03/20/24 COMPLETE BLOOD COUNT AND DIFFERENTIAL COMPREHENSIVE METABOLIC PANEL LIPID PANEL BASIC Essential hypertension (primary encounter diagnosis) Mixed hyperlipidemia Rheumatoid arthritis of multiple sites with negative rheumatoid factor (hcc) Jacky James PA-C documented in this encounterMartin Memorial Hospital05-28-2024 Miscellaneous Notes* Telephone Encounter - Patricia Gomes OCCA - 02/23/2024 12:55 PM EDT Patient has been identified by name and date of : Yes Patient phones for refill(s): Requested Prescriptions Pending Prescriptions Disp Refills lisinopril (ZESTRIL) 10 mg tablet 90 tablet 0 Sig: Take 1 tablet by mouth once daily. lovastatin (MEVACOR) 20 mg tablet 90 tablet 0 Sig: Take 1 tablet by mouth daily at bedtime. Date of last office visit in primary care: 01/18/2024 Date of next office visit in primary care: 03/28/2024 Please advise. Thank you. ROSA Herring. documented in this encounterMartin Memorial Hospital05-28-2024 Telephone encounter Note * Telephone Encounter - Patricia Gomes OCCA - 02/23/2024 12:55 PM EDT Patient has been identified by name and date of : Yes Patient phones for refill(s): Requested Prescriptions Pending Prescriptions Disp Refills lisinopril (ZESTRIL) 10 mg tablet 90 tablet 0 Sig: Take 1 tablet by mouth once daily. lovastatin (MEVACOR) 20 mg tablet 90 tablet 0 Sig: Take 1 tablet by mouth daily at bedtime. Date of last office visit in primary care: 01/18/2024 Date of next office visit in primary care: 03/28/2024 Please advise. Thank you. ROSA Herring. [facility]04-22-2024 Instructions* Patient Instructions* Rd Obrien MD - 01/18/2024 1:41 PM EDT Call with bp in one week. documented in this encounterMartin Memorial Hospital04-22-2024 History of Present illness Narrative* Rd Obrien MD - 01/18/2024 1:26 PM EDT Patient presents with: Rash HPI: Patient presents today for office visit for rash Started on right abd on the weekend. Was working with wood over weekend moving logs but kept covered. No itching or pain or burning. No changes in soaps or detergents etc. Has some mild red rash on his legs. Can itch and move around. Has been there for months. Rheum said it likely was related to his arthritis. MEDICATIONS: Current Outpatient Medications Medication Sig lisinopril (ZESTRIL) 10 mg tablet Take 1 tablet by mouth once daily. lovastatin (MEVACOR) 20 mg tablet Take 1 tablet by mouth daily at bedtime. calcium carbonate/vitamin D3 (CALCIUM 600 + D,3, ORAL) hydrOXYchloroQUINE (PLAQUENIL) 200 mg tablet Take 400 mg by mouth once daily. sildenafil (VIAGRA) 100 [...] past medical history, surgical history, family history andsocial history today. REVIEW OF SYSTEMS Forgot to take his bp med this am. All other reviewed and negative other than HPI. HEALTH MAINTENANCE: Reviewed health maintenance issues today and recommended the following in detail. Advance Directive Discussion due on 09/28/2023 Behavioral Health Screening Never done VITALS: BP 162/90 Pulse 76 Wt 91.6 kg (202 lb) SpO2 99% BMI 28.17 kg/m Last 4 Encounter Wt Readings: Date: Wt: 09/14/2023 90.4 kg (199 lb 6.4 oz) 03/26/2023 89.4 kg (197 lb) 10/06/2022 89.8 kg (198 lb) 06/10/2022 90.5 kg (199 lb 8 oz) PHYSICAL EXAMINATION: General appearance: Well appearing, alert, in no acute distress, well-hydrated, well nourished. Skin: scattered pink, small isolated papules on right trunk. No red base or vesicles. No burrows. No central clearing. Non specific lacy area on legs ASSESSMENT/PLAN: 1. Dermatitis - ICD9: 692.9, ICD10: L30.9 - discussed skin care of rash - follow up if symptoms persist or worsen. - MOMETASONE 0.1 % TOPICAL CREAM Rd Obrien MD Call with bp in one week documented in this encounterMartin Memorial Hospital09-14-2023 History of Present illness Narrative* Maia Ocasio - 06/11/2023 8:43 AM EDT POPULATION HEALTH NAVIGATION OUTREACH Action/FYI 06/11/23 Discuss/due [employer] care gaps: ~PCP follow up (around 09/25/23) ~Flu vaccine Outcome: ~Spoke with patient who stated he needed to consult with his who had their family calendar andwould be home on Thursday. Patient took my [...] Vaccine(1) due on 05/29/2023 Navigation Signature: Maia Teague Population Health Navigator June 11, 2023 8:43 AM documented in this encounterMartin Memorial Hospital07-14-2023 History of Present illness Narrative* Maria Victoria Brower MA - 04/10/2023 9:27 AM EDT POPULATION HEALTH NAVIGATION OUTREACH Action/ [employer] Care Gaps 7.5.23 Discuss/Due for: Advance Directives, Colorectal Cancer Screening, Follow Up with Rd Obrien MD Return in about 6 months (around [...] due on 10/19/2022 Navigation Signature: Maria Victoria Brower MA April 10, 2023 9:27 AM documented in this encounterMartin Memorial Hospital06-29-2023 History of Present illness Narrative* Rd Obrien MD - 03/26/2023 1:10 PM EDT Patient presents with: Physical HPI: Patient presents today for office visit for check up. Sees rheumatology and doing well. Reviewed recent labs that was stable except for elevated crp. HYPERTENSION:no chest pain No shortness of breath. No edema. No dizziness. No palpitations. HLD:no issues with the lovastatin. Got bronchitis around [place]. Developed an intermittent cough. Occasionally productive. Is on anace. Happens rarely. Advised if recurs, will need [...] past medical history, surgical history, family history andsocial history today. REVIEW OF SYSTEMS GI: No [...] D64.9 - doing well. Has seen rheum. Rd Obrien MD documented in this encounterMartin Memorial Hospital06-23-2023 Miscellaneous Notes* Telephone Encounter - Chante Benavides LPN - 03/20/2023 7:36 PM EDT Phone call placed patient advised (see prior provider encounter) Patient verbalized understanding, agreed with plan of care, will discuss further on scheduled visit03/26/2023. Chante Benavides LPN * Telephone Encounter - Collette Rodriguez PA-C - 03/20/2023 5:05 PM EDT CBC shows stable anemia from last check Chemistries look okay. CRP 10.6 is high but markedly reduced from last check 56.2 10/17/22, consistent with RA Jacky James PA-C * Telephone Encounter - Natalia Graves - 03/20/2023 8:10 AM EDT LIPID PANEL (EXTERNAL) (Order #[id number]) on 03/20/23 CMP (EXTERNAL) (Order #[id number]) on 03/20/23 View External Lab - Chemistry [ID [id number]] documented in this encounterMartin Memorial Hospital06-01-2023 Miscellaneous Notes* Telephone Encounter - Lilian Marquez LPN - 02/26/2023 10:04 AM EDT Patient has been identified by name and [...] patient. Lilian Marquez LPN documented in this encounterMartin Memorial Hospital01-24-2023 Miscellaneous Notes* Telephone Encounter - Shikha Christianson Ma - 10/21/2022 2:48 PM EST Patient was notified Shikha Christianson Ma * Telephone Encounter - Rd Obrien MD - 10/21/2022 12:36 PM EST I am not sure any of the other meds are any easier and I think he needs to be on something. Also respiratory infections have been rampant this winter and they alone can drop the blood counts as well.If they want to put him back on it but follow labs closely, I think it is ok. * Telephone Encounter - Lashanda Moreira RN - 10/21/2022 11:43 AM EST Pt called and is notified of providers message and instructions. Pt voices understanding. Pt stateshe was in [facility] in August for a sinus infection and they put him on antibiotics. That hadn't clearedup and he was in to see Doe [...] Please call and advise. Lashanda Moreira RN * Telephone Encounter - Rd Obrien MD - 10/21/2022 8:46 AM EST Tell him thank you for the update. I saw the repeat he just had where the white count looks like itis rebounding, still anemic. They should continue to follow it. Let me know if we he continues to have any issues * Telephone Encounter - Lilian Marquez LPN - 10/20/2022 6:32 PM EST Repeat labs from [facility] ordered by Shlomo Mccord scanned in today. * Telephone Encounter - Rd Obrien MD - 10/20/2022 5:11 PM EST Ok, if he is able, let me know how the repeat labs are. Hope things improve * Telephone Encounter - Lilian Marquez LPN - 10/20/2022 11:35 AM EST Labs on desk. * Telephone Encounter - Mar Haque LPN - 10/20/2022 10:09 AM EST Pt calls to update pcp on what has been going on with his health. Pt reports since he started Simponi Aria infusion through Dr. Tejeda his livestock yard attendant, he has hadURI issues which can be a side effect of med. Pt reports [facility] then it was determined it was bronchitis. Pt had Mohs surgery and was placed on atb for that. Pt reports his wbc and rbc are low which can be from methotrexate which pt usually get once a week.Pt reports he has not done methotrexate injection since 10/05/22 and is having labs redrawn to see ifwbc and rbc has come up. WBC was 2.6 on 10/08/22. Labs done through Dr. Mccord. Pt reports he is going to drop of those lab results to pcp office. Pt reports he will be having Simponi infusion on at [facility]. Pt reports he may be getting labs done there beforehand. Pt wanted pcp to be aware of what has been going on with him. Mar Haque LPN documented in this encounterMartin Memorial Hospital01-13-2023 Miscellaneous Notes* Telephone Encounter - Veronique Porter Ma - 10/10/2022 10:07 AM EST Spoke with patient, he called [facility] back and was able to a refund. Veronique Porter Ma * Telephone Encounter - Collette Rodriguez PA-C - 10/09/2022 4:32 PM EST I apologize for sending to the unspecified incorrect pharmacy. It was discontinued the same day which would have been sent to [facility]. Did he call to see if he could return the unopened script from [facility]? Does he want me to pay him the difference? In the future please have him make sure pharmacy is specified when making requests which helps. Collette Rodriguez PA-C * Telephone Encounter - Bethany Figueroa LPN - 10/09/2022 11:54 AM EST Rx for benzonatate was mistakenly sent to [facility] instead of local pharmacy on 10/06/22. Pt states [facility] had already processed RX & sent it out when Rx was canceled & sent to local pharm. Pt states [facility] changed him $42 & [facility] charged $18. Pt asking if anything can be done for him since he was charged for Rx going to incorrect pharmacy? Please advise. Bethany Figueroa LPN documented in this encounterMartin Memorial Hospital01-09-2023 Miscellaneous Notes* Addendum Note - Collette Rodriguez PA-C - 10/06/2022 5:48 PM ESTAddended by: Collette RODRIGUEZ on: 10/06/2022 05:48 PM Modules accepted: Orders documented in this encounterMartin Memorial Hospital01-09-2023 Miscellaneous Notes* Telephone Encounter - Jossy Howard RN - 10/06/2022 2:29 PM EST Patient calls to request prescription for benzonatate from appointment this morning 10/06 be sent to [facility]. Pended. Jossy Howard RN documented in this encounterMartin Memorial Hospital01-09-2023 Instructions* Patient Instructions* Collette Rodriguez PA-C - 10/06/2022 11:18 AM EST Continue current antibiotic. Acute Bronchitis What is acute bronchitis? Acute bronchitis is an infection of the bronchial (say: fctqk-ywh-hfp ) tree. The bronchial tree ismade up of the tubes that carry air into your lungs. When these tubes get infected, they swell and mucus (thick fluid) forms inside them. This makes it hard for you to breathe. You may cough up mucusand wheeze (make a whistling sound when you [...] You can also get it if you toucha hand that is coated with the viruses. [...] and clear out mucus. They are usually givenwith an inhaler. An inhaler sprays the medicine [...] subject, talk to your family doctor. Copyright [id number] [employer] Permission is granted [...] break in your mouth. documented in this encounterMartin Memorial Hospital01-09-2023 History of Present illness Narrative* Collette Rodriguez PA-C - 10/06/2022 11:03 AM EST 72 year old male with c/o cough, post-nasal drip, sinus pressure/ headache which started about 6 weeks without other sx doxycline. Went to [facility]: put on doxyclycline x [...] TABLET Collette Rodriguez PA-C documented in this encounterMartin Memorial Hospital11-14-2022 Miscellaneous Notes* Telephone Encounter - Meredith Gutierrezdanna Benavides LPN - 08/11/2022 2:28 PM EST Pt called for refills to be sent to mail service and short term to local pharmacy. Pt will be out of town starting next week and will not get the mail service before he leaves. Also he will call backto schedule his 6 month follow up apt. [...] you. Meredith Benavides LPN documented in this encounterMartin Memorial Hospital09-12-2022 Miscellaneous Notes* Telephone Encounter - Melissa Cox LPN - 06/09/2022 11:44 AM EDT faxed. Melissa Cox LPN * Telephone Encounter - Richar Carter - 06/09/2022 11:21 AM EDT Please fax lab results from 05/21/2022 to [phone] to at [facility] Rheumatology. Thank you. documented in this encounterMartin Memorial Hospital08-29-2022 History of Present illness Narrative* Kathleen Prieto, [facility] - 05/26/2022 7:00 AM EDT Radiology Service Progress Note PATIENT NAME: Otilio Torrez DATE OF SERVICE: May 26, 2022 TIME: 7:22 AM PATIENT IDENTITY VERIFICATION COMPLETED USING TWO (2) IDENTIFIERS: Name and Date of confirmedby patient verbally. FALL SCREENING: Has the patient [...] 26, 2022 7:22 AM documented in this encounterMartin Memorial Hospital08-25-2022 Miscellaneous Notes* Telephone Encounter - Adrienne Rai LPN - 05/22/2022 12:05 PM EDT [facility]. There are corrected results for yesterday's CBC. Cindy stated that Dr. Robin acknowledged these results last night. Adrienne Rai LPN documented in this encounterMartin Memorial Hospital08-24-2022 History of Present illness Narrative* Toni Robin, - 05/21/2022 2:15 PM EDT Patient referred by Dr. Obrien for anemia. The impression and plan [facility] or faxed under separate cover [...] fraction normal at 3.6 g/dL. AST, ALT andalkaline phosphatase were normal. Total bilirubin 0.5. Calcium [...] iron was 100. Ferritin 377 and serum folatewas 11 ng/mL. Vitamin B12 and measured in February 2022 was 502 pg/mL. Stool was negative for occult blood on 03/28/2022. Diagnosed 2 years ago with RA when developed hand and foot swelling. Was then seen by a livestock yard attendant who formally made diagnosis. Still sees PLC TECHNICIAN at that specialist's office. Initially treated with [...] temperature source Temporal, height 180.3 cm (5' 11), weight 90 kg (198 lb 8 oz). [...] No jaundice or rash. No petechiae. NEUROLOGIC: casing fluid tender II-XII are grossly intact. No focal motor weakness. DTRs are symmetric and normal. MUSCULOSKELETAL: Mild swelling of MCPs, DIPs and PIPs LABS: Reviewed in [facility] records. ASSESSMENT/PLAN: (D64.9) Anemia, unspecified type [...] him to establish care with rheumatology at [facility]. -Follow-up office visit in a couple weeks to review above. I spent a total of 60 minutes on the date of the service which included preparing to see the patient, [id number] patient care, completing clinical documentation, obtaining and/or reviewing separately obtained history, performing a medically appropriate examination, counseling and educating the pat ient/family/caregiver, ordering medications, tests, or procedures, and communicating results to thepatient/family/caregiver. Toni Robin DO documented in this encounterMartin Memorial Hospital08-02-2022 Miscellaneous Notes* Telephone Encounter - Toni Robin DO - 04/29/2022 4:23 PM EDT Noted. Thank you. Will see him first then order lab work. Toni Robin DO * Telephone Encounter - Delisa Tobias - 04/29/2022 2:[address] Robin, Patient is agreeable to do labs here at [facility] (has Medicare and is not an insurance drivenreason to do [facility] labs). Delisa Tobias * Telephone Encounter - Collette Salcedo RN - 04/29/2022 1:44 PM EDT Patient returning call. See 04-28-22 telephone encounter. Patient agreeable to see Dr. Robin and reports they had lab work done at [facility] out of preference, but they have Medicare and can get labs done [facility] also. Please phone patient to schedule appt. documented in this encounterMartin Memorial Hospital08-01-2022 Miscellaneous Notes* Telephone Encounter - Tiff Saunders MA - 04/28/2022 5:19 PM EDT Patient notified of results. Will call back with groundwater consultant preference. Tiff Saunders MA * Telephone Encounter - Rd Obrien MD - 04/28/2022 5:10 PM EDT He is mildly anemic and white count is down. Can have him see hematology if he is willing. Check which provider they prefer(often use [facility]) documented in this encounterMartin Memorial Hospital07-25-2022 Miscellaneous Notes* Telephone Encounter - Lilian Marquez LPN - 04/21/2022 8:32 AM EDT Note copied into patients chart and sent to provider. documented in this encounterMartin Memorial Hospital07-18-2022 Miscellaneous Notes* Telephone Encounter - Tiff Saunders MA - 04/14/2022 10:05 AM EDT Referral with OV notes & Insurance faxed to Dr. Gallegos's office. Patient active MyChart. Patient notified via [employer] message. Tiff Saunders MA * Telephone Encounter - Rd Obrien MD - 04/14/2022 8:51 AM EDT placed * Telephone Encounter - Lilian Augustwilly GUZMAN - 04/14/2022 8:43 AM EDT See Mychart message. This is regarding GI [...] mild low white count. Hb down slightly. * Telephone Encounter - Tiff Saunders MA - 04/11/2022 4:28 PM EDT x2 attempt to reach . Unable to reach patient's . Left detailed message on identified VM toreturn call to office. Please read below and advise. Tiff Saunders MA * Telephone Encounter - Rima Issa LPN - 04/10/2022 4:15 PM EDT Left message on Perla's voicemail to return call. * Telephone Encounter - Rd Obrien MD - 04/10/2022 3:38 PM EDT What is he seeing him for? I can have him see him due to the anemia but see what is going on. * Telephone Encounter - Telma Mckenzie Ma - 04/10/2022 2:15 PM EDT See message below. I've went ahead and pended consult. Please complete. Telma Mckenzie Ma * Telephone Encounter - Karen Benavides Pss - 04/10/2022 1:57 PM EDT Referral to Dr Gallegos in Gastro at [facility]. Any questions please call Perla at [phone]. Karen Benavides Pss documented in this encounterMartin [facility] History of Present illness Narrative* Rd Obrien MD - 03/26/2022 3:40 PM EDT Patient presents with: Physical: has noticed some fullness in epigastric area when eating using digestive enzymes and thatis helping Rash: bottom of left foot HPI: Patient presents today for office visit for follow up. Rheum. Awaiting to see new Nutritionists in April/ Patient overall doing well and [...] past medical history, surgical history, family history andsocial history today. REVIEW OF SYSTEMS : No history of dysuria, frequency or incontinence All other reviewed and negative other than HPI. HEALTH MAINTENANCE: Reviewed health maintenance issues today and recommended the following in detail. DTAP,TDAP,TD(1 - Tdap) Never done ADVANCE DIRECTIVE DISCUSSION. Patient spouse. Perla Torrez COVID-19 VACCINE(4 - Booster for Moderna series) [...] worsen. - MOMETASONE 0.1 % TOPICAL CREAM Rd Obrien RTO in six months and prn. documented in this encounterMartin [facility] Hospital06-20-2022 Miscellaneous Notes* Telephone Encounter - Richar Mott LPN - 03/17/2022 1:34 PM EDT Orders sent electronically to [facility]. TC to pt , left detailed message. Richar Mott LPN * Telephone Encounter - Rd Obrien MD - 03/17/2022 12:55 PM EDT Try these * Telephone Encounter - Bethany Figueroa LPN - 03/17/2022 9:08 AM EDT Pt's Perla calling, lab orders were faxed to [facility] & Perla states they were coded as well visit orders. Perla is asking if those can be coded as per pt's diagnoses? Please call if/when coding is changed. Bethany Figueroa LPN documented in this encounterMartin [facility] Hospital06-15-2022 Miscellaneous Notes* Telephone Encounter - Ashley Riley Ma - 03/12/2022 3:12 PM EDT Pt notified that fasting labs were ordered and faxed to [facility]. She voiced understanding. Ashley Riley Ma * Telephone Encounter - Tami Longoria LPN - 03/12/2022 12:55 PM EDT Patient has an appt on 03/26. Asking if lab work should be done prior. If so would like orders faxedto [facility] lab. Please advise. documented in this encounterMartin [facility] Hospital04-19-2022 Miscellaneous Notes* Telephone Encounter - Collette Rodriguez PA-C - 01/14/2022 5:51 PM EDT Labs completed in September [facility]. The following approved medication requests have been transmitted electronically. Signed Prescriptions Disp Refills lovastatin (MEVACOR) 20 mg tablet 90 tablet 1 Sig: Take 1 tablet by mouth daily at bedtime. SHERYL: No Authorizing Provider: Colltete RODRIGUEZ lisinopril (ZESTRIL, PRINIVIL) 10 mg tablet 90 tablet 1 Sig: Take 1 tablet by mouth once daily. SHERYL: No Authorizing Provider: Collette RODRIGUEZ PA-C * Telephone Encounter - Mar Haque LPN - 01/14/2022 11:46 AM EDT Last OV: 03/25/21 - Next scheduled appt: [...] patient. Mar Haque LPN documented in this encounterMartin [facility] Hospital12-05-2013 History of Past illness Narrative* Problem Noted Date Resolved Date Folliculitis 09/01/2013 05/05/2018 documented as of this encounter (statuses as of 01/15/2022) [facility] Narrative* Problem Noted Date Resolved Date Folliculitis 09/01/2013 05/05/2018 documented as of this encounter (statuses as of 03/12/2022) [facility] of [facility] Narrative* Problem Noted Date Resolved Date Folliculitis 09/01/2013 05/05/2018 documented as of this encounter (statuses as of 03/17/2022) [place] [address]-05-2013 History of Past illness Narrative* Problem Noted Date Resolved Date Folliculitis 09/01/2013 05/05/2018 documented as of this encounter (statuses as of 03/26/2022) [place] [address]2013 History of Past illness Narrative* Problem Noted Date Resolved Date Folliculitis 09/01/2013 05/05/2018 documented as of this encounter (statuses as of 04/14/2022) [address]05[address] History of Past illness Narrative* Problem Noted Date Resolved Date Folliculitis 09/01/2013 05/05/2018 documented as of this encounter (statuses as of 04/21/2022) [place] [address]2013 History of Past illness Narrative* Problem Noted Date Resolved Date Folliculitis 09/01/2013 05/05/2018 documented as of this encounter (statuses as of 04/28/2022) [place] [address]2013 History of Past illness Narrative* Problem Noted Date Resolved Date Folliculitis 09/01/2013 05/05/2018 documented as of this encounter (statuses as of 04/29/2022) [place] [address]2013 History of Past illness Narrative* Problem Noted Date Resolved Date Folliculitis 09/01/2013 05/05/2018 documented as of this encounter (statuses as of 05/21/2022) [place] [address]2013 History of Past illness Narrative* Problem Noted Date Resolved Date Folliculitis 09/01/2013 05/05/2018 documented as of this encounter (statuses as of 05/22/2022) [place] [address]2013 History of Past illness Narrative* Problem Noted Date Resolved Date Folliculitis 09/01/2013 05/05/2018 documented as of this encounter (statuses as of 05/27/2022) [place] [address]2013 History of Past illness Narrative* Problem Noted Date Resolved Date Folliculitis 09/01/2013 05/05/2018 documented as of this encounter (statuses as of 06/09/2022) [place] [address]2013 History of Past illness Narrative* Problem Noted Date Resolved Date Folliculitis 09/01/2013 05/05/2018 documented as of this encounter (statuses as of 08/12/2022) [place] [address]2013 History of Past illness Narrative* Problem Noted Date Resolved Date Folliculitis 09/01/2013 05/05/2018 documented as of this encounter (statuses as of 10/06/2022) [address] History of Past illness Narrative* Problem Noted Date Resolved Date Folliculitis 09/01/2013 05/05/2018 documented as of this encounter (statuses as of 10/07/2022) [place] [address]2013 History of Past illness Narrative* Problem Noted Date Resolved Date Folliculitis 09/01/2013 05/05/2018 documented as of this encounter (statuses as of 10/10/2022) [address] History of Past illness Narrative* Problem Noted Date Resolved Date Folliculitis 09/01/2013 05/05/2018 documented as of this encounter (statuses as of 10/21/2022) [place] [address]2013 History of Past illness Narrative* Problem Noted Date Resolved Date Folliculitis 09/01/2013 05/05/2018 documented as of this encounter (statuses as of 02/26/2023) [place] [address]2013 History of Past illness Narrative* Problem Noted Date Resolved Date Folliculitis 09/01/2013 05/05/2018 documented as of this encounter (statuses as of 03/21/2023) [place] [address]2013 History of Past illness Narrative* Problem Noted Date Resolved Date Folliculitis 09/01/2013 05/05/2018 documented as of this encounter (statuses as of 03/26/2023) [place] [address]2013 History of Past illness Narrative* Problem Noted Date Diagnosed Date Resolved Date Folliculitis 09/01/2013 05/05/2018 documented as of this encounter (statuses as of 04/10/2023) [address] History of Past illness Narrative* Problem Noted Date Diagnosed Date Resolved Date Folliculitis 09/01/2013 05/05/2018 documented as of this encounter (statuses as of 06/11/2023) [facility]Evaluation noteNo assessment information availableWWayne [facility] Work Phone: Evaluation note* Diagnosis Essential hypertension- Primary Unspecified essential hypertension Mixed hyperlipidemia [facility] Diagnosis Well adult exam- Primary Routine general medical examination at a health care facility [facility] Diagnosis Anemia, unspecified type- Primary Mixed hyperlipidemia Essential hypertension Unspecified essential hypertension Rheumatoid arthritis of multiple sites with negative rheumatoid factor (HCC) Dermatitis Contact dermatitis and other eczema, due to unspecified cause documented in this encounter [facility]* Diagnosis Acute constipation- Primary Unspecified constipation documented in this encounter [facility]* Diagnosis Anemia, unspecified type- Primary Rheumatoid arthritis involving multiple sites with positive rheumatoid factor (HCC) documented in this encounter [facility]* Diagnosis Rheumatoid arthritis involving multiple sites with positive rheumatoid factor (HCC) Anemia, unspecified type documented in this encounter [facility]* Diagnosis Onset Date Resolution Status Dysgeusia acute [facility] Work Phone: Evaluation note* Diagnosis Essential hypertension Unspecified essential hypertension Mixed hyperlipidemia documented in this encounter [facility]* Diagnosis Onset Date Resolution Status Dysgeusia acute Diffuse otitis externa, right ear acute Acute sinusitis acute [facility] Work Phone: Evaluation note* Diagnosis Subacute cough- Primary Cough Bronchitis Bronchitis, not specified as acute or chronic [facility]* Diagnosis Subacute cough Cough Bronchitis Bronchitis, not specified as acute or chronic documented [facility] this encounter [facility]* Diagnosis Onset Date Resolution Status Diffuse otitis externa, right ear acute Acute sinusitis acute [facility] Work Phone: Evaluation note* Diagnosis Onset Date Resolution Status Acute sinusitis acute [facility] Work Phone: Evaluation note* Diagnosis Essential hypertension Unspecified essential hypertension Mixed hyperlipidemia documented in this encounter [facility]* Diagnosis Mixed hyperlipidemia- Primary Rheumatoid arthritis involving multiple sites with positive rheumatoid factor (HCC) Essential hypertension Unspecified essential hypertension Intervertebral cervical disc disorder with myelopathy, cervical region Anemia, unspecified type documented in this encounter [facility]* Diagnosis Dermatitis- Primary Contact dermatitis and other eczema, due to unspecified cause documented in this encounter [facility]* Diagnosis Essential hypertension Unspecified essential hypertension Mixed hyperlipidemia documented in this encounter [facility]* Diagnosis Essential hypertension- Primary Unspecified essential hypertension Mixed hyperlipidemia Rheumatoid arthritis of multiple sites with negative rheumatoid factor (HCC) documented in this encounter [facility]* Diagnosis Essential hypertension- Primary Unspecified essential hypertension At risk for impaired mental state Other specified conditions influencing health status Mixed hyperlipidemia Rheumatoid arthritis of multiple sites with negative rheumatoid factor (HCC) Iron deficiency anemia, unspecified iron deficiency anemia type Anemia of chronic disease Anemia of other chronic disease Skin cancer Unspecified malignant neoplasm of skin, site unspecified [facility]* Diagnosis Mixed hyperlipidemia documented in this encounter [facility]* Diagnosis Essential hypertension Unspecified essential hypertension [facility]* Diagnosis Subacute cough Cough Bronchitis Bronchitis, not specified as acute or chronic [facility]* Diagnosis Mixed hyperlipidemia Essential hypertension Unspecified essential hypertension [facility]* Diagnosis Mixed hyperlipidemia- Primary Essential hypertension Unspecified essential hypertension Anemia, unspecified type Skin cancer Unspecified malignant neoplasm of skin, site unspecified Rheumatoid arthritis of multiple sites with negative rheumatoid factor (HCC) documented [facility]* Diagnosis Medicare annual wellness visit, subsequent- Primary Routine general medical examination at a health care facility Essential hypertension Unspecified essential hypertension Intervertebral cervical disc disorder with myelopathy, cervical region Iron deficiency anemia, unspecified iron deficiency anemia type Skin cancer Unspecified malignant neoplasm of skin, site unspecified Rheumatoid arthritis of multiple sites with negative rheumatoid factor (HCC) Chest discomfort Other chest pain Screening for depression Encounter for screening examination for other mental health and behavioral disorders documented in this encounter [facility] note* Diagnosis Chest discomfort Other chest pain [facility]* Diagnosis Chest discomfort Other chest pain [facility]* Diagnosis Chest pain, unspecified type- Primary [facility]* Diagnosis Onset Date Resolution Status Admit Date Chest pain acute May 10, 025 9:55am PVCs (premature ventricular contractions) acute May 10 9:55am HTN (hypertension) chronic May 10, 2025 9:55am [facility] Work Phone: Reason for referral (narrative)* Diagnostic Procedure Only (Routine) - Authorized Specialty Diagnoses / Procedures Referred By Dixon t Referred To Contact [facility]AGING Diagnoses Rheumatoid arthritis involving multiple sites with positive rheumatoid factor (HCC) Anemia, unspecified type Procedures US ABD SPLEEN US ABDOMINAL REAL TIME W/IMAGE LIMITED Toni Robin, DO [address] [place] [address] Us Imaging Referral ID Status Reason Start Date Expiration Date Visits Requested Visits Authorized [id number] Authorized Auto-Generat ed Referral 05/21/2022 09/27/2022 1 1 [facility] for referral (narrative)* Diagnostic Procedure Only (Routine) - Closed Specialty Diagnoses / Procedures Referred By Contac t Referred To Contact US IMAGING Diagnoses Rheumatoid arthritis involving multiple sites with positive rheumatoid factor (HCC) Anemia, unspecified type Procedures US ABD SPLEEN US ABDOMINAL REAL TIME W/IMAGE LIMITED Toni Robin DO [address] [place] [address] Us Imaging Referral ID Status Reason Start Date Expiration Date V isits Requested Visits Authorized [id number] Closed Auto-Generate d Referral 05/21/2022 09/27/2022 1 1 [facility] for referral (narrative)No reason for referral information availableWWayne HealthCare [facility] Work Phone: Reason for visit Narrative* Outpatient Procedure (Routine) - Closed Specialty Diagnoses / Procedures Referred By Contac t Referred To [facility] Diagnoses Chest discomfort Procedures EXERCISE STRESS ECG (WITHOUT IMAGING) CV STRS TST XERS&/OR RX CONT ECG TRCG ONLY Rd Obrien MD [address] [place] [address] Phone: tel: fax: [facility] [address] [place] [address] Referral ID Status Reason Start Date Expiration Date V isits Requested Visits Authorized [id number] Closed Auto-Generate d Referral 04/04/2025 09/27/2025 1 1 [facility] Chief Complaint and Reason for Visit Chief Complaint ARTHRITIS CERVICAL DISC/DR TO FAX 2 DRS Chief Complaint 2 DRS Chief Complaint 2 DRS Anemia STOOL Chief Complaint Anemia STOOL LABS AND XRAY- ARTHRITIS Chief Complaint Anemia STOOL LABS AND XRAY- ARTHRITIS Consult INT LABS Reason for Visit Dysgeusia Chief Complaint LABS AND XRAY- ARTHR ITIS Consult INT LABS SIMPONI [facility]A Reason for Visit Dysgeusia Chief Complaint Consult INT LABS [facility] RIGHT EAR PRESSURE SIMP[facility]I [facility]A SINUS INFECTION Reason for Visit Dysgeusia Diffuse otitis externa, right ear Acute sinusitis Chief Complaint SIMP[facility]I [facility] RIGHT EAR PRESSURE SIMPONI ARIA SINUS INFECTION Reason for Visit Diffuse otitis exter na, right ear Acute sinusitis Chief Complaint SINUS INFECTION E-ORDER Reason for Visit Acute sinusitis Chief Complaint E-ORDER Chief Complaint Encounter for screen ing for malignant neoplasm of Chief Complaint PSA Chief Complaint Admit Date PVCS ([place]) May 10, 2025 9: 55am Reason for Visit Admit Date Chest pain May 10, 2025 9: 55am PVCs (premature ventricular contractions ) May 10, 2025 9:55am HTN (hypertension) May 10, 2025 9: 55am Family History No Family History Records Found Relationship Condition Age at Onset Recorded Date/T hank father Malignant neoplasm Unknown mother Malignant neoplasm Unknown Malignant neoplasm of colon Unknown Relationship Condition Age at Onset Recorded Date/T hank father Malignant neoplasm Unknown mother Malignant neoplasm Unknown Malignant neoplasm of colon Unknown Cerebrovascular accident (CVA) Unknown Advance Directives No Advanced Directives Records Found Advance Directive Response Recorded Date/ Time Living Will Yes May 09 0 12:03pm Power of Frame Nailer Yes May 09 12:03pm Advance Directive Response Recorded Date/ Time Living Will Yes May 09 0 11:03am Power of Frame Nailer Yes May 09 020 11:03am Reason for Referral Specialty Diagnoses / Procedures Referred By Dixon t Referred To Contact Gastroenterology Diagnoses Acute constipation Procedures CONSULT TO GASTROENTEROLOGY OFFICE[facility] [address] Obrien MD [address] [place] [id number] Referral ID Status Reason Start Date Expiration Date Visits Requested Visits Authorized [id number] Pending Review PCP Requested Referral 04/14/2022 04/10/2023 1 1 Summary Purpose Additional Source Comments Goals (unrecognized section and content) Goals may be documented in a n alternate sectionGoals may be documented in an alternate sectionGoals may be documented in an alternate sectionGoals may be documented in an alternate sectionGoals may be documented in an alternate sectionGoals may be documented in an alternate sectionGoals may be documented in an alternate sectionGoals may be documented in an alternate sectionGoals may be documented in an alternate sectionGoals may be documented in an alternate sectionGoals may be documented in an alternate sectionGoals may be documented in an alternate sectionGoals may be documented in an alternate sectionGoals may be documented in an alternate sectionGoals may be documented in an alternate sectionGoals may be documented in an alternate sectionGoals may be documented in an alternate sectionGoals may be documented in an alternate sectionGoals may be documented in an alternate section Source Comments (unrecognize d section and content) In the event this informatio n is protected by the Federal Confidentiality of Alcohol and Drug Abuse Patient Records regulations: The Federal rules restrict any use of the information to criminally investigate or prosecute any alcohol or drug abuse patient.[facility] HospitalIn the event this information is protected by the Federal Confidentiality of Alcohol and Drug Abuse Patient Records regulations: The Federal rules restrict any use of the information to criminally investigate or prosecute any alcohol or drug abuse patient.[facility] HospitalIn the event this information is protected by the Federal Confidentiality of Alcohol and Drug Abuse Patient Records regulations: The Federal rules restrict any use of the information to criminally investigate or prosecute any alcohol or drug abuse patient.[facility] HospitalIn the event this information is protected by the Federal Confidentiality of Alcohol and Drug Abuse Patient Records regulations: The Federal rules restrict any use of the information to criminally investigate or prosecute any alcohol or drug abuse patient.[facility] HospitalIn the event this information is protected by the Federal Confidentiality of Alcohol and Drug Abuse Patient Records regulations: The Federal rules restrict any use of the information to criminally investigate or prosecute any alcohol or drug abuse patient.[facility] HospitalIn the event this information is protected by the Federal Confidentiality of Alcohol and Drug Abuse Patient Records regulations: The Federal rules restrict any use of the information to criminally investigate or prosecute any alcohol or drug abuse patient.[facility] HospitalIn the event this information is protected by the Federal Confidentiality of Alcohol and Drug Abuse Patient Records regulations: The Federal rules restrict any use of the information to criminally investigate or prosecute any alcohol or drug abuse patient.[facility] HospitalIn the event this information is protected by the Federal Confidentiality of Alcohol and Drug Abuse Patient Records regulations: The Federal rules restrict any use of the information to criminally investigate or prosecute any alcohol or drug abuse patient.[facility] HospitalIn the event this information is protected by the Federal Confidentiality of Alcohol and Drug Abuse Patient Records regulations: The Federal rules restrict any use of the information to criminally investigate or prosecute any alcohol or drug abuse patient.[facility] HospitalIn the event this information is protected by the Federal Confidentiality of Alcohol and Drug Abuse Patient Records regulations: The Federal rules restrict any use of the information to criminally investigate or prosecute any alcohol or drug abuse patient.[facility] HospitalIn the event this information is protected by the Federal Confidentiality of Alcohol and Drug Abuse Patient Records regulations: The Federal rules restrict any use of the information to criminally investigate or prosecute any alcohol or drug abuse patient.[facility] HospitalIn the event this information is protected by the Federal Confidentiality of Alcohol and Drug Abuse Patient Records regulations: The Federal rules restrict any use of the information to criminally investigate or prosecute any alcohol or drug abuse patient.[facility] HospitalIn the event this information is protected by the Federal Confidentiality of Alcohol and Drug Abuse Patient Records regulations: The Federal rules restrict any use of the information to criminally investigate or prosecute any alcohol or drug abuse patient.[facility] HospitalIn the event this information is protected by the Federal Confidentiality of Alcohol and Drug Abuse Patient Records regulations: The Federal rules restrict any use of the information to criminally investigate or prosecute any alcohol or drug abuse patient.[facility] HospitalIn the event this information is protected by the Federal Confidentiality of Alcohol and Drug Abuse Patient Records regulations: The Federal rules restrict any use of the information to criminally investigate or prosecute any alcohol or drug abuse patient.[facility] HospitalIn the event this information is protected by the Federal Confidentiality of Alcohol and Drug Abuse Patient Records regulations: The Federal rules restrict any use of the information to criminally investigate or prosecute any alcohol or drug abuse patient.[facility] HospitalIn the event this information is protected by the Federal Confidentiality of Alcohol and Drug Abuse Patient Records regulations: The Federal rules restrict any use of the information to criminally investigate or prosecute any alcohol or drug abuse patient.[facility] HospitalIn the event this information is protected by the Federal Confidentiality of Alcohol and Drug Abuse Patient Records regulations: The Federal rules restrict any use of the information to criminally investigate or prosecute any alcohol or drug abuse patient.[facility] HospitalIn the event this information is protected by the Federal Confidentiality of Alcohol and Drug Abuse Patient Records regulations: The Federal rules restrict any use of the information to criminally investigate or prosecute any alcohol or drug abuse patient.[facility] HospitalIn the event this information is protected by the Federal Confidentiality of Alcohol and Drug Abuse Patient Records regulations: The Federal rules restrict any use of the information to criminally investigate or prosecute any alcohol or drug abuse patient.[facility] HospitalIn the event this information is protected by the Federal Confidentiality of Alcohol and Drug Abuse Patient Records regulations: The Federal rules restrict any use of the information to criminally investigate or prosecute any alcohol or drug abuse patient.[facility] HospitalIn the event this information is protected by the Federal Confidentiality of Alcohol and Drug Abuse Patient Records regulations: The Federal rules restrict any use of the information to criminally investigate or prosecute any alcohol or drug abuse patient.[facility] HospitalIn the event this information is protected by the Federal Confidentiality of Alcohol and Drug Abuse Patient Records regulations: The Federal rules restrict any use of the information to criminally investigate or prosecute any alcohol or drug abuse patient.[facility] HospitalIn the event this information is protected by the Federal Confidentiality of Alcohol and Drug Abuse Patient Records regulations: The Federal rules restrict any use of the information to criminally investigate or prosecute any alcohol or drug abuse patient.[facility] HospitalIn the event this information is protected by the Federal Confidentiality of Alcohol and Drug Abuse Patient Records regulations: The Federal rules restrict any use of the information to criminally investigate or prosecute any alcohol or drug abuse patient.[facility] HospitalIn the event this information is protected by the Federal Confidentiality of Alcohol and Drug Abuse Patient Records regulations: The Federal rules restrict any use of the information to criminally investigate or prosecute any alcohol or drug abuse patient.[facility] HospitalIn the event this information is protected by the Federal Confidentiality of Alcohol and Drug Abuse Patient Records regulations: The Federal rules restrict any use of the information to criminally investigate or prosecute any alcohol or drug abuse patient.[facility] HospitalIn the event this information is protected by the Federal Confidentiality of Alcohol and Drug Abuse Patient Records regulations: The Federal rules restrict any use of the information to criminally investigate or prosecute any alcohol or drug abuse patient.[facility] HospitalIn the event this information is protected by the Federal Confidentiality of Alcohol and Drug Abuse Patient Records regulations: The Federal rules restrict any use of the information to criminally investigate or prosecute any alcohol or drug abuse patient.[facility] HospitalIn the event this information is protected by the Federal Confidentiality of Alcohol and Drug Abuse Patient Records regulations: The Federal rules restrict any use of the information to criminally investigate or prosecute any alcohol or drug abuse patient.[facility] HospitalIn the event this information is protected by the Federal Confidentiality of Alcohol and Drug Abuse Patient Records regulations: The Federal rules restrict any use of the information to criminally investigate or prosecute any alcohol or drug abuse patient.[facility] HospitalIn the event this information is protected by the Federal Confidentiality of Alcohol and Drug Abuse Patient Records regulations: The Federal rules restrict any use of the information to criminally investigate or prosecute any alcohol or drug abuse patient.[facility] HospitalIn the event this information is protected by the Federal Confidentiality of Alcohol and Drug Abuse Patient Records regulations: The Federal rules restrict any use of the information to criminally investigate or prosecute any alcohol or drug abuse patient.[facility] HospitalIn the event this information is protected by the Federal Confidentiality of Alcohol and Drug Abuse Patient Records regulations: The Federal rules restrict any use of the information to criminally investigate or prosecute any alcohol or drug abuse patient.[facility] the event this information is protected by the Federal Confidentiality of Alcohol and Drug Abuse Patient Records regulations: The Federal rules restrict any use of the information to criminally investigate or prosecute any alcohol or drug abuse patient.[facility] HospitalIn the event this information is protected by the Federal Confidentiality of Alcohol and Drug Abuse Patient Records regulations: The Federal rules restrict any use of the information to criminally investigate or prosecute any alcohol or drug abuse patient.[facility] HospitalIn the event this information is protected by the Federal Confidentiality of Alcohol and Drug Abuse Patient Records regulations: The Federal rules restrict any use of the information to criminally investigate or prosecute any alcohol or drug abuse patient.[facility] HospitalIn the event this information is protected by the Federal Confidentiality of Alcohol and Drug Abuse Patient Records regulations: The Federal rules restrict any use of the information to criminally investigate or prosecute any alcohol or drug abuse patient.[facility] HospitalIn the event this information is protected by the Federal Confidentiality of Alcohol and Drug Abuse Patient Records regulations: The Federal rules restrict any use of the information to criminally investigate or prosecute any alcohol or drug abuse patient.[facility] Reason for Visit (unrecogniz ed section and content) Reason Onset Date Comments Refill Request 01/14/2022 Reason Comments Orders Reason Comments Lab Orders Coding Reason Comments Physical has noticed some ful lness in epigastric area when eating using digestive enzymes and that is helping Rash bottom of left foot Reason Comments Referral Request Dr Gallegos in [facility] Reason Comments Results Reason Comments Hematology appt Reason Comments Established Patient Reason Comments Results Updated CBC results. Reason Comments Radiology US Specialty Diagnoses / Procedures Referred By Dixon kerns Referred To Contact US IMAGING Diagnoses Rheumatoid arthritis involving multiple sites with positive rheumatoid factor (HCC) Anemia, unspecified type Procedures US ABD SPLEEN US ABDOMINAL REAL TIME W/IMAGE LIMITED Toni Robin, DO [address] [place] [address] Us Imaging Referral ID Status Reason Start Date Expiration Date V isits Requested Visits Authorized [id number] Closed Auto-Generate d Referral 05/21/2022 09/27/2022 1 [...] Health Navigation Outreach 06/11/2023 [employer] care gaps Reason Comments Rash Reason Onset Date Comments Refill Request 02/21/2024 Reason Comments 6 Month Exam Reason Onset Date Comments Refill Request 05/30/2024 Reason Onset Date Comments Refill Request 06/05/2024 Reason Onset Date Comments Refill Request 08/31/2024 Reason Comments Medicare Wellness Exam Care Teams (unrecognized sec tion and content) Solution Analyst Relationship Specialty Start Date End Date Rd Obrien MD [address] [place] [address] PCP - General Family Practice 02/01/15 Solution Analyst Relationship Specialty Start Date End Date Rd Obrien MD [address] [place] [address] PCP - General Family Practice 02/01/15 Solution Analyst Relationship Specialty Start Date End Date Rd Obrien MD [address] [place] [address] PCP - General Family Practice 02/01/15 Solution Analyst Relationship Specialty Start Date End Date Rd Obrien MD [address] [place] [address] PCP - General Family Practice 02/01/15 Solution Analyst Relationship Specialty Start Date End Date Rd Obrien MD [address] [place] [address] PCP - General Family Practice 02/01/15 Solution Analyst Relationship Specialty Start Date End Date Rd Obrien MD [address] [place] [address] PCP - General Family Practice 02/01/15 Solution Analyst Relationship Specialty Start Date End Date Rd Obrien MD [address] [facility] [place] [address] PCP - General Family Practice 02/01/15 Solution Analyst Relationship Specialty Start Date End Date Rd Obrien MD [address] [facility] [place] [address] PCP - General Family Practice 02/01/15 Solution Analyst Relationship Specialty Start Date End Date Rd Obrien MD [address] [facility] [place] [address] PCP - General Family Practice 02/01/15 Solution Analyst Relationship Specialty Start Date End Date Rd Obrien MD [address] [place] [address] PCP - General Family Practice 02/01/15 Solution Analyst Relationship Specialty Start Date End Date Rd Obrien MD [facility] [place] [address] PCP - General Family Medicine 02/01/15 Solution Analyst Relationship Specialty Start Date End Date Rd Obrien MD [address] [place] [address] PCP - General Family Medicine 02/01/15 Solution Analyst Relationship Specialty Start Date End Date Rd Obrien MD [address] [place] [address] PCP - General Family Medicine 02/01/15 Solution Analyst Relationship Specialty Start Date End Date Rd Obrien MD [address] [place] [address] PCP - General Family Medicine 02/01/15 Team Status: Active Member Role Status Dates Dr. Rd Obrien MD Family Provider Active Dr. Rd Obrien MD Primary Care Provider Active Team Status: Inactive Member Role Status Dates Dr. Rd Obrien MD Primary Care Provider, Referring Provider Active Pawel PRITCHARD, PA Attending Provider Active Team Status: Inactive Member Role Status Dates Dr. Rd Obrien MD Primary Care Provider Active SHLOMO MCCORD MD Attending Provider, Referring Prov ider Active Solution Analyst Relationship Specialty Start Date End Date Rd Obrien MD [address] [place], [place] [address] PCP - General Family Medicine 02/01/15 Team Status: Inactive Member Role Status Dates Dr. Rd Obrien MD Primary Care Provi cortez, Attending Provider, Referring Provider Active Solution Analyst Relationship Specialty Start Date End Date Rd Obrien MD [address] [place], [place] [address] PCP - General Family Medicine 02/01/15 Team Status: Active Member Role Status Dates Dr. Rd Obrien MD Primary Care Provider Active SHLOMO MCCORD MD Attending Provider, Referring Prov ider Active Team Status: Inactive Member Role Status Dates Dr. Rd Obrien MD Primary Care Provider Active Abeba Cespedes Attending Provider, Referring Provide r Active Team Status: Active Member Role Status Dates Dr. Rd Obrien MD Primary Care Provider Active Dr. Clinton Tinajero MD Attending Provider, Referr ing Provider Active Team Status: Inactive Member Role Status Dates Dr. Rd Obrien MD Primary Care Provider Active Dr. Clinton Tinajero MD Attending Provider, Referr ing Provider Active Solution Analyst Relationship Specialty Start Date End Date Rd Obrien MD [address] [place], [place] [address] PCP - General Family Medicine 02/01/15 Solution Analyst Relationship Specialty Start Date End Date Rd Obrien MD [address] [place], [place] [id number] PCP - General Family Medicine 02/01/15 Solution Analyst Relationship Specialty Start Date End Date Rd Obrien MD [address] [place], [place] [address] PCP - General Family Medicine 02/01/15 Solution Analyst Relationship Specialty Start Date End Date Rd Obrien MD [address] [place], [place] [address] PCP - General Family Medicine 02/01/15 Solution Analyst Relationship Specialty Start Date End Date Rd Obrien MD [address] [place], [place] [address] PCP - General Family Medicine 02/01/15 Solution Analyst Relationship Specialty Start Date End Date Rd Obrien MD [address] [place] [address] PCP - General Family Medicine 02/01/15 Solution Analyst Relationship Specialty Start Date End Date Rd Obrien MD [address] [place] [address] PCP - General Family Medicine 02/01/15 Solution Analyst Relationship Specialty Start Date End Date Rd Obrien MD [address] [place] [address] PCP - General Family Medicine 02/01/15 Macie Martin APRN.[employer] WEB[employer] DEVELOPER [address] [place] [address] Tobacco Grower Family Medicine 09/05/24 Rima Bradshaw APRN.[employer] DEVELOPER [address] [place] [address] Tobacco Grower Family Medicine 09/05/24 Solution Analyst Relationship Specialty Start Date End Date Rd Obrien MD [address] [place], [place] [address] PCP - General Family Medicine 02/01/15 Macie Martin EVENT MARKETING REPRESENTATIVE.[employer] WEB[employer] DEVELOPER [address] [place] [address] Tobacco Grower Family Medicine 09/05/24 Rima Bradshaw APRN.[employer] WEB[employer] DEVELOPER [address] [facility] [place] [address] Tobacco Grower Family Medicine 09/05/24 Solution Analyst Relationship Specialty Start Date End Date Rd Obrien MD [address] [facility] [place] [address] PCP - General Family Medicine 02/01/15 Macie Martin EVENT MARKETING REPRESENTATIVE.[employer] WEB[employer] DEVELOPER [address] [facility] [place] [address] Tobacco Grower Family Medicine 09/05/24 Rima Bradshaw EVENT MARKETING REPRESENTATIVE.[employer] WE[employer] DEVELOPER [address] [facility] [place] [address] Tobacco Grower Family Medicine 09/05/24 Solution Analyst Relationship Specialty Start Date End Date Rd Obrien MD [address] [facility] [place] [address] PCP - General Family Medicine 02/01/15 Macie Martin, EVENT MARKETING REPRESENTATIVE.[employer] WE[employer] DEVELOPER [address] [facility] [place] [address] Tobacco Grower Family Medicine 09/05/24 Rima Bradshaw APRN.[employer] DEVELOPER [address] [facility] [place] [address] Tobacco Grower Family Medicine 09/05/24 Solution Analyst Relationship Specialty Start Date End Date Rd Obrien MD [address] [facility] [place] [address] PCP - General Family Medicine 02/01/15 Macie Martin APRN.[employer]AVA WEB[employer] DEVELOPER [address] [facility] [place] [address] Tobacco Grower Family Medicine 09/05/24 Rima Bradshaw APRN.[employer] WEB[employer] DEVELOPER [address] [facility] [place] [address] Tobacco Grower Family Medicine 09/05/24 Solution Analyst Relationship Specialty Start Date End Date Rd Obrien MD [address] [facility] [place] [address] PCP - General Family Medicine 02/01/15 Macie Martin APRN.[employer] WEB[employer] DEVELOPER [address] [facility] [place] [address] Tobacco Grower Family Medicine 09/05/24 Rima Bradshaw APRN.[employer] WEB[employer] DEVELOPER [address] [facility] [place] [address] Tobacco Grower Family [facility] 09/05/24 Solution Analyst Relationship Specialty Start Date End Date Rd Obrien MD [address] [facility] [place] [address] PCP - General Family Medicine 02/01/15 Macie Martin APRN.[employer]AVA WEBSPHERE DEVELOPER [address] [facility] [place] [address] Tobacco Grower Family Medicine 09/05/24 Rima Bradshaw APRN.[employer] WE[employer] DEVELOPER [address] [facility] [place] [address] Tobacco Grower Family Medicine 09/05/24 Team Status: Active Member Role/Relationship Status Dates Dr. Rd Obrien MD Family Provider Active Dr. Rd Obrien MD Primary Care Provider Active Team Status: Inactive Member Role/Relationship Status Dates Dr. Rd Obrien MD Primary Care Provider Active Start: April 24, 2025 End: April 24, 2025 SHLOMO MCCORD MD Attending Provider Active St art: April 24, 2025 End: April 24, 2025 SHLOMO MCCORD MD Referring Provider Active St art: April 24, 2025 End: April 24, 2025 Team Status: Active Member Role/Relationship Status Dates Dr. Rd Obrien MD Primary Care Provider Active Team Status: Inactive Member Role/Relationship Status Dates Dr. Rd Obrien MD Primary Care Provider Active Start: May 10, 2025 End: May 10, [address] Obrien MD Referring Provider Active Start: May 10, 2025 End: May 10, 2025 Dr. Carroll Riddle MD Attending Provider Active S tart: May 10, 2025 End: May 10, 2025 (unrecognized sect ion and content) No Status Records FoundNo Status Records FoundNo Status Records Found INFORMATION SOURCE (unrecogn ized section and content) DATE CREATED AUTHOR 04/06/2025 [facility] DATE CREATED AUTHOR AUTHOR'S ORGANIZ ATION 04/08/2025 [facility] DATE CREATED AUTHOR AUTHOR'S ORGANIZ ATION 05/12/2025 [facility] FOR RECORDS PERTAINING TO PATIENTS WHO ARE [...] BE BASED ON THE PRIMARY CLINICAL RECORDS. [facility] [employer] provides no warranty or guarantee of the accuracy or completeness of information in this document.
--- NOTE | 2025-05-12 10:17 | CASEMGMT ---
ROEL BARAHONA NOTE: Tertiary Insurance review for hospitals In-network with? [employer] MCR PPO?insurance if transfer is recommended is as follows: [facility], [facility], [place], [facility], [facility], [facility], , [place], [facility], [facility], and [place]. Guillermo QUEZADAN ROEL CM
--- NOTE | 2025-05-12 17:28 | CL.D_ITS ---
Patient Name: PUNEET MILLER Study Date: 05/12/2025 Performing: Carroll Riddle MD Ht: 72 inches 182.88 cm : 1950 Wt: 205.3 lbs 92.99 kg Age: 75 Gender: male BSA: 2.15 PROCEDURE(S) PERFORMED DC01-(52423)LHC/COR/LV CLINICAL PROFILE AND INDICATIONS Indications: Worsening Angina Heart Failure: None Stress/Imaging Stress/Image Study Performed: No CAD Presentations: Unstable angina. CONCLUSIONS Severe two-vessel disease with calcification involving the proximal and mid left anterior descending artery with high-grade stenosis including moderate distal left main, moderate circumflex disease, and calcified right coronary artery with moderate to severe distal stenosis. RECOMMENDATIONS Surgery consult for coronary revascularization DESCRIPTION OF PROCEDURE The patient arrived to the procedure lab. The risks and benefits of the procedure as well as a full description of our services here and current unavailability of surgical backup were fully explained to the patient and/or their significant other prior to the catheterization. The Timeout was completed, verifying the correct patient and procedure. The patient's procedural site was prepped and draped in the usual fashion. Local anesthetic was given subcutaneously to right groin region with Lidocaine 2%. Using a modified Seldinger technique, arterial access was obtained via the right radial artery, a 6Fr sheath was inserted. Right Coronary Artery selective angiography was then performed in multiple views using a 5 Fr. 4.0 Kermit catheter. Left Coronary Artery selective angiography was performed in multiple views using a 5 Fr. JL 3.0. Left Ventriculography was performed in SILVA projection using a 5 Fr. Pigtail catheter. LV to AO pullback pressures were then recorded.The arterial sheath was pulled and a TR Band was applied for hemostasis 11 ml of air CORONARY ANGIOGRAPHY DOMINANCE: Right Dominant LEFT HEART ASSESSMENT Left Ventricular Ejection Fraction: by LV Gram 65 % Normal LV wall motion Normal Left Ventricular systolic function LEFT MAIN: Mild calcification, Distal 40% stenosis LEFT ANTERIOR DESCENDING ARTERY: Severe calcification, Along vessel with significant calcification in the proximal and midportion with up to 80% stenosis noted. This also involves a first diagonal vessel. The distal vessel has approximately 30 to 40% stenosis with the vessel reaching up to the apex of the ventricle. CIRCUMFLEX ARTERY: Mild calcification, Ostial 50% stenosis with diffuse 30 to 40% stenosis noted throughout this vessel. RIGHT CORONARY ARTERY: Dominant vessel with at least moderate calcification noted throughout the proximal and midportion. There is an ostial 30% stenosis noted mid 50% stenosis and distal bifurcating 70 to 80% stenosis involving the posterolateral and posterior descending artery vessels. COMPLICATIONS No Complications PROCEDURE MEDICATIONS Fentanyl 50 mcg IV Versed 1 mg IV Versed 1 mg IV Oxygen: 2 L/min via nasal cannula Aspirin (325mg) 1 Tabs PO @ 05/12/2025 08:21:35 Heparin given IA 05/12/2025 08:56:14 Verapamil 2.5mg, Ntg 100mcgs, 3000 units of Heparin given IA 05/12/2025 08:56:14 SUMMARY OF HEMODYNAMIC DATA Time AIR REST ECG 08:21:17 AO 161/90 (122) SA 09:18:14 AO 126/74 (99) 09:32:58 LV 148/12, 26 09:40:31 LV 147/13, 25 09:40:38 LV 158/12, 09:41:16 LV 145/13, 28 09:41:22 LVp 143/13, 09:41:25 AOp 142/66 (91) 09:41:31 Signed By Carroll Riddle MD On 05/12/2025 17:27:30 Carroll Riddle MD
== END 2025-05-12 11:55 | disposition home or self-care (01) ==
PROVIDERS: PCP Family Medicine; Referring Provider Internal Medicine Cardiovascular Disease; Visit Provider Internal Medicine Cardiovascular Disease
DX: I25.110 Atherosclerotic heart disease of native coronary artery with unstable angina pectoris (principal); Z79.899 Other long term (current) drug therapy; I10 Essential (primary) hypertension; E78.2 Mixed hyperlipidemia; Z87.891 Personal history of nicotine dependence; R07.9 Chest pain, unspecified; I49.3 Ventricular premature depolarization
CPT/HCPCS: 36415; 80048; 85025; 93458; 99152; 99153; Q9967; C1769; C1894

== ENCOUNTER → 2025-06-02 | Outpatient (CLI) | payer MEDICARE, SELFPAY ==
--- NOTE | 2025-06-02 08:01 | ECHOCS_ITS ---
Reason For Study Reason For Study: CAD/ASHD Procedure This was a 2D Doppler, Color Flow transthoracic echocardiogram. The study was technically difficult. Contrast injection was performed. Exam performed in department. Left Ventricle Normal LV size. The estimated ejection fraction is 60 %. No evidence for diastolic dysfunction. No regional wall motion abnormalities noted. Right Ventricle Normal RV size. Normal systolic function. Atria The left and right atria are normal. No doppler evidence for ASD. Mitral Valve There is no mitral valve stenosis. Trivial mitral valve insufficiency. Tricuspid Valve There is no tricuspid stenosis. No tricuspid valve insufficiency. Aortic Valve Trisinus/trileaflet aortic valve. Aortic sclerosis, no stenosis. There is no aortic stenosis. No aortic valve insufficiency. Pulmonic Valve There is no pulmonic valvular stenosis. No pulmonic valve insufficiency. Great Vessels Normal sized aortic root. Pericardium/Pleural No pericardial effusion. Medication 22 gauge I.V. with prn adaptor inserted into right arm. Diluted definity 2.5ml given slow IV push to enhance endocardial definition. MMode/2D Measurements & Calculations LVIDd: 4.2 cm IVSd: 0.86 cm LVOT diam: 2.0 cm LVIDs: 3.3 cm LVPWd: 0.77 cm FS: 22.2 % LVOT area: 3.3 cm2 Ao root diam: 3.4 cm LAV(MOD-sp4): 61.6 ml LVAd ap4: 33.1 cm2 LVLd ap4: 8.4 cm EDV(MOD-sp4): 108.3 ml EDV(sp4-el): 111.5 ml LVAs ap4: 22.3 cm2 LVLs ap4: 7.9 cm ESV(MOD-sp4): 52.7 ml ESV(sp4-el): 53.8 ml EF(MOD-sp4): 51.4 % EF(sp4-el): 51.8 % SV(MOD-sp4): 55.6 ml SV(sp4-el): 57.8 ml LA A4 area: 22.2 cm2 SI(MOD-sp4): 26.1 ml/m2 LA dimension(2D): 3.1 cm RA A4 area: 17.9 cm2 Time Measurements MV dec time: 0.22 sec Doppler Measurements & Calculations MV E max francesco: 93.1 cm/sec Lat Peak E' Francesco: 9.7 cm/sec Med Peak E' Francesco: 7.7 cm/sec MV A max francesco: 66.1 cm/sec E/E' lat: 9.6 E/E' med: 12.1 MV E/A: 1.4 MV V2 max: 92.8 cm/sec MV dec slope: 416.7 cm/sec2 Ao V2 max: 125.5 cm/sec MV max P.4 mmHg Ao max P.3 mmHg MV V2 mean: 57.3 cm/sec Ao V2 mean: 85.1 cm/sec MV mean P.5 mmHg Ao mean P.4 mmHg MV V2 VTI: 32.8 cm Ao V2 VTI: 29.4 cm MVA(VTI): 2.4 cm2 AV (velocity ratio): 0.81 GATITO(I,D): 2.7 cm2 GATITO(V,D): 2.5 cm2 LV V1 max: 96.8 cm/sec SV(LVOT): 78.5 ml PA V2 max: 86.8 cm/sec LV V1 max P.7 mmHg PA V2 mean: 66.0 cm/sec LV V1 mean P.3 mmHg LV V1 mean: 71.6 cm/sec LV V1 VTI: 23.8 cm ECHO/Echo Complete W/ Contrast Interpretation Summary The estimated ejection fraction is 60 %. No evidence for diastolic dysfunction. Trivial mitral valve insufficiency. Ordering Physician: Iván Henson Referring Physician: Iván Henson Performed By: Alena Gurrola RCS
--- NOTE | 2025-06-02 08:54 | CT_ITS ---
PROCEDURE: CHEST WITHOUT CONTRAST 06/02/2025 REASON FOR EXAM: CHEST PAIN Pectus excavatum. TECHNIQUE: Chest CT without contrast. Coronal and Sagittal reconstruction series were provided. One or more dose reduction techniques were used (e.g., Automated exposure control, adjustment of the mA and/or kV according to patient size, use of iterative reconstruction technique RADIATION DOSE SUMMARY: CTDlvol: 12.6 mGy DLP: 464 mGycm COMPARISON: None. FINDINGS: Thyroid gland: Negative. Lungs: No pulmonary nodules or masses. Mild emphysematous changes. Pleura: Negative for pleural effusion or pneumothorax. Airways: Imaged bronchi and trachea negative. Mediastinum: Negative for mediastinal mass. Lymph nodes: Mildly prominent precarinal lymph node with fatty hilum measures 12 mm short axis dimension. Negative for axillary, or hilar adenopathy. Heart and Vasculature: Heart normal size. Moderate vascular calcifications of the thoracic aorta. Coronary Artery Calcifications: Severe vascular calcifications of the coronary arteries Upper Abdomen: Negative Hardware: None. Bones: Age-appropriate degenerative changes of the thoracic spine. CT/Chest without Contrast IMPRESSION: Mild emphysematous changes. Negative for acute cardiopulmonary disease. Reading Location: [place] [id number]
== END | disposition home or self-care (01) ==
LOC: CVS 07:52
PROVIDERS: PCP Family Medicine; Referring Provider Thoracic Surgery (Cardiothoracic Vascular Surgery); Visit Provider Thoracic Surgery (Cardiothoracic Vascular Surgery)
DX: I25.118 Atherosclerotic heart disease of native coronary artery with other forms of angina pectoris (principal)
CPT/HCPCS: 71250; 93306; Q9957; A4216; C8929

== ENCOUNTER → 2025-06-07 | Outpatient (CLI) | payer MEDICARE, SELFPAY ==
--- NOTE | 2025-06-07 08:51 | CDU_ITS ---
Reason For Study Reason For Study: Bruit Rt. Velocities/BP Lt. Velocities/BP Prox CCA 70.2/11.6 cm/sec. Prox CCA 156.5/35.8 cm/sec. Mid CCA 87.2/21.2 cm/sec. Mid CCA 101.0/27.9 cm/sec. Dist CCA 86.1/17.9 cm/sec. Dist CCA 93.7/26.1 cm/sec. Prox ICA 108.2/24.8 cm/sec. Prox ICA 108.2/31.4 cm/sec. Mid ICA 92.9/29.2 cm/sec. Mid ICA 114.8/46.8 cm/sec. Dist ICA 60.6/21.2 cm/sec. Dist ICA 101.0/35.3 cm/sec. Rt. ICA/CCA = 1.2. Lt. ICA/CCA = 1.1. Prox ECA 149.9/16.0 cm/sec. Prox ECA 185.2/17.1 cm/sec. Rt. Vert. 45.8/9.0 cm/sec. Lt. Vert. 54.4/18.8 cm/sec. Right Extracranial There is homogeneous, smooth atherosclerotic plaque noted in the right common carotid artery. There is heterogeneous, irregular atherosclerotic plaque noted in the right internal carotid artery. There is heterogeneous, irregular atherosclerotic plaque noted in the right external carotid artery. Antegrade flow is noted in the right vertebral artery. Left Extracranial There is homogeneous, smooth atherosclerotic plaque noted in the left common carotid artery. There is homogeneous, smooth atherosclerotic plaque noted in the left internal carotid artery. There is homogeneous, irregular atherosclerotic plaque noted in the left external carotid artery. Procedure Carotid Duplex 46225. This is a Carotid Duplex examination using B-mode, color flow and specral Doppler. Exam performed in department. VL/Carotid Duplex Ultrasound Interpretation Summary Mild (<50%) stenosis right extracranial internal carotid. Mild (<50%) stenosis left extracranial internal carotid. Patent and antegrade vertebrals bilaterally. Ordering Physician: Iván Henson Referring Physician: Iván Henson Performed By: Guadalupe Mejia, RVT
== END | disposition home or self-care (01) ==
LOC: CVS 08:49
PROVIDERS: PCP Family Medicine; Referring Provider Thoracic Surgery (Cardiothoracic Vascular Surgery); Visit Provider Thoracic Surgery (Cardiothoracic Vascular Surgery)
DX: R09.89 Other specified symptoms and signs involving the circulatory and respiratory systems (principal); I25.118 Atherosclerotic heart disease of native coronary artery with other forms of angina pectoris
CPT/HCPCS: 93880

== ENCOUNTER 2025-06-30 13:56 | Emergency (ER) | payer MEDICARE, SELFPAY ==
[2025-06-30] VITALS (10 sets, daily range): BP systolic 98–138; BP diastolic 39–67; PULSE 82–92; RESP 12–22; TEMP 36.5–36.9; O2SAT 95–100; BMI 29.0
[2025-06-30 14:53] LABS: Hematocrit 21.9 % (40-54); Hemoglobin 7.1 g/dL (13.0-16.5); Mean Corp Hgb Conc 32.4 g/dL (32-36); Mean Corpuscular Volume 88.0 fL (80-94); Mean Platelet Vol. 9.5 fl (6.2-12.0); Platelet Count 305 K/mm3 (150-450); RBC Distribution Width CV 14.4 % (11.6-14.6); RBC Distribution Width SD 46.1 fl (35.1-43.9); Red Blood Count 2.49 M/mm3 (4.6-6.2); White Blood Count 5.5 K/mm3 (4.4-11.0)
[2025-06-30 15:23] LABS: Prothrombin Time (Protime)PT. 13.9 SECONDS (11.7-14.9)
[2025-06-30 15:24] LABS: Partial Thromboplast Time 28.8 Seconds (24.1-36.2)
--- NOTE | 2025-06-30 15:26 | EX.ED.DYSGE1 ---
HPI History of Present Illness Chief Complaint: Abn Labs Informant: patient Narrative Narrative: Patient is 75-year-old male status post CABG 10 days ago performed by Dr. Henson at [facility]. Coming in today for outpatient labs that showed a hemoglobin of 6.7. Per our records his last hemoglobin was 12.1 on 05/10 however states that when he was discharged from [facility] his hemoglobin was around 7 (she states he is likely over 3 days). He denies any bleeding from his GI tract. He is on any blood thinners does take 81 mg aspirin. States he has been weak but overall been doing okay given he just had CABG. Did not receive a blood transfusion during his hospital stay but remotely had a blood transfusion at 20 years ago after bilateral knee replacement. States he just feels wiped out. Denies any acute chest pain or shortness of breath. No other complaints or concerns at this time [facility] Medical History PVCs (premature ventricular contractions) Chest pain Rheumatoid arthritis Mixed hyperlipidemia Iron deficiency anemia HTN (hypertension) Home Medications ?Medication ?Instructions ?Recorded ?Last Taken ?Type loratadine 10 mg tablet (Claritin) 10 mg PO QDAY 05/08/25 Unknown History hydroxychloroquine 200 mg tablet 400 mg PO QDAY 05/10/25 Unknown History acetaminophen 500 mg tablet 1,000 mg PO Q8H fever or pain 06/30/25 Unknown History (Tylenol Extra Strength) aspirin 81 mg tablet 81 mg PO QDAY 06/30/25 Unknown History furosemide 20 mg tablet (Lasix) 40 mg PO QDAY 06/30/25 Unknown History lisinopril 20 mg tablet 5 mg PO QDAY 06/30/25 Unknown History methocarbamol 500 mg tablet 500 mg PO TID 06/30/25 Unknown History metoprolol tartrate 100 mg tablet 100 mg PO BID 06/30/25 Unknown History oxycodone 5 mg capsule 5 mg PO Q6H PRN pain 06/30/25 Unknown History potassium chloride 20 mEq 20 meq PO QDAY 06/30/25 Unknown History tablet,extended release (K-Tab) Allergy/AdvReac Type Severity Reaction Status Date / Time Penicillins Allergy Unknown Verified 06/30/25 13:59 Family History Father Cancer lung Mother Cancer Colon cancer CVA (cerebral vascular accident) Surgical History History of bilateral knee replacement Social History Smoking Status: Former smoker alcohol intake: never substance use type: does not use ROS ROS ED Constitutional Constitutional ED: Reports other Details: Mild lightheadedness ; Denies chills or fever(s) Eyes Eyes: Denies change in vision Cardiovascular Cardiovascular: Reports chest pain and other Details: Postoperative incisional chest pain Respiratory/Chest Respiratory/Chest: Denies cough or dyspnea Gastrointestinal Gastrointestinal: Reports constipation; Denies abdominal pain, melena, nausea or vomiting Musculoskeletal Musculoskeletal: Denies arthralgias or myalgias Neurologic Neurologic: Reports weakness Hematologic/Lymphatic Hematologic/Lymphatic: Denies easy bleeding or easy bruising EXAM Physical Exam Const Vital Signs: 06/30/25 13:57 06/30/25 13:57 06/30/25 15:57 Temperature 97.7 F L Temperature Source Oral Pulse Rate 91 87 Respiratory Rate 16 16 Respiratory Effort Normal Non-Labored Respiratory Pattern Normal Blood Pressure 130/56 H 100/56 L Blood Pressure Mean 80 70 Blood Pressure Source Blood Pressure Position Blood Pressure Location Pulse Ox 100 100 Oxygen Delivery Method Room Air Room Air 06/30/25 17:00 06/30/25 18:59 06/30/25 19:00 Temperature 98 F Temperature Source Oral Pulse Rate 82 83 85 Respiratory Rate 12 18 Respiratory Effort Respiratory Pattern Blood Pressure 98/50 L 125/67 H 125/67 H Blood Pressure Mean 66 86 86 Blood Pressure Source Monitor Blood Pressure Position Supine Blood Pressure Location Right Arm Pulse Ox 100 100 100 Oxygen Delivery Method Room Air Room Air Room Air 06/30/25 19:14 06/30/25 20:14 06/30/25 20:57 Temperature 97.7 F L 98.1 F 98.5 F Temperature Source Oral Oral Oral Pulse Rate 91 92 90 Respiratory Rate 20 H 22 H 19 H Respiratory Effort Respiratory Pattern Blood Pressure 131/64 H 111/58 L 110/60 Blood Pressure Mean 86 75 76 Blood Pressure Source Monitor Monitor Monitor Blood Pressure Position Sitting Sitting Sitting Blood Pressure Location Right Arm Right Arm Pulse Ox 99 100 100 Oxygen Delivery Method Room Air Room Air Room Air 06/30/25 21:00 06/30/25 21:30 Temperature 98.5 F Temperature Source Pulse Rate 91 90 Respiratory Rate 18 19 H Respiratory Effort Respiratory Pattern Blood Pressure 138/39 H 110/60 Blood Pressure Mean 72 76 Blood Pressure Source Blood Pressure Position Blood Pressure Location Pulse Ox 95 100 Oxygen Delivery Method Room Air Positive well nourished and well developed General Appearance ED: well developed, NAD and pallor HEENT Reports moist mucous membranes Eyes PERRL General Eye ED: Yes pale conjunctiva Neck supple and no JVD Chest Wall Chest Narrative: Midline sternotomy incision with Dermabond in place. No associated drainage or surrounding erythema. Appropriate tenderness to palpation postoperatively Resp normal respiratory effort and clear to auscultation bilaterally Cardio regular rate, regular rhythm and no murmurs GI normal to inspection, nondistended, normoactive bowel sounds, non-tender and non-distended GI Narrative: Chaperoned rectal exam performed?some soft hard stool in the rectal vault that is light brown Extremity normal to inspection General Extremety ED: Negative for edema General Extremity: Negative for edema Neuro oriented x3 Sensorium / Orientation: alert Psych mental status grossly normal Skin Skin Narrative: Healing surgical incisions of the sternum as well as the left lower extremity likely from the vein harvesting General Skin Exam: pallor MDM MDM MDM Narrative Medical decision making narrative: Patient and is evaluated for concern of anemia with outpatient hemoglobin of 6.7 earlier today. Labs from earlier today were reviewed and he also had a mild transaminitis. He is 10 days postop from CABG. He is not on any anticoagulation but is on aspirin. Differential includes not limited to postoperative anemia, GI bleeding, acute blood loss anemia and lab error. CBC is repeated which now shows a hemoglobin of 7.1. Coags are normal. Fecal occult is obtained to ensure he does not have signs of occult GI bleeding or has developed like a stress ulcer. This is negative. He had a normal BUN earlier today and I do not think this needs to be repeated. While he does have a mild transaminitis from earlier today on outpatient labs his abdomen is soft and nontender. States his appetites actually been improving. Patient is typed and screened as he is symptomatic however I suspect this is of more stable anemia. I spoke with Dr. Esquivel, cardiology on-call here as I was having no trouble getting a hold of cardiothoracic surgery at [facility]. He was agreeable with given the patient 1 unit of blood and then making sure he gets a dose of Lasix afterwards to keep him euvolemic. Eventually was able to speak with Dr. Beyer, who is on-call. She was agreeable with this plan. I informed her of his mild transaminitis as well. She will add on recheck labs for next week when he follows up. Agrees that he can be discharged home. Patient discharged after unit of blood and dose of Lasix. Given return precautions. Patient and agreeable with this plan of care. Patient ryan hemodynamically stable in the emergency room. Lab Data Attestation: I reviewed the patient's lab results. Labs: Laboratory Results - last 24 hr 06/30/25 06/30/25 14:40 15:30 WBC 5.5 RBC 2.49 L Hgb 7.1 L Hct 21.9 L MCV 88.0 MCH 28.5 MCHC 32.4 RDW Std Deviation 46.1 H RDW Coeff of Kirsty 14.4 Plt Count 305 MPV 9.5 PT 13.9 INR 1.1 APTT 28.8 Blood Type Cancelled AB POSITIVE Antibody Screen Cancelled NEGATIVE Crossmatch See Detail Management Discussion w/another healthcare provider: Manager Material Discharge Plan Triage Chief Complaint: Abn Labs ED Provider: yAe Tomas Dx/Rx/DC Orders Clinical Impression: S/P CABG x 4, Postoperative anemia Instructions: ED Anemia, Type Not Specified (Adult) Prescriptions: No Action loratadine [Claritin] 10 mg tablet 10 mg PO QDAY hydroxychloroquine 200 mg tablet 400 mg PO QDAY methocarbamol 500 mg tablet 500 mg PO TID acetaminophen [Tylenol Extra Strength] 500 mg tablet 1,000 mg PO Q8H oxycodone 5 mg capsule 5 mg PO Q6H PRN (Reason: pain) aspirin 81 mg tablet 81 mg PO QDAY furosemide [Lasix] 20 mg tablet 40 mg PO QDAY Rx Instructions: for two more days only potassium chloride [K-Tab] 20 mEq tablet extended release 20 meq PO QDAY lisinopril 20 mg tablet 5 mg PO QDAY metoprolol tartrate 100 mg tablet 100 mg PO BID Primary Care Provider: Rd Styles Referrals: Iván Henson MD [Non-Staff, Cardiovascular/Thoracic Surg] Activity Restrictions/Additional Instructions: You are given 1 unit of packed red blood cells in the ER today. I did speak with the on-call physician for Dr. Dinero, Dr. Zarate, who is agreeable with this and will order repeat labs to check before your appointment in addition to your postop chest x-ray. If you develop shortness of breath, chest pain or any worsening symptoms please do not hesitate to return to the emergency room. You have no signs of any active bleeding/GI bleeding today. Continue taking your prescribed medication. You might need to add in some MiraLAX daily, increase it if you are already taking it or add another stool softener to help with your bowel movements Print Language: Kenyan Disposition Disposition: Home, Self Care Discharge Date/Time: 06/30/25 21:31
[2025-06-30] MEDS: Furosemide 20 MG/2 ML VIAL IV (21:08)
== END 2025-06-30 21:31 | disposition home or self-care (01) ==
PROVIDERS: Emergency Provider Emergency Medicine; PCP Family Medicine; Visit Provider Emergency Medicine
DX: D64.89 Other specified anemias (principal); I10 Essential (primary) hypertension; Z95.1 Presence of aortocoronary bypass graft; Z79.82 Long term (current) use of aspirin; Z79.899 Other long term (current) drug therapy; Z87.891 Personal history of nicotine dependence
CPT/HCPCS: 36430; 82274; 85027; 85610; 85730; 86850; 86900; 86901; 96374; 99284; P9016; A4216; J1938

== ENCOUNTER → 2025-06-30 | Outpatient (CLI) | payer MEDICARE, SELFPAY ==
[2025-06-30 12:40] LABS: Hematocrit 20.3 % (40-54); Hemoglobin 6.7 g/dL (13.0-16.5); Immature Granulocytes Count 0.110 X10^3/uL (0.0-0.0); Mean Corp Hgb Conc 33.0 g/dL (32-36); Mean Corpuscular Volume 86.8 fL (80-94); Mean Platelet Vol. 9.7 fl (6.2-12.0); NRBC Flagged by Analyzer 0 % (0-5); Platelet Count 306 K/mm3 (150-450); RBC Distribution Width CV 14.6 % (11.6-14.6); RBC Distribution Width SD 46.0 fl (35.1-43.9); Red Blood Count 2.34 M/mm3 (4.6-6.2); White Blood Count 5.7 K/mm3 (4.4-11.0)
[2025-06-30 13:15] LABS: AST(SGOT) 60 U/L (<=37); Alanine Aminotransfer ALT/SGPT 77 U/L (<=46); Albumin, Serum 3.8 g/dL (3.4-4.8); Alkaline Phosphatase 168 U/L (40-129); Anion Gap 13 (5-15); BUN 13 mg/dL (4-19); BUN/Creat Ratio 16.0 RATIO (10-20); Calcium,Total 8.8 mg/dL (7.6-11.0); Carbon Dioxide 22.5 mmol/L (21.0-32.0); Chloride 97 mmol/L (98-108); Globulin 3.0 g/dL (2.2-4.2); Glucose 96 mg/dL (70-99); Potassium 3.5 mmol/L (3.3-5.1); Pro- Brain NATRIURETIC PEPTIDE 1590 pg/mL (<=1800)
== END | disposition home or self-care (01) ==
LOC: LAB 11:32
PROVIDERS: PCP Family Medicine; Referring Provider Nurse Practitioner Gerontology; Visit Provider Nurse Practitioner Gerontology
DX: R06.02 Shortness of breath (principal)
CPT/HCPCS: 36415; 80053; 83880; 85025

== ENCOUNTER → 2025-07-03 | Outpatient (CLI) | payer MEDICARE, SELFPAY ==
--- NOTE | 2025-07-03 12:15 | RAD_ITS ---
PROCEDURE: CHEST PA AND LATERAL 07/03/2025 REASON FOR EXAM: DYSPNEA, RECENT OPEN HEART SURGERY TECHNIQUE: Procedure Code: RADCXR Modality: DX Procedure: CHEST PA AND LATERAL COMPARISON: None. FINDINGS: There are bilateral pleural effusions. There is linear scarring or atelectasis in the lingula. The lungs are otherwise clear. There is cardiomegaly and aortic ectasia consistent with benign essential hypertension. Status post CABG surgery. There is calcific vascular disease of the thoracic aorta. The upper abdominal bowel gas pattern is normal. Status post median sternotomy. RAD/Chest PA and Lateral IMPRESSION: Bilateral pleural effusions. Linear atelectasis or scarring in the lingula. F indings consistent with hypertension. Other findings as noted. Reading Location: [id number]
[2025-07-03 16:29] LABS: AST(SGOT) 51 U/L (<=37); Alanine Aminotransfer ALT/SGPT 80 U/L (<=46); Albumin, Serum 3.9 g/dL (3.4-4.8); Alkaline Phosphatase 190 U/L (40-129); Anion Gap 13 (5-15); BUN 12 mg/dL (4-19); BUN/Creat Ratio 15.1 RATIO (10-20); Calcium,Total 9.3 mg/dL (7.6-11.0); Carbon Dioxide 22.3 mmol/L (21.0-32.0); Chloride 99 mmol/L (98-108); Globulin 3.2 g/dL (2.2-4.2); Glucose 84 mg/dL (70-99); Potassium 4.0 mmol/L (3.3-5.1)
[2025-07-03 18:34] LABS: Hematocrit 25.4 % (40-54); Hemoglobin 7.9 g/dL (13.0-16.5); Mean Corp Hgb Conc 31.1 g/dL (32-36); Mean Corpuscular Volume 89.4 fL (80-94); Mean Platelet Vol. 9.9 fl (6.2-12.0); Platelet Count 421 K/mm3 (150-450); RBC Distribution Width CV 14.9 % (11.6-14.6); RBC Distribution Width SD 48.3 fl (35.1-43.9); Red Blood Count 2.84 M/mm3 (4.6-6.2); White Blood Count 4.6 K/mm3 (4.4-11.0)
== END | disposition home or self-care (01) ==
LOC: MTRAD 12:05
PROVIDERS: PCP Family Medicine
DX: I25.118 Atherosclerotic heart disease of native coronary artery with other forms of angina pectoris (principal)
CPT/HCPCS: 36415; 71046; 80053; 85027

== ENCOUNTER → 2025-08-15 | Outpatient (CLI) | payer MEDICARE, SELFPAY ==
--- NOTE | 2025-08-15 10:06 | PCM.CR.HP2 ---
CR - History & Physical General Arrival date:: 08/15/25 Arrival time:: 10:06 Date of Referral:: 08/01/25 Date of CR Evaluation:: 08/15/25 Referring Physician: Dr. Riddle Primary Diagnosis: CABG History of Present Cardiac Event Onset Date Coronary Artery Bypass Graft:: Yes (onset 06/21/2025) Vessel: SMITH-LAD, SVG-OM, SVG-Diag, SVG-PDA Medications Ambulatory Orders ?Medication ?Instructions ?Recorded loratadine 10 mg tablet (Claritin) 10 mg PO QDAY 05/08/25 hydroxychloroquine 200 mg tablet 400 mg PO QDAY 05/10/25 acetaminophen 500 mg tablet 1,000 mg PO Q8H fever or pain 06/30/25 (Tylenol Extra Strength) aspirin 81 mg tablet 81 mg PO QDAY 06/30/25 furosemide 20 mg tablet (Lasix) 40 mg PO QDAY 06/30/25 methocarbamol 500 mg tablet 500 mg PO TID 06/30/25 metoprolol tartrate 100 mg tablet 100 mg PO BID 06/30/25 oxycodone 5 mg capsule 5 mg PO Q6H PRN pain 06/30/25 potassium chloride 20 mEq 20 meq PO QDAY 06/30/25 tablet,extended release (K-Tab) rosuvastatin 40 mg tablet 40 mg PO QDAY #90 tabs 07/19/25 lisinopril 5 mg tablet 5 mg PO QDAY #90 tabs 08/15/25 Allergies Allergies Penicillins Allergy (Verified 06/30/25 13:59) Unknown Sleep Disorder Evaluation Hx of Sleep Apnea: No Do you snore loudly (louder than talking or can be heard through closed doors)?: No Do you often feel tired/ fatigued/ sleepy during daytime?: No Has anyone observed you stop breathing during sleep?: No History of Hypertension (for STOP score): Yes STOP Results: Negative Advanced Directives Advanced Directives Do you have a Healthcare Power of Manager Payment?: Yes Living Will: Yes Advance Directives Information Provided: No Advance Directives on File: No DNR Order?:: No Past Medical History Covid-19 Screening Physicial Symptoms Other Clinical Concerns Exposure Risk Pertinent Comorbidities 65 years or older:: Yes Has a serious heart condition:: Yes Past Medical Illness Medical History PVCs (premature ventricular contractions) Chest pain Rheumatoid arthritis Mixed hyperlipidemia Iron deficiency anemia HTN (hypertension) Past Surgical History Surgical History History of bilateral knee replacement Surgical History: noncontributory Family History Summary Family History Father Cancer lung Mother Cancer Colon cancer CVA (cerebral vascular accident) Social History Smoking History Smoking Status: Never smoker Alcohol Use Alcohol Usage: Yes (rare) Substance Abuse Hx Substance Use: No Occupation Occupation (List type of work in comments):: Retired Social Environment Status Marital Status: Current Living Arrangements Living Environment:: Spouse Children How many children do you have?: 6 Do any of your children live nearby?: Yes Safety Do you feel safe in your surroundings?: Yes Assistance Do you need any assistance at home?: no Review of Systems Review of Systems Hints Review of Present Symptoms: Reports Shortness of Breath with Exertion, Operative Discomfort, Dizziness/Lightheadedness, Fatigue, Appetite - Normal, Appetite - Special Diet and Sleep - Normal; Denies Shortness of Breath at Rest, PVD, Angina, Wound Healing, Heart Arrhythmia/Irregularities or Sexual Changes Pain Is Patient Pain Free?: Yes Risk Factor Assessment Chief Complaint Chief Complaint: CABG Vital Signs Pulse Ox: 98 Blood Pressure: 108/58 Pulse Pulse Rate: 69 Pulse Rhythm: Regular Hypertension How long have you been treated?: 6 years Blood Pressure Sitting - Left Arm: 108/58 Obesity Height: 6 ft Weight:: 175 lb Weight in Pounds: 175.0 lbs Body Mass Index (BMI): 23.7 Nutritional Referral for Obesity: No Physical Inactivity Physical Inactivity: Reg Exercise 30 min/day Risk Stratification Risk Guidelines: Lowest Risk: Risk Factor for Smoking, Moderate Risk: Risk Factor for Dyslipidemia, Risk Factor for Diabetes, Risk Factor for Obesity, Risk Factor for Sedentary Lifestyle and Risk Factor for Depression and Highest Risk: Risk Factor for Hypertension For Smoking Smoking Risk Guidelines For Dyslipidemia Dyslipidemia Risk Guidelines For Diabetes Mellitus Diabetes Risk Guidelines For Obesity/Overweight Obesity/Overweight Risk Guidelines For Hypertension Hypertension Risk Guidelines For Sedentary Lifestyle Sedentary Lifestyle Risk Guidelines For Depression Depression Risk Guidelines Family History Family History Father Cancer lung Mother Cancer Colon cancer CVA (cerebral vascular accident) Motivation Motivation to Participate On a scale of 1 to 10, how prepared are you to commit to attending program?: 10 What do you see as barriers to successfully being able to complete the program?: nothing What do you see as the benefits of succesfully completing the program? In other words, what do you hope to get out of participating in the program?: improve energy Are there issues you are dealing with that will interfere with completing the program?: no Do you have a spouse or signficant other, family or friends who will help support you to complete the program?: yes
--- NOTE | 2025-08-15 10:11 | CR.ITP_ITS ---
Diagnosis General Information Admitting Diagnosis: CABG Personal Learning Style:: Audio/Visual Barriers to Learning: No Barriers Stage of change r/t lifestyle modifications:: Contemplation Gave educational material for:: Treating Heart Disease, How The Heart Works, What it means to have Heart Disease, How Coronary Artery Disease is Diagnosed, Heart Procedures, What Heart Medications Do, Risk Factors & Modifications, Living an Active Life, Nutrition, Emotions & Heart Disease, Stress Management & Relaxation and Sleep Disorders & Heart Disease Education/Goals Cardiac Rehabilitation Goals Personal Goals: Initial Assessment: Improve energy level, Get back to work, or to resume activities faster, Improve muscle strength and endurance, Improve diet and eating habits (eat healthier) and Control risk factors (learn risk factor modification) Scale for measuring improvement of personal goals Diagnosis & Disease Process Outcomes/Goals: Pt IDs own risk factors & lifestyle modifications by Session 10, Verbalizes symptoms of angina & response by session 3., Pt independently manages and Other Additional Outcomes/Goals: Plan/Interventions: Assist Pt to ID & engage in lifestyle modification to reduce CVD risk, Instruct on individual risk factors, Review symptoms of angina & emergency actions, Review secondary diagnosis & identify educational needs. and Other see comment 30 day Reassessments:: Not Met 30 day Reassessments:: Not Met 30 day Reassessments:: Not Met Final Reassessments:: Not Met Safety Referral to Physical Therapy: No Referral to [facility] Case Management: No Fall Risk Assessed:: Yes Assistive Devices:: None Exercise - Initial Assessment Visit Date of Eval: 08/15/25 (initital eval) Mets: Pre-: >3 METS for 30 minutes by discharge, >5 METS for 30 minutes by discharge, >7 METS for 30 minutes by discharge and Unable to meet goal due to: (see comment below) Physician Prescribed Exercise Modalities: Treadmill, Schwinn Airdyne AD-7, SciFit Stepper, SciFit Pro-II Ergometer and SciFit Lateral Independent Marketing Consultant Frequency: 3x/week for 12 weeks [36 sessions] Intensity: 60-80% of age predicted maximum heart rate reserve Duration: 30 - 45 minutes Current METSs:: 3 Target Heart Rate:: 86-108 Resting Blood Pressure: 108/58 EKG Type: SR Current Physical Activity or Exercising minutes: walking Outcomes & Goals Goals:: Verbalizes understanding of THR, RPE & goal METS by session 6, Documents in home exercise log/reports 30 min aerobic 5 day/wk by DC, Demonstrates accurate pulse taking by DC and Other additional outcome/goals: see below Intervention & Plan Exercise Program Goals: Instruct on personal THR & RPE, Instruct on MET level & personal MET goal, Show patient to take own pulse /validate performance until accurate, Instruct on home exercise and Other additional plan/int Physical Activity Home Exercise Physical Activity - Home Exercise: Safe Exercise, Warm-up, Self-monitoring, Cool-Down, Home Exercise > 30 min Daily and Sitting Time <3 hours/daily Outcomes & Goals Outcomes/Goals: Demonstrates correct Warm-up/exercise Cool-Down (S3) if = 2.5 METs, Verbalizes symptoms of exercise intolerance by Session 3 (S3), Demonstrate safe equipment use (S3) & follows exercise prescrition (6) and Other: See below Intervention & Plan Plan/Intervention: Instruct warm-up & cool-down if exercising at > 2 METs, Instruct on symptoms of exercise intolerance & actions to take, Instruct & monitor on saf, Assess intial functional capacity & safety risk and Other See below Nutrition - Initial Assessment Program Goals Nutrition Program Goals Patient has diagnosis of Hyperlipidemia (ICD E78)?: Yes Visit Date of Eval: 08/15/25 (initial eval. Nutrition survey score of 4.) Cholesterol/Lipids (Other Core Measures) Determine presence & major risk factors that modify LDL goal: Cigarette smoking, Hypertension or hypertensive medication, Low HDL cholesterol <40 mg/dL*, Family history of premature CHD in Male < 55 years: female <65 yearsFa and Age men > 45 years; women >/= 55 years Outcomes/Goals: Pt IDs own risk factors & lifestyle modifications by Session 10, Verbalizes symptoms of angina & response by session 3., Pt independently manages and Other Additional Outcomes/Goals: Intervention/Plan: Advocate for lipid panel cholesterol medication if applicable, Instruct on personal lipid levels & lipid goals/NCEP guidelines, Instruct on cholesterol and Other additional plan/int Diabetes (Other Core Measures) Diabetes Type: Not Applicable Weight Mgt (Other Care) Height: 6 ft Weight:: 175 lb BMI: 23.7 Diagnosis Overweight/Obesity BMI> 30% ICD-10 E66: No Diagnosis High BMI/Morbid Obesity BMI> 35% ICD-10 Z68: No Outcomes/Goals: Pt sets, maintains & shows weight loss goal & trend during rehab and Other additional outcomes/goals Intervention/Plan: Instruct on ideal BMI & set weight loss goal w/patient, Assist pt to ID & incorporate diet changes for weight loss by S9, Refer to Structured Weight Loss program as appropriate, Encourage goal of using 250-300dc al per session for weight loss and Other additional plan/interventions Healthy Eating Habits Will attend diet classes:: Yes Outcomes/Goals:: Consume diet rich in vegs,fruits,whole grain/high fiber,fish,lean meat, Limit sat/trans fats,cholesterol & added salts & sugars and Other additional outcome/goals: Intervention/Plan:: Assess current eating habits and Other Additional plan/interventions Education Gave educational materials for:: Signs & symptoms of hypoglycemia, Signs & symptoms of hyperglycemia, Relate diabetes to coronary artery disease and Healthy eating Core - Initial Assessment Visit Date of Eval: 08/15/25 (initial eval) Medication Compliance Preventative Medication(s):: Aspirin, BASHIR inhibitor, Statin/lipid and Beta kelly H/O mental health issues: depression, anxiety, or addiction?: No Doesn?t believe in the benefits of treatment?: No Believes medications are unnecessary or harmful?: No Has a concern about medication side effects?: No Expresses concern over the cost of medications?: No Interventions/plans: Instruct on medication effects & side effects, Review medication list w/patient every two weeks, Instruct importance of taking meds as ordered & assist problem solving and Other additional Tobacco Use Tobacco Use: Non-smoker Hypertension Hypertension Diagnosis:: Hypertension ICD-10 I10 Resting Blood Pressure:: 108/58 [place] [employer] Hypertension Guidelines Outcomes/Goals: Able to verbalize/achieve optimal blood pressure <130/80, Incorporates diet changes & exercise for blood pressure control by DC and Other additional outcomes/goals Interventions/plan: Instruct on optimal blood pressure, hypertension & medications, Instruct on effects of sodium, alcohol, stress, exercise &hypertension and Other additional plan/interventions Tobacco Cessation Referral Smoking Cessation Referral:: No Individual Education/Counseling:: No Education Schedule Given:: Yes Psychosocial - Initial Assess VIsit Date of Eval: 08/15/25 (initial eval) History of previous Mental disease:: No Psychosocial Test Tool Used:: [employer] Power QOL Cardiac and PHQ-9 Questionnaire phq-9 Severity See PHQ-9 Score: 2 Referral to Behavioral Health PS - Interventions: Yes: Attend Stress Management Classes Outcomes/Goals: See list Psychosocial Outcomes/Goals:: ID's personal stressors & 2 strategies to manage stress by discharge and Other Additional outcome/goals: Intervention/Plan: See List Interventions/Plan:: Assess stressors,coping strategies & signs of derpression on admission, Instruct/assist pt to develop coping & personal stress Mgt strategies, Refer to Behavioral Health if appropriate, Refer to Physician if appropriate, Instruct patient to recognize signs & symptoms of depression, Instruct patient to recog and Other additional plan/intervention Exercise - 30-day Assessment Physician Prescribed Exercise Modalities: Treadmill, Schwinn Airdyne AD-7, SciFit Stepper, SciFit Pro-II Ergometer and SciFit Lateral Independent Marketing Consultant Exercise - 60-day Assessment Physician Prescribed Exercise Modalities: Treadmill, Schwinn Airdyne AD-7, SciFit Stepper, SciFit Pro-II Ergometer and SciFit Lateral Independent Marketing Consultant Exercise - 90-day Assessment Physician Prescribed Exercise Modalities: Treadmill, Schwinn Airdyne AD-7, SciFit Stepper, SciFit Pro-II Ergometer and SciFit Lateral [place] Exercise - Final/Discharge Physician Prescribed Exercise Modalities: Treadmill, Schwinn Airdyne AD-7, SciFit Stepper, SciFit Pro-II Ergometer and SciFit Lateral Independent Marketing Consultant Frequency: 3x/week for 12 weeks [36 sessions] Intensity: 60-80% of age predicted maximum heart rate reserve Current METSs:: 3 Target Heart Rate:: 86-108 Nutrition - 30-Day Assessment Weight Mgt (Other Care) Height: 6 ft Weight:: 175 lb BMI: 23.7 Nutrition - 60-Day Assessment Weight Mgt (Other Care) Height: 6 ft Weight:: 175 lb BMI: 23.7 Core - Final Assessment Hypertension Resting Blood Pressure:: 108/58 [place] [employer] Hypertension Guidelines Core - 60-Day Assessment Hypertension Resting Blood Pressure:: 108/58 [place] [employer] Hypertension Guidelines Psychosocial - 30-Day Assess Referral to Behavioral Health PS - Interventions: Yes: Attend Stress Management Classes Psychosocial - 60-Day Assess Referral to Behavioral Health PS - Interventions: Yes: Attend Stress Management Classes Psychosocial - 90-Day Assess Referral to Behavioral Health PS - Interventions: Yes: Attend Stress Management Classes Psychosocial - Final Assessmen Psychosocial Test phq-9 Severity See PHQ-9 Score: 2 Referral to Behavioral Health PS - Interventions: Yes: Attend Stress Management Classes Nutrition - 90-Day Assessment Weight Mgt (Other Care) Height: 6 ft Weight:: 175 lb BMI: 23.7 Nutrition - Final Assessment Program Goals Patient has diagnosis of Hyperlipidemia (ICD E78)?: Yes Weight Mgt (Other Care) Height: 6 ft Weight:: 175 lb BMI: 23.7
[2025-08-15 10:21] VITALS: BP 108/58; PULSE 69; O2SAT 98
[2025-08-15 10:49] VITALS: BP 108/58; BMI 23.7
[2025-08-15 10:51] VITALS: BMI 23.7
== END | disposition home or self-care (01) ==
LOC: CR 09:46
PROVIDERS: PCP Family Medicine; Referring Provider Internal Medicine Cardiovascular Disease; Visit Provider Internal Medicine Cardiovascular Disease
DX: E78.2 Mixed hyperlipidemia (principal); I10 Essential (primary) hypertension

== ENCOUNTER 2025-08-23 10:15 | Outpatient (RCR) | payer MEDICARE, SELFPAY ==
[2025-08-15 10:49] VITALS: BMI 23.7
== END 2025-08-27 23:59 ==
LOC: CR 10:15
PROVIDERS: PCP Family Medicine; Referring Provider Internal Medicine Cardiovascular Disease; Visit Provider Internal Medicine Cardiovascular Disease
DX: Z95.1 Presence of aortocoronary bypass graft (principal); I49.3 Ventricular premature depolarization; I25.10 Atherosclerotic heart disease of native coronary artery without angina pectoris; E78.2 Mixed hyperlipidemia; I10 Essential (primary) hypertension
CPT/HCPCS: 93798

== ENCOUNTER 2025-09-27 10:15 | Outpatient (RCR) | payer MEDICARE, SELFPAY ==
[2025-08-15 10:49] VITALS: BMI 23.7
--- NOTE | 2025-09-12 11:14 | CR.ITP_ITS ---
Exercise - Initial Assessment Visit Session #:: 11 Physician Prescribed Exercise Modalities: Treadmill, SciFit Stepper and SciFit Pro-II Ergometer Nutrition - Initial Assessment Weight Mgt (Other Care) Height: 6 ft Weight:: 202 lb BMI: 27.3 Psychosocial - Initial Assess Referral to Behavioral Health PS - Interventions: Yes: Attend Stress Management Classes Exercise - 30-day Assessment Visit Date of Eval: 09/12/25 Session #:: 11 Physician Prescribed Exercise Modalities: Treadmill, SciFit Stepper and SciFit Pro-II Ergometer Frequency: 3x/week for 12 weeks [36 sessions] Intensity: 60-80% of age predicted maximum heart rate reserve Duration: 30 - 45 minutes Current METSs:: 4.5 Target Heart Rate:: 86-108 Current RPE:: 12-13 Maximum Excercise HR:: 87 Resting Blood Pressure: 148/78 Maximum Exercise Blood Pressure: 146/72 EKG Type: NSR w/rare PAC/PVC Outcomes & Goals Goals:: Verbalizes understanding of THR, RPE & goal METS by session 6, Documents in home exercise log/reports 30 min aerobic 5 day/wk by DC, Demonstrates accurate pulse taking by DC and Other additional outcome/goals: see below Intervention & Plan Exercise Program Goals: Instruct on personal THR & RPE, Instruct on MET level & personal MET goal, Show patient to take own pulse /validate performance until accurate, Instruct on home exercise and Other additional plan/int Physical Activity Home Exercise Physical Activity - Home Exercise: Safe Exercise, Warm-up, Self-monitoring, Cool-Down, Home Exercise > 30 min Daily and Sitting Time <3 hours/daily Outcomes & Goals Outcomes/Goals: Demonstrates correct Warm-up/exercise Cool-Down (S3) if = 2.5 METs, Verbalizes symptoms of exercise intolerance by Session 3 (S3), Demonstrate safe equipment use (S3) & follows exercise prescrition (6) and Other: See below Intervention & Plan Plan/Intervention: Instruct warm-up & cool-down if exercising at > 2 METs, Instruct on symptoms of exercise intolerance & actions to take, Instruct & monitor on saf, Assess intial functional capacity & safety risk and Other See below 30-day Reassessments 30 day Reassessments:: Progressing Reassessment Notes & Comments:: Pt oriented to equipment. RPE explained to pt. Pt demonstrates understanding in his daily sessions. Exercise - 60-day Assessment Physician Prescribed Exercise Modalities: Treadmill, SciFit Stepper and SciFit Pro-II Ergometer Exercise - 90-day Assessment Physician Prescribed Exercise Modalities: Treadmill, SciFit Stepper and SciFit Pro-II Ergometer Exercise - Final/Discharge Physician Prescribed Exercise Modalities: Treadmill, SciFit Stepper and SciFit Pro-II Ergometer Nutrition - 30-Day Assessment Program Goals Nutrition Program Goals Patient has diagnosis of Hyperlipidemia (ICD E78)?: Yes Visit Date of Eval: 09/12/25 Session #:: 11 (Nutrition survey score of 4) Cholesterol/Lipids (Other Core Measures) Determine presence & major risk factors that modify LDL goal: Cigarette smoking, Hypertension or hypertensive medication, Low HDL cholesterol <40 mg/dL*, Family history of premature CHD in Male < 55 years: female <65 yearsFa and Age men > 45 years; women >/= 55 years Outcomes/Goals: Pt IDs own risk factors & lifestyle modifications by Session 10, Verbalizes symptoms of angina & response by session 3., Pt independently manages and Other Additional Outcomes/Goals: Intervention/Plan: Advocate for lipid panel cholesterol medication if applicable, Instruct on personal lipid levels & lipid goals/NCEP guidelines, Instruct on cholesterol and Other additional plan/int Diabetes (Other Core Measures) Diabetes Type: Not Applicable Weight Mgt (Other Care) Height: 6 ft Weight:: 202 lb BMI: 27.3 Diagnosis Overweight/Obesity BMI> 30% ICD-10 E66: No Diagnosis High BMI/Morbid Obesity BMI> 35% ICD-10 Z68: No Outcomes/Goals: Pt sets, maintains & shows weight loss goal & trend during rehab and Other additional outcomes/goals Intervention/Plan: Instruct on ideal BMI & set weight loss goal w/patient, Assist pt to ID & incorporate diet changes for weight loss by S9, Refer to Structured Weight Loss program as appropriate, Encourage goal of using 250- 300dcal per session for weight loss and Other additional plan/interventions Healthy Eating Habits Will attend diet classes:: Yes Outcomes/Goals:: Consume diet rich in vegs,fruits,whole grain/high fiber,fish,lean meat, Limit sat/trans fats,cholesterol & added salts & sugars and Other additional outcome/goals: Intervention/Plan:: Assess current eating habits and Other Additional plan/interventions 30-day Reassessments:: Progressing Reassessment Notes & Comments:: Pt is scheduled to attend nutrition classes with our press department manager. Heart healthy low sodium diet encouraged. Education Gave educational materials for:: Signs & symptoms of hypoglycemia, Signs & symptoms of hyperglycemia, Relate diabetes to coronary artery disease and Healthy eating Nutrition - 60-Day Assessment Weight Mgt (Other Care) Height: 6 ft Weight:: 202 lb BMI: 27.3 Core - 30-Day Assessment Visit Date of Eval: 09/12/25 Session #:: 11 Medication Compliance Preventative Medication(s):: Aspirin, BASHIR inhibitor, Statin/lipid and Beta kelly H/O mental health issues: depression, anxiety, or addiction?: No Doesn?t believe in the benefits of treatment?: No Believes medications are unnecessary or harmful?: No Has a concern about medication side effects?: No Expresses concern over the cost of medications?: No Outcomes/Goals: Verbalizes medications,desired effect & common side effects @ DC, Pt self-reports following medication regimen, Keeps card in wallet w/medications listed by DC and Other additional outcome/goals: Interventions/plans: Instruct on medication effects & side effects, Review medication list w/patient every two weeks, Instruct importance of taking meds as ordered & assist problem solving and Other additional Tobacco Use Tobacco Use: Non-smoker Hypertension Hypertension Diagnosis:: Hypertension ICD-10 I10 Resting Blood Pressure:: 148/78 [place] [employer] Hypertension Guidelines Peak Exercise Blood Pressure:: 146/72 Outcomes/Goals: Able to verbalize/achieve optimal blood pressure <130/80, Incorporates diet changes & exercise for blood pressure control by DC and Other additional outcomes/goals Interventions/plan: Instruct on optimal blood pressure, hypertension & medications, Instruct on effects of sodium, alcohol, stress, exercise &hypertension and Other additional plan/interventions 30 day Reassessments:: Progressing Reassessment Notes & Comments:: Pt's BP's are within AHA normal limits on some days. Will continue to monitor and report to pt's physician if necessary. Tobacco Cessation Referral Smoking Cessation Referral:: No Individual Education/Counseling:: No Education Schedule Given:: Yes Psychosocial - 30-Day Assess VIsit Date of Eval: 09/12/25 Session #:: 11 History of previous Mental disease:: No Psychosocial Test Tool Used:: [employer] Power QOL Cardiac and PHQ-9 Questionnaire phq-9 Severity See PHQ-9 Score: 2 Referral to Behavioral Health PS - Interventions: Yes: Attend Stress Management Classes Outcomes/Goals: See list Psychosocial Outcomes/Goals:: ID's personal stressors & 2 strategies to manage stress by discharge and Other Additional outcome/goals: Intervention/Plan: See List Interventions/Plan:: Assess stressors,coping strategies & signs of derpression on admission, Instruct/assist pt to develop coping & personal stress Mgt strategies, Refer to Behavioral Health if appropriate, Refer to Physician if appropriate, Instruct patient to recognize signs & symptoms of depression, Instruct patient to recog and Other additional plan/intervention 30-day Reassessments: 30 day Reassessments:: Progressing Reassessment Notes & Comments:: Pt denies any psychosocial issues at this time. Pt to attend stress management classes. Will reassess every 30 days. Psychosocial - 60-Day Assess Referral to Behavioral Health PS - Interventions: Yes: Attend Stress Management Classes Outcomes/Goals: See list Psychosocial Outcomes/Goals:: ID's personal stressors & 2 strategies to manage stress by discharge and Other Additional outcome/goals: Psychosocial - 90-Day Assess Referral to Behavioral Health PS - Interventions: Yes: Attend Stress Management Classes Psychosocial - Final Assessmen Referral to Behavioral Health PS - Interventions: Yes: Attend Stress Management Classes Nutrition - 90-Day Assessment Weight Mgt (Other Care) Height: 6 ft Weight:: 202 lb BMI: 27.3 Nutrition - Final Assessment Weight Mgt (Other Care) Height: 6 ft Weight:: 202 lb BMI: 27.3
[2025-09-12 11:25] VITALS: BP 148/78; BMI 27.3
== END 2025-09-27 23:59 ==
LOC: CR 10:15
PROVIDERS: PCP Family Medicine; Referring Provider Internal Medicine Cardiovascular Disease; Visit Provider Internal Medicine Cardiovascular Disease
DX: Z95.1 Presence of aortocoronary bypass graft (principal); I49.3 Ventricular premature depolarization; I25.10 Atherosclerotic heart disease of native coronary artery without angina pectoris; E78.2 Mixed hyperlipidemia; I10 Essential (primary) hypertension
CPT/HCPCS: 93798